=== PATIENT | female | born 1990 | race Caucasian/White ===

== ENCOUNTER 2018-11-15 05:28 | Emergency (ER) | payer OTHER ==
[2018-11-15] MEDS ORDERED: METOCLOPRAMIDE 10 MG/2mL INJ ONE (05:49)
[2018-11-15] MEDS ORDERED: ONDANSETRON 4 MG/2 ML VIAL ONE ×2 (05:49→06:38)
[2018-11-15] MEDS ORDERED: LORazepam 2 MG/ML VIAL ONE ×2 (05:51→09:28)
[2018-11-15] MEDS ORDERED: NA CHLORIDE 0.9% 1,000 ML ONE ×2 (05:51→07:37)
[2018-11-15 06:28] LABS: Absolute Monocytes 0.2 K/uL (0.1-1.3); Absolute Neutrophil 8.9 K/uL (1.8-8.0); Basophils % 0.3 % (0-1.3); Eosinophils % 0.1 % (0-4.4); Hematocrit 40.3 % (36.0-45.0); Lymphocytes % 9.7 % (15.3-44.8); MPV 8.6 fL (7.6-11.3); Monocytes % 2.3 % (3.3-12.3)
[2018-11-15 06:46] LABS: Bilirubin Direct 0.2 mg/dL (0-0.2); Bilirubin Total 0.6 mg/dL (0.2-1.0); Potassium 3.9 mmol/L (3.5-5.1)
[2018-11-15] MEDS ORDERED: PROMETHAZINE 25 MG/ML VIAL ONE ×2 (06:56→08:19)
[2018-11-15 08:30] LABS: Urine Blood NEGATIVE (NEG); Urine Glucose NEGATIVE (NEG); Urine Protein 1+ (NEG); Urine Specific Gravity 1.025 (1.005-1.030)
--- NOTE | 2018-11-15 08:37 | EDPHYS ---
Physician Documentation [facility] Name: Katherine Akbar Age: 28 yrs Sex: Female : 1990 Arrival Date: 11/15/2018 Time: 05:33 Bed 8 Private MD: LESTER Physician Bruno Singh HPI: 11/15 05:40 This 28 yrs old Female presents to ER via EMS with complaints of marcel Nausea/Vomiting. 05:40 The patient presents to the emergency department with nausea, vomiting, that is marcel continuous. Onset: The symptoms/episode began/occurred 3 day(s) ago. Possible causes: unknown. The symptoms are aggravated by nothing. Associated signs and symptoms: The patient has no apparent associated signs or symptoms. Severity of symptoms: At their worst the symptoms were moderate in the emergency department the symptoms are unchanged. The patient has experienced similar episodes in the past, several times. 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 - Social history:: Smoking status: Patient/guardian denies using tobacco. - Ebola Screening: : No symptoms or risks identified at this time. - Family history:: not pertinent. ROS: 05:40 Constitutional: Negative for fever, chills, and weight loss, Eyes: Negative for injury, marcel pain, redness, and discharge, ENT: Negative for injury, pain, and discharge, Neck: Negative for injury, pain, and swelling, Cardiovascular: Negative for chest pain, palpitations, and edema, Respiratory: Negative for shortness of breath, cough, wheezing, and pleuritic chest pain, Back: Negative for injury and pain, : Negative for injury, bleeding, discharge, and swelling, MS/Extremity: Negative for injury and deformity, Skin: Negative for injury, rash, and discoloration, Neuro: Negative for headache, weakness, numbness, tingling, and seizure, Psych: Negative for depression, anxiety, suicide ideation, homicidal ideation, and hallucinations, Allergy/Immunology: Negative for hives, rash, and allergies, Endocrine: Negative for neck swelling, polydipsia, polyuria, polyphagia, and marked weight changes, Hematologic/Lymphatic: Negative for swollen nodes, abnormal bleeding, and unusual bruising. 05:40 Abdomen/GI: Positive for abdominal pain, nausea and vomiting, abdominal cramps. Exam: 05:40 Constitutional: This is a well developed, well nourished patient who is awake, alert, marcel and in no acute distress. Head/Face: Normocephalic, atraumatic. Eyes: Pupils equal round and reactive to light, extra-ocular motions intact. Lids and lashes normal. Conjunctiva and sclera are non-icteric and not injected. Cornea within normal limits. Periorbital areas with no swelling, redness, or edema. ENT: Nares patent. No nasal discharge, no septal abnormalities noted. Tympanic membranes are normal and external auditory canals are clear. Oropharynx with no redness, swelling, or masses, exudates, or evidence of obstruction, uvula midline. Mucous membranes moist. Neck: Trachea midline, no thyromegaly or masses palpated, and no cervical lymphadenopathy. Supple, full range of motion without nuchal rigidity, or vertebral point tenderness. No Meningismus. Chest/axilla: Normal chest wall appearance and motion. Nontender with no deformity. No lesions are appreciated. Cardiovascular: Regular rate and rhythm with a normal S1 and S2. No gallops, murmurs, or rubs. Normal PMI, no JVD. No pulse deficits. Respiratory: Lungs have equal breath sounds bilaterally, clear to auscultation and percussion. No rales, rhonchi or wheezes noted. No increased work of breathing, no retractions or nasal flaring. Back: No spinal tenderness. No costovertebral tenderness. Full range of motion. Skin: Warm, dry with normal turgor. Normal color with no rashes, no lesions, and no evidence of cellulitis. MS/ Extremity: Pulses equal, no cyanosis. Neurovascular intact. Full, normal range of motion. Neuro: Awake and alert, GCS 15, oriented to person, place, time, and situation. Cranial nerves II-XII grossly intact. Motor strength 5/5 in all extremities. Sensory grossly intact. Cerebellar exam normal. Normal gait. Psych: Awake, alert, with orientation to person, place and time. Behavior, mood, and affect are within normal limits. 05:40 Abdomen/GI: Inspection: abdomen appears normal, Bowel sounds: normal, Palpation: mild abdominal tenderness, in the epigastric area, right upper quadrant and left upper quadrant. Vital Signs: 05:37 BP 140 / 98; Pulse 61; Resp 18; Temp 97.7; Pulse Ox 100% on R/A; Weight 58.97 kg; aa1 Height 5 ft. 6 in. (167.64 cm); 07:58 BP 120 / 61; Pulse 75; Resp 18; Pulse Ox 100% on R/A; hj 08:13 BP 124 / 82; Pulse 85; Resp 18; Pulse Ox 100% on R/A; hj 09:24 BP 128 / 87; Pulse 84; Resp 18; Pulse Ox 100% on R/A; hj 10:37 BP 125 / 84; Pulse 83; Resp 18; Pulse Ox 100% on R/A; hj 05:37 Body Mass Index 20.98 (58.97 kg, 167.64 cm) aa1 MDM: 05:34 Patient medically screened. [facility] 05:40 Data reviewed: vital signs, nurses notes, lab test result(s), radiologic studies, plain marcel films. 11/15 05:36 Order name: Basic Metabolic Panel; Complete Time: 06:52 ea 11/15 05:36 Order name: CBC with Diff; Complete Time: 09:22 ea 11/15 05:36 Order name: Creatinine for Radiology; Complete Time: 06:52 ea 11/15 05:36 Order name: Hepatic Function; Complete Time: 06:52 ea 11/15 05:36 Order name: Lipase; Complete Time: 06:52 ea 11/15 06:34 Order name: CBC Smear Scan; Complete Time: 09:22 EDND 11/15 05:44 Order name: Abdomen with Erect XRAY; Complete Time: 10:48 marcel 11/15 07:29 Order name: Urine Dipstick--Ancillary (enter results); Complete Time: 08:31 eb 11/15 07:29 Order name: Urine --Ancillary (enter results); Complete Time: 08:31 eb 11/15 07:33 Order name: Quantitative Hcg; Complete Time: 08:26 marcel 11/15 07:33 Order name: Abo/rh Typing; Complete Time: 08:15 marcel 11/15 08:48 Order name: ABO/RH no charge; Complete Time: 09:22 EDMS 11/15 05:36 Order name: IV Saline Lock; Complete Time: 05:36 ea 11/15 05:36 Order name: Labs collected and sent; Complete Time: 05:52 ea 11/15 05:44 Order name: Urine Dipstick-Ancillary (obtain specimen); Complete Time: 07:44 marcel 11/15 05:44 Order name: Urine Test (obtain specimen); Complete Time: 07:44 marcel 11/15 06:12 Order name: Labs - recollect needed; Complete Time: 06:29 eb 11/15 07:33 Order name: NPO; Complete Time: 07:42 marcel Administered Medications: 05:42 Drug: Reglan 10 mg Route: IVP; Site: left antecubital; ea 06:30 Follow up: Response: No adverse reaction ea 05:45 Drug: Ativan 1 mg Route: IVP; Site: left antecubital; ea 06:30 Follow up: Response: No adverse reaction ea 05:50 Drug: Zofran 4 mg Route: IVP; Site: left antecubital; ea 06:30 Follow up: Response: No adverse reaction; Pain is unchanged, physician notified ea 06:30 Drug: Zofran 4 mg Route: IVP; Site: left antecubital; ea 06:40 Follow up: Response: No adverse reaction; Pain is unchanged, physician notified ea 06:45 Drug: Phenergan 12.5 mg Route: IVP; Site: left antecubital; ea 07:01 Follow up: Response: No adverse reaction; Nausea is decreased ea 07:28 Drug: NS 0.9% 1000 ml Route: IV; Rate: 1 bolus; Site: left antecubital; hj 08:45 Follow up: IV Status: Completed infusion; IV Intake: 1000ml hj 09:00 Follow up: IV Status: Completed infusion; IV Intake: 1000ml hj 08:06 Drug: Phenergan 12.5 mg Route: IVP; Site: left antecubital; hj 08:12 Follow up: Response: No adverse reaction hj 09:18 Drug: Ativan 0.5 mg Route: IVP; Site: left antecubital; hj 09:23 Follow up: Response: No adverse reaction; Anxiety decreased hj 09:19 Drug: Phenergan Suppository 25 mg Route: KS; hj 09:23 Follow up: Response: No adverse reaction; Nausea is decreased hj Disposition: 11/15/18 08:36 Discharged to Home. Impression: Gastroparesis, Vomiting, unspecified. - Condition is Stable. - Discharge Instructions: Nausea and Vomiting, Adult, Nausea and Vomiting, Adult, [id number], Gastroparesis. - Prescriptions for Clonidine 0.1 mg Oral Tablet - take 1 tablet by ORAL route every 12 hours; 20 tablet. Klonopin 1 mg Oral Tablet - take 1 tablet by ORAL route every 12 hours As needed; 20 tablet. Pepcid 20 mg Oral Tablet - take 1 tablet by ORAL route every 12 hours for 10 days; 20 tablet. promethazine 25 mg Oral Tablet - take 1 tablet by ORAL route every 6 hours As needed; 20 tablet. - Medication Reconciliation Form, Thank You Letter, Antibiotic Education, Prescription Opioid Use form. - Follow up: Emergency Department; When: As needed; Reason: Worsening of condition. Follow up: Private Physician; When: 2 - 3 days; Reason: Recheck today's complaints, Continuance of care, Re-evaluation by your physician. Signatures: Dispatcher [employer] [facility] Angelina Dick RN RN aaBruno Cuba MD MD cha Therrien, Shelly, RESIDENTIAL PROPERTY TAX APPRAISER-C RESIDENTIAL PROPERTY TAX APPRAISER-Csnw Jh Stokes RN RN hj Antunez, Elena RN Olga Shine ea Corrections: (The following items were deleted from the chart) 11:17 07:33 Transvaginal Ob+US.RAD.BRZ ordered. [facility] 11:25 08:36 11/15/2018 08:36 Discharged to Home. Impression: Gastroparesis; Vomiting, hj unspecified. Condition is Stable. Discharge Instructions: Nausea and Vomiting, Adult, Nausea and Vomiting, Adult, [id number], Gastroparesis. Prescriptions for Clonidine 0.1 mg Oral Tablet - take 1 tablet by ORAL route every 12 hours; 20 tablet, Klonopin 1 mg Oral Tablet - take 1 tablet by ORAL route every 12 hours As needed; 20 tablet, Pepcid 20 mg Oral Tablet - take 1 tablet by ORAL route every 12 hours for 10 days; 20 tablet, promethazine 25 mg Oral Tablet - take 1 tablet by ORAL route every 6 hours As needed; 20 tablet. and Forms are Medication Reconciliation Form, Thank You Letter, Antibiotic Education, Prescription Opioid Use. Follow up: Emergency Department; When: As needed; Reason: Worsening of condition. Follow up: Private Physician; When: 2 - 3 days; Reason: Recheck today's complaints, Continuance of care, Re-evaluation by your physician. eri
--- NOTE | 2018-11-15 08:37 | ER ---
Nurse's Notes [facility] Name: Katherine Akbar Age: 28 yrs Sex: Female : 1990 Arrival Date: 11/15/2018 Time: 05:33 Bed 8 Private MD: Diagnosis: Gastroparesis;Vomiting, unspecified Presentation: 11/15 05:34 Presenting complaint: Patient states: N/V x 3 days. Reports hx of gastroparesis but has aa1 not had a flare up in several years. Transition of care: patient was not received from another setting of care. Onset of symptoms was November 12, 2018. Risk Assessment: Do you want to hurt yourself or someone else? Patient reports no desire to harm self or others. Initial Sepsis Screen: Does the patient meet any 2 criteria? No. Patient's initial sepsis screen is negative. Does the patient have a suspected source of infection? No. Patient's initial sepsis screen is negative. Care prior to arrival: Glucose check: 125. 05:34 Method Of Arrival: EMS: [facility] aa1 05:34 Acuity: BALTAZAR 3 aa1 Triage Assessment: 05:37 General: Appears in no apparent distress. uncomfortable, Behavior is calm, cooperative, aa1 appropriate for age. 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 - Social history:: Smoking status: Patient/guardian denies using tobacco. - Ebola Screening: : No symptoms or risks identified at this time. - Family history:: not pertinent. Screenin:50 Fall Risk ea 05:55 Abuse screen: Denies threats or abuse. Nutritional screening: No deficits noted. ea Tuberculosis screening: No symptoms or risk factors identified. Assessment: 05:40 General: Appears uncomfortable, Behavior is appropriate for age. Pain: Denies pain. ea Neuro: Level of Consciousness is awake, alert, obeys commands, Oriented to person, place, time, situation. Cardiovascular: Patient's skin is warm and dry. Respiratory: Airway is patent Respiratory effort is even, unlabored, Respiratory pattern is regular, symmetrical. GI: Abdomen is non-distended, Abd is soft and non tender X 4 quads. Reports nausea, vomiting. Derm: Skin is pink, warm \\T\\ dry. Musculoskeletal: Circulation, motion, and sensation intact. 06:40 Reassessment: Patient and/or family updated on plan of care and expected duration. Pain ea level reassessed. Patient is alert, oriented x 3, equal unlabored respirations, skin warm/dry/pink. 07:59 General: Appears in no apparent distress. uncomfortable, Behavior is calm, cooperative, hj appropriate for age. Pain: Denies pain. Neuro: Level of Consciousness is awake, alert, obeys commands, Oriented to person, place, time, situation, Appropriate for age. Cardiovascular: Capillary refill < 3 seconds Patient's skin is warm and dry. Respiratory: Airway is patent Respiratory effort is even, unlabored, Respiratory pattern is regular, symmetrical. GI: Abdomen is non-distended, Abd is soft and non tender X 4 quads. Reports nausea. : No signs and/or symptoms were reported regarding the genitourinary system. EENT: No signs and/or symptoms were reported regarding the EENT system. Derm: No signs and/or symptoms reported regarding the dermatologic system. Musculoskeletal: No signs and/or symptoms reported regarding the musculoskeletal system. 08:00 Reassessment: Patient and/or family updated on plan of care and expected duration. Pain hj level reassessed. Patient is alert, oriented x 3, equal unlabored respirations, skin warm/dry/pink. resting comfortably, awaiting results of HCG;. 09:00 Reassessment: Patient and/or family updated on plan of care and expected duration. Pain hj level reassessed. Patient is alert, oriented x 3, equal unlabored respirations, skin warm/dry/pink. still nauseous and vomted x 2; provider aware with orders;. 09:35 Reassessment: Patient and/or family updated on plan of care and expected duration. Pain hj level reassessed. Patient is alert, oriented x 3, equal unlabored respirations, skin warm/dry/pink. ptstates "im sleepy, im about to call my dad for a ride"; will let you know;. 09:58 Reassessment: per pt: tried calling dad, but not answering, im calling him again;. hj 10:23 Reassessment: Patient and/or family updated on plan of care and expected duration. Pain hj level reassessed. Patient is alert, oriented x 3, equal unlabored respirations, skin warm/dry/pink. awaiting results;. 10:36 Reassessment: per pt: im going to try to call my dad again or look for other relatives hj to pick me up;. Vital Signs: 05:37 BP 140 / 98; Pulse 61; Resp 18; Temp 97.7; Pulse Ox 100% on R/A; Weight 58.97 kg; aa1 Height 5 ft. 6 in. (167.64 cm); 07:58 BP 120 / 61; Pulse 75; Resp 18; Pulse Ox 100% on R/A; hj 08:13 BP 124 / 82; Pulse 85; Resp 18; Pulse Ox 100% on R/A; hj 09:24 BP 128 / 87; Pulse 84; Resp 18; Pulse Ox 100% on R/A; hj 10:37 BP 125 / 84; Pulse 83; Resp 18; Pulse Ox 100% on R/A; hj 05:37 Body Mass Index 20.98 (58.97 kg, 167.64 cm) aa1 ED Course: 05:33 Patient arrived in ED. aa1 05:34 Bruno Singh MD is Attending Physician. marcel 05:36 Reema Og, FORTUNATO is Primary Nurse. ea 05:36 Triage completed. aa1 05:37 Arm band placed on right wrist. aa1 05:40 Patient has correct armband on for positive identification. Bed in low position. Call ea light in reach. Side rails up X2. 05:40 Inserted saline lock: 20 gauge in left antecubital area, using aseptic technique. Blood ea collected. 05:58 X-ray completed. Patient tolerated procedure well. sg4 06:01 Abdomen with Erect XRAY In Process Unspecified. EDMS 07:03 Report given to Jh BUCIO. ea 07:41 Guera Coornado FNP-C is PHCP. snw 07:58 Quantitative Hcg Sent. hj 07:58 Abo/rh Typing Sent. hj 08:04 Radiology exam delayed due to test not completed at this time. sg3 09:36 No provider procedures requiring assistance completed. IV discontinued, intact, hj bleeding controlled, No redness/swelling at site. Pressure dressing applied. Administered Medications: 05:42 Drug: Reglan 10 mg Route: IVP; Site: left antecubital; ea 06:30 Follow up: Response: No adverse reaction ea 05:45 Drug: Ativan 1 mg Route: IVP; Site: left antecubital; ea 06:30 Follow up: Response: No adverse reaction ea 05:50 Drug: Zofran 4 mg Route: IVP; Site: left antecubital; ea 06:30 Follow up: Response: No adverse reaction; Pain is unchanged, physician notified ea 06:30 Drug: Zofran 4 mg Route: IVP; Site: left antecubital; ea 06:40 Follow up: Response: No adverse reaction; Pain is unchanged, physician notified ea 06:45 Drug: Phenergan 12.5 mg Route: IVP; Site: left antecubital; ea 07:01 Follow up: Response: No adverse reaction; Nausea is decreased ea 07:28 Drug: NS 0.9% 1000 ml Route: IV; Rate: 1 bolus; Site: left antecubital; hj 08:45 Follow up: IV Status: Completed infusion; IV Intake: 1000ml hj 09:00 Follow up: IV Status: Completed infusion; IV Intake: 1000ml hj 08:06 Drug: Phenergan 12.5 mg Route: IVP; Site: left antecubital; hj 08:12 Follow up: Response: No adverse reaction hj 09:18 Drug: Ativan 0.5 mg Route: IVP; Site: left antecubital; hj 09:23 Follow up: Response: No adverse reaction; Anxiety decreased hj 09:19 Drug: Phenergan Suppository 25 mg Route: IA; hj 09:23 Follow up: Response: No adverse reaction; Nausea is decreased hj Intake: 08:45 IV: 1000ml; Total: 1000ml. hj 09:00 IV: 1000ml; Total: 2000ml. hj Outcome: 08:36 Discharge ordered by . eri 09:36 Discharged to home ambulatory, with family. hj 09:36 Condition: stable 09:36 Discharge instructions given to patient, Instructed on discharge instructions, follow up and referral plans. medication usage, Demonstrated understanding of instructions, follow-up care, medications, Prescriptions given X 4. 11:25 Patient left the ED. hj Signatures: Dispatcher [employer] EDMS Angelina Dick RN RN aaBruno Cuba MD MD cha Therrien, Shelly, LICENSED PHARMACIST-C LICENSED PHARMACIST-Csnw Jh Stokes, RN Reema Hernandez, RN FORTUNATO Young, Karla sg3 Dorina Disla sg4 Corrections: (The following items were deleted from the chart) 05:57 05:26 General: Appears uncomfortable, Behavior is ea ea 08:14 07:58 BP 120 / 61; Pulse 65bpm; Resp 18bpm; Pulse Ox 100% RA; hj 09: 08:00 Reassessment: Patient and/or family updated on plan of care and expected hj duration. Pain level reassessed. Patient is alert, oriented x 3, equal unlabored respirations, skin warm/dry/pink. still nauseous and vomted x 2; provider aware with orders; 09:00 Reassessment: Patient and/or family updated on plan of care and expected hj duration. Pain level reassessed. Patient is alert, oriented x 3, equal unlabored respirations, skin warm/dry/pink. resting comfortably, awaiting results of HCG; hj
[2018-11-15 09:17] LABS: Blood Morphology Comment NOT SEEN (NOT SEEN); Platelet Estimate ADEQ; Urine White Blood Cell Casts OK
[2018-11-15] MEDS ORDERED: PROMETHAZINE 12.5 MG/SUPP PR ONE (09:24)
[2018-11-15] MEDS ORDERED: PROMETHAZINE 25 MG/SUPP PR ONE (09:28)
--- NOTE | 2018-11-15 10:37 | RAD REPORT ---
EXAM DESCRIPTION: RAD - Abdomen W Erect - 11/15/2018 6:01 am CLINICAL HISTORY: ABD PAIN Pain COMPARISON: No comparisons FINDINGS: The bowel gas pattern is non-obstructive. No evidence of free air or pneumatosis. No suspi cious calcifications. No significant bony findings. IUD is noted. IMPRESSION: Negative examination.
== END 2018-11-15 11:25 | disposition home or self-care (01) ==
LOC: ER 05:28
DX: K31.84 Gastroparesis (principal); F41.9 Anxiety disorder, unspecified
CPT/HCPCS: 36415; 74019; 80048; 80076; 81003; 81025; 83690; 84702; 85025; 86900; 86901; 96361; 96374; 96375; 99284; J2405; J2550; J2765; J7030

== ENCOUNTER 2023-04-29 17:01 | Observation (INO) | payer OTHER ==
--- OUTSIDE RECORDS SUMMARY | 2023-04-29 17:10 | XMS REPORT | Continuity of Care Document ---
:1990 Author Organization [facility] t Address [address] [place] [address] [place] [id number] Care Team Providers Name Role Phone JANE BERRY Primary Care Physician Unavailable VALERIA JONAS Attending Clinician Unavailable EDEN OLIVAS Attending Clinician Unavailable Edie Og Attending Clinician JANE BERRY Attending Clinician Unavailable Jane Osorio Attending Clinician Tomasz Rodriguez MD Attending Clinician YONY COX Attending Clinician Unavailable Yony Cox MD Attending Clinician Doctor Unassigned, [place] Attending Clinician Unavailable TOMASZ RODRIGUEZ Attending Clinician Unavailable 2, [facility] Attending Clinician Unavailable Valeria Jonas MD Attending Clinician Alisson Bhatt LVN Attending Clinician CATHRYN LINO Attending Clinician Unavailable Sybil Victor Attending Clinician Bartolo Cervantes MD Attending Clinician Cathryn Lino DO Attending Clinician Charlotte Shay RN Attending Clinician Unavailable EDILMA CANALES Attending Clinician Unavailable Pob, [facility] Main Attending Clinician Unavailable CORWIN LEON Attending Clinician Unavailable Margo Michael RN Attending Clinician Unavailable Kalen Chase Attending Clinician Sonia Oseguera MD Attending Clinician KALEN YEAGER Attending Clinician Unavailable Dorcas Man DO Attending Clinician DORCAS MAN Attending Clinician Unavailable CATHRYN LINO Admitting Clinician Unavailable Cathryn Lino DO Admitting Clinician Sonia Oseguera MD Admitting Clinician Payers Payer Name Policy Type Policy Number Effective Date Expiration Date Manuel [employer] [id number] 2015 00:00:00 [facility] [id number] 2019 HEALTH PLAN [facility] 00:00:00 [facility] Problems Condition Condition Condition Status Onset Resolution Last Treating Co mments Source Name Details Category Date Date Treatment Clinician Date Vomiting Vomiting Disease Active 2020-08 Unive rs 2-06 ity of 00:00: [place] [facility] Obesity Obesity Disease Active 2020-08 Univers (BMI (BMI 2-06 ity of 30-39.9) 30-39.9) 00:00: [place] [facility] Anxiety Anxiety Disease Active Univers 6-04 ity of 00:00: [place] [facility] PID PID Disease Active Univers (pelvic (pelvic 6-04 ity of inflammato inflammato [place] 00 Medical disease) disease) Branch Acquired Acquired Disease Active 2019-08 Unive rs hypothyroi hypothyroi 2-10 it y of dism dism 00:00: [place] [facility] Mild Mild Disease Active 2019-08 Univers anemia anemia 2-10 ity of 00:00: [place] [facility] Vitamin D Vitamin D Disease Active 2019-08 Uni vers deficiency deficiency 2-10 it y of 00:00: [place] [facility] B12 B12 Disease Active 2019-08 Univers deficiency deficiency 2-10 it y of 00:00: [place] [facility] Mixed Mixed Disease Active 2019-08 Univers hyperlipid hyperlipid 2-10 it y of emia emia 00:00: [place] [facility] Intractabl Intractabl Disease Active 2019-08 U nivers e nausea e nausea 0-16 ity of and and 00:00: [place] vomiting vomiting 00 Medica l Branch Opioid Opioid Disease Active Univers dependence dependence 7-21 it y of , , 00:00: [place] uncomplica uncomplica 00 Me dical mary hernandez Branch Presence Presence Disease Active 2018-08 Overview: Un aníbal of of 0-23 Formattin ity of intrauteri intrauteri 00:00: g of this [place] ne ne 00 note Medical contracept contracept might be Branch carolyn device carolyn device different from the original. Mirena IUD placed September 2014 at [facility]. Due for removal/r einsertio n September 2019.Beckie na IUD placed September 2014 at [facility]. Due for removal/r einsertio n September 2019. Controlled Controlled Disease Active Overview : Univers substance substance 4-12 Formattin i ty of agreement agreement 00:00: g of this [place] signed signed 00 note Medical might be Branch different from the original. Formattin g of this note might be different from the original. Signed 11-27-18 - Alprazola m 1mg Tab, 1-2T daily PRN, #45/28-30 DS 019 ALPRAZOLA M 1 MG TABLET #40 27 [id number] LETICIA LEO MD [facility]2018 SUBOXONE 8 MG- 2 MG SL FILM [id number] 03 #28 GAEL B[facility]2018 SUBOXONE 8 MG- 2 MG SL FILM [id number] 03 #28 [facility]2018 ALPRAZOLA M 1 MG TABLET # [address] [facility]2018 SUBOXONE 8 MG- 2 MG SL FILM #28 [facility]2018 ALPRAZOLA M 1 MG TABLET # [address] [facility]2018 BUPRENORP HIN- [place] 8- 2 MG SL # 2804/06/20 019 ALPRAZOLA M 1 MG TABLET # 45 NATALIE [address] [facility]2018 ALPRAZOLA M 1 MG TABLET #15 NATALIE Gomez [facility]2018 BUPREN[employer]P HIN- [place] 8- 2 MG SL # 30 [facility] [employer]10/06 ALPRAZOLA M 1 MG TABLET # 45 [facility]2018 ALPRAZOLA M 1 MG TABLET # 45 [facility]IANA [facility]2017 [employer] HIN- [place] 8- 2 MG [id number] [facility]2017 ALPRAZOLA M 1 MG [id number] [id number] LETICIA [facility]2017 [employer] HIN- [place] 8- 2 MG [id number] [facility]2017 [employer] HIN- [place] 8- 2 MG [id number] [facility]2017 ALPRAZOLA M 1 MG [id number] [facility]AS [facility]2017 BUPRENORP HIN- [place] 8- 2 MG SL #4228 [id number] [facility]2017 ALPRAZOLA M 1 MG [id number] 450 018 [employer] [facility]- [place] 8- 2 MG [id number] [facility] [employer]2017 [employer] HIN- [place] 8- 2 MG [id number] 7083 [id number] [facility]2017 [employer] HIN- [place] 8- 2 MG [id number] [facility]2017 ALPRAZOLA M 1 MG [id number] [facility] [employer]2017 [employer] HIN- [place] 8- 2 MG [id number] 7083 [id number] [facility]2017 ELEUTERIO M 1 MG [id number] ADLLAS Arceo MD [place] [employer] [facility] Iron Iron Disease Active Overview: Univer s deficiency deficiency 4-11 Formattin ity of anemia anemia 00:00: g of this [place] secondary secondary 00 note Medi lara to to might be Branch inadequate inadequate different dietary dietary from the iron iron original. intake intake Formattin g of this note might be different from the original. Pain clinic ROSELYN found iron borderlin e low recommend ed OTC iron with vitamin C Pt has been taking since october. Insomnia Insomnia Disease Active Overview: Un aníbal 2-04 Formattin ity of 00:00: g of this [place] 00 note Medical might be Branch different from the original. Continue clonidine with the knowledge that this could be triggerin g her anxiety sx. She though feels this medicatio n has been the best for keeping her asleep. Discussed side effects of medicatio ns. Recheck in Formatt ing of this note might be different from the original. Continue clonidine with the knowledge that this could be triggerin g her anxiety sx. She though feels this medicatio n has been the best for keeping her asleep. Discussed side effects of medicatio ns. Recheck in Seasonal Seasonal Disease Active Unive rs allergies allergies 2- ity of 00:00: [place] 00 Medical Branch Cyclical Cyclical Disease Active Overview: Un aníbal vomiting vomiting 04-23 Formattin ity of with with 00:00: g of this [place] nausea nausea 00 note Medical might be Branch different from the original. Long hx with work up recent and distant past by GI. Stable x several yrs though needed to go to ED on vacation in [place] last wk. These records requested . GI work up 04/2017 cont constipat ion tx linzess, stool softeners . Recheck as neededLon g hx with work up recent and distant past by GI. Stable x several yrs though needed to go to ED on vacation in [place] last wk. These records requested . GI work up 04/2017 cont constipat ion tx linzess, stool softeners . Recheck as needed Gallstones Gallstones Disease Active U nivers 7-08 ity of 00:00: [place] 00 Medical Branch Gastropare Gastropare Disease Active U nivers sis sis 09-13 ity of 00:00: [place] [facility] Prolonged Prolonged Disease Active Uni vers Q-T Q-T 09-13 ity of interval interval 00:00: [place] on ECG on ECG Medical Branch History of History of Disease Active Overview : Univers heroin heroin 11-04 Formattin ity of abuse abuse 00:00: g of this [place] note Medical might be Branch different from the original. Methadone 48mg dailyMeth adone 48mg daily Generalize Generalize Disease Active Overview : Univers d anxiety d anxiety 02-25 Formattin i ty of disorder disorder 00:00: g of this [place] 00 note Medical might be Branch different from the original. Doing well with xanax and prozac Refilled today. All new to examiner. Started new contractC ontract xanax signed 11/27/2018 #45/28-30 daysDoing well with xanax and prozac Refilled today. All new to examiner. Started new contractC ontract xanax signed 11/27/2018 #45/28-30 days Constipati Constipati Disease Active Overview : Univers on on 02-21 Formattin ity of 00:00: g of this [place] note Medical might be Branch different from the original. Instructe d to monitor closely as close correlati on with N/V gastropar esis triggers Ok to increase stool softeners am and pm and cont linzess Daily stool is great though softer would be better,. Opioid Opioid Disease Active Overview: Univer s dependence dependence 02-18 Formattin ity of 00:00: g of this [place] note Medical might be Branch different from the original. Followed [facility] suboxone tx Every 1 m 11/04/2018 . 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 Formattin g of this note might be different from the original. SINTIA II 2014 on leep with negative margins. Repeat pap 2016 negative. Formattin g of this note might be different from the original. Overview: SINTIA II 2014 on leep with negative margins. Repeat pap 2016 negative. History of History of Disease Active Overview : Univers abnormal abnormal 08-27 Formattin ity of cervical cervical 00:00: g of this [place] as Papanicola Papanicola 00 note Me dical ou smear ou smear might be Bran ch different from the original. PAP UTD per the pt's report (11/2015), was normal. requested the pt have records sent over from gynecolog ist.Forma tting of this note might be different from the original. PAP UTD per the pt's report (11/2015), was normal. requested the pt have records sent over from gynecolog ist. Recurrent Recurrent Disease Active Uni vers UTI UTI ity of [place] [facility] [place] Allergies, Adverse Reactions, Alerts Allergy Allergy Status Severity Reaction(s) Onset Inactive Treating Comm ents Source Name Type Date Date Clinician Prochlor Propensi Active Other - See Per U [employer] perazine ty to comments 04-23 patient ity o f adverse 00:00: was in [place] reaction 00 coma, Medical s could Branch hear everythin g but could not make eye contact or communica te verbally/ physicall y. Patient started "twitchin g". PROCHLOR DRUG Active Other-Cmnt [place] [facility] ers PERAZINE INGREDI 04-23 ity of 00:00: [place] [facility] PROCHLOR DRUG Active Low Other-Cmnt Univ ers PERAZINE INGREDI 02-20 ity of 00:00: [facility] Prochlor Propensi Active Other - See Per U nivers perazine ty to comments 02-20 patient ity o f adverse 00:00: was in [place] reaction 00 coma, Medical s could Branch hear everythin g but could not make eye contact or communica te verbally/ physicall y. Patient started "twitchin g".[place] ic reactionP er CE Dystonic reaction, ?has tolerated promethaz ine.Per CE Dystonic reaction, ?has tolerated promethaz ine.Dysto harshal reactionH as tolerated promethaz ine Social History Social Habit Start Date Stop Date Quantity Comments Source Exposure to 2022-01-30 2022-02-09 Not sure [facility]-CoV-2 00:00:00 10:56:00 [facility] (event) Branch Alcohol intake 2022-02-09 2022-02-09 Ex-drinker [facility] 00:00:00 00:00:00 (finding) [facility] Tobacco use and 2021-08-08 2021-08-08 Smokeless tobacco Un iversity of exposure 00:00:00 00:00:00 non-user [facility] Sex Ass[birth year] At [birth year] Universit y of 00:00:00 00:00:00 [facility] Smoking Status Start Date Stop Date Source Never smoked tobacco [facility] Medications Ordered Filled Start Stop Current Ordering Indication Dosage Frequency Signature Comments Components Source Medication Medication Date Date Medication? Clinician (SIG) Name Name CLONIDINE Yes [id number] .3mg TAKE 1 U nivers 0.3 mg 6-07 TABLET BY ity of tablet 00:00: MOUTH AT [place] [address] BEDTIME. Medical FOR Branch ANXIETY/ HYPERTENSI ON cloNIDine Yes [id number] .3mg Take 1 U nivers 0.3 mg 5-05 tablet by ity of tablet 00:00: mouth at [place] [address] bedtime. Medical For Branch anxiety/ Hypertensi on cloNIDine 0 Yes [id number] .3mg Take 1 U nivers 0.3 mg 5-05 tablet by ity of tablet 00:00: mouth at [place] [address] bedtime. Medical For Branch anxiety/ Hypertensi on cloNIDine 2022-0 2022- No [id number] .3mg Take 1 Univers 0.3 mg 5-05 06-07 tablet by ity of tablet 00:00: 00:00 mouth at [place] 00 :00 bedtime. Medical For Branch anxiety/ Hypertensi on sucralfate Yes 1000mg Take 10 mL Univers 100 mg/mL 5-01 by mouth 4 ity of suspension 17:05: (four) [place] 35 times Medical daily. Branch naloxegoL Yes 25mg Take 25 mg Un aníbal 25 mg Tab 5-01 by mouth ity of 17:05: in the [place] [address] morning. Medical Branch metoclopram Yes 10mg Take 1 Univ ers thao HCl 10 5-01 tablet by ity of mg tablet 17:05: mouth in [facility] 35 the Medical morning Branch and 1 tablet at noon and 1 tablet in the evening. linaCLOtide 2023-0 Yes 72ug Take 1 Univ ers 72 mcg Cap 5-01 capsule by ity of 17:05: mouth in [place] [address] the Medical morning. Branch FLUoxetine 2023-0 Yes 20mg Take 1 Unive rs 20 mg 5-01 capsule by ity of capsule 17:05: mouth in [place] [address] the Medical morning. Branch dronabinoL 2023-0 Yes 2.5mg Take 1 Univ ers 2.5 mg 5-01 capsule by ity of capsule 17:05: mouth in [place] [address] the Medical morning Branch and 1 capsule in the evening. ALPRAZolam 2023-0 Yes 1mg Take 1 Unive rs 1 mg tablet 5-01 tablet by ity of 17:05: mouth at [place] [address] bedtime as Medical needed. Branch sucralfate 2023-0 Yes 1000mg Take 10 mL Univers 100 mg/mL 5-01 by mouth 4 ity of suspension 17:05: (four) [place] [address] times Medical daily. Branch naloxegoL 2023-0 Yes 25mg Take 25 mg Un aníbal 25 mg Tab 5-01 by mouth ity of 17:05: in the [place] [address] morning. Medical Branch metoclopram 2023-0 Yes 10mg Take 1 Univ ers thao HCl 10 5-01 tablet by ity of mg tablet 17:05: mouth in [place] [address] the Medical morning Branch and 1 tablet at noon and 1 tablet in the evening. linaCLOtide 2023-0 Yes 72ug Take 1 Univ ers 72 mcg Cap 5-01 capsule by ity of 17:05: mouth in [place] [address] the Medical morning. Branch FLUoxetine 2023-0 Yes 20mg Take 1 Unive rs 20 mg 5-01 capsule by ity of capsule 17:05: mouth in [place] [address] the Medical morning. Branch dronabinoL 2023-0 Yes 2.5mg Take 1 Univ ers 2.5 mg 5-01 capsule by ity of capsule 17:05: mouth in [place] [address] the Medical morning Branch and 1 capsule in the evening. ALPRAZolam 2023-0 Yes 1mg Take 1 Unive rs 1 mg tablet 5-01 tablet by ity of 17:05: mouth at [place] [address] bedtime as Medical needed. Branch sucralfate 2023-0 Yes 1000mg Take 10 mL Univers 100 mg/mL 5-01 by mouth 4 ity of suspension 17:05: (four) [place] [address] times Medical daily. Branch naloxegoL Yes 25mg Take 25 mg Un aníbal 25 mg Tab 5-01 by mouth ity of 17:05: in the [place] [address] morning. Medical Branch metoclopram 0 Yes 10mg Take 1 Univ ers thao HCl 10 5-01 tablet by ity of mg tablet 17:05: mouth in [place] [address] the Medical morning Branch and 1 tablet at noon and 1 tablet in the evening. linaCLOtide 0 Yes 72ug Take 1 Univ ers 72 mcg Cap 5-01 capsule by ity of 17:05: mouth in [place] [address] the Medical morning. Branch FLUoxetine Yes 20mg Take 1 Unive rs 20 mg 5-01 capsule by ity of capsule 17:05: mouth in [place] [address] the Medical morning. Branch dronabinoL Yes 2.5mg Take 1 Univ ers 2.5 mg 5-01 capsule by ity of capsule 17:05: mouth in [place] [address] the Medical morning Branch and 1 capsule in the evening. ALPRAZolam Yes 1mg Take 1 Unive rs 1 mg tablet 5-01 tablet by ity of 17:05: mouth at [place] [address] bedtime as Medical needed. Branch proMETHazin Yes [id number] 25mg Take 1 Univers e 25 mg 4-03 tablet by ity of tablet 00:00: mouth [place] [address] every 6 Medical (six) Branch hours as needed for N/V unresponsi ve to Ondansetro n. cloNIDine Yes [id number] .3mg Take 1 U nivers 0.3 mg 4-03 tablet by ity of tablet 00:00: mouth at [place] [address] bedtime. Medical For Branch anxiety/ Hypertensi on proMETHazin Yes [id number] 25mg Take 1 Univers e 25 mg 4-03 tablet by ity of tablet 00:00: mouth [place] 00 every 6 Medical (six) Branch hours as needed for N/V unresponsi ve to Ondansetro n. proMETHazin 2022-0 Yes [id number] 25mg Take 1 Univers e 25 mg 4-03 tablet by ity of tablet 00:00: mouth [place] [address] every 6 Medical (six) Branch hours as needed for N/V unresponsi ve to Ondansetro n. proMETHazin Yes [id number] 25mg Take 1 Univers e 25 mg 4-03 tablet by ity of tablet 00:00: mouth [place] 00 every 6 Medical (six) Branch hours as needed for N/V unresponsi ve to Ondansetro n. cloNIDine 2022- No [id number] .3mg Take 1 Univers 0.3 mg 4-03 05-05 tablet by ity of tablet 00:00: 00:00 mouth at [place] 00 :00 bedtime. Medical For Branch anxiety/ Hypertensi on cloNIDine 0 2022- No [id number] .3mg Take 1 Univers 0.3 mg 4-03 05-05 tablet by ity of tablet 00:00: 00:00 mouth at [place] 00 :00 bedtime. Medical For Branch anxiety/ Hypertensi on chlorhexidi Yes RINSE Unive rs ne 0.12 % 3-06 MOUTH WITH ity of mouthwash 00:00: 15ML ( CAPFUL) Medical FOR 30 Branch SECONDS IN MORNING AND EVENING AFTER BRUSHING, THEN SPIT cloNIDine Yes [id number] .3mg Take 1 U nivers 0.3 mg 1-11 tablet by ity of tablet 00:00: mouth at [place] [address] bedtime. Medical For Branch anxiety/ Hypertensi on cloNIDine Yes [id number] .3mg Take 1 U nivers 0.3 mg 1-11 tablet by ity of tablet 00:00: mouth at [place] [address] bedtime. Medical For Branch anxiety/ Hypertensi on cloNIDine Yes [id number] .3mg Take 1 U nivers 0.3 mg 1-11 tablet by ity of tablet 00:00: mouth at [place] 00 bedtime. Medical For Branch anxiety/ Hypertensi on cloNIDine 2022-0 2022- No [id number] .3mg Take 1 Univers 0.3 mg 1-11 -31 tablet by ity of tablet 00:00: 00:00 mouth at [place] 00 :00 bedtime. Medical For Branch anxiety/ Hypertensi on proMETHazin 2021-08 Yes [id number] 25mg Take 1 Univers e 25 mg 2-09 tablet by ity of tablet 00:00: mouth [place] 00 every 6 Medical (six) Branch hours as needed for N/V unresponsi ve to Ondansetro n. proMETHazin 2021-08 Yes [id number] 25mg Take 1 Univers e 25 mg 2-09 tablet by ity of tablet 00:00: mouth [place] 00 every 6 Medical (six) Branch hours as needed for N/V unresponsi ve to Ondansetro n. proMETHazin 2021-08 Yes [id number] 25mg Take 1 Univers e 25 mg 2-09 tablet by ity of tablet 00:00: mouth [place] 00 every 6 Medical (six) Branch hours as needed for N/V unresponsi ve to Ondansetro n. proMETHazin 2021-08 Yes [id number] 25mg Take 1 Univers e 25 mg 2-09 tablet by ity of tablet 00:00: mouth [place] 00 every 6 Medical (six) Branch hours as needed for N/V unresponsi ve to Ondansetro n. proMETHazin 2021-08- No [id number] 25mg Take 1 Univers e 25 mg 2-09 03-31 tablet by ity of tablet 00:00: 00:00 mouth [place] 00 :00 every 6 Medical (six) Branch hours as needed for N/V unresponsi ve to Ondansetro n. cloNIDine 2021-08 Yes [id number] .3mg Take 1 U nivers 0.3 mg 2-08 tablet by ity of tablet 00:00: mouth at [place] 00 bedtime. Medical For Branch anxiety/ Hypertensi on cloNIDine 2021-08 Yes [id number] .3mg Take 1 U nivers 0.3 mg 2-08 tablet by ity of tablet 00:00: mouth at [place] 00 bedtime. Medical For Branch anxiety/ Hypertensi on cloNIDine 2021-08- No [id number] .3mg Take 1 Univers 0.3 mg 2-08 01-11 tablet by ity of tablet 00:00: 00:00 mouth at [place] 00 :00 bedtime. Medical For Branch anxiety/ Hypertensi on cloNIDine Yes [id number] .3mg Take 1 U nivers 0.3 mg 9-14 tablet by ity of tablet 00:00: mouth at [place] 00 bedtime. Medical For Branch anxiety/ Hypertensi on cloNIDine 2021- No [id number] .3mg Take 1 Univers 0.3 mg 9-14 12-08 tablet by ity of tablet 00:00: 00:00 mouth at [place] 00 :00 bedtime. Medical For Branch anxiety/ Hypertensi on proMETHazin Yes [id number] 25mg Insert 1 Univers e 25 mg 9-04 Suppositor ity of suppository 00:00: [place] rectum Medical every 4 Branch (four) hours as needed for Nausea and Vomiting (N/V). proMETHazin Yes [id number] 25mg Take 1 Univers e 25 mg 9-04 tablet by ity of tablet 00:00: mouth [place] 00 every 6 Medical (six) Branch hours as needed for N/V unresponsi ve to Ondansetro n. proMETHazin Yes [id number] 25mg Insert 1 Univers e 25 mg 9-04 Suppositor ity [facility] supp[facility] every 4 Branch (four) hours as needed for Nausea and Vomiting (N/V). proMETHazin Yes [id number] 25mg Take 1 Univers e 25 mg 9-04 tablet by ity of tablet 00:00: mouth [place] 00 every 6 Medical (six) Branch hours as needed for N/V unresponsi ve to Ondansetro n. proMETHazin Yes [id number] 25mg Insert 1 Univers e 25 mg 9-04 Suppositor ity of suppository 00:00: [facility] Medical every 4 Branch (four) hours as needed for Nausea and Vomiting (N/V). proMETHazin Yes [id number] 25mg Take 1 Univers e 25 mg 9-04 tablet by ity of tablet 00:00: mouth [place] 00 every 6 Medical (six) Branch hours as needed for N/V unresponsi ve to Ondansetro n. proMETHazin Yes [id number] 25mg Insert 1 Univers e 25 mg 9-04 Suppositor ity of suppository 00:00: [place] rectum Medical every 4 Branch (four) hours as needed for Nausea and Vomiting (N/V). proMETHazin Yes [id number] 25mg Insert 1 Univers e 25 mg 9-04 Suppositor ity of suppository 00:00: [place] rectum Medical every 4 Branch (four) hours as needed for Nausea and Vomiting (N/V). proMETHazin Yes [id number] 25mg Insert 1 Univers e 25 mg 9-04 Suppositor ity of suppository 00:00: [place] rectum Medical every 4 Branch (four) hours as needed for Nausea and Vomiting (N/V). proMETHazin Yes [id number] 25mg Insert 1 Univers e 25 mg 9-04 Suppositor ity of suppository 00:00: [place] rectum Medical every 4 Branch (four) hours as needed for Nausea and Vomiting (N/V). proMETHazin Yes [id number] 25mg Insert 1 Univers e 25 mg 9-04 Suppositor ity of suppository 00:00[facility] Medical every 4 Branch (four) hours as needed for Nausea and Vomiting (N/V). proMETHazin 2021- No [id number] 25mg Take 1 Univers e 25 mg 9-04 12-09 tablet by ity of tablet 00:00: 00:00 mouth [place] 00 :00 every 6 Medical (six) Branch hours as needed for N/V unresponsi ve to Ondansetro n. proMETHazin Yes [id number] 25mg Insert 1 Univers e 25 mg 6-24 Suppositor ity of suppository 00:00: [facility] Medical every 4 Branch (four) hours as needed for Nausea and Vomiting (N/V). proMETHazin Yes [id number] 25mg Take 1 Univers e 25 mg 6-24 tablet by ity of tablet 00:00: mouth [place] 00 every 6 Medical (six) Branch hours as needed for N/V unresponsi ve to Ondansetro n. cloNIDine Yes [id number] .3mg Take 1 U nivers 0.3 mg 6-24 tablet by ity of tablet 00:00: mouth at [place] 00 bedtime. Medical For Branch anxiety/ Hypertensi on proMETHazin Yes [id number] 25mg Insert 1 Univers e 25 mg 6-24 Suppositor [place] [place] 00:[place] rect[place] [facility] every 4 Branch (four) hours as needed for Nausea and Vomiting (N/V). proMETHazin Yes [id number] 25mg Take 1 [facility] 25 mg 6-24 tablet by ity of tablet 00:00: mouth [place] 00 every 6 Medical (six) Branch hours as needed for N/V unresponsi ve to Ondansetro n. cloNIDine Yes [id number] .3mg Take 1 U nivers 0.3 mg 6-24 tablet by ity of tablet 00:00: mouth at [place] 00 bedtime. Medical For Branch anxiety/ Hypertensi on cloNIDine 0 Yes [id number] .3mg Take 1 U nivers 0.3 mg 6-24 tablet by ity of tablet 00:00: mouth at [place] 00 bedtime. Medical For Branch anxiety/ Hypertensi on cloNIDine 2021-0 2- No [id number] .3mg Take 1 Univers 0.3 mg 6-24 -14 tablet by ity of tablet 00:00: 00:00 mouth at [place] 00 :00 bedtime. Medical For Branch anxiety/ Hypertensi on proMETHazin 0 2021- No [id number] 25mg Insert 1 [facility] e 25 mg 6-24 09-04 Suppositor ity o f suppository 00:00: 00:00 y into [place] 00 :00 rectum Medical every 4 Branch (four) hours as needed for Nausea and Vomiting (N/V). proMETHazin 0 2- No [id number] 25mg Take 1 [facility] e 25 mg 6-24 09-04 tablet by ity of tablet 00:00: 00:00 mouth [place] 00 :00 every 6 Medical (six) Branch hours as needed for N/V unresponsi ve to Ondansetro n. methadone 2021-0 Yes 80mg Take 80 mg Un aníbal HCl 6-06 by mouth ity of (METHADONE 03:52: daily. [place] ORAL) 52 Medical Branch methadone 2021-0 Yes 80mg Take 80 mg Un aníbal HCl 6-06 by mouth ity of (METHADONE 03:52: daily. [place] ORAL) 52 Medical Branch methadone 2021-0 Yes 80mg Take 80 mg Un aníbal HCl 6-06 by mouth ity of (METHADONE 03:52: daily. [place] ORAL) 52 Medical Branch methadone 2022-0 Yes 80mg Take 80 mg Un aníbal HCl 6-06 by mouth ity of (METHADONE 03:52: daily. [place] ORAL) 52 Medical Branch methadone 2022-0 Yes 80mg Take 80 mg Un aníbal HCl 6-06 by mouth ity of (METHADONE 03:52: daily. [place] ORAL) 52 Medical Branch methadone 2022-0 Yes 80mg Take 80 mg Un aníbal HCl 6-06 by mouth ity of (METHADONE 03:52: daily. [place] ORAL) 52 Medical Branch methadone 2022-0 Yes 80mg Take 80 mg Un aníbal HCl 6-06 by mouth ity of (METHADONE 03:52: daily. [place] ORAL) 52 Medical Branch methadone 2022-0 Yes 80mg Take 80 mg Un aníbal HCl 6-06 by mouth ity of (METHADONE 03:52: daily. [place] ORAL) 52 Medical Branch methadone 2022-0 Yes 80mg Take 80 mg Un aníbal HCl 6-06 by mouth ity of (METHADONE 03:52: daily. [place] ORAL) 52 Medical Branch methadone 2022-0 Yes 80mg Take 80 mg Un aníbal HCl 6-06 by mouth ity of (METHADONE 03:52: daily. [place] ORAL) 52 Medical Branch methadone 2022-0 Yes 80mg Take 80 mg Un aníbal HCl 6-06 by mouth ity of (METHADONE 03:52: daily. [place] ORAL) 52 Medical Branch methadone 2022-0 Yes 80mg Take 80 mg Un aníbal HCl 6-06 by mouth ity of (METHADONE 03:52: daily. [place] ORAL) 52 Medical Branch methadone 2022-0 Yes 80mg Take 80 mg Un aníbal HCl 6-06 by mouth ity of (METHADONE 03:52: daily. [place] ORAL) 52 Medical Branch cefdinir 2022-0 Yes [id number] 300mg Take 1 Un aníbal 300 mg 6-06 capsule by ity of capsule 00:00: mouth 2 (two) Medical times Branch daily. cefdinir 2022-0 Yes [id number] 300mg Take 1 Un aníbal 300 mg 6-06 capsule by ity of capsule 00:00: mouth 2 (two) Medical times Branch daily. cefdinir 2022-0 Yes [id number] 300mg Take 1 Un aníbal 300 mg 6-06 capsule by ity of capsule 00:00: mouth 2 (two) Medical times Branch daily. cefdinir 2022-0 Yes [id number] 300mg Take 1 Un aníbal 300 mg 6-06 capsule by ity of capsule 00:00: mouth [place] (two) Medical times Branch daily. cefdinir 2022-0 Yes [id number] 300mg Take 1 Un aníbal 300 mg 6-06 capsule by ity of capsule 00:00: mouth [place] (two) Medical times Branch daily. cefdinir 2022-0 Yes [id number] 300mg Take 1 Un aníbal 300 mg 6-06 capsule by ity of capsule 00:00: mouth [place] (two) Medical times Branch daily. cefdinir 2022-0 Yes [id number] 300mg Take 1 Un aníbal 300 mg 6-06 capsule by ity of capsule 00:00: mouth [place] (two) Medical times Branch daily. cefdinir 2022-0 Yes [id number] 300mg Take 1 Un aníbal 300 mg 6-06 capsule by ity of capsule 00:00: mouth [place] (two) Medical times Branch daily. cefdinir 2022-0 Yes [id number] 300mg Take 1 Un aníbal 300 mg 6-06 capsule by ity of capsule 00:00: mouth [place] (two) Medical times Branch daily. cefdinir 2022-0 Yes [id number] 300mg Take 1 Un aníbal 300 mg 6-06 capsule by ity of capsule 00:00: mouth [place] (two) Medical times Branch daily. proMETHazin 2021- No [id number] 25mg Take 1 [facility] e 25 mg 6-06 06-24 tablet by ity of tablet 00:00: 00:00 mouth [place] 00 :00 every 6 Medical (six) Branch hours as needed for N/V unresponsi ve to Ondansetro n. ondansetron 2021- No [id number] 8mg Take 1 Univers (ZOFRAN) 8 6-06 06-24 tablet by ity of mg tablet 00:00: 00:00 mouth [place] 00 :00 every 8 Medical (eight) Branch hours as needed for Nausea and Vomiting (N/V) or N/V unresponsi ve to Promethazi ne. proMETHazin 2021- No [id number] 25mg Insert 1 [facility] e 25 mg 6-06 06-24 Suppositor ity o f suppository 00:00: 00:00 y into [place] 00 :00 rectum Medical every 4 Branch (four) hours as needed for Nausea and Vomiting (N/V). proMETHazin 2021- No [id number] 25mg Take 1 [facility] e 25 mg 01-2224 tablet by ity of tablet 00:00: 00:00 mouth [place] 00 :00 every 6 Medical (six) Branch hours as needed for N/V unresponsi ve to Ondansetro n. ondansetron 2021- No [id number] 8mg Take 1 Univers (ZOFRAN) 8 01-2224 tablet by ity of mg tablet 00:00: 00:00 mouth [place] 00 :00 every 8 Medical (eight) Branch hours as needed for Nausea and Vomiting (N/V) or N/V unresponsi ve to Promethazi ne. proMETHazin No [id number] 25mg Insert 1 [facility] e 25 mg 01-2224 Suppositor ity o f suppository 00:00: 00:00 y into [place] 00 :00 rectum Medical every 4 Branch (four) hours as needed for Nausea and Vomiting (N/V). CLONIDINE 2021- No [id number] .3mg TAKE 1 Univers 0.3 mg -07 02-24 TABLET BY ity of tablet 00:00: 00:00 MOUTH AT [place] 00 :00 BEDTIME. Medical FOR Branch ANXIETY/ HYPERTENSI ON CLONIDINE 2021- No [id number] .3mg TAKE 1 [facility] 0.3 mg 3-07 02-24 TABLET BY ity of tablet 00:00: 00:00 MOUTH AT [place] 00 :00 BEDTIME. Medical FOR Branch ANXIETY/ HYPERTENSI ON LEVOTHYROXI Yes [id number] TAKE 1 [facility] [place] 25 mcg 2-28 TABLET BY ity o f tablet 00:00: MOUTH [place] 00 EVERY DAY Medical IN THE Branch MORNING LEVOTHYROXI Yes [id number] TAKE 1 [facility] [place] 25 mcg 2-28 TABLET BY ity o f tablet 00:00: MOUTH [place] 00 EVERY DAY Medical IN THE Branch MORNING LEVOTHYROXI Yes [id number] TAKE 1 [facility] [place] 25 mcg 2-28 TABLET BY ity o f tablet 00:00: MOUTH [place] 00 EVERY DAY Medical IN THE [facility] LEVOTHYROXI Yes [id number] TAKE 1 [facility] NE 25 mcg 2-28 TABLET BY ity o f tablet 00:00: MOUTH [place] 00 EVERY DAY Medical IN THE [facility] LEVOTHYROXI Yes [id number] TAKE 1 [facility] NE 25 mcg 2-28 TABLET BY ity o f tablet 00:00: MOUTH [place] 00 EVERY DAY Medical IN THE [facility] LEVOTHYROXI Yes [id number] TAKE 1 [facility] NE 25 mcg 2-28 TABLET BY ity o f tablet 00:00: MOUTH [place] 00 EVERY DAY Medical IN THE [facility] LEVOTHYROXI Yes [id number] TAKE 1 [facility] NE 25 mcg 2-28 TABLET BY ity o f tablet 00:00: MOUTH [place] 00 EVERY DAY Medical IN THE [facility] LEVOTHYROXI Yes [id number] TAKE 1 [facility] NE 25 mcg 2-28 TABLET BY ity o f tablet 00:00: MOUTH [place] 00 EVERY DAY Medical IN THE [facility] LEVOTHYROXI Yes [id number] TAKE 1 [facility] NE 25 mcg 2-28 TABLET BY ity o f tablet 00:00: MOUTH [place] 00 EVERY DAY Medical IN THE [facility] LEVOTHYROXI Yes [id number] TAKE 1 [facility] NE 25 mcg 2-28 TABLET BY ity o f tablet 00:00: MOUTH [place] 00 EVERY DAY Medical IN THE [facility] LEVOTHYROXI Yes [id number] TAKE 1 [facility] NE 25 mcg 2-28 TABLET BY ity o f tablet 00:00: MOUTH [place] 00 EVERY DAY Medical IN THE [facility] LEVOTHYROXI Yes [id number] TAKE 1 [facility] NE 25 mcg 2-28 TABLET BY ity o f tablet 00:00: MOUTH [place] 00 EVERY DAY Medical IN THE [facility] LEVOTHYROXI Yes [id number] TAKE 1 [facility] NE 25 mcg 2-28 TABLET BY ity o f tablet 00:00: MOUTH [place] 00 EVERY DAY Medical IN THE [facility] ondansetron 2020-08- No [id number] 8mg Take 1 Univers (ZOFRAN 2-05 06-24 tablet by ity of ODT) 8 mg 00:00: 00:00 mouth [place] disintegrat 00 :00 every 8 Medic al ing tablet (eight) Branch hours as needed for Nausea and Vomiting (N/V). ondansetron 2020-08- No [id number] 8mg Take 1 Univers (ZOFRAN 2-05 06-24 tablet by ity of ODT) 8 mg 00:00: 00:00 mouth [place] disintegrat 00 :00 every 8 Medic al ing tablet (eight) Branch hours as needed for Nausea and Vomiting (N/V). ERGOCALCIFE 2020-0 Yes [id number] TAKE 1 Univers ROL, 5-26 CAPSULE BY ity of VITAMIN D2, 00:00: MOUTH [place] 1,250 mcg 00 WEEKLY. Medical (50,000 TAKE WITH Branch unit) FOOD. capsule ERGOCALCIFE 0 Yes [id number] TAKE 1 Univers ROL, 5-26 CAPSULE BY ity of VITAMIN D2, 00:00: MOUTH [place] 1,250 mcg 00 WEEKLY. Medical (50,000 TAKE WITH Branch unit) FOOD. capsule ERGOCALCIFE 0 Yes [id number] TAKE 1 Univers ROL, 5-26 CAPSULE BY ity of VITAMIN D2, 00:00: MOUTH [place] 1,250 mcg 00 WEEKLY. Medical (50,000 TAKE WITH Branch unit) FOOD. capsule ERGOCALCIFE 2020-0 Yes [id number] TAKE 1 Univers ROL, 5-26 CAPSULE BY ity of VITAMIN D2, 00:00: MOUTH [place] 1,250 mcg 00 WEEKLY. Medical (50,000 TAKE WITH Branch unit) FOOD. capsule ERGOCALCIFE 2020-0 Yes [id number] TAKE 1 Univers ROL, 5-26 CAPSULE BY ity of VITAMIN D2, 00:00: MOUTH [place] 1,250 mcg 00 WEEKLY. Medical (50,000 TAKE WITH Branch unit) FOOD. capsule ERGOCALCIFE 2020-0 Yes [id number] TAKE 1 Univers ROL, 5-26 CAPSULE BY ity of VITAMIN D2, 00:00: MOUTH [place] 1,250 mcg 00 WEEKLY. Medical (50,000 TAKE WITH Branch unit) FOOD. capsule ERGOCALCIFE 2020-0 Yes [id number] TAKE 1 Univers ROL, 5-26 CAPSULE BY ity of VITAMIN D2, 00:00: MOUTH [place] 1,250 mcg 00 WEEKLY. Medical (50,000 TAKE WITH Branch unit) FOOD. capsule ERGOCALCIFE 2020-0 Yes [id number] TAKE 1 Univers ROL, 5-26 CAPSULE BY ity of VITAMIN D2, 00:00: MOUTH [place] 1,250 mcg 00 WEEKLY. Medical (50,000 TAKE WITH Branch unit) FOOD. capsule ERGOCALCIFE 2020-0 Yes [id number] TAKE 1 Univers ROL, 5-26 CAPSULE BY ity of VITAMIN D2, 00:00: MOUTH [place] 1,250 mcg 00 WEEKLY. Medical (50,000 TAKE WITH Branch unit) FOOD. capsule ERGOCALCIFE 2020-0 Yes [id number] TAKE 1 Univers ROL, 5-26 CAPSULE BY ity of VITAMIN D2, 00:00: MOUTH [place] 1,250 mcg 00 WEEKLY. Medical (50,000 TAKE WITH Branch unit) FOOD. capsule ERGOCALCIFE 2020-0 Yes [id number] TAKE 1 Univers ROL, 5-26 CAPSULE BY ity of VITAMIN D2, 00:00: MOUTH [place] 1,250 mcg 00 WEEKLY. Medical (50,000 TAKE WITH Branch unit) FOOD. capsule ERGOCALCIFE 2020-0 Yes [id number] TAKE 1 Univers ROL, 5-26 CAPSULE BY ity of VITAMIN D2, 00:00: MOUTH [place] 1,250 mcg 00 WEEKLY. Medical (50,000 TAKE WITH Branch unit) FOOD. capsule ERGOCALCIFE 2020-0 Yes [id number] TAKE 1 Univers ROL, 5-26 CAPSULE BY ity of VITAMIN D2, 00:00: MOUTH [place] 1,250 mcg 00 WEEKLY. Medical (50,000 TAKE WITH Branch unit) FOOD. capsule levonorgest 2025- No by [facility] rs reL 03-0116 Intrauteri ity of (LILETTA) 00:00: 04:[address] [place] 20.4 mcg/24 00 :00 Lot # Medical hrs (8 yrs) [id number] Bran ch 52 mg IUD EXP: 03/2023 Date to be replaced 03/01/2026 Immunizations Ordered Filled Immunization Date Status Comments Sour e Immunization Name Name Influenza Virus 2021-07-27 Completed Universit y of Vaccine Quad IM, 00:00:00 [place] Me dical Preserv and ABX Branch Free 6 MO-64 YRS Influenza Virus 2021-07-27 Completed Universit y of Vaccine Quad IM, 00:00:00 [place] Me dical Preserv and ABX Branch Free 6 MO-64 YRS Influenza Virus 2021-07-27 Completed Universit y of Vaccine Quad IM, 00:00:00 [place] Me dical Preserv and ABX Branch Free 6 MO-64 YRS Influenza Virus 2021-07-27 Completed Universit y of Vaccine Quad IM, 00:00:00 [place] Me dical Preserv and ABX Branch Free 6 MO-64 YRS Influenza Virus 2021-07-27 Completed Universit y of Vaccine Quad IM, 00:00:00 [place] Me dical Preserv and ABX Branch Free 6 MO-64 YRS Influenza Virus 2021-07-27 Completed Universit y of Vaccine Quad IM, 00:00:00 [place] Me dical Preserv and ABX Branch Free 6 MO-64 YRS Influenza Virus 2021-07-27 Completed Universit y of Vaccine Quad IM, 00:00:00 [place] Me dical Preserv and ABX Branch Free 6 MO-64 YRS Influenza Virus 2021-07-27 Completed Universit y of Vaccine Quad IM, 00:00:00 [place] Me dical Preserv and ABX Branch Free 6 MO-64 YRS Influenza Virus 2021-07-27 Completed Universit y of Vaccine Quad IM, 00:00:00 [place] Me dical Preserv and ABX Branch Free 6 MO-64 YRS Influenza Virus 2021-07-27 Completed Universit y of Vaccine Quad IM, 00:00:00 [place] Me dical Preserv and ABX Branch Free 6 MO-64 YRS Influenza Virus 2021-07-27 Completed Universit y of Vaccine Quad IM, 00:00:00 [place] Me dical Preserv and ABX Branch Free 6 MO-64 YRS Influenza Virus 2021-07-27 Completed Universit y of Vaccine Quad IM, 00:00:00 [place] Me dical Preserv and ABX Branch Free 6 MO-64 YRS Influenza Virus 2021-07-27 Completed Universit y of Vaccine Quad IM, 00:00:00 [place] Me dical Preserv and ABX Branch Free 6 MO-64 YRS SARS-COV-2 COVID-19 2021-04-16 Completed Unive rsity of PFIZER VACCINE 00:00:00 [place] Medi lara Branch SARS-COV-2 COVID-19 2021-04-16 Completed Unive rsity of PFIZER VACCINE 00:00:00 [facility] SARS-COV-2 COVID-19 2021-04-16 Completed Unive rsity of PFIZER VACCINE 00:00:00 [facility] SARS-COV-2 COVID-19 2021-04-16 Completed Unive rsity of PFIZER VACCINE 00:00:00 [facility] SARS-COV-2 COVID-19 2021-04-16 Completed Unive rsity of PFIZER VACCINE 00:00:00 [facility] SARS-COV-2 COVID-19 2021-04-16 Completed Unive rsity of PFIZER VACCINE 00:00:00 [facility] SARS-COV-2 COVID-19 2021-04-16 Completed Unive rsity of PFIZER VACCINE 00:00:00 [facility] SARS-COV-2 COVID-19 2021-04-16 Completed Unive rsity of PFIZER VACCINE 00:00:00 [facility] SARS-COV-2 COVID-19 2021-04-16 Completed Unive rsity of PFIZER VACCINE 00:00:00 [facility] SARS-COV-2 COVID-19 2021-04-16 Completed Unive rsity of PFIZER VACCINE 00:00:00 [facility] SARS-COV-2 COVID-19 2021-04-16 Completed Unive rsity of PFIZER VACCINE 00:00:00 [facility] SARS-COV-2 COVID-19 2021-04-16 Completed Unive rsity of PFIZER VACCINE 00:00:00 [facility] SARS-COV-2 COVID-19 2021-04-16 Completed Unive rsity of PFIZER VACCINE 00:00:00 [facility] SARS-COV-2 COVID-19 2021-03-26 Completed Unive rsity of PFIZER VACCINE 00:00:00 [facility] SARS-COV-2 COVID-19 2021-03-26 Completed Unive rsity of PFIZER VACCINE 00:00:00 [facility] SARS-COV-2 COVID-19 2021-03-26 Completed Unive rsity of PFIZER VACCINE 00:00:00 [facility] SARS-COV-2 COVID-19 2021-03-26 Completed Unive rsity of PFIZER VACCINE 00:00:00 [place] [facility]i lara Branch SARS-COV-2 COVID-19 2021-03-26 Completed Unive rsity of PFIZER VACCINE 00:00:00 [facility] SARS-COV-2 COVID-19 2021-03-26 Completed Unive rsity of PFIZER VACCINE 00:00:00 [facility] SARS-COV-2 COVID-19 2021-03-26 Completed Unive rsity of PFIZER VACCINE 00:00:00 [facility] SARS-COV-2 COVID-19 2021-03-26 Completed Unive rsity of PFIZER VACCINE 00:00:00 [facility] SARS-COV-2 COVID-19 2021-03-26 Completed Unive rsity of PFIZER VACCINE 00:00:00 [facility] SARS-COV-2 COVID-19 2021-03-26 Completed Unive rsity of PFIZER VACCINE 00:00:00 [facility] SARS-COV-2 COVID-19 2021-03-26 Completed Unive rsity of PFIZER VACCINE 00:00:00 [facility] SARS-COV-2 COVID-19 2021-03-26 Completed Unive rsity of PFIZER VACCINE 00:00:00 [facility] SARS-COV-2 COVID-19 2021-03-26 Completed Unive rsity of PFIZER VACCINE 00:00:00 [facility] Influenza Virus 2020-06-27 Completed Universit y of Vaccine Quad .5 mL 00:00:00 [place] [facility] IM 6+ MO [place] Influenza Virus 2020-06-27 Completed Universit y of Vaccine Quad .5 mL 00:00:00 [place] [facility] IM 6+ MO [place] Influenza Virus 2020-06-27 Completed Universit y of Vaccine Quad .5 mL 00:00:00 [place] Medical IM 6+ MO Branch Influenza Virus 2020-06-27 Completed Universit y of Vaccine Quad .5 mL 00:00:00 [place] [facility] IM 6+ MO Branch Influenza Virus 2020-06-27 Completed Universit y of Vaccine Quad .5 mL 00:00:00 [place] [facility] IM 6+ MO Branch Influenza Virus 2020-06-27 Completed Universit y of Vaccine Quad .5 mL 00:00:00 [place] [facility] IM 6+ MO Branch Influenza Virus 2020-06-27 Completed Universit y of Vaccine Quad .5 mL 00:00:00 [place] Medical IM 6+ MO Branch Influenza Virus 2020-06-27 Completed Universit y of Vaccine Quad .5 mL 00:00:00 [place] Medical IM 6+ MO Branch Influenza Virus 2020-06-27 Completed Universit y of Vaccine Quad .5 mL 00:00:00 [place] [facility] IM 6+ MO Branch Influenza Virus 2020-06-27 Completed Universit y of Vaccine Quad .5 mL 00:00:00 [place] [facility] IM 6+ MO Branch Influenza Virus 2020-06-27 Completed Universit y of Vaccine Quad .5 mL 00:00:00 [place] [facility] IM 6+ MO Branch Influenza Virus 2020-06-27 Completed Universit y of Vaccine Quad .5 mL 00:00:00 [place] [facility] IM 6+ MO Branch Influenza Virus 2020-06-27 Completed Universit y of Vaccine Quad .5 mL 00:00:00 [facility] 6+ MO Branch Influenza Virus 2019-07-09 Completed Universit y of Vaccine 00:00:00 [facility] Influenza Virus 2019-07-09 Completed Universit y of Vaccine 00:00:00 [facility] Influenza Virus 2019-07-09 Completed Universit y of Vaccine 00:00:00 [facility] Influenza Virus 2019-07-09 Completed Universit y of Vaccine 00:00:00 [facility] Influenza Virus 2019-07-09 Completed Universit y of Vaccine 00:00:00 [facility] Influenza Virus 2019-07-09 Completed Universit y of Vaccine 00:00:00 [facility] Influenza Virus 2019-07-09 Completed Universit y of Vaccine 00:00:00 [facility] Influenza Virus 2019-07-09 Completed Universit y of Vaccine 00:00:00 [facility] Influenza Virus 2019-07-09 Completed Universit y of Vaccine 00:00:00 [facility] Influenza Virus 2019-07-09 Completed Universit y of Vaccine 00:00:00 [facility] Influenza Virus 2019-07-09 Completed Universit y of Vaccine 00:00:00 [facility] Influenza Virus 2019-07-09 Completed Universit y of Vaccine 00:00:00 [facility] Influenza Virus 2019-07-09 Completed Universit y of Vaccine 00:00:00 [facility] Influenza Virus 2019-07-09 Completed Universit y of Vaccine 00:00:00 [facility] Influenza Virus 2019-07-09 Completed Universit y of Vaccine 00:00:00 [facility] Influenza Virus 2019-07-09 Completed Universit y of Vaccine 00:00:00 [facility] Influenza Virus 2019-07-09 Completed Universit y of Vaccine 00:00:00 [facility] Influenza Virus 2019-07-09 Completed Universit y of Vaccine 00:00:00 [facility] Influenza Virus 2019-07-09 Completed Universit y of Vaccine 00:00:00 [facility] Influenza Virus 2019-07-09 Completed Universit y of Vaccine 00:00:00 [facility] Influenza Virus 2019-07-09 Completed Universit y of Vaccine 00:00:00 [facility] Influenza Virus 2019-07-09 Completed Universit y of Vaccine 00:00:00 [facility] Influenza Virus 2019-07-09 Completed Universit y of Vaccine 00:00:00 [facility] Influenza Virus 2019-07-09 Completed Universit y of Vaccine 00:00:00 [facility] Influenza Virus 2019-07-09 Completed Universit y of Vaccine 00:00:00 [facility] Influenza Virus 2019-07-09 Completed Universit y of Vaccine 00:00:00 [facility] Influenza Virus 2018-07-01 Completed Universit y of Vaccine 00:00:00 [facility] Influenza Virus 2018-07-01 Completed Universit y of Vaccine 00:00:00 [facility] Influenza Virus 2018-07-01 Completed Universit y of Vaccine Quad IM 3+ 00:00:00 [facility] Influenza Virus 2018-07-01 Completed Universit y of Vaccine 00:00:00 [facility] Influenza Virus 2018-07-01 Completed Universit y of Vaccine 00:00:00 [facility] Influenza Virus 2018-07-01 Completed Universit y of Vaccine Quad IM 3+ 00:00:00 [facility] Influenza Virus 2018-07-01 Completed Universit y of Vaccine 00:00:00 [facility] Influenza Virus 2018-07-01 Completed Universit y of Vaccine 00:00:00 [facility] Influenza Virus 2018-07-01 Completed Universit y of Vaccine Quad IM 3+ 00:00:00 [facility] Influenza Virus 2018-07-01 Completed Universit y of Vaccine 00:00:00 [facility] Influenza Virus 2018-07-01 Completed Universit y of Vaccine 00:00:00 [facility] Influenza Virus 2018-07-01 Completed Universit y of Vaccine Quad IM 3+ 00:00:00 [facility] Influenza Virus 2018-07-01 Completed Universit y of Vaccine 00:00:00 [facility] Influenza Virus 2018-07-01 Completed Universit y of Vaccine 00:00:00 [facility] Influenza Virus 2018-07-01 Completed Universit y of Vaccine Quad IM 3+ 00:00:00 [facility] Influenza Virus 2018-07-01 Completed Universit y of Vaccine 00:00:00 [facility] Influenza Virus 2018-07-01 Completed Universit y of Vaccine 00:00:00 [facility] Influenza Virus 2018-07-01 Completed Universit y of Vaccine Quad IM 3+ 00:00:00 [facility] Influenza Virus 2018-07-01 Completed Universit y of Vaccine 00:00:00 [facility] Influenza Virus 2018-07-01 Completed Universit y of Vaccine 00:00:00 [facility] Influenza Virus 2018-07-01 Completed Universit y of Vaccine Quad IM 3+ 00:00:00 [facility] Influenza Virus 2018-07-01 Completed Universit y of Vaccine 00:00:00 [facility] Influenza Virus 2018-07-01 Completed Universit y of Vaccine 00:00:00 [facility] Influenza Virus 2018-07-01 Completed Universit y of Vaccine Quad IM 3+ 00:00:00 [facility] Influenza Virus 2018-07-01 Completed Universit y of Vaccine 00:00:00 [facility] Influenza Virus 2018-07-01 Completed Universit y of Vaccine 00:00:00 [facility] Influenza Virus 2018-07-01 Completed Universit y of Vaccine Quad IM 3+ 00:00:00 [facility] Influenza Virus 2018-07-01 Completed Universit y of Vaccine 00:00:00 [facility] Influenza Virus 2018-07-01 Completed Universit y of Vaccine 00:00:00 [facility] Influenza Virus 2018-07-01 Completed Universit y of Vaccine Quad IM 3+ 00:00:00 [facility] Influenza Virus 2018-07-01 Completed Universit y of Vaccine 00:00:00 [facility] Influenza Virus 2018-07-01 Completed Universit y of Vaccine 00:00:00 [facility] Influenza Virus 2018-07-01 Completed Universit y of Vaccine Quad IM 3+ 00:00:00 [facility] Influenza Virus 2018-07-01 Completed Universit y of Vaccine 00:00:00 [facility] Influenza Virus 2018-07-01 Completed Universit y of Vaccine 00:00:00 [facility] Influenza Virus 2018-07-01 Completed Universit y of Vaccine Quad IM 3+ 00:00:00 [facility] Influenza Virus 2018-07-01 Completed Universit y of Vaccine 00:00:00 [facility] Influenza Virus 2018-07-01 Completed Universit y of Vaccine 00:00:00 [facility] Influenza Virus 2018-07-01 Completed Universit y of Vaccine Quad IM 3+ 00:00:00 [facility] Influenza Virus 2017-05-20 Completed Universit y of Vaccine 00:00:00 [facility] Influenza Virus 2017-05-20 Completed Universit y of Vaccine 00:00:00 [facility] Influenza Virus 2017-05-20 Completed Universit y of Vaccine Quad IM 3+ 00:00:00 [facility] Influenza Virus 2017-05-20 Completed Universit y of Vaccine 00:00:00 [facility] Influenza Virus 2017-05-20 Completed Universit y of Vaccine 00:00:00 [facility] Influenza Virus 2017-05-20 Completed Universit y of Vaccine Quad IM 3+ 00:00:00 [facility] Influenza Virus 2017-05-20 Completed Universit y of Vaccine 00:00:00 [facility] Influenza Virus 2017-05-20 [facility]00 [facility] Influenza Virus 2017-05-20 Completed [facility] Quad IM 3+ 00:00:00 [facility] Influenza Virus 2017-05-20 Completed [facility]ine 00:00:00 [facility] Influenza Virus 2017-05-20 Completed [facility] Vaccine 00:00:00 [facility] Influenza Virus 2017-05-20 Completed [facility]ine Quad IM 3+ 00:00:00 [facility] Influenza Virus 2017-05-20 Completed [facility] Vaccine 00[facility]00:00 [facility] Influenza Virus 2017-05-20 Completed [facility] Vaccine 00:00:00 [facility] Influenza Virus 2017-05-20 Completed [facility]ine Quad IM 3+ 00:00:00 [facility] Influenza Virus 2017-05-20 Completed [facility] Vaccine 00:00:00 [facility] Influenza Virus 2017-05-20 Completed [facility] Vaccine 00:00:00 [facility] Influenza Virus 2017-05-20 Completed [facility] Vaccine Quad IM 3+ 00:00:00 [facility] Influenza Virus 2017-05-20 Completed [facility] Vaccine 00:00:00 [facility] Influenza Virus 2017-05-20 Completed [facility] Vaccine 00:00:00 [facility] Influenza Virus 2017-05-20 Completed [facility] Vaccine Quad IM 3+ 00:00:00 [facility] Influenza Virus 2017-05-20 Completed [facility] Vaccine 00:00:00 [facility] Influenza Virus 2017-05-20 Completed [facility] Vaccine 00:00:00 [facility] Influenza Virus 2017-05-20 Completed [facility] Vaccine Quad IM 3+ 00:00:00 [facility] Influenza Virus 2017-05-20 Completed [facility] Vaccine 00:00:00 [facility] Influenza Virus 2017-05-20 Completed [facility] Vaccine 00:00:00 [facility] Influenza Virus 2017-05-20 Completed [facility] Vaccine Quad IM 3+ 00:00:00 [facility] Influenza Virus 2017-05-20 Completed [facility] Vaccine 00:00:00 [facility] Influenza Virus 2017-05-20 Completed [facility] Vaccine 00:00:00 [facility] Influenza Virus 2017-05-20 Completed [facility] Vaccine Quad IM 3+ 00:00:00 [facility] Influenza Virus 2017-05-20 Completed [facility] Vaccine 00:00:00 [facility] Influenza Virus 2017-05-20 Completed [facility] Vaccine 00:00:00 [facility] Influenza Virus 2017-05-20 Completed [facility] Vaccine Quad IM 3+ 00:00:00 [facility] Influenza Virus 2017-05-20 Completed [facility] Vaccine 00:00:00 [facility] Influenza Virus 2017-05-20 Completed [facility] Vaccine 00:00:00 [facility] Influenza Virus 2017-05-20 Completed [facility] Vaccine Quad IM 3+ 00:00:00 [facility] Influenza Virus 2017-05-20 Completed [facility] Vaccine 00:00:00 [facility] Influenza Virus 2017-05-20 Completed [facility] Vaccine 00:00:00 [facility] Influenza Virus 2017-05-20 Completed [facility] Vaccine Quad IM 3+ 00:00:00 [facility] Influenza Virus 2016-05-16 Completed [facility] Vaccine 00:00:00 [facility] Influenza Virus 2016-05-16 Completed [facility] Vaccine 00:00:00 [facility] Influenza Virus 2016-05-16 Completed [facility] Vaccine Quad IM 3+ 00:00:00 [facility] Influenza Virus 2016-05-16 Completed [facility] Vaccine 00:00:00 [facility] Influenza Virus 2016-05-16 Completed [facility] Vaccine 00:00:00 [facility] Influenza Virus 2016-05-16 Completed [facility] Vaccine Quad IM 3+ 00:00:00 [facility] Influenza Virus 2016-05-16 Completed [facility] Vaccine 00:00:00 [facility] Influenza Virus 2016-05-16 Completed [facility] Vaccine 00:00:00 [facility] Influenza Virus 2016-05-16 Completed [facility] Vaccine Quad IM 3+ 00:00:00 [facility] Influenza Virus 2016-05-16 Completed [facility] Vaccine 00:00:00 [facility] Influenza Virus 2016-05-16 Completed [facility] Vaccine 00:00:00 [facility] Influenza Virus 2016-05-16 Completed [facility] Vaccine Quad IM 3+ 00:00:00 [facility] Influenza Virus 2016-05-16 Completed [facility] Vaccine 00:00:00 [facility] Influenza Virus 2016-05-16 Completed [facility] Vaccine 00:00:00 [facility] Influenza Virus 2016-05-16 Completed [facility] Vaccine Quad IM 3+ 00:00:00 [facility] Influenza Virus 2016-05-16 Completed [facility] Vaccine 00:00:00 [facility] Influenza Virus 2016-05-16 Completed [facility] Vaccine 00:00:00 [facility] Influenza Virus 2016-05-16 Completed [facility] Vaccine Quad IM 3+ 00:00:00 [facility] Influenza Virus 2016-05-16 Completed [facility] Vaccine 00:00:00 [facility] Influenza Virus 2016-05-16 Completed [facility] Vaccine 00:00:00 [facility] Influenza Virus 2016-05-16 Completed [facility] Vaccine Quad IM 3+ 00:00:00 [facility] Influenza Virus 2016-05-16 Completed [facility] Vaccine 00:00:00 [facility] Influenza Virus 2016-05-16 Completed [facility] Vaccine 00:00:00 [facility] Influenza Virus 2016-05-16 Completed [facility] Vaccine Quad IM 3+ 00:00:00 [facility] Influenza Virus 2016-05-16 Completed [facility] Vaccine 00:00:00 [facility] Influenza Virus 2016-05-16 Completed [facility] Vaccine 00:00:00 [facility] Influenza Virus 2016-05-16 Completed [facility] Vaccine Quad IM 3+ 00:00:00 [facility] Influenza Virus 2016-05-16 Completed [facility] Vaccine 00:00:00 [facility] Influenza Virus 2016-05-16 Completed [facility] Vaccine 00:00:00 [facility] Influenza Virus 2016-05-16 Completed [facility] Vaccine Quad IM 3+ 00:00:00 [facility] Influenza Virus 2016-05-16 Completed [facility] Vaccine 00:00:00 [facility] Influenza Virus 2016-05-16 Completed [facility] Vaccine 00:00:00 [facility] Influenza Virus 2016-05-16 Completed [facility] Vaccine Quad IM 3+ 00:00:00 [facility] Influenza Virus 2016-05-16 Completed [facility] Vaccine 00:00:00 [facility] Influenza Virus 2016-05-16 Completed [facility] Vaccine 00:00:00 [facility] Influenza Virus 2016-05-16 Completed [facility] Vaccine Quad IM 3+ 00:00:00 [facility] Influenza Virus 2016-05-16 Completed [facility] Vaccine 00:00:00 [facility] Influenza Virus 2016-05-16 Completed [facility] Vaccine 00:00:00 [facility] Influenza Virus 2016-05-16 Completed [facility] Vaccine Quad IM 3+ 00:00:00 [facility] Influenza Virus 2015-07-13 Completed [facility] Vaccine 00:00:00 [facility] Influenza Virus 2015-07-13 Completed [facility] Vaccine 00:00:00 [facility] Influenza Virus 2015-07-13 Completed [facility] Vaccine Quad IM 3+ 00:00:00 [facility] Influenza Virus 2015-07-13 Completed [facility] Vaccine 00:00:00 [facility] Influenza Virus 2015-07-13 Completed [facility] Vaccine 00:00:00 [facility] Influenza Virus 2015-07-13 Completed [facility] Vaccine Quad IM 3+ 00:00:00 [facility] Influenza Virus 2015-07-13 Completed [facility] Vaccine 00:00:00 [facility] Influenza Virus 2015-07-13 Completed [facility] Vaccine 00:00:00 [facility] Influenza Virus 2015-07-13 Completed [facility] Vaccine Quad IM 3+ 00:00:00 [facility] Influenza Virus 2015-07-13 Completed [facility] Vaccine 00:00:00 [facility] Influenza Virus 2015-07-13 Completed [facility] Vaccine 00:00:00 [facility] Influenza Virus 2015-07-13 Completed [facility] Vaccine Quad IM 3+ 00:00:00 [facility] Influenza Virus 2015-07-13 Completed [facility] Vaccine 00:00:00 [facility] Influenza Virus 2015-07-13 Completed [facility] Vaccine 00:00:00 [facility] Influenza Virus 2015-07-13 Completed [facility] Vaccine Quad IM 3+ 00:00:00 [facility] Influenza Virus 2015-07-13 Completed [facility] Vaccine 00:00:00 [facility] Influenza Virus 2015-07-13 Completed [facility] Vaccine 00:00:00 [facility] Influenza Virus 2015-07-13 Completed [facility] Vaccine Quad IM 3+ 00:00:00 [facility] Influenza Virus 2015-07-13 Completed [facility] Vaccine 00:00:00 [facility] Influenza Virus 2015-07-13 Completed [facility] Vaccine 00:00:00 [facility] Influenza Virus 2015-07-13 Completed [facility] Vaccine Quad IM 3+ 00:00:00 [facility] Influenza Virus 2015-07-13 Completed [facility] Vaccine 00:00:00 [facility] Influenza Virus 2015-07-13 Completed [facility] Vaccine 00:00:00 [facility] Influenza Virus 2015-07-13 Completed [facility] Vaccine Quad IM 3+ 00:00:00 [facility] Influenza Virus 2015-07-13 Completed [facility] Vaccine 00:00:00 [facility] Influenza Virus 2015-07-13 Completed [facility] Vaccine 00:00:00 [facility] Influenza Virus 2015-07-13 Completed [facility] Vaccine Quad IM 3+ 00:00:00 [facility] Influenza Virus 2015-07-13 Completed [facility] Vaccine 00:00:00 [facility] Influenza Virus 2015-07-13 Completed [facility] Vaccine 00:00:00 [facility] Influenza Virus 2015-07-13 Completed [facility] Vaccine Quad IM 3+ 00:00:00 [facility] Influenza Virus 2015-07-13 Completed [facility] Vaccine 00:00:00 [facility] Influenza Virus 2015-07-13 Completed [facility] Vaccine 00:00:00 [facility] Influenza Virus 2015-07-13 Completed [facility] Vaccine Quad IM 3+ 00:00:00 [facility] Influenza Virus 2015-07-13 Completed [facility] Vaccine 00:00:00 [facility] Influenza Virus 2015-07-13 Completed [facility] Vaccine 00:00:00 [facility] Influenza Virus 2015-07-13 Completed [facility] Vaccine Quad IM 3+ 00:00:00 [facility] Influenza Virus 2015-07-13 Completed [facility] Vaccine 00:00:00 [facility] Influenza Virus 2015-07-13 Completed [facility] Vaccine 00:00:00 [facility] Influenza Virus 2015-07-13 Completed [facility] Vaccine Quad IM 3+ 00:00:00 [facility] Influenza Virus 2015-04-19 Completed [facility] Vaccine 00:00:00 [facility] Influenza Virus 2015-04-19 Completed [facility] Vaccine Quad IM 3+ 00:00:00 [facility] Influenza Virus 2015-04-19 Completed [facility] Vaccine (3+ yrs) 00:00:00 [facility] Influenza Virus 2015-04-19 Completed [facility] Vaccine 00:00:00 [facility] Influenza Virus 2015-04-19 Completed [facility] Vaccine Quad IM 3+ 00:00:00 [facility] Influenza Virus 2015-04-19 Completed [facility] Vaccine (3+ yrs) 00:00:00 [facility] Influenza Virus 2015-04-19 Completed [facility] Vaccine 00:00:00 [facility] Influenza Virus 2015-04-19 Completed [facility] Vaccine Quad IM 3+ 00:00:00 [facility] Influenza Virus 2015-04-19 Completed [facility] Vaccine (3+ yrs) 00:00:00 [facility] Influenza Virus 2015-04-19 Completed [facility] Vaccine 00:00:00 [facility] Influenza Virus 2015-04-19 Completed [facility] Vaccine Quad IM 3+ 00:00:00 [facility] Influenza Virus 2015-04-19 Completed [facility] Vaccine (3+ yrs) 00:00:00 [facility] Influenza Virus 2015-04-19 Completed [facility] Vaccine 00:00:00 [facility] Influenza Virus 2015-04-19 Completed [facility] Vaccine Quad IM 3+ 00:00:00 [facility] Influenza Virus 2015-04-19 Completed [facility] Vaccine (3+ yrs) 00:00:00 [facility] Influenza Virus 2015-04-19 Completed [facility] Vaccine 00:00:00 [facility] Influenza Virus 2015-04-19 Completed [facility] Vaccine Quad IM 3+ 00:00:00 [facility] Influenza Virus 2015-04-19 Completed [facility] Vaccine (3+ yrs) 00:00:00 [facility] Influenza Virus 2015-04-19 Completed [facility] Vaccine 00:00:00 [facility] Influenza Virus 2015-04-19 Completed [facility] Vaccine Quad IM 3+ 00:00:00 [facility] Influenza Virus 2015-04-19 Completed [facility] Vaccine (3+ yrs) 00:00:00 [facility] Influenza Virus 2015-04-19 Completed [facility] Vaccine 00:00:00 [facility] Influenza Virus 2015-04-19 Completed [facility] Vaccine Quad IM 3+ 00:00:00 [facility] Influenza Virus 2015-04-19 Completed [facility] Vaccine (3+ yrs) 00:00:00 [facility] Influenza Virus 2015-04-19 Completed [facility] Vaccine 00:00:00 [facility] Influenza Virus 2015-04-19 Completed [facility] Vaccine Quad IM 3+ 00:00:00 [facility] Influenza Virus 2015-04-19 Completed [facility] Vaccine (3+ yrs) 00:00:00 [facility] Influenza Virus 2015-04-19 Completed [facility] Vaccine 00:00:00 [facility] Influenza Virus 2015-04-19 Completed [facility] Vaccine Quad IM 3+ 00:00:00 [facility] Influenza Virus 2015-04-19 Completed [facility] Vaccine (3+ yrs) 00:00:00 [facility] Influenza Virus 2015-04-19 Completed [facility] Vaccine 00:00:00 [facility] Influenza Virus 2015-04-19 Completed [facility] Vaccine Quad IM 3+ 00:00:00 [facility] Influenza Virus 2015-04-19 Completed [facility] Vaccine (3+ yrs) 00:00:00 [facility] Influenza Virus 2015-04-19 Completed [facility] Vaccine 00:00:00 [facility] Influenza Virus 2015-04-19 Completed [facility] Vaccine Quad IM 3+ 00:00:00 [facility] Influenza Virus 2015-04-19 Completed [facility] Vaccine (3+ yrs) 00:00:00 [facility] Influenza Virus 2015-04-19 Completed [facility] Vaccine 00:00:00 [facility] Influenza Virus 2015-04-19 Completed [facility] Vaccine Quad IM 3+ 00:00:00 [facility] Influenza Virus 2015-04-19 Completed [facility] Vaccine (3+ yrs) 00:00:00 [facility] Influenza Virus 2014-06-01 Completed [facility] Vaccine 00:00:00 [facility] Influenza Virus 2014-06-01 Completed [facility] Vaccine 00:00:00 [facility] Influenza Virus 2014-06-01 Completed [facility] Vaccine Quad Nasal 00:00:00 [facility] Influenza Virus 2014-06-01 Completed [facility] Vaccine 00:00:00 [facility] Influenza Virus 2014-06-01 Completed [facility] Vaccine 00:00:00 [facility] Influenza Virus 2014-06-01 Completed [facility] Vaccine Quad Nasal 00:00:00 [facility] Influenza Virus 2014-06-01 Completed [facility] Vaccine 00:00:00 [facility] Influenza Virus 2014-06-01 Completed [facility] Vaccine 00:00:00 [facility] Influenza Virus 2014-06-01 Completed [facility] Vaccine Quad Nasal 00:00:00 [facility] Influenza Virus 2014-06-01 Completed [facility] Vaccine 00:00:00 [facility] Influenza Virus 2014-06-01 Completed [facility] Vaccine 00:00:00 [facility] Influenza Virus 2014-06-01 Completed [facility] Vaccine Quad Nasal 00:00:00 [facility] Influenza Virus 2014-06-01 Completed [facility] Vaccine 00:00:00 [facility] Influenza Virus 2014-06-01 Completed [facility] Vaccine 00:00:00 [facility] Influenza Virus 2014-06-01 Completed [facility] Vaccine Quad Nasal 00:00:00 [facility] Influenza Virus 2014-06-01 Completed [facility] Vaccine 00:00:00 [facility] Influenza Virus 2014-06-01 Completed [facility] Vaccine 00:00:00 [facility] Influenza Virus 2014-06-01 Completed [facility] Vaccine Quad Nasal 00:00:00 [facility] Influenza Virus 2014-06-01 Completed [facility] Vaccine 00:00:00 [facility] Influenza Virus 2014-06-01 Completed [facility] Vaccine 00:00:00 [facility] Influenza Virus 2014-06-01 Completed [facility] Vaccine Quad Nasal 00:00:00 [facility] Influenza Virus 2014-06-01 Completed [facility] Vaccine 00:00:00 [facility] Influenza Virus 2014-06-01 Completed [facility] Vaccine 00:00:00 [facility] Influenza Virus 2014-06-01 Completed [facility] Vaccine Quad Nasal 00:00:00 [facility] Influenza Virus 2014-06-01 Completed [facility] Vaccine 00:00:00 [facility] Influenza Virus 2014-06-01 Completed [facility] Vaccine 00:00:00 [facility] Influenza Virus 2014-06-01 Completed [facility] Vaccine Quad Nasal 00:00:00 [facility] Influenza Virus 2014-06-01 Completed [facility] Vaccine 00:00:00 [facility] Influenza Virus 2014-06-01 Completed [facility] Vaccine 00:00:00 [facility] Influenza Virus 2014-06-01 Completed [facility] Vaccine Quad Nasal 00:00:00 [facility] Influenza Virus 2014-06-01 Completed [facility] Vaccine 00:00:00 [facility] Influenza Virus 2014-06-01 Completed [facility] Vaccine 00:00:00 [facility] Influenza Virus 2014-06-01 Completed [facility] Vaccine Quad Nasal 00:00:00 [facility] Influenza Virus 2014-06-01 Completed [facility] Vaccine 00:00:00 [facility] Influenza Virus 2014-06-01 Completed [facility] Vaccine 00:00:00 [facility] Influenza Virus 2014-06-01 Completed [facility] Vaccine Quad Nasal 00:00:00 [facility] Influenza Virus 2014-06-01 Completed [facility] Vaccine 00:00:00 [facility] Influenza Virus 2014-06-01 Completed [facility] Vaccine 00:00:00 [facility] Influenza Virus 2014-06-01 Completed [facility] Vaccine Quad Nasal 00:00:00 [facility] Influenza Virus 2013-08-14 Completed [facility] Vaccine 00:00:00 [facility] Influenza Virus 2013-08-14 Completed [facility] Vaccine 00:00:00 [facility] Influenza Virus 2013-08-14 Completed [facility] Vaccine Quad Nasal 00:00:00 [facility] Influenza Virus 2013-08-14 Completed [facility] Vaccine 00:00:00 [facility] Influenza Virus 2013-08-14 Completed [facility] Vaccine 00:00:00 [facility] Influenza Virus 2013-08-14 Completed [facility] Vaccine Quad Nasal 00:00:00 [facility] Influenza Virus 2013-08-14 Completed [facility] Vaccine 00:00:00 [facility] Influenza Virus 2013-08-14 Completed [facility] Vaccine 00:00:00 [facility] Influenza Virus 2013-08-14 Completed [facility] Vaccine Quad Nasal 00:00:00 [facility] Influenza Virus 2013-08-14 Completed [facility] Vaccine 00:00:00 [facility] Influenza Virus 2013-08-14 Completed [facility] Vaccine 00:00:00 [facility] Influenza Virus 2013-08-14 Completed [facility] Vaccine Quad Nasal 00:00:00 [facility] Influenza Virus 2013-08-14 Completed [facility] Vaccine 00:00:00 [facility] Influenza Virus 2013-08-14 Completed [facility] Vaccine 00:00:00 [facility] Influenza Virus 2013-08-14 Completed [facility] Vaccine Quad Nasal 00:00:00 [facility] Influenza Virus 2013-08-14 Completed [facility] Vaccine 00:00:00 [facility] Influenza Virus 2013-08-14 Completed [facility] Vaccine 00:00:00 [facility] Influenza Virus 2013-08-14 Completed [facility] Vaccine Quad Nasal 00:00:00 [facility] Influenza Virus 2013-08-14 Completed [facility] Vaccine 00:00:00 [facility] Influenza Virus 2013-08-14 Completed [facility] Vaccine 00:00:00 [facility] Influenza Virus 2013-08-14 Completed [facility] Vaccine Quad Nasal 00:00:00 [facility] Influenza Virus 2013-08-14 Completed [facility] Vaccine 00:00:00 [facility] Influenza Virus 2013-08-14 Completed [facility] Vaccine 00:00:00 [facility] Influenza Virus 2013-08-14 Completed [facility] Vaccine Quad Nasal 00:00:00 [facility] Influenza Virus 2013-08-14 Completed [facility] Vaccine 00:00:00 [facility] Influenza Virus 2013-08-14 Completed [facility] Vaccine 00:00:00 [facility] Influenza Virus 2013-08-14 Completed [facility] Vaccine Quad Nasal 00:00:00 [facility] Influenza Virus 2013-08-14 Completed [facility] Vaccine 00:00:00 [facility] Influenza Virus 2013-08-14 Completed [facility] Vaccine 00:00:00 [facility] Influenza Virus 2013-08-14 Completed [facility] Vaccine Quad Nasal 00:00:00 [facility] Influenza Virus 2013-08-14 Completed [facility] Vaccine 00:00:00 [facility] Influenza Virus 2013-08-14 Completed [facility] Vaccine 00:00:00 [facility] Influenza Virus 2013-08-14 Completed [facility] Vaccine Quad Nasal 00:00:00 [facility] Influenza Virus 2013-08-14 Completed [facility] Vaccine 00:00:00 [facility] Influenza Virus 2013-08-14 Completed [facility] Vaccine 00:00:00 [facility] Influenza Virus 2013-08-14 Completed [facility] Vaccine Quad Nasal 00:00:00 [facility] Influenza Virus 2013-08-14 Completed [facility] Vaccine 00:00:00 [facility] Influenza Virus 2013-08-14 Completed [facility] Vaccine 00:00:00 [facility] Influenza Virus 2013-08-14 Completed [facility] Vaccine Quad Nasal 00:00:00 [facility] Influenza Virus 2012-05-16 Completed [facility] Vaccine 00:00:00 [facility] Influenza Virus 2012-05-16 Completed [facility] Vaccine Quad IM 3+ 00:00:00 [facility] Influenza Virus 2012-05-16 Completed [facility] Vaccine (3+ yrs) 00:00:00 [facility] Influenza Virus 2012-05-16 Completed [facility] Vaccine 00:00:00 [facility] Influenza Virus 2012-05-16 Completed [facility] Vaccine Quad IM 3+ 00:00:00 [facility] Influenza Virus 2012-05-16 Completed [facility]ine (3+ yrs) 00:00:00 [facility] Influenza Virus 2012-05-16 Completed [facility] Vaccine 00:00:00 [facility] Influenza Virus 2012-05-16 Completed [facility] Vaccine Quad IM 3+ 00:00:00 [facility] Influenza Virus 2012-05-16 Completed [facility] Vaccine (3+ yrs) 00:00:00 [facility] Influenza Virus 2012-05-16 Completed [facility] Vaccine 00:00:00 [facility] Influenza Virus 2012-05-16 Completed [facility] Vaccine Quad IM 3+ 00:00:00 [facility] Influenza Virus 2012-05-16 Completed [facility]ine (3+ yrs) 00:00:00 [facility] Influenza Virus 2012-05-16 Completed [facility] Vaccine 00:00:00 [facility] Influenza Virus 2012-05-16 Completed [facility] Vaccine Quad IM 3+ 00:00:00 [facility] Influenza Virus 2012-05-16 Completed [facility]ine (3+ yrs) 00:00:00 [facility] Influenza Virus 2012-05-16 Completed [facility] Vaccine 00:00:00 [facility] Influenza Virus 2012-05-16 Completed [facility] Vaccine Quad IM 3+ 00:00:00 [facility] Influenza Virus 2012-05-16 Completed [facility] Vaccine (3+ yrs) 00:00:00 [facility] Influenza Virus 2012-05-16 Completed [facility] Vaccine 00:00:00 [facility] Influenza Virus 2012-05-16 Completed [facility] Vaccine Quad IM 3+ 00:00:00 [facility] Influenza Virus 2012-05-16 Completed [facility]ine (3+ yrs) 00:00:00 [facility] Influenza Virus 2012-05-16 Completed [facility]ine 00:00:00 [facility] [facility] 2012-[facility]-16 Com[facility] Universit y of Vaccine Quad IM 3+ 00:00:00 [facility] Influenza Virus 2012-05-16 Completed Universit y of Vaccine (3+ yrs) 00:00:00 [facility] Influenza Virus 2012-05-16 Completed Universit y of Vaccine 00:00:00 [facility] Influenza Virus 2012-05-16 Completed Universit y of Vaccine Quad IM 3+ 00:00:00 [facility] Influenza Virus 2012-05-16 Completed Universit y of Vaccine (3+ yrs) 00:00:00 [facility] Influenza Virus 2012-05-16 Completed Universit y of Vaccine 00:00:00 [facility] Influenza Virus 2012-05-16 Completed Universit y of Vaccine Quad IM 3+ 00:00:00 [facility] Influenza Virus 2012-05-16 Completed Universit y of Vaccine (3+ yrs) 00:00:00 [facility] Influenza Virus 2012-05-16 Completed Universit y of Vaccine 00:00:00 [facility] Influenza Virus 2012-05-16 Completed Universit y of Vaccine Quad IM 3+ 00:00:00 [facility] Influenza Virus 2012-05-16 Completed Universit y of Vaccine (3+ yrs) 00:00:00 [facility] Influenza Virus 2012-05-16 Completed Universit y of Vaccine 00:00:00 [facility] Influenza Virus 2012-05-16 Completed Universit y of Vaccine Quad IM 3+ 00:00:00 [facility] Influenza Virus 2012-05-16 Completed Universit y of Vaccine (3+ yrs) 00:00:00 [facility] Influenza Virus 2012-05-16 Completed Universit y of Vaccine 00:00:00 [facility] Influenza Virus 2012-05-16 Completed Universit y of Vaccine Quad IM 3+ 00:00:00 [facility] Influenza Virus 2012-05-16 Completed Universit y of Vaccine (3+ yrs) 00:00:00 [facility] Influenza Virus 2011-05-23 Completed Universit y of Vaccine 00:00:00 [facility] Influenza Virus 2011-05-23 Completed Universit y of Vaccine Nasal 00:00:00 [facility] Influenza Virus 2011-05-23 Completed Universit y of Vaccine 00:00:00 [facility] Influenza Virus 2011-05-23 Completed Universit y of Vaccine 00:00:00 [facility] Influenza Virus 2011-05-23 Completed Universit y of Vaccine Nasal 00:00:00 [facility] Influenza Virus 2011-05-23 Completed Universit y of Vaccine 00:00:00 [facility] Influenza Virus 2011-05-23 Completed Universit y of Vaccine 00:00:00 [facility] Influenza Virus 2011-05-23 Completed Universit y of Vaccine Nasal 00:00:00 [facility] Influenza Virus 2011-05-23 Completed Universit y of Vaccine 00:00:00 [facility] Influenza Virus 2011-05-23 Completed Universit y of Vaccine 00:00:00 [facility] Influenza Virus 2011-05-23 Completed Universit y of Vaccine Nasal 00:00:00 [facility] Influenza Virus 2011-05-23 Completed Universit y of Vaccine 00:00:00 [facility] Influenza Virus 2011-05-23 Completed Universit y of Vaccine 00:00:00 [facility] Influenza Virus 2011-05-23 Completed Universit y of Vaccine Nasal 00:00:00 [facility] Influenza Virus 2011-05-23 Completed Universit y of Vaccine 00:00:00 [facility] Influenza Virus 2011-05-23 Completed Universit y of Vaccine 00:00:00 [facility] Influenza Virus 2011-05-23 Completed Universit y of Vaccine Nasal 00:00:00 [facility] Influenza Virus 2011-05-23 Completed Universit y of Vaccine 00:00:00 [facility] Influenza Virus 2011-05-23 Completed Universit y of Vaccine 00:00:00 [facility] Influenza Virus 2011-05-23 Completed Universit y of Vaccine Nasal 00:00:00 [facility] Influenza Virus 2011-05-23 Completed Universit y of Vaccine 00:00:00 [facility] Influenza Virus 2011-05-23 Completed Universit y of Vaccine 00:00:00 [facility] Influenza Virus 2011-05-23 Completed Universit y of Vaccine Nasal 00:00:00 [facility] Influenza Virus 2011-05-23 Completed Universit y of Vaccine 00:00:00 [facility] Influenza Virus 2011-05-23 Completed Universit y of Vaccine 00:00:00 [facility] Influenza Virus 2011-05-23 Completed Universit y of Vaccine Nasal 00:00:00 [facility] Influenza Virus 2011-05-23 Completed Universit y of Vaccine 00:00:00 [facility] Influenza Virus 2011-05-23 Completed Universit y of Vaccine 00:00:00 [facility] Influenza Virus 2011-05-23 Completed Universit y of Vaccine Nasal 00:00:00 [facility] Influenza Virus 2011-05-23 Completed Universit y of Vaccine 00:00:00 [facility] Influenza Virus 2011-05-23 Completed Universit y of Vaccine 00:00:00 [facility] Influenza Virus 2011-05-23 Completed Universit y of Vaccine Nasal 00:00:00 [facility] Influenza Virus 2011-05-23 Completed Universit y of Vaccine 00:00:00 [facility] Influenza Virus 2011-05-23 Completed Universit y of Vaccine 00:00:00 [facility] Influenza Virus 2011-05-23 Completed Universit y of Vaccine Nasal 00:00:00 [facility] Influenza Virus 2011-05-23 Completed Universit y of Vaccine 00:00:00 [facility] Influenza Virus 2011-05-23 Completed Universit y of Vaccine 00:00:00 [facility] Influenza Virus 2011-05-23 Completed Universit y of Vaccine Nasal 00:00:00 [facility] Influenza Virus 2011-05-23 Completed Universit y of Vaccine 00:00:00 [facility] Influenza Virus 2010-07-04 Completed Universit y of Vaccine 00:00:00 [facility] Influenza Virus 2010-07-04 Completed Universit y of Vaccine Nasal 00:00:00 [facility] Influenza Virus 2010-07-04 Completed Universit y of Vaccine 00:00:00 [facility] Influenza Virus 2010-07-04 Completed Universit y of Vaccine 00:00:00 [facility] Influenza Virus 2010-07-04 Completed Universit y of Vaccine Nasal 00:00:00 [facility] Influenza Virus 2010-07-04 Completed Universit y of Vaccine 00:00:00 [facility] Influenza Virus 2010-07-04 Completed Universit y of Vaccine 00:00:00 [facility] Influenza Virus 2010-07-04 Completed Universit y of Vaccine Nasal 00:00:00 [facility] Influenza Virus 2010-07-04 Completed Universit y of Vaccine 00:00:00 [facility] Influenza Virus 2010-07-04 Completed Universit y of Vaccine 00:00:00 [facility] Influenza Virus 2010-07-04 Completed Universit y of Vaccine Nasal 00:00:00 [facility] Influenza Virus 2010-07-04 Completed Universit y of Vaccine 00:00:00 [facility] Influenza Virus 2010-07-04 Completed Universit y of Vaccine 00:00:00 [facility] Influenza Virus 2010-07-04 Completed Universit y of Vaccine Nasal 00:00:00 [facility] Influenza Virus 2010-07-04 Completed Universit y of Vaccine 00:00:00 [facility] Influenza Virus 2010-07-04 Completed Universit y of Vaccine 00:00:00 [facility] Influenza Virus 2010-07-04 Completed Universit y of Vaccine Nasal 00:00:00 [facility] Influenza Virus 2010-07-04 Completed Universit y of Vaccine 00:00:00 [facility] Influenza Virus 2010-07-04 Completed Universit y of Vaccine 00:00:00 [facility] Influenza Virus 2010-07-04 Completed Universit y of Vaccine Nasal 00:00:00 [facility] Influenza Virus 2010-07-04 Completed Universit y of Vaccine 00:00:00 [facility] Influenza Virus 2010-07-04 Completed Universit y of Vaccine 00:00:00 [facility] Influenza Virus 2010-07-04 Completed Universit y of Vaccine Nasal 00:00:00 [facility] Influenza Virus 2010-07-04 Completed Universit y of Vaccine 00:00:00 [facility] Influenza Virus 2010-07-04 Completed Universit y of Vaccine 00:00:00 [facility] Influenza Virus 2010-07-04 Completed Universit y of Vaccine Nasal 00:00:00 [facility] Influenza Virus 2010-07-04 Completed Universit y of Vaccine 00:00:00 [facility] Influenza Virus 2010-07-04 Completed Universit y of Vaccine 00:00:00 [facility] Influenza Virus 2010-07-04 Completed Universit y of Vaccine Nasal 00:00:00 [facility] Influenza Virus 2010-07-04 Completed Universit y of Vaccine 00:00:00 [facility] Influenza Virus 2010-07-04 Completed Universit y of Vaccine 00:00:00 [facility] Influenza Virus 2010-07-04 Completed Universit y of Vaccine Nasal 00:00:00 [facility] Influenza Virus 2010-07-04 Completed Universit y of Vaccine 00:00:00 [facility] Influenza Virus 2010-07-04 Completed Universit y of Vaccine 00:00:00 [facility] Influenza Virus 2010-07-04 Completed Universit y of Vaccine Nasal 00:00:00 [facility] Influenza Virus 2010-07-04 Completed Universit y of Vaccine 00:00:00 [facility] Influenza Virus 2010-07-04 Completed Universit y of Vaccine 00:00:00 [facility] Influenza Virus 2010-07-04 Completed Universit y of Vaccine Nasal 00:00:00 [facility] Influenza Virus 2010-07-04 Completed Universit y of Vaccine 00:00:00 [facility] HPV 2007-05-30 Completed University of 00:00:00 [facility] HPV 2007-05-30 Completed University of 00:00:00 [facility] HPV 2007-05-30 Completed University of 00:00:00 [facility] HPV 2007-05-30 Completed University of 00:00:00 [facility] HPV 2007-05-30 Completed University of 00:00:00 [facility] HPV 2007-05-30 Completed University of 00:00:00 [facility] HPV 2007-05-30 Completed University of 00:00:00 [facility] HPV 2007-05-30 Completed University of 00:00:00 [facility] HPV 2007-05-30 Completed University of 00:00:00 [facility] HPV 2007-05-30 Completed University of 00:00:00 [facility] HPV 2007-05-30 Completed University of 00:00:00 [facility] HPV 2007-05-30 Completed University of 00:00:00 [facility] HPV 2007-05-30 Completed University of 00:00:00 [facility] HPV 2007-05-30 Completed University of 00:00:00 [facility] HPV 2007-05-30 Completed University of 00:00:00 [facility] HPV 2007-05-30 Completed University of 00:00:00 [facility] HPV 2007-05-30 Completed University of 00:00:00 [facility] HPV 2007-05-30 Completed University of 00:00:00 [facility] HPV 2007-05-30 Completed University of 00:00:00 [facility] HPV 2007-05-30 Completed University of 00:00:00 [facility] HPV 2007-05-30 Completed University of 00:00:00 [facility] HPV 2007-05-30 Completed University of 00:00:00 [facility] HPV 2007-05-30 Completed University of 00:00:00 [facility] HPV 2007-05-30 Completed University of 00:00:00 [facility] HPV 2007-05-30 Completed University of 00:00:00 [facility] HPV 2007-05-30 Completed [facility] 00:00:00 [facility] Vital Signs Vital Name Observation Time Observation Value Comments Source Systolic blood 2022-02-09 16:11:00 132 mm[Hg] Univer sity of pressure [facility] Diastolic blood 2022-02-09 16:11:00 83 mm[Hg] Unive rsity of pressure [facility] Heart rate 2022-02-09 16:10:00 83 /min [facility] Body temperature 2022-02-09 16:10:00 36.78 [facility] Body height 2022-02-09 16:10:00 170.2 cm [facility] Body weight 2022-02-09 16:10:00 88.633 kg [facility] BMI 2022-02-09 16:10:00 30.60 kg/m2 [facility] Oxygen saturation in 2022-02-09 16:10:00 99 /min [facility] P[facility]xim[facility] Branch Procedures This patient has no known procedures. Encounters Start End Encounter Admission Attending Care Care Encounter Source Date/Time Date/Time Type Type Clinicians Facility Department ID 2023-03-22 2023-03-22 Outpatient Regina OLIVAS [facility] [id number] Univers 11:00:00 11:00:00 EDEN [facility] 2023-03-05 2023-03-05 Outpatient Regina JONAS [facility] [id number] Univers 15:00:00 15:00:00 VALERIA martinez [facility] 2023-01-23 2023-01-23 [facility] 1.2.840.114 [id number] [facility] 00:00:00 00:00:00 [employer] 350.1.13.10 it y of [place] 4.2.7.2.686 Joaquin as FUNMI?BLEA [id number] Ri [address] MEDICAL OFFICE BUILDING 2023-01-11 2023-01-11 Outpatient Regina OLIVAS [facility] [id number] Univers 11:00:00 11:00:00 EDEN [facility] 2022-12-21 2022-12-21 Outpatient R DEISY [facility] [id number] Univers 08:20:00 08:20:00 , EDEN patel [facility] 2022-12-21 2022-12-21 Outpatient R KRISTI [facility] [id number] Univers 08:00:00 08:00:00 JANE martinez [facility] 2022-12-20 2022-12-20 [facility]nichole [facility] 1.2.840.114 [id number] Univers 00:00:00 00:00:00 Jane HEALTH 350.1.13.10 it y of [place] 4.2.7.2.686 Joaquin as FUNMI?BLEA [id number] [address] OFFICE [facility] 2022-12-03 2022-12-03 Outpatient R KRISTI [facility] [id number] Univers 08:00:00 08:00:00 JANE martinez [facility] 2022-11-16 2022-11-16 [facility] 1.2.840.114 [id number] Univers 00:00:00 00:00:00 Jane HEALTH 350.1.13.10 it y of [place] 4.2.7.2.686 Joaquin as FUNMI?BLEA [id number] [address] OFFICE [facility] 2022-11-16 2022-11-16 [facility] 1.2.840.114 [id number] Univers 00:00:00 00:00:00 Jane HEALTH 350.1.13.10 it y of [place] 4.2.7.2.686 Joaquin as FUNMI?BLEA [id number] [address] OFFICE [facility] 2022-10-01 2022-10-01 Uriel [facility] 1.2.472.330 [id number] Univers 00:00:00 00:00:00 Jane HEALTH 350.1.13.10 it y of [place] 4.2.7.2.686 Joaquin as FUNMI?BLEA [id number] [address] OFFICE [facility] 2022-08-27 2022-08-27 [facility]io [facility] 1.2.840.114 [id number] Univers 00:00:00 00:00:00 Jane HEALTH 350.1.13.10 it y of [place] 4.2.7.2.686 Joaquin as FUNMI?BLEA [id number] [address] OFFICE [facility] 2022-07-27 2022-07-27 [facility] 1.2.840.114 [id number] Univers 00:00:00 00:00:00 Jane HEALTH 350.1.13.10 it y of [place] 4.2.7.2.686 Joaquin as FUNMI?BLEA [id number] [address] OFFICE [facility] 2022-07-23 2022-07-23 [facility] 1.2.840.114 [id number] Univers 00:00:00 00:00:00 Jane HEALTH 350.1.13.10 it y of [place] 4.2.7.2.686 Joaquin as FUNMI?BLEA [id number] [address] OFFICE [facility] 2022-05-01 2022-05-01 [facility] 1.2.840.114 [id number] Univers 00:00:00 00:00:00 Jane HEALTH 350.1.13.10 it y of [place] 4.2.7.2.686 Joaquin as FUNMI?BLEA [id number] [address] OFFICE [facility] 2022-04-18 2022-04-18 [facility]io [facility] 1.2.840.114 [id number] Univers 00:00:00 00:00:00 Jane HEALTH 350.1.13.10 it y of [place] 4.2.7.2.686 Joaquin as FUNMI?BLEA [id number] [address] OFFICE [facility] 2022-02-09 2022-02-09 Outpatient R KRISTI [facility] [id number] Univers 11:00:00 11:34:20 JANE ity of [facility] 2022-02-09 2022-02-09 Office Kristi [facility] 1.2.840.114 [id number] Univers 11:00:00 11:34:20 Visit Jane HEALTH 350.1.13.10 it y of [place] 4.2.7.2.686 Joaquin as FUNMI?BLEA [id number] [address] OFFICE [facility] 2022-02-07 2022-02-07 Refnichole [facility] 1.2.840.114 [id number] Univers 00:00:00 00:00:00 Wondiful A HEALTH 350.1.13.10 ity of [place] 4.2.7.2.686 Joaquin as FUNMI?BLEA [id number] [address] 2022-02-07 2022-02-07 [facility] 1.2.840.114 [id number] Univers 00:00:00 00:00:00 Wondiful A HEALTH 350.1.13.10 ity of [place] 4.2.7.2.686 Joaquin as FUNMI?BLEA [id number] [address] 2022-02-06 2022-02-06 Letter [facility] 1.2.840.114 [id number] Univers 00:00:00 00:00:00 (Out) Jane HEALTH 350.1.13.10 it y of [place] 4.2.7.2.686 Joaquin as FUNMI?BLEA [id number] [address] 2022-01-22 2022-01-22 Emergency [facility] [id number] Univers 03:54:00 07:36:00 YONY ity of [facility] 2022-01-22 2022-01-22 Emergency [facility] 1.2.579.461 [id number] Univers 03:54:00 07:36:00 Yony Jackson [place] 350.1.13.10 ity [facility] 4.2.7.2.686 [place] [facility] [id number] [address] 2022-01-22 2022-01-22 Orders Doctor ASHRAF 1.2.840.114 [id number] Univers 00:00:00 00:00:00 Only Unassigned, NANCY 350.1.13.10 ity of [place] [facility] 4.2.7.2.686 Joaquin as [id number] [address] 2021-11-07 2021-11-07 [facility] 1.2.840.114 [id number] Univers 00:00:00 00:00:00 Wondiful A HEALTH 350.1.13.10 ity of [place] 4.2.7.2.686 Joaquin as PROFESSIO [phone] [facility] ENA [address] [place] [address] OFFICE [facility] ONE 2021-10-15 2021-10-15 [facility] 1.2.840.114 [id number] Univers 00:00:00 00:00:00 Wondiful A HEALTH 350.1.13.10 ity of [place] 4.2.7.2.686 Joaquin as PROFESSIO [phone] Ri gerardca ENA [address] [place] [address] 2021-09-21 2021-09-21 [facility] 1.2.840.114 [id number] Univers 00:00:00 00:00:00 Wondiful A HEALTH 350.1.13.10 ity of [place] 4.2.7.2.686 Joaquin as PROFESSIO [id number] [address] 2021-09-18 2021-09-18 Outpatient R [facility] [id number] Univers 15:00:00 15:00:00 ity of [facility] 2021-09-12 2021-09-12 [facility] 1.2.840.114 [id number] Univers 00:00:00 00:00:00 Wondiful A HEALTH 350.1.13.10 ity of [place] 4.2.7.2.686 Joaquin as FUNMI?BLEA [id number] Ri gerardca LADY [address] [place] [address] 2021-08-08 2021-08-08 Outpatient R JENNIFER [facility] [id number] Univers 11:00:00 11:00:00 WONDIFUL ity o f [facility] 2021-08-08 2021-08-08 Hotel Night Auditor 2, Adc Lab [facility] 1.2.840.114 [id number] Univers 11:00:00 11:00:00 Visit Tomasz Rodriguez [place] 350.1.13. 10 ity of [place] 4.2.7.2.[place] PROFESSIO [id number] Ri dical NAL [address] [facility] 2021-08-08 2021-08-08 Hotel Night Auditor 2, Adc Lab [facility] 1.2.840.114 [id number] Univers 11:00:00 11:00:00 Visit Tomasz Rodriguez [place] 350.1.13. 10 ity of [place] 4.2.7.2.[place] PROFESS[place] [id number] Ri dical NAL [address] [facility] 2021-08-08 2021-08-08 Office [facility] 1.2.840.114 [id number] Univers 09:00:00 10:10:34 Visit Valeria Bolivar [place] 350.1.13.10 ity [facility] 4.2.7.2.[place] PROF[place] [id number] [facility] 2021-08-08 2021-08-08 Outpatient R PRITESH, [facility] [id number] Univers 09:00:00 10:10:34 VALERIA itamanda of [facility] 2021-08-07 2021-08-07 Outpatient R JENNIFER [facility] [id number] Univers 14:30:00 15:16:36 WONDIFUL ity o f [facility] 2021-08-07 2021-08-07 Outpatient R JENNIFER [facility] [id number] Univers 14:30:00 15:16:36 WONDIFUL ity o f [facility] 2021-08-07 2021-08-07 Office [facility] 1..840.114 [id number] Univers 14:30:00 15:16:36 Visit Tomasz Patricio HEALTH 350.1.13.10 ity of [place] 4.2.7.2.686 Jo[place]quin as FUNMI?BLEA [id number] Ri dic[address] 2021-07-28 2021-07-28 Transition DULCE Bhatt 1.2.840.114 [id number] Univers 00:00:00 00:00:00 of Care Alisson HAYSY 350.1.13.10 [place]y of [place]2.7.2.686 [place] [id number] [facility] [address] 2021-07-24 2021-07-27 Inpatient X HOLLAND [facility] LEA [id number] Univers 11:51:00 12:00:00 CATHRYN martinez [facility] 2021-07-24 2021-07-27 [facility] Sybil Kaur [facility] 1.2.840.1 [id number] Univers 11:51:00 12:00:00 Encounter Bartolo Cervantes 350.1.13.10 ity of [place] 4.2.7.2.686 [facility] [id number] [place] 693121 [place] 2021-07-27 2021-07-27 Case [facility] 1.2.840.114 [id number] Univers 00:00:00 00:00:00 Management Wondiful A HEALTH 350.1.13.10 ity of [place] 4.2.7.2.686 Joaquin as FUNMI?BLEA [id number] [address] MEDICAL OFFICE [facility] 2021-07-24 2021-07-24 Telephone [facility] 1.2.840.114 [id number] Univers 00:00:00 00:00:00 Wondiful A HEALTH 350.1.13.10 ity of [place] 4.2.7.2.686 Joaquin as FUNMI?BLEA [id number] [address] MEDICAL OFFICE [facility] 2021-07-23 2021-07-23 Emergency X [facility] ERT [id number] Univers 02:20:00 05:22:00 YONY martinez [facility] 2021-07-23 2021-07-23 Emergency [facility] 1.2.442.985 [id number] Univers 02:20:00 05:22:00 Yony BARRIGA 350.1.13.10 ity of [place].2.7.2.[place] [id number] [address] 2021-07-21 2021-07-21 Office [facility] 1.2.840.114 [id number] Univers 16:16:57 17:02:12 Visit Wondiful A HEALTH 350.1.13.10 ity of [place] 4.2.7.2.686 Joaquin as FUNMI?BLEA [id number] [address] MEDICAL OFFICE BUILDING 2021-07-21 2021-07-21 [facility] [id number] Univers 16:15:00 17:02:12 WONDIFUL ity o f [facility] 2021-07-21 2021-07-21 Orders Doctor ANDRIY 1.2.840.114 [id number] Univers 00:00:00 00:00:00 Only Unassigned, NANCY 350.1.13.10 ity of [place] [facility] 4.2.7.2.686 Joaquin as [id number] [address] 2021-06-02 2021-06-02 Refill [facility] 1.2.840.114 [id number] Univers 00:00:00 00:00:00 Wondiful A Health 350.1.13.10 ity of [place] 4.2.7.2.686 Joaquin as Professio [phone] [address] Office Building One 2021-03-26 2021-03-26 Orders Doctor ANDRIY 1.2.840.114 [id number] Univers 00:00:00 00:00:00 Only Unassigned, NANCY 350.1.13.10 ity of [place] [facility] 4.2.7.2.686 Joaquin as [id number] [address] 2021-01-23 2021-01-23 Telephone Laurita Cardona 1.2.840.114 [id number] Univers 00:00:00 00:00:00 , Charlotte Velasquez 350.1.13.10 ity of [place]2.7.2.[place] [id number] [address] 2021-01-23 2021-01-23 Pre Visit Laurita Cardona 1.2.840.114 [id number] Univers 00:00:00 00:00:00 Outreach , Charlotte Lutz Velasquez 350.1.13.10 ity of [place] 4.2.7.2.[place] [id number] [facility] 086 [place] 2021-01-20 2021-01-20 Telephone Jenniefr, [facility] 1.2.840.114 [id number] Univers 00:00:00 00:00:00 Wondiful A Health 350.1.13.10 ity of [place] 4.2.7.2.686 [place]quin as Professio [phone] [address] Office [facility] One 2021-01-11 2021-01-11 Refill Jennifer, [facility] 1.2.840.114 [id number] Univers 00:00:00 00:00:00 Wondiful A Health 350.1.13.10 ity of [place] 4.2.7.2.686 Joaquin as Professio [id number] [address] One 2020-12-20 2020-12-20 Orders Doctor ANDRIY 1.2.840.114 [id number] Univers 00:00:00 00:00:00 Only Unassigned, NANCY 350.1.13.10 ity of [place] [facility] [id number] Joaquin as [phone] [facility] 009 [place] 2020-12-14 2020-12-14 Telephone Jennifer, [facility] 1.2.840.114 [id number] Univers 00:00:00 00:00:00 [facility] [id number] ity of [place] [id number] [place] as Professio [phone] [address] One 2020-12-12 2020-12-12 Refill Jennifer, [facility] 1.2.840.114 [id number] Univers 00:00:00 00:00:00 [facility] [id number] ity of [place] [id number] [place] as Professio [phone] [address] One 2020-12-10 2020-12-10 [facility] 1.2.840.114 [id number] Univers 00:00:00 00:00:00 [facility] [id number] ity of [place] [id number] [place] as Professio [phone] [address] Office [facility] One 2020-11-21 2020-11-21 Orders Doctor ANDRIY 1.2.840.114 [id number] Univers 00:00:00 00:00:00 Only Unassigned, NANCY 350.1.13.10 ity of [place] [facility] [id number] [place] as [phone] [address] 2020-11-13 2020-11-13 Telephone Jennifer [facility] 1.2.840.114 [id number] Univers 00:00:00 00:00:00 [facility] 350.1.13.10 ity of [place] [id number] [place] as Professio [phone] [address] Office [facility] One 2020-11-11 2020-11-11 Office [facility] 1.2.840.114 [id number] Univers 11:11:14 11:39:29 Visit [facility] 350.1.13.10 ity of [place] [id number] [place] as Professio [phone] [address] One 2020-11-11 2020-11-11 Outpatient R ALLY [facility] [id number] Univers 11:20:00 11:20:00 EDILMA ity of [facility] 2020-11-11 2020-11-11 Outpatient R JENNIFER [facility] [id number] Univers 11:00:00 11:00:00 WONDIFUL ity o f [facility] 2020-10-24 2020-10-24 Outpatient Regina RODRIGUEZ [facility] [id number] Univers 11:00:00 11:00:00 WONDIFUL ity o f [facility] 2020-10-14 2020-10-14 [facility] 1.2.840.114 [id number] Univers 00:00:00 00:00:00 [facility] 350.1.13.10 ity of [place] [id number] [place] as Professio [phone] [address] One 2020-10-11 2020-10-11 RefCASSIA Johnson 1.2.840.114 [id number] Univers 00:00:00 00:00:00 [facility] 350.1.13.10 ity of [place] 4.2.7.2.686 [place] as Professio [phone] [address] Office [facility] One 2020-09-22 2020-09-22 RefCASSIA Johnson 1.2.840.114 [id number] Univers 00:00:00 00:00:00 [facility] 350.1.13.10 ity of [place] 4.2.7.2.686 [place] as Professio [phone] [address] One 2020-08-22 2020-08-22 RefCASSIA Johnson 1.2.840.114 [id number] Univers 00:00:00 00:00:00 [facility] 350.1.13.10 ity of [place] [id number] [place] Professio [phone] [address] One 2020-08-15 2020-08-15 Orders Doctor ANDRIY 1.2.840.114 [id number] Univers 00:00:00 00:00:00 Only Unassigned, NANCY 350.1.13.10 ity of [place] [facility] 4.2.7.2.686 [place] as [phone] [address] 2020-08-02 2020-08-02 CASSIA Cruz 1.2.840.114 [id number] Univers 00:00:00 00:00:00 [facility] 350.1.13.10 ity of [place] 4.2.7.2.686 [place] as Professio [phone] [address] Office [facility] One 2020-07-28 2020-07-28 Case CASSIA Rodriguez 1.2.840.114 [id number] Univers 00:00:00 00:00:00 Management [facility] 350.1.13.10 ity of [place] 4.2.7.2.686 [place] as Professio [phone] [facility] 044 [facility] 2020-07-25 2020-07-25 Hotel Night Auditor Rama, Adc Lab Main [facility] 1.2.8 40.114 [id number] Univers 12:05:08 12:20:08 Visit JenniferTomasz [place] 350.1.13. 10 ity of [place]2.7.2.[place] Profess[place] [phone] [facility] 353 [facility] 2020-07-25 2020-07-25 Office Jennifer [facility] 1.2.840.114 [id number] Univers 10:54:28 11:47:59 Visit [facility] 350.1.13.10 ity of [place] 4.2.7.2.686 [place] as Professio [phone] [address] 2020-07-25 2020-07-25 [facility] [id number] Univers 11:00:00 11:00:00 WONDIFUL ity o f [facility] 2020-07-25 2020-07-25 Orders Doctor ANDRIY 1.2.840.114 [id number] Univers 00:00:00 00:00:00 Only Unassigned, NANCY 350.1.13.10 ity of [place] [facility] 4.2.7.2.686 [place] as [phone] [address] 2020-07-12 2020-07-12 Outpatient R JENNIFER [facility] [id number] Univers 15:00:00 15:00:00 WONDIFUL ity o f [facility] 2020-07-12 2020-07-12 Telephone [facility] 1.2.840.114 [id number] Univers 00:00:00 00:00:00 [facility] 350.1.13.10 ity of [place] [id number] [place] as Professio [phone] [address] 2020-07-11 2020-07-11 [facility]patient [facility] [id number] Univers 15:45:00 15:45:00 CORWIN martinez [facility] 2020-07-08 2020-07-08 [facility] [id number] Univers 16:30:00 16:30:00 WONDIFUL ity o f [facility] 2020-07-08 2020-07-08 Telemedici [facility] 1.2.840.114 [id number] Univers 15:37:31 15:52:31 ne Visit [facility] 350.1.13.10 ity of [place] [id number] [place] as Professio [phone] [address] Office [facility] 2020-07-05 2020-07-05 [facility] [id number] Univers 11:00:00 11:00:00 CORWIN martinez [facility] 2020-06-27 2020-06-27 Office [facility] 1.2.840.114 [id number] Univers 10:22:26 11:08:16 Visit [facility] 350.1.13.10 ity of [place] 4.2.7.2.686 [place] as Professio [phone] [address] Office [facility] 2020-06-27 2020-06-27 Outpatient [facility] [id number] Univers 10:15:00 10:15:00 WONDIFUL ity o f [facility] 2020-06-27 2020-06-27 Orders Doctor ANDRIY 1.2.840.114 [id number] Univers 00:00:00 00:00:00 Only Unassigned, NANCY 350.1.13.10 ity of [place] [facility] 4.2.7.2.686 [place] as [phone] [facility] 009 [place] 2020-06-27 2020-06-27 Letter Doctor ANDRIY 1.2.840.114 [id number] Univers 00:00:00 00:00:00 (Out) Unassigned, NANCY 350.1.13.10 ity of [place] [facility] 4.2.7.2.686 Joaquin as [phone] [facility] [address] 2020-06-07 2020-06-07 Transition Dulce Michael 1.2.840.114 [id number] Univers 00:00:00 00:00:00 of Brice Velasquez 350.1.13.10 it y of [place] 4.2.7.2.686 [place] [phone] [facility] [address] 2020-06-03 2020-06-06 Hospital Kalen Yeager [facility] 1.2.840.114 [id number] Univers 18:27:00 17:52:00 Encounter Kalen Yeager Maxine 350.1.13.10 ity of [place] 4.2.7.2.686 [facility] [phone] [facility] [address] 2020-06-03 2020-06-03 Emergency X KALEN YEAGER [facility] ERT [id number] Univers 18:27:00 18:27:00 ity of [facility] 2020-06-01 2020-06-01 Emergency Magda [facility] 1.2.840.114 [id number] Univers 03:46:00 06:12:00 Dorcas Barriga 350.1.13.10 ity of [place] 4.2.7.2.686 [facility] [phone] [facility] [address] 2020-06-01 2020-06-01 Emergency X MAGDA [facility] ERT [id number] Univers 03:46:00 03:46:00 DORCAS martinez of [facility] Results This patient has no known results.
--- NOTE | 2023-04-29 17:46 | RAD REPORT ---
EXAM DESCRIPTION: RAD - Shoulder Left 2 View - 04/29/2023 5:15 pm CLINICAL HISTORY: PAIN COMPARISON: No comparisons TECHNIQUE: Internal and external rotation views of the left shoulder were obtained. FINDINGS: There is no fracture or dislocation. AC joint is normal in appearance. No acute or suspici ous findings. IMPRESSION: Negative two-view left shoulder examination.
--- NOTE | 2023-04-29 17:47 | RAD REPORT ---
EXAM DESCRIPTION: RAD - Knee Left 3 View - 04/29/2023 5:15 pm CLINICAL HISTORY: PAIN COMPARISON: No comparisons TECHNIQUE: Left knee, 3 views. FINDINGS: No fracture, dislocation or periosteal reaction.No joint effusion seen. No joint space compa rowing. No soft tissue abnormality. Clinical concerns for internal derangement or occult bony injury could be further assessed with MR im aging. IMPRESSION: Negative left knee.
[2023-04-29 17:53] LABS: Absolute Lymphocytes (CBC) 1.5 K/uL (0.7-4.9); Hematocrit 38.5 % (36.0-45.0); Lymphocytes % 12.3 % (15.3-44.8); MCV 96.1 fL (80-100); Platelets 344 thou/uL (152-406)
[2023-04-29 18:15] LABS: Potassium 2.9 mEq/L (3.5-5.1)
--- NOTE | 2023-04-29 19:42 | RAD REPORT ---
EXAM DESCRIPTION: CT - Head C Spine Cap Pooja Ramirez - 04/29/2023 6:38 pm CLINICAL HISTORY: TRAUMA COMPARISON: No comparisons TECHNIQUE: Head and cervical spine CT images were obtained without IV contrast. Chest, abdomen, and pelvis CT images were obtained following intravenous administration of 100 mL Isovue-300. Multiplanar reformats were generated and reviewed. All CT scans are performed using dose optimization technique as appropriate and may include automated exposure control or mA/KV adjustment according to patient size. FINDINGS: CT HEAD: No intracranial hemorrhage, mass effect, or edema. No evidence of acute territorial infarct. No midli ne shift or abnormal fluid collection. The ventricles are normal in caliber and configuration for age . Basal cisterns are patent. Mastoid aircells and paranasal sinuses are clear. No acute skull fractur e. CT CERVICAL SPINE: No acute cervical spine fracture or subluxation. Vertebral body heights are well maintained. Facet padilla ints are normal in alignment. No hyperattenuating canal hematoma. Prevertebral and paraspinous soft t issues are unremarkable. CT CHEST: No pneumothorax, pulmonary contusion or pleural fluid collection. No mediastinal hematoma and the aor ta and pulmonary arteries are unremarkable. No chest will mass or abnormal axillary finding. No displ aced rib fracture or other significant bony finding. CT ABDOMEN/ PELVIS: No evidence of traumatic injury to solid abdominal viscera. Gallbladder and biliary tree are unremark able. No bowel injury or significant finding. No free air, free fluid or abnormal fat stranding. IUD in place. No urinary bladder abnormality. No significant bony finding. IMPRESSION: No acute traumatic findings.
[2023-04-29] MEDS ORDERED: POTASSIUM CL SA 10 MEQ TAB PO ONE (20:09)
[2023-04-29] MEDS ORDERED: ONDANSETRON 4 MG/2 ML VIAL ONE ×2 (20:09→21:47)
[2023-04-29] MEDS ORDERED: NA CHLORIDE 0.9% 1,000 ML ONE (20:10)
[2023-04-29] MEDS ORDERED: KCL 20 MEQ/100 mL IVPB 100 ML IV ONE (20:10)
[2023-04-29] MEDS ORDERED: LORazepam 2 MG/ML VIAL ONE (20:25)
[2023-04-29 20:40] LABS: Bilirubin Direct 0.2 mg/dL (0-0.2); Bilirubin Indirect, Calculated 0.8 mg/dL (0.2-0.8); Protein, Total 8.3 g/dL (6.4-8.2)
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
[2023-04-29] MEDS ORDERED: METOCLOPRAMIDE 10 MG/2mL INJ ONE (21:46)
[2023-04-29] MEDS ORDERED: PROMETHAZINE INJ 25 MG/ML AMP ONE (21:46)
[2023-04-29] MEDS ORDERED: MORPHINE 4 MG/ML SYR ONE (21:47)
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
[2023-04-29] MEDS ORDERED: D5.45NS W/KCL 20MEQ 1,000 ML IV ONE (22:55)
[2023-04-30] MEDS: Ringers Lactate 1,000 ML IV SCH ×3 (00:44→17:11)
[2023-04-30] MEDS: LORazepam 2 MG/ML VIAL IV PRN ×4 (00:44→19:44)
[2023-04-30 01:54] LABS: Barbiturates NEGATIVE (NEGATIVE); Benzodiazepines NEGATIVE (NEGATIVE); Cocaine POSITIVE (NEGATIVE); METHAMPHETAM NEGATIVE (NEGATIVE); Methadone POSITIVE (NEGATIVE); Opiates POSITIVE (NEGATIVE); Phencyclidine NEGATIVE (NEGATIVE); THC Cannibis NEGATIVE (NEGATIVE)
[2023-04-30 02:04] LABS: Urine Bacteria 20-50 /HPF (<20); Urine Bilirubin NEGATIVE (Negative); Urine Blood 1+ (Negative); Urine Clarity Clear (Clear); Urine Color Yellow (Yellow); Urine Glucose NEGATIVE (Negative); Urine Mucus 4+ /HPF (None Seen); Urine Protein 1+ (Negative); Urine RBC <5 /HPF (None Seen); Urine Urobilinogen Normal (Normal); Urine pH 6.5 (5.0-7.0)
[2023-04-30 02:06] LABS: Specific Gravity > 1.035 (1.005-1.030)
[2023-04-30 02:42] VITALS: BMI 26.6
[2023-04-30] MEDS: METOCLOPRAMIDE 10 MG/2mL INJ IV PRN ×3 (03:00→19:44)
[2023-04-30] MEDS: METHADONE PO SCH ×2 (03:00→08:24)
[2023-04-30 03:44] LABS: Absolute Lymphocytes (CBC) 2.2 K/uL (0.7-4.9); Hematocrit 35.5 % (36.0-45.0); Lymphocytes % 16.4 % (15.3-44.8); MCV 96.4 fL (80-100); MPV 7.6 fL (7.6-11.3); Platelets 310 thou/uL (152-406); RBC Red Blood Cell Count 3.68 M/uL (3.86-4.86)
[2023-04-30 04:10] LABS: Magnesium 2.3 mg/dL (1.6-2.4); Potassium 3.2 mEq/L (3.5-5.1); Thyroid Stimulating Hormone 2.92 uIU/mL (0.358-3.740)
[2023-04-30] MEDS: KCL 20 MEQ/100 mL IVPB 20 MEQ/100 ML BAG IV SCH ×2 (07:12→09:44)
[2023-04-30] MEDS: ENOXAPARIN 40 MG/0.4 ML SQ SCH (08:22)
[2023-04-30] MEDS: ONDANSETRON 4 MG/2 ML VIAL IV PRN (08:24)
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
[2023-05-01] MEDS: Ringers Lactate 1,000 ML IV SCH ×2 (01:37→08:02)
[2023-05-01] MEDS: LORazepam 2 MG/ML VIAL IV PRN ×2 (01:38→09:35)
[2023-05-01] MEDS: METOCLOPRAMIDE 10 MG/2mL INJ IV PRN ×2 (01:38→09:44)
[2023-05-01] MEDS: KCL 20 MEQ/100 mL IVPB 20 MEQ/100 ML BAG IV SCH ×2 (02:30→04:28)
[2023-05-01 03:30] LABS: Absolute Lymphocytes (CBC) 2.5 K/uL (0.7-4.9); Hematocrit 33.2 % (36.0-45.0); Lymphocytes % 32.9 % (15.3-44.8); MCV 96.3 fL (80-100); MPV 7.2 fL (7.6-11.3); Platelets 249 thou/uL (152-406); RBC Red Blood Cell Count 3.44 M/uL (3.86-4.86)
[2023-05-01 03:44] LABS: Magnesium 2.1 mg/dL (1.6-2.4); Potassium 3.3 mEq/L (3.5-5.1)
[2023-05-01 05:54] LABS: Phosphorus 2.4 mg/dL (2.5-4.9)
[2023-05-01] MEDS: ONDANSETRON 4 MG/2 ML VIAL IV PRN ×3 (06:09→14:22)
[2023-05-01] MEDS: ENOXAPARIN 40 MG/0.4 ML SQ SCH (08:27)
[2023-05-01] MEDS: METHADONE PO SCH (08:28)
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
[2023-05-01] MEDS ORDERED: CEFDINIR 300 MG CAP PO SCH (15:14)
[2023-05-01 15:36] VITALS: O2SAT 97
[2023-05-01 16:57] VITALS: BP 133/80; TEMP 97
== END 2023-05-01 17:33 | disposition home or self-care (01) ==
LOC: ER 17:01 → ERHOLD 22:20 → 2ND 22:37
PROVIDERS: ADMIT Internal Medicine; ATTEND Internal Medicine
DX: R11.15 Cyclical vomiting syndrome unrelated to migraine (principal); R11.2 Nausea with vomiting, unspecified; F11.20 Opioid dependence, uncomplicated; E87.6 Hypokalemia; G89.29 Other chronic pain
CPT/HCPCS: 96365; 87088; 85025 ×3; 81001; 87086; 80048 ×3; 36415 ×2; 83735 ×3; 84703; 84100; 84132; 80076; 84443; 84439; 83690; 80307; 70450; 72125; 71260; 74177; 73030; 73562; 96375; 96372; 99285; 96366; Q9967; J2550; J3480 ×5; J2765 ×6; J2405 ×6; J7120 ×5; J7030; 87077; 87186; G0378; J1650

== ENCOUNTER 2024-06-19 06:00 | Emergency (ER) | payer SELFPAY ==
--- OUTSIDE RECORDS SUMMARY | 2024-06-19 06:07 | XMS REPORT | Continuity of Care Document ---
Author Name Unknown Address [address] [facility] [address] [place] [address] [facility] Address [address] [facility] [address] [place] [address] Care Team Providers Care [employer] Name Role Phone Jane Osorio Primary Care Physician [phone] Jane Osorio Attending Clinician [phone] Jane Osorio Attending Clinician [phone] KRYSTAL MACE Attending Clinician Unavailable KRYSTAL MACE Attending Clinician Unavailable VALERIA JONAS Attending Clinician Unavailable JANE BERRY Attending Clinician Unavailable Jennifer Chowdhury Attending Clinician Unavailsintia ble Doctor Unassigned, [facility] [place] Attending Clinician U lorelei Jonas MD, Valeria Lutz Attending Clinician [phone] Lisa Mauricio MD Attending Clinician Nurse, [facility] Surgery Gu Attending Clinician Edwin Thomas MD, Mahesh Ang Attending Clinician + [phone] JANET NGUYEN Attending Clinician Unavailable Patrick TOWER WATCHMANJanet Mullins Attending Clinician [phone] Espinoza BUCIO, Bella Attending Clinician Unavailable Rm2, [facility] Attending Clinician Unavailab Edie Edmonds Attending Clinician [phone] VERONICA LOONEY Attending Clinician Unavailable Emelina Philip Attending Clinician [phone] EMELINA ARNDT Attending Clinician Unavailable LISA MAURICIO Attending Clinician Alexa Tomasz Hill MD Attending Clinician + [phone] YONY COX Attending Clinician Unavailable Yony Cox MD Attending Clinician [phone] 2, [facility] Attending Clinician Unavailable TOMASZ RODRIGUEZ Attending Clinician UnavailAlisson Nieto LVN Attending Clinician [phone] CATHRYN LINO Attending Clinician Unavailable Sybil Victor Attending Clinician [phone] Bartolo Cervantes MD Attending Clinician [phone] Cathryn Lino DO Attending Clinician [phone] Laurita BUCIO, Charlotte Lutz Attending Clinician Unav ailable EDILMA CANALES Attending Clinician Unavailable Pob, [facility] Main Attending Clinician UnavailCORWIN Zhao Attending Clinician Unavailable Margo Michael RN Attending Clinician Unavailable Kalen Chase Attending Clinician [phone] Sonia Oseguera MD Attending Clinician +[phone] KALEN YEAGER Attending Clinician Unavailable Dorcas Man DO Attending Clinician +[phone] DORCAS MAN Attending Clinician Unavailab JANET Hernández Admitting Clinician Unavailable CATHRYN LINO Admitting Clinician Unavailable Cathryn Lino DO Admitting Clinician [phone] Sonia Oseguera MD Admitting Clinician [phone] Payers Payer Name Policy Type Policy Number Effective Date Expirati on Date Source [employer] [id number] 00:00:00 [facility] [id number] 2019 00:00:00 Problems Condition Name Condition Details Condition Category Status Onset Date Resolution Date Last Treatment Date Treating Clinician Comments Source Acute UTI Acute UTI Disease Active 2023-1 2-08 00:00: 00 [facility] Vomiting Vomiting Disease Active 2020-08 2-06 00:00: 00 [facility] Obesity (BMI 30-39.9) Obesity (BMI 30-39.9) Disease Active 2020-08 2-06 00:00: 00 [facility] Anxiety Anxiety Disease Active 6-04 00:00: 00 [facility] PID (pelvic inflammato ry disease) PID (pelvic inflammato ry disease) Disease Active 6-04 00:00: 00 [facility] Acquired hypothyroi dism Acquired hypothyroi dism Disease Active 2019-08 2- 00:00: 00 [facility] Mild anemia Mild anemia Disease Active 2019-08 2 00:00: 00 [facility] Vitamin D deficiency Vitamin D deficiency Disease Active 2019-08 2 00:00: 00 [facility] B12 deficiency B12 deficiency Disease Active 2019-08 2 00:00: 00 [facility] Mixed hyperlipid emia Mixed hyperlipid emia Disease Active 2019-08 2 00:00: 00 [facility] Intractabl e nausea and vomiting Intractabl e nausea and vomiting Disease Active 2019-08 0-16 00:00: 00 [facility] Opioid dependence , uncomplica mary Opioid dependence , uncomplica mary Disease Active 7-21 00:00: 00 [facility] Presence of intrauteri ne contracept carolyn device Presence of intrauteri ne contracept carolyn device Disease Active 2018-08 0-23 00:00: 00 Overview: Formattin g of this note might be different from the original. Mirena IUD placed September 2014 at [facility]. Due for removal/r einsertio n September 2019.Beckie na IUD placed September 2014 at [facility]. Due for removal/r einsertio n September 2019. [facility] Controlled substance agreement signed Controlled substance agreement signed Disease Active 4- 00:00: 00 Overview: Formattin g of this note might be different from the original. Formattin g of this note might be different from the original. Signed 11-27-18 - Alprazola m 1mg Tab, 1-2T daily PRN, #45/28-30 DS 019 ALPRAZOLA M 1 MG TABLET #40 27 [id number] [facility]2018 SUBOXONE 8 MG- 2 MG SL FILM [id number] 03 #28 [facility]2018 SUBOXONE 8 MG- 2 MG SL FILM [id number] 03 #28 [facility]2018 ALPRAZOLA M 1 MG TABLET # 40 NATALIE Gomez [facility]2018 SUBOXONE 8 MG- 2 MG SL FILM #28 [facility]2018 ALPRAZOLA M 1 MG TABLET # 45 NATALIE Gomez [facility]2018 [place] HIN- [place] 8- 2 MG SL # 2804/06/20 019 ALPRAZOLA M 1 MG TABLET # 45 NATALIE Gomez [facility]2018 ALPRAZOLA M 1 MG TABLET #15 NATALIE Gomez [facility]2018 [place]PREN[place]P HIN- [place] 8- 2 MG SL # [address] [employer] [facility].10/06 ALPRAZOLA M 1 MG TABLET # 45 LETICIA LEO MD [facility]2018 ALPRAZOLA M 1 MG TABLET # 45 [facility]IVIANA [facility]2017 [place]PRENORP HIN- [place] 8- 2 MG [id number] [facility]2017 ALPRAZOLA M 1 MG [id number] [facility]2017 [place]- [place] 8- 2 MG [id number] [facility]2017 [place]- [place] 8- 2 MG [id number] [facility]2017 ALPRAZOLA M 1 MG [id number] [facility]2017 [place]EN[place] HIN- [place] 8- 2 MG SL #4228 [id number] [facility]2017 ALPRAZOLA M 1 MG [id number] [facility] 018 [place]PRENORP HIN- [place] 8- 2 MG [id number] [facility]2017 [place]- [place] 8- 2 MG [id number] [facility]EL [facility]2017 [place]PREN[place]P HIN- [place] 8- 2 MG [id number] [facility]2017 ALPRAZOLA M 1 MG [id number] DALLAS [facility]2017 [place]- [place] 8- 2 MG [id number] [facility]2017 ALPRAZOLA M 1 MG [id number] DALLAS Arceo MD [facility] Iron deficiency anemia secondary to inadequate dietary iron intake Iron deficiency anemia secondary to inadequate dietary iron intake Disease Active 11-27 00:00: 00 Overview: Formattin g of this note might be different from the original. Formattin g of this note might be different from the original. Pain clinic PA found iron borderlin e low recommend ed OTC iron with vitamin C Pt has been taking since october. [facility] Insomnia Insomnia Disease Active 09-22 00:00: 00 Overview: Formattin g of this note might be different from the original. Continue clonidine with the knowledge that this could be triggerin g her anxiety sx. She though feels this medicatio n has been the best for keeping her asleep. Discussed side effects of medicatio ns. Recheck in 3mFormatt ing of this note might be different from the original. Continue clonidine with the knowledge that this could be triggerin g her anxiety sx. She though feels this medicatio n has been the best for keeping her asleep. Discussed side effects of medicatio ns. Recheck in 3m [facility] Seasonal allergies Seasonal allergies Disease Active 09-22 00:00: 00 [facility] Cyclical vomiting with nausea Cyclical vomiting with nausea Disease Active 04-23 00:00: 00 Overview: Formattin g of this note might be different from the original. Long hx with [...] linzess, stool softeners . Recheck as needed [facility] Gallstones Gallstones Disease Active 02-23 00:00: 00 [facility] Gastropare sis Gastropare sis Disease Active 09-13 00:00: 00 [facility] Prolonged Q-T interval on ECG Prolonged Q-T interval on ECG Disease Active 09-13 00:00: 00 [facility] History of heroin abuse History of heroin abuse Disease Active 11-04 00:00: 00 Overview: Formattin g of this note might be different from the original. Methadone 48mg dailyMeth adone 48mg daily [facility] Generalize d anxiety disorder Generalize d anxiety disorder Disease Active 02-25 00:00: 00 Overview: Formattin g of this note might be different from the original. Doing well with xanax and prozac Refilled today. All new to examiner. Started new contractC ontract xanax signed 11/27/2018 #45/28-30 daysDoing well with xanax and prozac Refilled today. All new to examiner. Started new contractC ontract xanax signed 11/27/2018 #45/28-30 days [facility] Constipati on Constipati on Disease Active 7- 00:00: 00 Overview: Formattin g of this note might be different from the original. Instructe d to monitor closely as close correlati on with N/V gastropar esis triggers Ok to increase stool softeners am and pm and cont linzess Daily stool is great though softer would be better,. [facility] Opioid dependence Opioid dependence Disease Active 7- 00:00: 00 Overview: Formattin g of this note might be different from the original. Followed [facility] pain clinic suboxone tx Every 1 m 11/04/2018 . See note of 12/18/18: getting methadone in addition to suboxone [facility] SINTIA II (cervical intraepith elial neoplasia II) SINTIA II (cervical intraepith elial neoplasia II) Disease Active - 00:00: 00 Overview: Formattin g of this note might be different from the original. Formattin g of this note might be different from the original. SINTIA II 2015 on leep with negative margins. Repeat pap 2016 negative. Formattin g of this note might be different from the original. Overview: SINTIA II 2015 on leep with negative margins. Repeat pap 2016 negative. [facility] History of abnormal cervical Papanicola ou smear History of abnormal cervical Papanicola ou smear Disease Active 1- 00:00: 00 Overview: Formattin g of this note might be different from the original. PAP UTD per the pt's report (11/2015), was normal. requested the pt have records sent over from gynecolog ist.Forma tting of this note might be different from the original. PAP UTD per the pt's report (11/2015), was normal. requested the pt have records sent over from gynecolog ist. [facility] Recurrent UTI Recurrent UTI Disease Active [facility] Allergies, Adverse Reactions, Alerts Allergy Name Allergy Type Status Severity Reaction(s) Onset Date Inactive Date Treating Clinician Comments Source Prochlor perazine Propensi ty to adverse reaction s Active Other - See comments 04-23 00:00: 00 Per patient was in coma, could hear everythin g but could not make eye contact or communica te verbally/ physicall y. Patient started "twitchin g". [facility] PROCHLOR PERAZINE DRUG INGREDI Active Other-Cmnt 04-23 00:00: 00 [facility] PROCHLOR PERAZINE DRUG INGREDI Active Low Other-Cmnt 02-20 00:00: 00 [facility] Prochlor perazine Propensi ty to adverse reaction s Active Other - See comments 02-20 00:00: 00 Per patient was in coma, could hear everythin g but could not make eye contact or communica te verbally/ physicall y. Patient started "twitchin g".[place] ic reactionP er CE Dystonic reaction, ?has tolerated promethaz ine.Per CE Dystonic reaction, ?has tolerated promethaz ine.Dysto harshal reactionH as tolerated promethaz ine [facility] Social History Social Habit Start Date Stop Date Quantity Comments Source [facility] of tobacco use Smokes tobacco daily [facility] Alcohol intake 2023-11-14 00:00:00 2023-11-14 00:00:00 Current drinker of alcohol (finding) [facility] Alcoholic beverage intake 2023-11-14 00:00:00 2023-11-14 00:00:00 Current drinker of alcohol (finding) [facility] History of Social function 2023-06-19 00:00:00 2023-06-19 00:00:00 [facility] Tobacco use and exposure 2023-06-19 00:00:00 2023-06-19 00:00:00 Smokeless tobacco non-user [facility] Exposure to SARS-CoV-2 (event) 2022-01-30 00:00:00 2022-02-09 10:56:00 Not sure [facility] Tobacco Comment 2020-06-27 00:00:00 2020-06-27 00:00:00 lauryn [facility] Sex assigned at 1990 00:00:00 1990 00:00:00 [facility] Smoking Status Start Date Stop Date Source Never smoked tobacco [facility] Smokes tobacco daily 2020-06-27 00:00:00 [facility] Medications Ordered Medication Name Filled Medication Name Start Date Stop Date Current Medication? Ordering Clinician Indication Dosage Frequency Signature (SIG) Comments Components Source cloNIDine 0.3 mg tablet 2023-08 0 00:00: 00 Yes [id number] .3mg Take 1 tablet by mouth at bedtime. For anxiety/ Hypertensi on. MUST BE SEEN FOR FURTHER REFILLS [facility] cloNIDine 0.3 mg tablet 2023-08 0- 00:00: 00 06-15 00:00 :00 No [id number] .3mg Take 1 tablet by mouth at bedtime. For anxiety/ Hypertensi on. MUST BE SEEN FOR FURTHER REFILLS [facility] cloNIDine 0.3 mg tablet 04-28 00:00: 00 05-22 00:00 :00 No [id number] .3mg Take 1 tablet by mouth at bedtime. For anxiety/ Hypertensi on [facility] cloNIDine 0.3 mg tablet 8-16 00:00: 00 04-28 00:00 :00 No [id number] .3mg Take 1 tablet by mouth at bedtime. For anxiety/ Hypertensi on [facility] cloNIDine 0.3 mg tablet 24 00:00: 00 04-03 00:00 :00 No [id number] .3mg Take 1 tablet by mouth at bedtime. For anxiety/ Hypertensi on [facility] cloNIDine 0.3 mg tablet 7- 00:00: 00 03-11 00:00 :00 No [id number] .3mg Take 1 tablet by mouth at bedtime. For anxiety/ Hypertensi on [facility] cloNIDine 0.3 mg tablet 2023- 5-14 00:00: 00 02-16 00:00 :00 No [id number] .3mg Take 1 tablet by mouth at bedtime. For anxiety/ Hypertensi on [facility] cloNIDine 0.3 mg tablet 4-11 00:00: 00 12-30 00:00 :00 No [id number] .3mg Take 1 tablet by mouth at bedtime. For anxiety/ Hypertensi on [facility] d-mannose 500 mg Cap 10-24 10:48: 01 Yes 1{tbl} Take 1 tablet by mouth in the morning and 1 tablet in the evening. [facility] metoclopram thao HCl 10 mg tablet 10-24 10:47: 26 Yes 10mg Take 1 tablet by mouth in the morning and 1 tablet at noon and 1 tablet in the evening. [facility] ALPRAZolam 1 mg tablet 10-24 10:45: 40 10-24 00:00 :00 No 1mg Take 1 tablet by mouth at bedtime as needed. [facility] Lactobacill us acidophilus (PROBIOTIC ACIDOPHILUS ORAL) 10-24 09:24: 45 Yes 1{tbl} Take 1 tablet by mouth in the morning. [facility] sucralfate 100 mg/mL suspension 10-24 09:12: 26 10-24 00:00 :00 No 1000mg Take 10 mL by mouth 4 (four) times daily. [facility] naloxegoL 25 mg Tab 10-24 09:12: 20 10-24 00:00 :00 No 25mg Take 25 mg by mouth in the morning. [facility] FLUoxetine 20 mg capsule 10-24 09:12: 11 10-24 00:00 :00 No 20mg Take 1 capsule by mouth in the morning. [facility] dronabinoL 2.5 mg capsule 10-24:: 10-24 00:00 :00 No 2.5mg Take 1 capsule by mouth in the morning and 1 capsule in the evening. [facility] Nitrofurant oin&Nit. Macrocryst (MACROBID) 100 mg capsule 10-24 00:00: 00 Yes [id number] 100mg Take 1 capsule by mouth as needed for Other (after intercours e to prevent utis). [facility] cloNIDine 0.3 mg tablet 10-20 00:00: 00 11-26 00:00 :00 No [id number] .3mg TAKE 1 TABLET BY MOUTH AT BEDTIME. FOR ANXIETY/ HYPERTENSI ON [facility] Nitrofurant oin&Nit. Macrocryst (MACROBID) 100 mg capsule 10-17 00:00: 00 10-24 00:00 :00 No Take one capsule by mouth at night for 7 days for UTI prevention [facility] fosfomycin 3 gram packet 10-14 00:00: 00 Yes TAKE 3 G BY MOUTH ONCE NOW FOR 1 DOSE. [facility] cefTRIAXone (ROCEPHIN) injection 1,000 mg 10-11 18:45: 00 10-11 17:50 :00 No [id number] 1000mg [facility] Lactobacill us acidophilus (PROBIOTIC ACIDOPHILUS ORAL) 10-11 11:39: 07 Yes 1{tbl} Take 1 tablet by mouth in the morning. [facility] Nitrofurant oin&Nit. Macrocryst (MACROBID) 100 mg capsule 10-11 00:00: 00 10-17 00:00 :00 No [id number] 100mg Take 1 capsule by mouth at bedtime. For UTI prevention [facility] CLOTRIMAZOL E 3 DAY 2 % vaginal cream 2 00:00: 00 Yes INSERT 1 APPLICATOR INTO VAGINA AT BEDTIME FOR 3 DAYS. [facility] CLONIDINE 0.3 mg tablet - 00:00: 00 10-20 00:00 :00 No [id number] .3mg TAKE 1 TABLET BY MOUTH AT BEDTIME. FOR ANXIETY/ HYPERTENSI ON [facility] iopamidol (ISOVUE 370-500 mL) injection 100 mL 1- 04:45: 00 08-20 04:45 :00 No [id number] 100mL 100 mL, Intravenou s, ONCE, 1 dose, On Sat08/19/23 at 2245, Routine [facility] NaCl 0.9% (NS) IV infusion 1,000 mL 08-20 04:15: 00 08-20 05:35 :00 No 1000mL at 999 mL/hr, Intravenou s, ONCE, 1 dose, On Sat08/19/23 at 2215, Routine [facility] piperacilli n-tazobacta m (ZOSYN) 3.375 g in NaCl 0.9% (NS) 100 mL MINI-BAG 08-20 04:00: 00 08-20 05:06 :00 No 3.375g 3.375 g, IV Piggyback, ONCE, 1 dose, On Sat08/19/23 at 2200, Administer over 30 Minutes, 100 mL
Reas on for Anti-Infec tive: Documented Infection< br>Documen mary Infection Site: Urine
D uration of Therapy: Other (see Comments) [facility] ketorolac (TORADOL) injection 30 mg 08-20 04:00: 00 08-20 03:19 :00 No 30mg 30 mg, Slow IV Push, ONCE, 1 dose, On Sat08/19/23 at 2200, [facility] LORazepam (ATIVAN) tablet 0.5 mg 08-20 03:09: 00 08-20 03:19 :00 No .5mg 0.5 mg, Oral, ONCE, 1 dose, On Sat08/19/23 at 2115, [facility] sodium chloride (NS) injection 5 mL 08-20 02:12: 33 Yes 5mL 5 mL, Intravenou s, PRN, Starting on Sat08/19/23 at 2011, Until Discontinu ed, Routine, IV line flushing [facility] Nitrofurant oin&Nit. Macrocryst (MACROBID) 100 mg capsule 08-20 00:00: 00 08-28 05:59 :00 No [id number] 100mg Take 1 capsule by mouth at bedtime for 7 days. [facility] fosfomycin 3 gram packet 08-20 00:00: 00 08-21 05:59 :00 No [id number] 3g Take 3 g by mouth once now for 1 dose. [facility] amoxicillin -clavulanat e 875-125 mg per tablet 08-19 00:00: 00 08-30 05:59 :00 No [id number] 1{tbl} Take 1 tablet by mouth in the morning and 1 tablet in the evening. Do all this for 10 days. [facility] cloNIDine 0.3 mg tablet 2022-08 00:00: 00 Yes [id number] .3mg Take 1 tablet by mouth at bedtime. For anxiety/ Hypertensi on [facility] proMETHazin e 25 mg tablet 2022-08 00:00: 00 Yes [id number] 25mg Take 1 tablet by mouth every 6 (six) hours as needed for N/V unresponsi ve to Ondansetro n. [facility] amoxicillin -pot clavulanate 500 mg 500-125 mg tablet 2022-08 00:00: 00 07-04 05:59 :00 No [id number] 500mg Take 1 tablet by mouth in the morning and 1 tablet in the evening. Do all this for 7 days. Take daily probiotic. Take with food. [facility] clotrimazol e 2 % vaginal cream 2022-08 00:00: 00 06-30 05:59 :00 No [id number] 1{appli cator} Insert 1 Applicator into vagina at bedtime for 3 days. [facility] methadone HCl (METHADONE ORAL) 2022-08 16:43: 48 Yes 80mg Take 80 mg by mouth daily. [facility] sucralfate 100 mg/mL suspension 2022-08 16:43: 48 Yes 1000mg Take 10 mL by mouth 4 (four) times daily. [facility] naloxegoL 25 mg Tab 2022-08 16:43: 48 Yes 25mg Take 25 mg by mouth in the morning. [facility] metoclopram thao HCl 10 mg tablet 2022-08 16:43: 48 Yes 10mg Take 1 tablet by mouth in the morning and 1 tablet at noon and 1 tablet in the evening. [facility] linaCLOtide 72 mcg Cap 2022-08 16:43: 48 Yes 72ug Take 1 capsule by mouth in the morning. [facility] FLUoxetine 20 mg capsule 2022-08 16:43: 48 Yes 20mg Take 1 capsule by mouth in the morning. [facility] dronabinoL 2.5 mg capsule 2022-08 16:43: 48 Yes 2.5mg Take 1 capsule by mouth in the morning and 1 capsule in the evening. [facility] ALPRAZolam 1 mg tablet 2022-08 16:43: 48 Yes 1mg Take 1 tablet by mouth at bedtime as needed. [facility] Lactobacill us acidophilus (PROBIOTIC ACIDOPHILUS ORAL) 2022-08 16:43: 48 Yes 1{tbl} Take 1 tablet by mouth in the morning. [facility] cefUROXime 250 mg tablet 2022-08 00:00: 00 06-27 05:59 :00 No [id number] 250mg Take 1 tablet by mouth in the morning and 1 tablet in the evening. Do all this for 7 days. [facility] CLONIDINE 0.3 mg tablet 07 00:00: 00 08-14 00:00 :00 No [id number] .3mg TAKE 1 TABLET BY MOUTH AT BEDTIME. FOR ANXIETY/ HYPERTENSI ON [facility] cloNIDine 0.3 mg tablet 12-21 00:00: 00 01-23 00:00 :00 No [id number] .3mg Take 1 tablet by mouth at bedtime. For anxiety/ Hypertensi on [facility] sucralfate 100 mg/mL suspension 12-17 17:05: 35 Yes 1000mg Take 10 mL by mouth 4 (four) times daily. [facility] naloxegoL 25 mg Tab 12-17 17:05: 35 Yes 25mg Take 25 mg by mouth in the morning. [facility] metoclopram thao HCl 10 mg tablet 12-17 17:05: 35 Yes 10mg Take 1 tablet by mouth in the morning and 1 tablet at noon and 1 tablet in the evening. [facility] linaCLOtide 72 mcg Cap 12-17 17:05: 35 Yes 72ug Take 1 capsule by mouth in the morning. [facility] FLUoxetine 20 mg capsule 12-17 17:05: 35 Yes 20mg Take 1 capsule by mouth in the morning. [facility] dronabinoL 2.5 mg capsule 12-17 17:05: 35 Yes 2.5mg Take 1 capsule by mouth in the morning and 1 capsule in the evening. [facility] ALPRAZolam 1 mg tablet 12-17 17:05: 35 Yes 1mg Take 1 tablet by mouth at bedtime as needed. [facility] proMETHazin e 25 mg tablet 11-19 00:00: 00 08-14 00:00 :00 No [id number] 25mg Take 1 tablet by mouth every 6 (six) hours as needed for N/V unresponsi ve to Ondansetro n. [facility] cloNIDine 0.3 mg tablet 11-19 00:00: 00 12-21 00:00 :00 No [id number] .3mg Take 1 tablet by mouth at bedtime. For anxiety/ Hypertensi on [facility] chlorhexidi ne 0.12 % mouthwash 06 00:00: 00 10-24 00:00 :00 No RINSE MOUTH WITH 15ML (1 CAPFUL) FOR 30 SECONDS IN MORNING AND EVENING AFTER BRUSHING, THEN SPIT [facility] cloNIDine 0.3 mg tablet 1-11 00:00: 00 11-16 00:00 :00 No [id number] .3mg Take 1 tablet by mouth at bedtime. For anxiety/ Hypertensi on [facility] proMETHazin e 25 mg tablet 2021-08 00:00: 00 11-16 00:00 :00 No [id number] 25mg Take 1 tablet by mouth every 6 (six) hours as needed for N/V unresponsi ve to Ondansetro n. [facility] cloNIDine 0.3 mg tablet 2021-08 00:00: 00 08-29 00:00 :00 No [id number] .3mg Take 1 tablet by mouth at bedtime. For anxiety/ Hypertensi on [facility] cloNIDine 0.3 mg tablet 05-02 00:00: 00 Yes [id number] .3mg Take 1 tablet by mouth at bedtime. For anxiety/ Hypertensi on [facility] proMETHazin e 25 mg suppository 04-22 00:00: 00 Yes [id number] 25mg Insert 1 Suppositor y into rectum every 4 (four) hours as needed for Nausea and Vomiting (N/V). [facility] proMETHazin e 25 mg tablet 04-22 00:00: 00 07-27 00:00 :00 No [id number] 25mg Take 1 tablet by mouth every 6 (six) hours as needed for N/V unresponsi ve to Ondansetro n. [facility] cloNIDine 0.3 mg tablet 24 00:00: 00 05-02 00:00 :00 No [id number] .3mg Take 1 tablet by mouth at bedtime. For anxiety/ Hypertensi on [facility] proMETHazin e 25 mg suppository 6-24 00:00: 00 04-22 00:00 :00 No [id number] 25mg Insert 1 Suppositor y into rectum every 4 (four) hours as needed for Nausea and Vomiting (N/V). [facility] proMETHazin e 25 mg tablet 6-24 00:00: 00 04-22 00:00 :00 No [id number] 25mg Take 1 tablet by mouth every 6 (six) hours as needed for N/V unresponsi ve to Ondansetro n. [facility] methadone HCl (METHADONE ORAL) 01-22 03:52: 52 Yes 80mg Take 80 mg by mouth daily. [facility] cefdinir 300 mg capsule 01-22 00:00: 00 Yes [id number] 300mg Take 1 capsule by mouth 2 (two) times daily. [facility] proMETHazin e 25 mg tablet 01-22 00:00: 00 02-09 00:00 :00 No [id number] 25mg Take 1 tablet by mouth every 6 (six) hours as needed for N/V unresponsi ve to Ondansetro n. [facility] ondansetron (ZOFRAN) 8 mg tablet 01-22 00:00: 00 02-09 00:00 :00 No [id number] 8mg Take 1 tablet by mouth every 8 (eight) hours as needed for Nausea and Vomiting (N/V) or N/V unresponsi ve to Promethazi ne. [facility] proMETHazin e 25 mg suppository 01-22 00:00: 00 02-09 00:00 :00 No [id number] 25mg Insert 1 Suppositor y into rectum every 4 (four) hours as needed for Nausea and Vomiting (N/V). [facility] CLONIDINE 0.3 mg tablet 3-22 00:00: 00 02-09 00:00 :00 No [id number] .3mg TAKE 1 TABLET BY MOUTH AT BEDTIME. FOR ANXIETY/ HYPERTENSI ON [facility] LEVOTHYROXI NE 25 mcg tablet 2-28 00:00: 00 10-24 00:00 :00 No [id number] TAKE 1 TABLET BY MOUTH EVERY DAY IN THE MORNING [facility] ondansetron (ZOFRAN ODT) 8 mg disintegrat ing tablet 2020-08 2-05 00:00: 00 02-09 00:00 :00 No [id number] 8mg Take 1 tablet by mouth every 8 (eight) hours as needed for Nausea and Vomiting (N/V). [facility] ERGOCALCIFE ROL, VITAMIN D2, 1,250 mcg (50,000 unit) capsule 01-11 00:00: 00 Yes [id number] 36443N TAKE 1 CAPSULE BY MOUTH WEEKLY. TAKE WITH FOOD. [facility] levonorgest reL (LILETTA) 20.4 mcg/24 hrs (8 yrs) 52 mg IUD 03-01 00:00: 00 10-24 00:00 :00 No by Intrauteri ne route. Lot # [id number] EXP: 03/2023 Date to be replaced 03/01/2026 [facility] Immunizations Ordered Immunization Name Filled Immunization Name Date Status Comments Source Influenza Virus Vaccine Quad IM, Preserv and ABX Free 6 MO-64 YRS 2021-07-27 00:00:00 Completed [facility] Influenza Virus Vaccine Quad IM, Preserv and ABX Free 6 MO-64 YRS 2021-07-27 00:00:00 Completed [facility] Influenza Virus Vaccine Quad IM, Preserv and ABX Free 6 MO-64 YRS 2021-07-27 00:00:00 Completed [facility] Influenza Virus Vaccine Quad IM, Preserv and ABX Free 6 MO-64 YRS 2021-07-27 00:00:00 Completed [facility] Influenza Virus Vaccine Quad IM, Preserv and ABX Free 6 MO-64 YRS 2021-07-27 00:00:00 Completed [facility] Influenza Virus Vaccine Quad IM, Preserv and ABX Free 6 MO-64 YRS 2021-07-27 00:00:00 Completed [facility] Influenza Virus Vaccine Quad IM, Preserv and ABX Free 6 MO-64 YRS 2021-07-27 00:00:00 Completed [facility] Influenza Virus Vaccine Quad IM, Preserv and ABX Free 6 MO-64 YRS 2021-07-27 00:00:00 Completed [facility] Influenza Virus Vaccine Quad IM, Preserv and ABX Free 6 MO-64 YRS 2021-07-27 00:00:00 Completed [facility] Influenza Virus Vaccine Quad IM, Preserv and ABX Free 6 MO-64 YRS 2021-07-27 00:00:00 Completed [facility] Influenza Virus Vaccine Quad IM, Preserv and ABX Free 6 MO-64 YRS 2021-07-27 00:00:00 Completed [facility] Influenza Virus Vaccine Quad IM, Preserv and ABX Free 6 MO-64 YRS (FLUCELVAX) 2021-07-27 00:00:00 Completed [facility] SARS-COV-2 COVID-19 PFIZER VACCINE 2021-04-16 00:00:00 Completed [facility] SARS-COV-2 COVID-19 PFIZER VACCINE 2021-04-16 00:00:00 Completed [facility] SARS-COV-2 COVID-19 PFIZER VACCINE 2021-04-16 00:00:00 Completed [facility] SARS-COV-2 COVID-19 PFIZER VACCINE 2021-04-16 00:00:00 Completed [facility] SARS-COV-2 COVID-19 PFIZER VACCINE 2021-04-16 00:00:00 Completed [facility] SARS-COV-2 COVID-19 PFIZER VACCINE 2021-04-16 00:00:00 Completed [facility] SARS-COV-2 COVID-19 PFIZER VACCINE 2021-04-16 00:00:00 Completed [facility] SARS-COV-2 COVID-19 PFIZER VACCINE 2021-04-16 00:00:00 Completed [facility] SARS-COV-2 COVID-19 PFIZER VACCINE 2021-04-16 00:00:00 Completed [facility] SARS-COV-2 COVID-19 PFIZER VACCINE 2021-04-16 00:00:00 Completed [facility] SARS-COV-2 COVID-19 PFIZER VACCINE 2021-04-16 00:00:00 Completed [facility] SARS-COV-2 COVID-19 PFIZER VACCINE 2021-04-16 00:00:00 Completed SARS-COV-2 COVID-19 PFIZER VACCINE 2021-03-26 00:00:00 Completed [facility] SARS-COV-2 COVID-19 PFIZER VACCINE 2021-03-26 00:00:00 Completed [facility] SARS-COV-2 COVID-19 PFIZER VACCINE 2021-03-26 00:00:00 Completed [facility] SARS-COV-2 COVID-19 PFIZER VACCINE 2021-03-26 00:00:00 Completed [facility] SARS-COV-2 COVID-19 PFIZER VACCINE 2021-03-26 00:00:00 Completed [facility] SARS-COV-2 COVID-19 PFIZER VACCINE 2021-03-26 00:00:00 Completed [facility] SARS-COV-2 COVID-19 PFIZER VACCINE 2021-03-26 00:00:00 Completed [facility] SARS-COV-2 COVID-19 PFIZER VACCINE 2021-03-26 00:00:00 Completed [facility] SARS-COV-2 COVID-19 PFIZER VACCINE 2021-03-26 00:00:00 Completed [facility] SARS-COV-2 COVID-19 PFIZER VACCINE 2021-03-26 00:00:00 Completed [facility] SARS-COV-2 COVID-19 PFIZER VACCINE 2021-03-26 00:00:00 Completed [facility] SARS-COV-2 COVID-19 PFIZER VACCINE 2021-03-26 00:00:00 Completed Influenza Virus Vaccine Quad .5 mL IM 6+ MO 2020-06-27 00:00:00 Completed [facility] Influenza Virus Vaccine Quad .5 mL IM 6+ MO 2020-06-27 00:00:00 Completed [facility] Influenza Virus Vaccine Quad .5 mL IM 6+ MO 2020-06-27 00:00:00 Completed [facility] Influenza Virus Vaccine Quad .5 mL IM 6+ MO 2020-06-27 00:00:00 Completed [facility] Influenza Virus Vaccine Quad .5 mL IM 6+ MO 2020-06-27 00:00:00 Completed [facility] Influenza Virus Vaccine Quad .5 mL IM 6+ MO 2020-06-27 00:00:00 Completed [facility] Influenza Virus Vaccine Quad .5 mL IM 6+ MO 2020-06-27 00:00:00 Completed [facility] Influenza Virus Vaccine Quad .5 mL IM 6+ MO 2020-06-27 00:00:00 Completed [facility] Influenza Virus Vaccine Quad .5 mL IM 6+ MO 2020-06-27 00:00:00 Completed [facility] Influenza Virus Vaccine Quad .5 mL IM 6+ MO 2020-06-27 00:00:00 Completed [facility] Influenza Virus Vaccine Quad .5 mL IM 6+ MO 2020-06-27 00:00:00 Completed [facility] Influenza Virus Vaccine Quad .5 mL IM 6+ MO (FLUZONE/FLULAVAL/F LUARIX) 2020-06-27 00:00:00 Completed [facility] Influenza Virus Vaccine 2019-07-09 00:00:00 Completed [facility] Influenza Virus Vaccine 2019-07-09 00:00:00 Completed [facility] Influenza Virus Vaccine 2019-07-09 00:00:00 Completed [facility] Influenza Virus Vaccine 2019-07-09 00:00:00 Completed [facility] Influenza Virus Vaccine 2019-07-09 00:00:00 Completed [facility] Influenza Virus Vaccine 2019-07-09 00:00:00 Completed [facility] Influenza Virus Vaccine 2019-07-09 00:00:00 Completed [facility] Influenza Virus Vaccine 2019-07-09 00:00:00 Completed [facility] Influenza Virus Vaccine 2019-07-09 00:00:00 Completed [facility] Influenza Virus Vaccine 2019-07-09 00:00:00 Completed [facility] Influenza Virus Vaccine 2019-07-09 00:00:00 Completed [facility] Influenza Virus Vaccine 2019-07-09 00:00:00 Completed Influenza Virus Vaccine 2018-07-01 00:00:00 Completed [facility] Influenza Virus Vaccine Quad IM 3+ YRS 2018-07-01 00:00:00 Completed [facility] Influenza Virus Vaccine 2018-07-01 00:00:00 Completed [facility] Influenza Virus Vaccine Quad IM 3+ YRS 2018-07-01 00:00:00 Completed [facility] Influenza Virus Vaccine 2018-07-01 00:00:00 Completed [facility] Influenza Virus Vaccine Quad IM 3+ YRS 2018-07-01 00:00:00 Completed [facility] Influenza Virus Vaccine 2018-07-01 00:00:00 Completed [facility] Influenza Virus Vaccine Quad IM 3+ YRS 2018-07-01 00:00:00 Completed [facility] Influenza Virus Vaccine 2018-07-01 00:00:00 Completed [facility] Influenza Virus Vaccine Quad IM 3+ YRS 2018-07-01 00:00:00 Completed [facility] Influenza Virus Vaccine 2018-07-01 00:00:00 Completed [facility] Influenza Virus Vaccine Quad IM 3+ YRS 2018-07-01 00:00:00 Completed [facility] Influenza Virus Vaccine 2018-07-01 00:00:00 Completed [facility] Influenza Virus Vaccine Quad IM 3+ YRS 2018-07-01 00:00:00 Completed [facility] Influenza Virus Vaccine 2018-07-01 00:00:00 Completed [facility] Influenza Virus Vaccine Quad IM 3+ YRS 2018-07-01 00:00:00 Completed [facility] Influenza Virus Vaccine 2018-07-01 00:00:00 Completed [facility] Influenza Virus Vaccine Quad IM 3+ YRS 2018-07-01 00:00:00 Completed [facility] Influenza Virus Vaccine 2018-07-01 00:00:00 Completed [facility] Influenza Virus Vaccine Quad IM 3+ YRS 2018-07-01 00:00:00 Completed [facility] Influenza Virus Vaccine 2018-07-01 00:00:00 Completed [facility] Influenza Virus Vaccine Quad IM 3+ YRS 2018-07-01 00:00:00 Completed [facility] Influenza Virus Vaccine 2018-07-01 00:00:00 Completed Influenza Virus Vaccine Quad IM 3+ YRS 2018-07-01 00:00:00 Completed Influenza Virus Vaccine 2017-05-20 00:00:00 Completed [facility] Influenza Virus Vaccine Quad IM 3+ YRS 2017-05-20 00:00:00 Completed [facility] Influenza Virus Vaccine 2017-05-20 00:00:00 Completed [facility] Influenza Virus Vaccine Quad IM 3+ YRS 2017-05-20 00:00:00 Completed [facility] Influenza Virus Vaccine 2017-05-20 00:00:00 Completed [facility] Influenza Virus Vaccine Quad IM 3+ YRS 2017-05-20 00:00:00 Completed [facility] Influenza Virus Vaccine 2017-05-20 00:00:00 Completed [facility] Influenza Virus Vaccine Quad IM 3+ YRS 2017-05-20 00:00:00 Completed [facility] Influenza Virus Vaccine 2017-05-20 00:00:00 Completed [facility] Influenza Virus Vaccine Quad IM 3+ YRS 2017-05-20 00:00:00 Completed [facility] Influenza Virus Vaccine 2017-05-20 00:00:00 Completed [facility] Influenza Virus Vaccine Quad IM 3+ YRS 2017-05-20 00:00:00 Completed [facility] Influenza Virus Vaccine 2017-05-20 00:00:00 Completed [facility] Influenza Virus Vaccine Quad IM 3+ YRS 2017-05-20 00:00:00 Completed [facility] Influenza Virus Vaccine 2017-05-20 00:00:00 Completed [facility] Influenza Virus Vaccine Quad IM 3+ YRS 2017-05-20 00:00:00 Completed [facility] Influenza Virus Vaccine 2017-05-20 00:00:00 Completed [facility] Influenza Virus Vaccine Quad IM 3+ YRS 2017-05-20 00:00:00 Completed [facility] Influenza Virus Vaccine 2017-05-20 00:00:00 Completed [facility] Influenza Virus Vaccine Quad IM 3+ YRS 2017-05-20 00:00:00 Completed [facility] Influenza Virus Vaccine 2017-05-20 00:00:00 Completed [facility] Influenza Virus Vaccine Quad IM 3+ YRS 2017-05-20 00:00:00 Completed [facility] Influenza Virus Vaccine 2017-05-20 00:00:00 Completed Influenza Virus Vaccine Quad IM 3+ YRS 2017-05-20 00:00:00 Completed Influenza Virus Vaccine 2016-05-16 00:00:00 Completed [facility] Influenza Virus Vaccine Quad IM 3+ YRS 2016-05-16 00:00:00 Completed [facility] Influenza Virus Vaccine 2016-05-16 00:00:00 Completed [facility] Influenza Virus Vaccine Quad IM 3+ YRS 2016-05-16 00:00:00 Completed [facility] Influenza Virus Vaccine 2016-05-16 00:00:00 Completed [facility] Influenza Virus Vaccine Quad IM 3+ YRS 2016-05-16 00:00:00 Completed [facility] Influenza Virus Vaccine 2016-05-16 00:00:00 Completed [facility] Influenza Virus Vaccine Quad IM 3+ YRS 2016-05-16 00:00:00 Completed [facility] Influenza Virus Vaccine 2016-05-16 00:00:00 Completed [facility] Influenza Virus Vaccine Quad IM 3+ YRS 2016-05-16 00:00:00 Completed [facility] Influenza Virus Vaccine 2016-05-16 00:00:00 Completed [facility] Influenza Virus Vaccine Quad IM 3+ YRS 2016-05-16 00:00:00 Completed [facility] Influenza Virus Vaccine 2016-05-16 00:00:00 Completed [facility] Influenza Virus Vaccine Quad IM 3+ YRS 2016-05-16 00:00:00 Completed [facility] Influenza Virus Vaccine 2016-05-16 00:00:00 Completed [facility] Influenza Virus Vaccine Quad IM 3+ YRS 2016-05-16 00:00:00 Completed [facility] Influenza Virus Vaccine 2016-05-16 00:00:00 Completed [facility] Influenza Virus Vaccine Quad IM 3+ YRS 2016-05-16 00:00:00 Completed [facility] Influenza Virus Vaccine 2016-05-16 00:00:00 Completed [facility] Influenza Virus Vaccine Quad IM 3+ YRS 2016-05-16 00:00:00 Completed [facility] Influenza Virus Vaccine 2016-05-16 00:00:00 Completed [facility] Influenza Virus Vaccine Quad IM 3+ YRS 2016-05-16 00:00:00 Completed [facility] Influenza Virus Vaccine 2016-05-16 00:00:00 Completed Influenza Virus Vaccine Quad IM 3+ YRS 2016-05-16 00:00:00 Completed Influenza Virus Vaccine 2015-07-13 00:00:00 Completed [facility] Influenza Virus Vaccine Quad IM 3+ YRS 2015-07-13 00:00:00 Completed [facility] Influenza Virus Vaccine 2015-07-13 00:00:00 Completed [facility] Influenza Virus Vaccine Quad IM 3+ YRS 2015-07-13 00:00:00 Completed [facility] Influenza Virus Vaccine 2015-07-13 00:00:00 Completed [facility] Influenza Virus Vaccine Quad IM 3+ YRS 2015-07-13 00:00:00 Completed [facility] Influenza Virus Vaccine 2015-07-13 00:00:00 Completed [facility] Influenza Virus Vaccine Quad IM 3+ YRS 2015-07-13 00:00:00 Completed [facility] Influenza Virus Vaccine 2015-07-13 00:00:00 Completed [facility] Influenza Virus Vaccine Quad IM 3+ YRS 2015-07-13 00:00:00 Completed [facility] Influenza Virus Vaccine 2015-07-13 00:00:00 Completed [facility] Influenza Virus Vaccine Quad IM 3+ YRS 2015-07-13 00:00:00 Completed [facility] Influenza Virus Vaccine 2015-07-13 00:00:00 Completed [facility] Influenza Virus Vaccine Quad IM 3+ YRS 2015-07-13 00:00:00 Completed [facility] Influenza Virus Vaccine 2015-07-13 00:00:00 Completed [facility] Influenza Virus Vaccine Quad IM 3+ YRS 2015-07-13 00:00:00 Completed [facility] Influenza Virus Vaccine 2015-07-13 00:00:00 Completed [facility] Influenza Virus Vaccine Quad IM 3+ YRS 2015-07-13 00:00:00 Completed [facility] Influenza Virus Vaccine 2015-07-13 00:00:00 Completed [facility] Influenza Virus Vaccine Quad IM 3+ YRS 2015-07-13 00:00:00 Completed [facility] Influenza Virus Vaccine 2015-07-13 00:00:00 Completed [facility] Influenza Virus Vaccine Quad IM 3+ YRS 2015-07-13 00:00:00 Completed [facility] Influenza Virus Vaccine 2015-07-13 00:00:00 Completed Influenza Virus Vaccine Quad IM 3+ YRS 2015-07-13 00:00:00 Completed Influenza Virus Vaccine 2015-04-19 00:00:00 Completed [facility] Influenza Virus Vaccine Quad IM 3+ YRS 2015-04-19 00:00:00 Completed [facility] Influenza Virus Vaccine (3+ yrs) 2015-04-19 00:00:00 Completed [facility] Influenza Virus Vaccine 2015-04-19 00:00:00 Completed [facility] Influenza Virus Vaccine Quad IM 3+ YRS 2015-04-19 00:00:00 Completed [facility] Influenza Virus Vaccine (3+ yrs) 2015-04-19 00:00:00 Completed [facility] Influenza Virus Vaccine 2015-04-19 00:00:00 Completed [facility] Influenza Virus Vaccine Quad IM 3+ YRS 2015-04-19 00:00:00 Completed [facility] Influenza Virus Vaccine (3+ yrs) 2015-04-19 00:00:00 Completed [facility] Influenza Virus Vaccine 2015-04-19 00:00:00 Completed [facility] Influenza Virus Vaccine Quad IM 3+ YRS 2015-04-19 00:00:00 Completed [facility] Influenza Virus Vaccine (3+ yrs) 2015-04-19 00:00:00 Completed [facility] Influenza Virus Vaccine 2015-04-19 00:00:00 Completed [facility] Influenza Virus Vaccine Quad IM 3+ YRS 2015-04-19 00:00:00 Completed [facility] Influenza Virus Vaccine (3+ yrs) 2015-04-19 00:00:00 Completed [facility] Influenza Virus Vaccine 2015-04-19 00:00:00 Completed [facility] Influenza Virus Vaccine Quad IM 3+ YRS 2015-04-19 00:00:00 Completed [facility] Influenza Virus Vaccine (3+ yrs) 2015-04-19 00:00:00 Completed [facility] Influenza Virus Vaccine 2015-04-19 00:00:00 Completed [facility] Influenza Virus Vaccine Quad IM 3+ YRS 2015-04-19 00:00:00 Completed [facility] Influenza Virus Vaccine (3+ yrs) 2015-04-19 00:00:00 Completed [facility] Influenza Virus Vaccine 2015-04-19 00:00:00 Completed [facility] Influenza Virus Vaccine Quad IM 3+ YRS 2015-04-19 00:00:00 Completed [facility] Influenza Virus Vaccine (3+ yrs) 2015-04-19 00:00:00 Completed [facility] Influenza Virus Vaccine 2015-04-19 00:00:00 Completed [facility] Influenza Virus Vaccine Quad IM 3+ YRS 2015-04-19 00:00:00 Completed [facility] Influenza Virus Vaccine (3+ yrs) 2015-04-19 00:00:00 Completed [facility] Influenza Virus Vaccine 2015-04-19 00:00:00 Completed [facility] Influenza Virus Vaccine Quad IM 3+ YRS 2015-04-19 00:00:00 Completed [facility] Influenza Virus Vaccine (3+ yrs) 2015-04-19 00:00:00 Completed [facility] Influenza Virus Vaccine 2015-04-19 00:00:00 Completed [facility] Influenza Virus Vaccine Quad IM 3+ YRS 2015-04-19 00:00:00 Completed [facility] Influenza Virus Vaccine (3+ yrs) 2015-04-19 00:00:00 Completed [facility] Influenza Virus Vaccine 2015-04-19 00:00:00 Completed Influenza Virus Vaccine Quad IM 3+ YRS 2015-04-19 00:00:00 Completed Influenza, split virus, trivalent, preservative (3+ Yrs) (Afluria) 2015-04-19 00:00:00 Completed Influenza Virus Vaccine 2014-06-01 00:00:00 Completed [facility] Influenza Virus Vaccine Quad Nasal 2014-06-01 00:00:00 Completed [facility] Influenza Virus Vaccine 2014-06-01 00:00:00 Completed [facility] Influenza Virus Vaccine Quad Nasal 2014-06-01 00:00:00 Completed [facility] Influenza Virus Vaccine 2014-06-01 00:00:00 Completed [facility] Influenza Virus Vaccine Quad Nasal 2014-06-01 00:00:00 Completed [facility] Influenza Virus Vaccine 2014-06-01 00:00:00 Completed [facility] Influenza Virus Vaccine Quad Nasal 2014-06-01 00:00:00 Completed [facility] Influenza Virus Vaccine 2014-06-01 00:00:00 Completed [facility] Influenza Virus Vaccine Quad Nasal 2014-06-01 00:00:00 Completed [facility] Influenza Virus Vaccine 2014-06-01 00:00:00 Completed [facility] Influenza Virus Vaccine Quad Nasal 2014-06-01 00:00:00 Completed [facility] Influenza Virus Vaccine 2014-06-01 00:00:00 Completed [facility] Influenza Virus Vaccine Quad Nasal 2014-06-01 00:00:00 Completed [facility] Influenza Virus Vaccine 2014-06-01 00:00:00 Completed [facility] Influenza Virus Vaccine Quad Nasal 2014-06-01 00:00:00 Completed [facility] Influenza Virus Vaccine 2014-06-01 00:00:00 Completed [facility] Influenza Virus Vaccine Quad Nasal 2014-06-01 00:00:00 Completed [facility] Influenza Virus Vaccine 2014-06-01 00:00:00 Completed [facility] Influenza Virus Vaccine Quad Nasal 2014-06-01 00:00:00 Completed [facility] Influenza Virus Vaccine 2014-06-01 00:00:00 Completed [facility] Influenza Virus Vaccine Quad Nasal 2014-06-01 00:00:00 Completed [facility] Influenza Virus Vaccine 2014-06-01 00:00:00 Completed Influenza Virus Vaccine Quad Nasal (Flumist) 2014-06-01 00:00:00 Completed Influenza Virus Vaccine 2013-08-14 00:00:00 Completed [facility] Influenza Virus Vaccine Quad Nasal 2013-08-14 00:00:00 Completed [facility] Influenza Virus Vaccine 2013-08-14 00:00:00 Completed [facility] Influenza Virus Vaccine Quad Nasal 2013-08-14 00:00:00 Completed [facility] Influenza Virus Vaccine 2013-08-14 00:00:00 Completed [facility] Influenza Virus Vaccine Quad Nasal 2013-08-14 00:00:00 Completed [facility] Influenza Virus Vaccine 2013-08-14 00:00:00 Completed [facility] Influenza Virus Vaccine Quad Nasal 2013-08-14 00:00:00 Completed [facility] Influenza Virus Vaccine 2013-08-14 00:00:00 Completed [facility] Influenza Virus Vaccine Quad Nasal 2013-08-14 00:00:00 Completed [facility] Influenza Virus Vaccine 2013-08-14 00:00:00 Completed [facility] Influenza Virus Vaccine Quad Nasal 2013-08-14 00:00:00 Completed [facility] Influenza Virus Vaccine 2013-08-14 00:00:00 Completed [facility] Influenza Virus Vaccine Quad Nasal 2013-08-14 00:00:00 Completed [facility] Influenza Virus Vaccine 2013-08-14 00:00:00 Completed [facility] Influenza Virus Vaccine Quad Nasal 2013-08-14 00:00:00 Completed [facility] Influenza Virus Vaccine 2013-08-14 00:00:00 Completed [facility] Influenza Virus Vaccine Quad Nasal 2013-08-14 00:00:00 Completed [facility] Influenza Virus Vaccine 2013-08-14 00:00:00 Completed [facility] Influenza Virus Vaccine Quad Nasal 2013-08-14 00:00:00 Completed [facility] Influenza Virus Vaccine 2013-08-14 00:00:00 Completed [facility] Influenza Virus Vaccine Quad Nasal 2013-08-14 00:00:00 Completed [facility] Influenza Virus Vaccine 2013-08-14 00:00:00 Completed Influenza Virus Vaccine Quad Nasal (Flumist) 2013-08-14 00:00:00 Completed Influenza Virus Vaccine 2012-05-16 00:00:00 Completed [facility] Influenza Virus Vaccine Quad IM 3+ YRS 2012-05-16 00:00:00 Completed [facility] Influenza Virus Vaccine (3+ yrs) 2012-05-16 00:00:00 Completed [facility] Influenza Virus Vaccine 2012-05-16 00:00:00 Completed [facility] Influenza Virus Vaccine Quad IM 3+ YRS 2012-05-16 00:00:00 Completed [facility] Influenza Virus Vaccine (3+ yrs) 2012-05-16 00:00:00 Completed [facility] Influenza Virus Vaccine 2012-05-16 00:00:00 Completed [facility] Influenza Virus Vaccine Quad IM 3+ YRS 2012-05-16 00:00:00 Completed [facility] Influenza Virus Vaccine (3+ yrs) 2012-05-16 00:00:00 Completed [facility] Influenza Virus Vaccine 2012-05-16 00:00:00 Completed [facility] Influenza Virus Vaccine Quad IM 3+ YRS 2012-05-16 00:00:00 Completed [facility] Influenza Virus Vaccine (3+ yrs) 2012-05-16 00:00:00 Completed [facility] Influenza Virus Vaccine 2012-05-16 00:00:00 Completed [facility] Influenza Virus Vaccine Quad IM 3+ YRS 2012-05-16 00:00:00 Completed [facility] Influenza Virus Vaccine (3+ yrs) 2012-05-16 00:00:00 Completed [facility] Influenza Virus Vaccine 2012-05-16 00:00:00 Completed [facility] Influenza Virus Vaccine Quad IM 3+ YRS 2012-05-16 00:00:00 Completed [facility] Influenza Virus Vaccine (3+ yrs) 2012-05-16 00:00:00 Completed [facility] Influenza Virus Vaccine 2012-05-16 00:00:00 Completed [facility] Influenza Virus Vaccine Quad IM 3+ YRS 2012-05-16 00:00:00 Completed [facility] Influenza Virus Vaccine (3+ yrs) 2012-05-16 00:00:00 Completed [facility] Influenza Virus Vaccine 2012-05-16 00:00:00 Completed [facility] Influenza Virus Vaccine Quad IM 3+ YRS 2012-05-16 00:00:00 Completed [facility] Influenza Virus Vaccine (3+ yrs) 2012-05-16 00:00:00 Completed [facility] Influenza Virus Vaccine 2012-05-16 00:00:00 Completed [facility] Influenza Virus Vaccine Quad IM 3+ YRS 2012-05-16 00:00:00 Completed [facility] Influenza Virus Vaccine (3+ yrs) 2012-05-16 00:00:00 Completed [facility] Influenza Virus Vaccine 2012-05-16 00:00:00 Completed [facility] Influenza Virus Vaccine Quad IM 3+ YRS 2012-05-16 00:00:00 Completed [facility] Influenza Virus Vaccine (3+ yrs) 2012-05-16 00:00:00 Completed [facility] Influenza Virus Vaccine 2012-05-16 00:00:00 Completed [facility] Influenza Virus Vaccine Quad IM 3+ YRS 2012-05-16 00:00:00 Completed [facility] Influenza Virus Vaccine (3+ yrs) 2012-05-16 00:00:00 Completed [facility] Influenza Virus Vaccine 2012-05-16 00:00:00 Completed Influenza Virus Vaccine Quad IM 3+ YRS 2012-05-16 00:00:00 Completed Influenza, split virus, trivalent, preservative (3+ Yrs) (Afluria) 2012-05-16 00:00:00 Completed Influenza Virus Vaccine Nasal 2011-05-23 00:00:00 Completed [facility] Influenza Virus Vaccine 2011-05-23 00:00:00 Completed Influenza, Live, Trivalent, Intranasal (FLUMIST) 2011-05-23 00:00:00 Completed Influenza Virus Vaccine 2011-05-23 00:00:00 Completed [facility] Influenza Virus Vaccine Nasal 2011-05-23 00:00:00 Completed [facility] Influenza Virus Vaccine 2011-05-23 00:00:00 Completed [facility] Influenza Virus Vaccine Nasal 2011-05-23 00:00:00 Completed [facility] Influenza Virus Vaccine 2011-05-23 00:00:00 Completed [facility] Influenza Virus Vaccine Nasal 2011-05-23 00:00:00 Completed [facility] Influenza Virus Vaccine 2011-05-23 00:00:00 Completed [facility] Influenza Virus Vaccine Nasal 2011-05-23 00:00:00 Completed [facility] Influenza Virus Vaccine 2011-05-23 00:00:00 Completed [facility] Influenza Virus Vaccine Nasal 2011-05-23 00:00:00 Completed [facility] Influenza Virus Vaccine 2011-05-23 00:00:00 Completed [facility] Influenza Virus Vaccine Nasal 2011-05-23 00:00:00 Completed [facility] Influenza Virus Vaccine 2011-05-23 00:00:00 Completed [facility] Influenza Virus Vaccine Nasal 2011-05-23 00:00:00 Completed [facility] Influenza Virus Vaccine 2011-05-23 00:00:00 Completed [facility] Influenza Virus Vaccine Nasal 2011-05-23 00:00:00 Completed [facility] Influenza Virus Vaccine 2011-05-23 00:00:00 Completed [facility] Influenza Virus Vaccine Nasal 2011-05-23 00:00:00 Completed [facility] Influenza Virus Vaccine 2011-05-23 00:00:00 Completed [facility] Influenza Virus Vaccine Nasal 2011-05-23 00:00:00 Completed [facility] Influenza Virus Vaccine 2011-05-23 00:00:00 Completed [facility] Influenza Virus Vaccine 2010-07-04 00:00:00 Completed [facility] Influenza Virus Vaccine Nasal 2010-07-04 00:00:00 Completed [facility] Influenza Virus Vaccine 2010-07-04 00:00:00 Completed [facility] Influenza Virus Vaccine Nasal 2010-07-04 00:00:00 Completed [facility] Influenza Virus Vaccine 2010-07-04 00:00:00 Completed [facility] Influenza Virus Vaccine Nasal 2010-07-04 00:00:00 Completed [facility] Influenza Virus Vaccine 2010-07-04 00:00:00 Completed [facility] Influenza Virus Vaccine Nasal 2010-07-04 00:00:00 Completed [facility] Influenza Virus Vaccine 2010-07-04 00:00:00 Completed [facility] Influenza Virus Vaccine Nasal 2010-07-04 00:00:00 Completed [facility] Influenza Virus Vaccine 2010-07-04 00:00:00 Completed [facility] Influenza Virus Vaccine Nasal 2010-07-04 00:00:00 Completed [facility] Influenza Virus Vaccine 2010-07-04 00:00:00 Completed [facility] Influenza Virus Vaccine Nasal 2010-07-04 00:00:00 Completed [facility] Influenza Virus Vaccine 2010-07-04 00:00:00 Completed [facility] Influenza Virus Vaccine Nasal 2010-07-04 00:00:00 Completed [facility] Influenza Virus Vaccine 2010-07-04 00:00:00 Completed [facility] Influenza Virus Vaccine Nasal 2010-07-04 00:00:00 Completed [facility] Influenza Virus Vaccine 2010-07-04 00:00:00 Completed [facility] Influenza Virus Vaccine Nasal 2010-07-04 00:00:00 Completed [facility] Influenza Virus Vaccine 2010-07-04 00:00:00 Completed [facility] Influenza Virus Vaccine Nasal 2010-07-04 00:00:00 Completed [facility] Influenza Virus Vaccine 2010-07-04 00:00:00 Completed Influenza, Live, Trivalent, Intranasal (FLUMIST) 2010-07-04 00:00:00 Completed HPV 2007-05-30 00:00:00 Completed [facility] HPV 2007-05-30 00:00:00 Completed [facility] HPV 2007-05-30 00:00:00 Completed [facility] HPV 2007-05-30 00:00:00 Completed [facility] HPV 2007-05-30 00:00:00 Completed [facility] HPV 2007-05-30 00:00:00 Completed [facility] HPV 2007-05-30 00:00:00 Completed [facility] HPV 2007-05-30 00:00:00 Completed [facility] HPV 2007-05-30 00:00:00 Completed [facility] HPV 2007-05-30 00:00:00 Completed [facility] HPV 2007-05-30 00:00:00 Completed [facility] HPV 2007-05-30 00:00:00 Completed [facility] HPV Unknown Completed [facility] Influenza Virus Vaccine Unknown Completed [facility] Influenza Virus Vaccine Nasal Unknown Completed [facility] Influenza Virus Vaccine Quad IM 3+ YRS Unknown Completed [facility] Influenza Virus Vaccine (3+ yrs) Unknown Completed [facility] Influenza Virus Vaccine Quad Nasal (Flumist) Unknown Completed [facility] SARS-COV-2 COVID-19 PFIZER VACCINE Unknown Completed [facility] Influenza Virus Vaccine Quad IM, Preserv and ABX Free 6 MO-64 YRS (FLUCELVAX) Unknown Completed [facility] HPV Unknown Completed [facility] Influenza Virus Vaccine Unknown Completed [facility] Influenza Virus Vaccine Nasal Unknown Completed [facility] Influenza Virus Vaccine Quad IM 3+ YRS Unknown Completed [facility] Influenza Virus Vaccine (3+ yrs) Unknown Completed [facility] Influenza Virus Vaccine Quad Nasal (Flumist) Unknown Completed [facility] SARS-COV-2 COVID-19 PFIZER VACCINE Unknown Completed [facility] Influenza Virus Vaccine Quad IM, Preserv and ABX Free 6 MO-64 YRS (FLUCELVAX) Unknown Completed [facility] HPV Unknown Completed [facility] Influenza Virus Vaccine Unknown Completed [facility] Influenza Virus Vaccine Nasal Unknown Completed [facility] Influenza Virus Vaccine Quad IM 3+ YRS Unknown Completed [facility] Influenza Virus Vaccine (3+ yrs) Unknown Completed [facility] Influenza Virus Vaccine Quad Nasal (Flumist) Unknown Completed [facility] Influenza Virus Vaccine Quad IM, Preserv and ABX Free 6 MO-64 YRS (FLUCELVAX) Unknown Completed [facility] HPV Unknown Completed [facility] Influenza Virus Vaccine Unknown Completed [facility] Influenza Virus Vaccine Nasal Unknown Completed [facility] Influenza Virus Vaccine Quad IM 3+ YRS Unknown Completed [facility] Influenza Virus Vaccine (3+ yrs) Unknown Completed [facility] Influenza Virus Vaccine Quad Nasal (Flumist) Unknown Completed [facility] SARS-COV-2 COVID-19 PFIZER VACCINE Unknown Completed [facility] HPV Unknown Completed [facility] Influenza Virus Vaccine Unknown Completed [facility] Influenza Virus Vaccine Nasal Unknown Completed [facility] Influenza Virus Vaccine Quad IM 3+ YRS Unknown Completed [facility] Influenza Virus Vaccine (3+ yrs) Unknown Completed [facility] Influenza Virus Vaccine Quad Nasal (Flumist) Unknown Completed [facility] SARS-COV-2 COVID-19 PFIZER VACCINE Unknown Completed [facility] Influenza Virus Vaccine Quad IM, Preserv and ABX Free 6 MO-64 YRS (FLUCELVAX) Unknown Completed [facility] HPV Unknown Completed [facility] Influenza Virus Vaccine Unknown Completed [facility] Influenza Virus Vaccine Nasal Unknown Completed [facility] Influenza Virus Vaccine Quad IM 3+ YRS Unknown Completed [facility] Influenza Virus Vaccine (3+ yrs) Unknown Completed [facility] Influenza Virus Vaccine Quad Nasal (Flumist) Unknown Completed [facility] SARS-COV-2 COVID-19 PFIZER VACCINE Unknown Completed [facility] Influenza Virus Vaccine Quad IM, Preserv and ABX Free 6 MO-64 YRS (FLUCELVAX) Unknown Completed [facility] HPV Unknown Completed [facility] Influenza Virus Vaccine Unknown Completed [facility] Influenza Virus Vaccine Nasal Unknown Completed [facility] Influenza Virus Vaccine Quad IM 3+ YRS Unknown Completed [facility] Influenza Virus Vaccine (3+ yrs) Unknown Completed [facility] Influenza Virus Vaccine Quad Nasal (Flumist) Unknown Completed [facility] SARS-COV-2 COVID-19 PFIZER VACCINE Unknown Completed [facility] Influenza Virus Vaccine Quad IM, Preserv and ABX Free 6 MO-64 YRS (FLUCELVAX) Unknown Completed [facility] Influenza Virus Vaccine Quad IM, Preserv and ABX Free 6 MO-64 YRS (FLUCELVAX) Unknown Completed [facility] HPV Unknown Completed [facility] Influenza Virus Vaccine Unknown Completed [facility] Influenza Virus Vaccine Nasal Unknown Completed [facility] Influenza Virus Vaccine Quad IM 3+ YRS Unknown Completed [facility] Influenza Virus Vaccine (3+ yrs) Unknown Completed [facility] Influenza Virus Vaccine Quad Nasal (Flumist) Unknown Completed [facility] SARS-COV-2 COVID-19 PFIZER VACCINE Unknown Completed [facility] HPV Unknown Completed [facility] Influenza Virus Vaccine Unknown Completed [facility] Influenza Virus Vaccine Nasal Unknown Completed [facility] Influenza Virus Vaccine Quad IM 3+ YRS Unknown Completed [facility] Influenza Virus Vaccine (3+ yrs) Unknown Completed [facility] Influenza Virus Vaccine Quad Nasal (Flumist) Unknown Completed [facility] SARS-COV-2 COVID-19 PFIZER VACCINE Unknown Completed [facility] Influenza Virus Vaccine Quad IM, Preserv and ABX Free 6 MO-64 YRS (FLUCELVAX) Unknown Completed [facility] HPV Unknown Completed [facility] Influenza Virus Vaccine Unknown Completed [facility] Influenza Virus Vaccine Nasal Unknown Completed [facility] Influenza Virus Vaccine Quad IM 3+ YRS Unknown Completed [facility] Influenza Virus Vaccine (3+ yrs) Unknown Completed [facility] Influenza Virus Vaccine Quad Nasal (Flumist) Unknown Completed [facility] SARS-COV-2 COVID-19 PFIZER VACCINE Unknown Completed [facility] Influenza Virus Vaccine Quad IM, Preserv and ABX Free 6 MO-64 YRS (FLUCELVAX) Unknown Completed [facility] Influenza Virus Vaccine Quad IM, Preserv and ABX Free 6 MO-64 YRS (FLUCELVAX) Unknown Completed [facility] HPV Unknown Completed [facility] Influenza Virus Vaccine Unknown Completed [facility] Influenza Virus Vaccine Nasal Unknown Completed [facility] Influenza Virus Vaccine Quad IM 3+ YRS Unknown Completed [facility] Influenza Virus Vaccine (3+ yrs) Unknown Completed [facility] Influenza Virus Vaccine Quad Nasal (Flumist) Unknown Completed [facility] SARS-COV-2 COVID-19 PFIZER VACCINE Unknown Completed [facility] HPV Unknown Completed [facility] Influenza Virus Vaccine Unknown Completed [facility] Influenza Virus Vaccine Nasal Unknown Completed [facility] Influenza Virus Vaccine Quad IM 3+ YRS Unknown Completed [facility] Influenza Virus Vaccine (3+ yrs) Unknown Completed [facility] Influenza Virus Vaccine Quad Nasal (Flumist) Unknown Completed [facility] SARS-COV-2 COVID-19 PFIZER VACCINE Unknown Completed [facility] Influenza Virus Vaccine Quad IM, Preserv and ABX Free 6 MO-64 YRS (FLUCELVAX) Unknown Completed [facility] HPV Unknown Completed [facility] Influenza Virus Vaccine Unknown Completed [facility] Influenza Virus Vaccine Nasal Unknown Completed [facility] Influenza Virus Vaccine Quad IM 3+ YRS Unknown Completed [facility] Influenza Virus Vaccine (3+ yrs) Unknown Completed [facility] Influenza Virus Vaccine Quad Nasal (Flumist) Unknown Completed [facility] SARS-COV-2 COVID-19 PFIZER VACCINE Unknown Completed [facility] Influenza Virus Vaccine Quad IM, Preserv and ABX Free 6 MO-64 YRS (FLUCELVAX) Unknown Completed [facility] HPV Unknown Completed [facility] Influenza Virus Vaccine Unknown Completed [facility] Influenza Virus Vaccine Nasal Unknown Completed [facility] Influenza Virus Vaccine Quad IM 3+ YRS Unknown Completed [facility] Influenza Virus Vaccine (3+ yrs) Unknown Completed [facility] Influenza Virus Vaccine Quad Nasal (Flumist) Unknown Completed [facility] SARS-COV-2 COVID-19 PFIZER VACCINE Unknown Completed [facility] Influenza Virus Vaccine Quad IM, Preserv and ABX Free 6 MO-64 YRS (FLUCELVAX) Unknown Completed [facility] HPV Unknown Completed [facility] Influenza Virus Vaccine Unknown Completed [facility] Influenza Virus Vaccine Nasal Unknown Completed [facility] Influenza Virus Vaccine Quad IM 3+ YRS Unknown Completed [facility] Influenza Virus Vaccine (3+ yrs) Unknown Completed [facility] Influenza Virus Vaccine Quad Nasal (Flumist) Unknown Completed [facility] SARS-COV-2 COVID-19 PFIZER VACCINE Unknown Completed [facility] Influenza Virus Vaccine Quad IM, Preserv and ABX Free 6 MO-64 YRS (FLUCELVAX) Unknown Completed [facility] HPV Unknown Completed [facility] Influenza Virus Vaccine Unknown Completed [facility] Influenza Virus Vaccine Nasal Unknown Completed [facility] Influenza Virus Vaccine Quad IM 3+ YRS Unknown Completed [facility] Influenza Virus Vaccine (3+ yrs) Unknown Completed [facility] Influenza Virus Vaccine Quad Nasal (Flumist) Unknown Completed [facility] SARS-COV-2 COVID-19 PFIZER VACCINE Unknown Completed [facility] Influenza Virus Vaccine Quad IM, Preserv and ABX Free 6 MO-64 YRS (FLUCELVAX) Unknown Completed [facility] HPV Unknown Completed [facility] Influenza Virus Vaccine Unknown Completed [facility] Influenza Virus Vaccine Nasal Unknown Completed [facility] Influenza Virus Vaccine Quad IM 3+ YRS Unknown Completed [facility] Influenza Virus Vaccine (3+ yrs) Unknown Completed [facility] Influenza Virus Vaccine Quad Nasal (Flumist) Unknown Completed [facility] SARS-COV-2 COVID-19 PFIZER VACCINE Unknown Completed [facility] Influenza Virus Vaccine Quad IM, Preserv and ABX Free 6 MO-64 YRS (FLUCELVAX) Unknown Completed [facility] HPV Unknown Completed [facility] Influenza Virus Vaccine Unknown Completed [facility] Influenza Virus Vaccine Nasal Unknown Completed [facility] Influenza Virus Vaccine Quad IM 3+ YRS Unknown Completed [facility] Influenza Virus Vaccine (3+ yrs) Unknown Completed [facility] Influenza Virus Vaccine Quad Nasal (Flumist) Unknown Completed [facility] SARS-COV-2 COVID-19 PFIZER VACCINE Unknown Completed [facility] Influenza Virus Vaccine Quad IM, Preserv and ABX Free 6 MO-64 YRS (FLUCELVAX) Unknown Completed [facility] HPV Unknown Completed [facility] Influenza Virus Vaccine Unknown Completed [facility] Influenza Virus Vaccine Nasal Unknown Completed [facility] Influenza Virus Vaccine Quad IM 3+ YRS Unknown Completed [facility] Influenza Virus Vaccine (3+ yrs) Unknown Completed [facility] Influenza Virus Vaccine Quad Nasal (Flumist) Unknown Completed [facility] SARS-COV-2 COVID-19 PFIZER VACCINE Unknown Completed [facility] Influenza Virus Vaccine Quad IM, Preserv and ABX Free 6 MO-64 YRS (FLUCELVAX) Unknown Completed [facility] HPV Unknown Completed [facility] Influenza Virus Vaccine Unknown Completed [facility] Influenza Virus Vaccine Nasal Unknown Completed [facility] Influenza Virus Vaccine Quad IM 3+ YRS Unknown Completed [facility] Influenza Virus Vaccine (3+ yrs) Unknown Completed [facility] Influenza Virus Vaccine Quad Nasal (Flumist) Unknown Completed [facility] SARS-COV-2 COVID-19 PFIZER VACCINE Unknown Completed [facility] Influenza Virus Vaccine Quad IM, Preserv and ABX Free 6 MO-64 YRS (FLUCELVAX) Unknown Completed [facility] HPV Unknown Completed [facility] Influenza Virus Vaccine Unknown Completed [facility] Influenza Virus Vaccine Nasal Unknown Completed [facility] Influenza Virus Vaccine Quad IM 3+ YRS Unknown Completed [facility] Influenza Virus Vaccine (3+ yrs) Unknown Completed [facility] Influenza Virus Vaccine Quad Nasal (Flumist) Unknown Completed [facility] SARS-COV-2 COVID-19 PFIZER VACCINE Unknown Completed [facility] Influenza Virus Vaccine Quad IM, Preserv and ABX Free 6 MO-64 YRS (FLUCELVAX) Unknown Completed [facility] HPV Unknown Completed [facility] Influenza Virus Vaccine Unknown Completed [facility] Influenza Virus Vaccine Nasal Unknown Completed [facility] Influenza Virus Vaccine Quad IM 3+ YRS Unknown Completed [facility] Influenza Virus Vaccine (3+ yrs) Unknown Completed [facility] Influenza Virus Vaccine Quad Nasal (Flumist) Unknown Completed [facility] SARS-COV-2 COVID-19 PFIZER VACCINE Unknown Completed [facility] Influenza Virus Vaccine Quad IM, Preserv and ABX Free 6 MO-64 YRS (FLUCELVAX) Unknown Completed [facility] Influenza Virus Vaccine Quad IM, Preserv and ABX Free 6 MO-64 YRS (FLUCELVAX) Unknown Completed [facility] HPV Unknown Completed [facility] Influenza Virus Vaccine Unknown Completed [facility] Influenza Virus Vaccine Nasal Unknown Completed [facility] Influenza Virus Vaccine Quad IM 3+ YRS Unknown Completed [facility] Influenza Virus Vaccine (3+ yrs) Unknown Completed [facility] Influenza Virus Vaccine Quad Nasal (Flumist) Unknown Completed [facility] SARS-COV-2 COVID-19 PFIZER VACCINE Unknown Completed [facility] HPV Unknown Completed [facility] Influenza Virus Vaccine Unknown Completed [facility] Influenza Virus Vaccine Nasal Unknown Completed [facility] Influenza Virus Vaccine Quad IM 3+ YRS Unknown Completed [facility] Influenza Virus Vaccine (3+ yrs) Unknown Completed [facility] Influenza Virus Vaccine Quad Nasal (Flumist) Unknown Completed [facility] SARS-COV-2 COVID-19 PFIZER VACCINE Unknown Completed [facility] Influenza Virus Vaccine Quad IM, Preserv and ABX Free 6 MO-64 YRS (FLUCELVAX) Unknown Completed [facility] HPV Unknown Completed [facility] Influenza Virus Vaccine Unknown Completed [facility] Influenza Virus Vaccine Nasal Unknown Completed [facility] Influenza Virus Vaccine Quad IM 3+ YRS Unknown Completed [facility] Influenza Virus Vaccine (3+ yrs) Unknown Completed [facility] Influenza Virus Vaccine Quad Nasal (Flumist) Unknown Completed [facility] SARS-COV-2 COVID-19 PFIZER VACCINE Unknown Completed [facility] Influenza Virus Vaccine Quad IM, Preserv and ABX Free 6 MO-64 YRS (FLUCELVAX) Unknown Completed [facility] HPV Unknown Completed [facility] Influenza Virus Vaccine Unknown Completed [facility] Influenza Virus Vaccine Nasal Unknown Completed [facility] Influenza Virus Vaccine Quad IM 3+ YRS Unknown Completed [facility] Influenza Virus Vaccine (3+ yrs) Unknown Completed [facility] Influenza Virus Vaccine Quad Nasal (Flumist) Unknown Completed [facility] SARS-COV-2 COVID-19 PFIZER VACCINE Unknown Completed [facility] Influenza Virus Vaccine Quad IM, Preserv and ABX Free 6 MO-64 YRS (FLUCELVAX) Unknown Completed [facility] HPV Unknown Completed [facility] Influenza Virus Vaccine Unknown Completed [facility] Influenza Virus Vaccine Nasal Unknown Completed [facility] Influenza Virus Vaccine Quad IM 3+ YRS Unknown Completed [facility] Influenza Virus Vaccine (3+ yrs) Unknown Completed [facility] Influenza Virus Vaccine Quad Nasal (Flumist) Unknown Completed [facility] SARS-COV-2 COVID-19 PFIZER VACCINE Unknown Completed [facility] Influenza Virus Vaccine Quad IM, Preserv and ABX Free 6 MO-64 YRS (FLUCELVAX) Unknown Completed [facility] HPV Unknown Completed [facility] Influenza Virus Vaccine Unknown Completed [facility] Influenza Virus Vaccine Nasal Unknown Completed [facility] Influenza Virus Vaccine Quad IM 3+ YRS Unknown Completed [facility] Influenza Virus Vaccine (3+ yrs) Unknown Completed [facility] Influenza Virus Vaccine Quad Nasal (Flumist) Unknown Completed [facility] SARS-COV-2 COVID-19 PFIZER VACCINE Unknown Completed [facility] Influenza Virus Vaccine Quad IM, Preserv and ABX Free 6 MO-64 YRS (FLUCELVAX) Unknown Completed [facility] HPV Unknown Completed [facility] Influenza Virus Vaccine Unknown Completed [facility] Influenza Virus Vaccine Nasal Unknown Completed [facility] Influenza Virus Vaccine Quad IM 3+ YRS Unknown Completed [facility] Influenza Virus Vaccine (3+ yrs) Unknown Completed [facility] Influenza Virus Vaccine Quad Nasal (Flumist) Unknown Completed [facility] SARS-COV-2 COVID-19 PFIZER VACCINE Unknown Completed [facility] Influenza Virus Vaccine Quad IM, Preserv and ABX Free 6 MO-64 YRS (FLUCELVAX) Unknown Completed [facility] Influenza Virus Vaccine Quad IM, Preserv and ABX Free 6 MO-64 YRS (FLUCELVAX) Unknown Completed [facility] HPV Unknown Completed [facility] Influenza Virus Vaccine Unknown Completed [facility] Influenza Virus Vaccine Nasal Unknown Completed [facility] Influenza Virus Vaccine Quad IM 3+ YRS Unknown Completed [facility] Influenza Virus Vaccine (3+ yrs) Unknown Completed [facility] Influenza Virus Vaccine Quad Nasal (Flumist) Unknown Completed [facility] SARS-COV-2 COVID-19 PFIZER VACCINE Unknown Completed [facility] Influenza Virus Vaccine Quad IM, Preserv and ABX Free 6 MO-64 YRS (FLUCELVAX) Unknown Completed [facility] HPV Unknown Completed [facility] Influenza Virus Vaccine Unknown Completed [facility] Influenza Virus Vaccine Nasal Unknown Completed [facility] Influenza Virus Vaccine Quad IM 3+ YRS Unknown Completed [facility] Influenza Virus Vaccine (3+ yrs) Unknown Completed [facility] Influenza Virus Vaccine Quad Nasal (Flumist) Unknown Completed [facility] SARS-COV-2 COVID-19 PFIZER VACCINE Unknown Completed [facility] HPV Unknown Completed [facility] Influenza Virus Vaccine Unknown Completed [facility] Influenza Virus Vaccine Nasal Unknown Completed [facility] Influenza Virus Vaccine Quad IM 3+ YRS Unknown Completed [facility] Influenza Virus Vaccine (3+ yrs) Unknown Completed [facility] Influenza Virus Vaccine Quad Nasal (Flumist) Unknown Completed [facility] SARS-COV-2 COVID-19 PFIZER VACCINE Unknown Completed [facility] Influenza Virus Vaccine Quad IM, Preserv and ABX Free 6 MO-64 YRS (FLUCELVAX) Unknown Completed [facility] HPV Unknown Completed [facility] Influenza Virus Vaccine Unknown Completed [facility] Influenza Virus Vaccine Nasal Unknown Completed [facility] Influenza Virus Vaccine Quad IM 3+ YRS Unknown Completed [facility] Influenza Virus Vaccine (3+ yrs) Unknown Completed [facility] Influenza Virus Vaccine Quad Nasal (Flumist) Unknown Completed [facility] SARS-COV-2 COVID-19 PFIZER VACCINE Unknown Completed [facility] Influenza Virus Vaccine Quad IM, Preserv and ABX Free 6 MO-64 YRS (FLUCELVAX) Unknown Completed [facility] HPV Unknown Completed [facility] Influenza Virus Vaccine Unknown Completed [facility] Influenza Virus Vaccine Nasal Unknown Completed [facility] Influenza Virus Vaccine Quad IM 3+ YRS Unknown Completed [facility] Influenza Virus Vaccine (3+ yrs) Unknown Completed [facility] Influenza Virus Vaccine Quad Nasal (Flumist) Unknown Completed [facility] SARS-COV-2 COVID-19 PFIZER VACCINE Unknown Completed [facility] Influenza Virus Vaccine Quad IM, Preserv and ABX Free 6 MO-64 YRS (FLUCELVAX) Unknown Completed [facility] HPV Unknown Completed [facility] Influenza Virus Vaccine Unknown Completed [facility] Influenza Virus Vaccine Nasal Unknown Completed [facility] Influenza Virus Vaccine Quad IM 3+ YRS Unknown Completed [facility] Influenza Virus Vaccine (3+ yrs) Unknown Completed [facility] Influenza Virus Vaccine Quad Nasal (Flumist) Unknown Completed [facility] SARS-COV-2 COVID-19 PFIZER VACCINE Unknown Completed [facility] Influenza Virus Vaccine Quad IM, Preserv and ABX Free 6 MO-64 YRS (FLUCELVAX) Unknown Completed [facility] HPV Unknown Completed [facility] Influenza Virus Vaccine Unknown Completed [facility] Influenza Virus Vaccine Nasal Unknown Completed [facility] Influenza Virus Vaccine Quad IM 3+ YRS Unknown Completed [facility] Influenza Virus Vaccine (3+ yrs) Unknown Completed [facility] Influenza Virus Vaccine Quad Nasal (Flumist) Unknown Completed [facility] SARS-COV-2 COVID-19 PFIZER VACCINE Unknown Completed [facility] Influenza Virus Vaccine Quad IM, Preserv and ABX Free 6 MO-64 YRS (FLUCELVAX) Unknown Completed [facility] HPV Unknown Completed [facility] Influenza Virus Vaccine Unknown Completed [facility] Influenza Virus Vaccine Nasal Unknown Completed [facility] Influenza Virus Vaccine Quad IM 3+ YRS Unknown Completed [facility] Influenza Virus Vaccine (3+ yrs) Unknown Completed [facility] Influenza Virus Vaccine Quad Nasal (Flumist) Unknown Completed [facility] SARS-COV-2 COVID-19 PFIZER VACCINE Unknown Completed [facility] Influenza Virus Vaccine Quad IM, Preserv and ABX Free 6 MO-64 YRS (FLUCELVAX) Unknown Completed [facility] HPV Unknown Completed [facility] Influenza Virus Vaccine Unknown Completed [facility] Influenza Virus Vaccine Nasal Unknown Completed [facility] Influenza Virus Vaccine Quad IM 3+ YRS Unknown Completed [facility] Influenza Virus Vaccine (3+ yrs) Unknown Completed [facility] Influenza Virus Vaccine Quad Nasal (Flumist) Unknown Completed [facility] SARS-COV-2 COVID-19 PFIZER VACCINE Unknown Completed [facility] Influenza Virus Vaccine Quad IM, Preserv and ABX Free 6 MO-64 YRS (FLUCELVAX) Unknown Completed [facility] HPV Unknown Completed [facility] Influenza Virus Vaccine Unknown Completed [facility] Influenza Virus Vaccine Nasal Unknown Completed [facility] Influenza Virus Vaccine Quad IM 3+ YRS Unknown Completed [facility] Influenza Virus Vaccine (3+ yrs) Unknown Completed [facility] Influenza Virus Vaccine Quad Nasal (Flumist) Unknown Completed [facility] SARS-COV-2 COVID-19 PFIZER VACCINE Unknown Completed [facility] Influenza Virus Vaccine Quad IM, Preserv and ABX Free 6 MO-64 YRS (FLUCELVAX) Unknown Completed [facility] HPV Unknown Completed [facility] Influenza Virus Vaccine Unknown Completed [facility] Influenza Virus Vaccine Nasal Unknown Completed [facility] Influenza Virus Vaccine Quad IM 3+ YRS Unknown Completed [facility] Influenza Virus Vaccine (3+ yrs) Unknown Completed [facility] Influenza Virus Vaccine Quad Nasal (Flumist) Unknown Completed [facility] SARS-COV-2 COVID-19 PFIZER VACCINE Unknown Completed [facility] Influenza Virus Vaccine Quad IM, Preserv and ABX Free 6 MO-64 YRS (FLUCELVAX) Unknown Completed [facility] HPV Unknown Completed [facility] Influenza Virus Vaccine Unknown Completed [facility] Influenza Virus Vaccine Nasal Unknown Completed [facility] Influenza Virus Vaccine Quad IM 3+ YRS Unknown Completed [facility] Influenza Virus Vaccine (3+ yrs) Unknown Completed [facility] Influenza Virus Vaccine Quad Nasal (Flumist) Unknown Completed [facility] SARS-COV-2 COVID-19 PFIZER VACCINE Unknown Completed [facility] Influenza Virus Vaccine Quad IM, Preserv and ABX Free 6 MO-64 YRS (FLUCELVAX) Unknown Completed [facility] HPV Unknown Completed [facility] Influenza Virus Vaccine Unknown Completed [facility] Influenza Virus Vaccine Nasal Unknown Completed [facility] Influenza Virus Vaccine Quad IM 3+ YRS Unknown Completed [facility] Influenza Virus Vaccine (3+ yrs) Unknown Completed [facility] Influenza Virus Vaccine Quad Nasal (Flumist) Unknown Completed [facility] SARS-COV-2 COVID-19 PFIZER VACCINE Unknown Completed [facility] Influenza Virus Vaccine Quad IM, Preserv and ABX Free 6 MO-64 YRS (FLUCELVAX) Unknown Completed [facility] Vital Signs Vital Name Observation Time Observation Value Comments S ource Systolic blood pressure 2023-10-25 16:52:00 133 mm[Hg] [facility] Diastolic blood pressure 2023-10-25 16:52:00 85 mm[Hg] [facility] Heart rate 2023-10-25 16:52:00 62 /min [facility] Oxygen saturation in Arterial blood by Pulse oximetry 2023-10-25 16:52:00 98 /min [facility] Body temperature 2023-10-25 16:51:00 36.56 [facility] Respiratory rate 2023-10-25 16:51:00 18 /min [facility] Body height 2023-10-25 16:51:00 [facility]6 [facility] weight 2023-10-25 16:51:00 [facility].827 [facility] BMI 2023-10-25 16:51:00 29.47 kg/m2 [facility] Systolic blood pressure 2023-10-25 15:11:00 123 mm[Hg] [facility] Diastolic blood pressure 2023-10-25 15:11:00 82 mm[Hg] [facility] Heart rate 2023-10-25 15:11:00 84 /min General acute hospital Body temperature 2023-10-25 15:11:00 36.78 [facility] Respiratory rate 2023-10-25 15:11:00 18 /min [facility] Body weight 2023-10-25 15:11:00 [facility]555 [facility] BMI 2023-10-25 15:11:00 28.51 kg/m2 [facility] Systolic blood pressure 2023-10-11 17:37:00 134 mm[Hg] [facility] Diastolic blood pressure 2023-10-11 17:37:00 81 mm[Hg] [facility] Heart rate 2023-10-11 17:37:00 69 /min [facility] Body temperature 2023-10-11 17:37:00 36.22 [facility] Respiratory rate 2023-10-11 17:37:00 18 /min [facility] Body height 2023-10-11 17:37:00 170.2 cm [facility] Body weight 2023-10-11 17:37:00 80.287 [facility] BMI 2023-10-11 17:37:00 27.72 kg/m2 [facility] Oxygen saturation in Arterial blood by Pulse oximetry 2023-10-11 17:37:00 98 /min [facility] Systolic blood pressure 2023-08-20 05:00:00 115 mm[Hg] [facility] Diastolic blood pressure 2023-08-20 05:00:00 91 mm[Hg] [facility] Heart rate 2023-08-20 05:00:00 82 /min [facility] Respiratory rate 2023-08-20 05:00:00 18 /min [facility] Oxygen saturation in Arterial blood by Pulse oximetry 2023-08-20 05:00:00 100 /min [facility] Body temperature 2023-08-20 02:03:00 37.22 [facility] Body height 2023-08-20 02:03:00 167.6 cm [facility] Body weight 2023-08-20 02:03:00 82.419 [facility] BMI 2023-08-20 02:03:00 29.33 kg/m2 [facility] Body weight 2023-07-26 17:33:00 84.823 kg [facility] BMI 2023-07-26 17:33:00 30.18 kg/m2 [facility] Systolic blood pressure 2023-07-17 17:18:00 108 mm[Hg] [facility] Diastolic blood pressure 2023-07-17 17:18:00 55 mm[Hg] [facility] Heart rate 2023-07-17 17:18:00 59 /min [facility] Respiratory rate 2023-07-17 17:18:00 18 /min [facility] Body height 2023-07-17 17:18:00 167.6 cm [facility] Body weight 2023-07-17 17:18:00 84.823 kg [facility] BMI 2023-07-17 17:18:00 30.18 kg/m2 [facility] Oxygen saturation in Arterial blood by Pulse oximetry 2023-07-17 17:18:00 97 /min [facility] Systolic blood pressure 2023-06-19 21:44:00 135 mm[Hg] [facility] Diastolic blood pressure 2023-06-19 21:44:00 82 mm[Hg] [facility] Heart rate 2023-06-19 21:44:00 81 /min [facility]ive [facility] Body temperature 2023-06-19 21:44:00 36.61 [facility] Body height 2023-06-19 21:44:00 167.6 cm [facility] Body weight 2023-06-19 21:44:00 79.379 [facility] BMI 2023-06-19 21:44:00 28.25 kg/m2 [facility] Oxygen saturation in Arterial blood by Pulse oximetry 2023-06-19 21:44:00 97 /min [facility] Systolic blood pressure 2022-02-09 16:11:00 132 mm[Hg] [facility] Diastolic blood pressure 2022-02-09 16:11:00 83 mm[Hg] [facility] Heart rate 2022-02-09 16:10:00 83 /min General acute hospital Body temperature 2022-02-09 16:10:00 36.78 [facility] Body height 2022-02-09 16:10:00 170.2 cm [facility] Body weight 2022-02-09 16:10:00 88.633 kg [facility] BMI 2022-02-09 16:10:00 30.60 kg/m2 [facility] Oxygen saturation in Arterial blood by Pulse oximetry 2022-02-09 16:10:00 99 /min [facility] Procedures Procedure Date / Time Performed Performing Clinicia n Source DISCLOSURE AND CONSENT, MEDICAL AND SURGICAL PROCEDURES 2023-10-29 05:01:00 Doctor Unassigned, [place] [facility] URINE CULTURE 2023-10-11 18:02:00 [facility] POCT URINALYSIS AUTO 2023-10-11 17:00:00 Yulisa Mace [facility] CT ABDOMEN PELVIS W CONTRAST 2023-08-20 03:54:01 Janet Nguyen [facility] POCT TEST 2023-08-20 02:57:00 Lucio Nguyen [facility] LIPASE 2023-08-20 02:55:00 [facility] COMP. METABOLIC PANEL (37045) 2023-08-20 02:55:00 Janet Nguyen [facility] CBC WITH DIFF 2023-08-20 02:55:00 [facility] URINALYSIS 2023-08-20 02:55:00 Janet Nguyen [facility] CONSENT/REFUSAL FOR DIAGNOSIS AND TREATMENT 2023-08-20 01:58:01 Doctor Unassigned, [place] [facility] POCT URINALYSIS AUTO 2023-08-16 18:30:00 Yulisa Mace [facility] URINE CULTURE 2023-08-16 17:52:00 [facility] POCT URINALYSIS AUTO 2023-07-26 17:35:00 Yulisa Mace hernandez [facility] DISCLOSURE AND CONSENT, MEDICAL AND SURGICAL PROCEDURES 2023-07-19 06:01:00 Doctor Unassigned, [place] [facility] POCT URINALYSIS 2023-06-19 00:00:00 Emelina Arndt [facility] Encounters Start Date/Time End Date/Time Encounter Type Admission Type Attending [facility] Care Facility Care Department Encounter ID Source 2024-06-15 00:00:00 2024-06-16 08:24:29 [facility] 1.2840.114 350.1.13.10 4.2.7.2.686 [id number] 044 [id number] [facility] 2024-06-15 00:00:00 2024-06-15 11:28:43 [facility] 1.2840.114 350.1.13.10 4.2.7.2.686 [id number] 044 [id number] [facility] 2024-05-22 00:00:00 2024-05-25 14:18:10 [facility] 1.2840.114 350.1.13.10 4.2.7.2.686 [id number] 044 [id number] [facility] 2024-04-28 00:00:00 2024-04-30 11:58:24 [facility]TTE?[facility] 1.2840.114 350.1.13.10 4.2.7.2.686 [id number] 044 [id number] [facility] 2024-04-03 00:00:00 2024-04-03 11:02:32 [facility]ill [facility] PRITCHETTE?[facility] 1.2840.114 350.1.13.10 4.2.7.2.686 [id number] 044 [id number] [facility] 2024-03-11 00:00:00 2024-03-11 11:24:47 [facility]ill [facility] 1.2.840.114 350.1.13.10 4.2.7.2.686 [id number] 044 [id number] [facility] 2024-02-17 00:00:00 2024-02-23 11:46:24 Refill Jane [facility] 1.2840.114 350.1.13.10 4.2.7.2.686 [id number] 044 [id number] [facility] 2023-12-31 00:00:00 2024-01-21 15:55:20 [facility] 1.840.114 350.1.13.10 4.2.7.2.686 [id number] 044 [id number] [facility] 2023-12-02 13:30:00 2023-12-02 13:30:00 Outpatient R JANE BERRY [facility] [id number] [facility] 2023-11-28 11:30:00 2023-11-28 11:30:00 Outpatient R JANE BERRY [facility] [id number] [facility] 2023-11-27 00:00:00 2023-11-27 00:00:00 Refill [facility] 1..840.114 350.1.13.10 4.2.7.2.686 [id number] 044 [id number] [facility] 2023-11-26 00:00:00 2023-11-26 00:00:00 Telephone Jane Berry [facility] 1.0.114 350.1.13.10 4.2.7.2.686 [id number] [facility] 2023-11-21 14:00:00 2023-11-21 14:00:00 Outpatient R SUZYJANE BARBA [facility] [id number] [facility] 2023-11-12 00:00:00 2023-11-12 00:00:00 [facility] 1.840.114 350.1.13.10 4.2.7.2.686 [id number] [id number] [facility] 2023-10-30 00:00:00 2023-10-30 00:00:00 Telephone Jennifer Chowdhury [facility] 1..114 350.1.13.10 4.2.7.2.686 [id number] [id number] [facility] 2023-10-29 00:00:00 2023-10-29 00:00:00 Orders Only Doctor Unassigned, [place] [facility] 1..114 350.1.13.10 4.2.7.2.686 [id number] [facility] 2023-10-25 10:00:00 2023-10-25 11:59:23 Office Visit Krystal Mace [facility] 1.284.114 350.1.13.10 4.2.7.2.686 [id number] [facility] 2023-10-25 09:00:00 2023-10-25 10:11:10 Outpatient R VALERIA JONAS [facility] [id number] [facility] 2023-10-25 09:00:00 2023-10-25 09:30:00 Office Visit Valeria Jonas [facility] 1.2840.114 350.1.13.10 4.2.7.2.686 [id number] [facility] 2023-10-21 00:00:00 2023-10-21 00:00:00 Lisa Guillory [facility] 1.2.840.114 350.1.13.10 4.2.7.2.686 [id number] [id number] [facility] 2023-10-18 10:00:00 2023-10-18 10:00:00 Outpatient R KRYSTAL MACE ELISHA [facility] [id number] [facility] 2023-10-17 00:00:00 2023-10-17 00:00:00 Telephone Jennifer Chowdhury [facility] 1.2.840.114 350.1.13.10 4.2.7.2.686 [id number] [id number] [facility] 2023-10-16 00:00:00 2023-10-16 00:00:00 Patient Secure Msg Doctor Unassigned, [place] [facility] 1.2.840.114 350.1.13.10 4.2.7.2.686 [id number] [facility] 2023-10-14 00:00:00 2023-10-14 00:00:00 Patient Secure Msg Doctor Unassigned, [place] [facility] 1.2.840.114 350.1.13.10 4.2.7.2.686 [id number] [facility] 2023-10-11 11:00:00 2023-10-11 11:30:00 Office Visit Krystal Mace [facility] 1.2.840.114 350.1.13.10 4.2.7.2.686 [id number] [id number] [facility] 2023-10-11 11:00:00 2023-10-11 11:00:00 [facility] [id number] [facility] 2023-10-02 15:00:00 2023-10-02 15:00:00 Outpatient R VALERIA JONAS [facility] [id number] [facility] 2023-10-01 16:00:00 2023-10-01 16:30:00 Nurse Visit Nurse, [facility] Dimitrios Rodri Krystal [facility] 1..840.114 350.1.13.10 4.2.7.2.686 [id number] [facility] 2023-10-01 16:00:00 2023-10-01 16:00:00 [facility] [id number] [facility] 2023-09-20 14:00:00 2023-09-20 14:00:00 Outpatient R SUZYKATHY BARBATHIA [facility] [id number] [facility] 2023-09-13 11:00:00 2023-09-13 11:00:00 [facility] [id number] [facility] 2023-09-12 00:00:00 2023-09-12 00:00:00 Patient Secure Msg Doctor Unassigned, [place] [facility] 1.2.840.114 350.1.13.10 4.2.7.2.686 [id number] [facility] 2023-09-11 00:00:00 2023-09-11 00:00:00 Patient Secure Msg Doctor Unassigned, [place] [facility] 1.2.840.114 350.1.13.10 4.2.7.2.686 [id number] [facility] 2023-09-09 13:00:00 2023-09-09 13:00:00 Outpatient R [facility] [id number] [facility] 2023-08-30 11:00:00 2023-08-30 11:00:00 Outpatient R YULISA MACEHA KRYSTAL MACE [facility] [id number] [facility] 2023-08-29 00:00:00 2023-08-29 00:00:00 Telephone Krystal Mace [facility] 1.2.840.114 350.1.13.10 4.2.7.2.686 [id number] [facility] 2023-08-23 10:30:00 2023-08-23 10:30:00 Outpatient R VALERIA JONAS [facility] [id number] [facility] 2023-08-20 00:00:00 2023-08-20 00:00:00 Refill Mahesh Thomas [facility] 1.2.840.114 350.1.13.10 4.2.7.2.686 [id number] 044 [id number] [facility] 2023-08-20 00:00:00 2023-08-20 00:00:00 Refill Lisa Mauricio [facility] 1.2.840.114 350.1.13.10 4.2.7.2.686 [id number] 044 [id number] [facility] 2023-08-20 00:00:00 2023-08-20 00:00:00 Refill Krystal Mace [facility] 1.2.840.114 350.1.13.10 4.2.7.2.686 [id number] [facility] 2023-08-19 20:34:00 2023-08-19 23:36:00 Emergency X JANET NGUYEN [facility] ERT [id number] [facility] 2023-08-19 20:34:00 2023-08-19 23:36:00 Emergency VincJanet hendrix [facility] 1.2840.114 350.1.13.10 4.2.7.2.686 [id number] [facility] 2023-08-19 00:00:00 2023-08-19 00:00:00 Nurse Triage EspinozaBella [facility] 1.2840.114 350.1.13.10 4.2.7.2.686 [id number] [facility] 2023-08-16 11:00:00 2023-08-16 11:30:00 Office Visit Krystal Mace Rm2, Adc Surg Proc [facility] 1.284.114 350.1.13.10 4.2.7.2.686 [id number] [facility] 2023-08-16 11:00:00 2023-08-16 11:00:00 Outpatient R KRYSTAL MACE ELISHA [facility] [id number] [facility] 2023-08-14 00:00:00 2023-08-14 00:00:00 RefEdie Garcia [facility] 1.840.114 350.1.13.10 4.2.7.2.686 [id number] 044 [id number] [facility] 2023-08-14 00:00:00 2023-08-14 00:00:00 Refill Jane Berry [facility] 1.284.114 350.1.13.10 4.2.7.2.686 [id number] 044 [id number] [facility] 2023-08-14 00:00:00 2023-08-14 00:00:00 Refill Jane Berry [facility] 1..114 350.1.13.10 4.2.7.2.686 [id number] [id number] [facility] 2023-07-26 11:00:00 2023-07-26 12:32:31 Outpatient R K[facility]STAL [facility]ACE [facility] [id number] [facility] 2023-07-26 11:00:00 2023-07-26 11:30:00 [facility]is[facility] 1..114 350.1.13.10 4.2.7.2.686 [id number] [facility] 2023-07-19 00:00:00 2023-07-19 00:00:00 Orders Only Doctor Unassigned, [place] [facility] 1..114 350.1.13.10 4.2.7.2.686 [id number] [facility] 2023-07-19 00:00:00 2023-07-19 00:00:00 Telephone Jennifer Chowdhury 1..114 350.1.13.10 4.2.7.2.686 [id number] [id number] [facility] 2023-07-17 11:30:00 2023-07-17 11:48:07 Outpatient [facility] [id number] [facility] 2023-07-17 11:30:00 2023-07-17 11:48:07 Office Visit RodriYulisaha [facility] 1..114 350.1.13.10 4.2.7.2.686 [id number] [facility] 2023-06-26 00:00:00 2023-06-26 00:00:00 Telephone Jennifer Chowdhury 1..114 350.1.13.10 4.2.7.2.686 [id number] [id number] [facility] 2023-06-26 00:00:00 2023-06-26 00:00:00 Telephone Emelina Arndt [facility] 1.2.840.114 350.1.13.10 4.2.7.2.686 [id number] 044 [id number] [facility] 2023-06-26 00:00:00 2023-06-26 00:00:00 Patient Secure Msg Doctor Unassigned, [place] [facility] 1.2.840.114 350.1.13.10 4.2.7.2.686 [id number] 044 [id number] [facility] 2023-06-21 00:00:00 2023-06-21 00:00:00 Telephone SuzynegraJane [facility] 1.2.840.114 350.1.13.10 4.2.7.2.686 [id number] 044 [id number] [facility] 2023-06-19 16:30:00 2023-06-19 17:05:45 Outpatient R EMELINA ARNDT [facility] [id number] [facility] 2023-06-19 16:30:00 2023-06-19 17:05:45 Office [facility] 1.2.840.114 350.1.13.10 4.2.7.2.686 [id number] [id number] [facility] 2023-06-07 08:00:00 2023-06-07 08:00:00 Outpatient R VALERIA JONAS [facility] [id number] [facility] 2023-03-22 11:00:00 2023-03-22 11:00:00 Outpatient R LISA MAURICIO [facility] [id number] [facility] 2023-03-05 15:00:00 2023-03-05 15:00:00 Outpatient R VALERIA JONAS [facility] [id number] [facility] 2023-01-23 00:00:00 2023-01-23 00:00:00 Silverio Edie Hopkins [facility] 1.2.840.114 350.1.13.10 4.2.7.2.686 [id number] 044 [id number] [facility] 2023-01-21 00:00:00 2023-01-21 00:00:00 Patient Secure Msg Doctor Unassigned, [place] [facility] 1.2.840.114 350.1.13.10 4.2.7.2.686 [id number] 044 [id number] [facility] 2023-01-11 11:00:00 2023-01-11 11:00:00 Outpatient R LISA MAURICIO [facility] [id number] [facility] 2022-12-21 08:20:00 2022-12-21 08:20:00 Outpatient R LISA MAURICIO [facility] [id number] [facility] 2022-12-21 08:00:00 2022-12-21 08:00:00 Outpatient R JANE BERRY [facility] [id number] [facility] 2022-12-20 00:00:00 2022-12-20 00:00:00 [facility] 1.2.840.114 350.1.13.10 4.2.7.2.686 [id number] [facility] 2022-12-03 08:00:00 2022-12-03 08:00:00 Outpatient R JANE BERRY [facility] [id number] [facility] 2022-11-16 00:00:00 2022-11-16 00:00:00 Refill Jane Berry [facility] NITHYA CHOUDHARY?NICKI [facility] 1.2.840.114 350.1.13.10 4.2.7.2.686 [id number] 044 [id number] [facility] 2022-11-16 00:00:00 2022-11-16 00:00:00 Refill Jane Berry [facility] NITHYA CHOUDHARY?[facility]I [facility] 1.2.840.114 350.1.13.10 4.2.7.2.686 [id number] 044 [id number] [facility] 2022-10-01 00:00:00 2022-10-01 00:00:00 Telephone [facility] 1.2.840.114 350.1.13.10 4.2.7.2.686 [id number] 044 [id number] [facility] 2022-08-27 00:00:00 2022-08-27 00:00:00 Refill Jane Berry [facility] 1.2840.114 350.1.13.10 4.2.7.2.686 [id number] 044 [id number] [facility] 2022-07-27 00:00:00 2022-07-27 00:00:00 Refill Jane Berry [facility] 1.2840.114 350.1.13.10 4.2.7.2.686 [id number] 044 [id number] [facility] 2022-07-23 00:00:00 2022-07-23 00:00:00 Refill Jane Berry [facility] 1.2840.114 350.1.13.10 4.2.7.2.686 [id number] 044 [id number] [facility] 2022-05-01 00:00:00 2022-05-01 00:00:00 Refill Jane Berry [facility] NITHYA CHOUDHARY?NICKI [facility] 1.2.840.114 350.1.13.10 4.2.7.2.686 [id number] [id number] [facility] 2022-04-18 00:00:00 2022-04-18 00:00:00 Refill Jane Berry [facility] 1.2840.114 350.1.13.10 4.2.7.2.686 [id number] [facility] 2022-02-09 11:00:00 2022-02-09 11:34:20 Outpatient R JANE BERRY [facility] [id number] [facility] 2022-02-09 11:00:00 2022-02-09 11:34:20 [facility] 1.284.114 350.1.13.10 4.2.7.2.686 [id number] 044 [id number] [facility] 2022-02-07 00:00:00 2022-02-07 00:00:00 Refill Tomasz Rodriguez [facility]E?[facility] 1.284.114 350.1.13.10 4.2.7.2.686 [id number] 044 [id number] [facility] 2022-02-07 00:00:00 2022-02-07 00:00:00 Refill Amarjit Rodriguezful Sintia [facility] 1.2.840.114 350.1.13.10 4.2.7.2.686 [id number] [id number] [facility] 2022-02-06 00:00:00 2022-02-06 00:00:00 Letter (Out) [facility] 1..114 350.1.13.10 4.2.7.2.686 [id number] 044 [id number] [facility] 2022-01-22 03:54:00 2022-01-22 07:36:00 Emergency X JENNIFER COXGALELILO [facility] ERT [id number] [facility] 2022-01-22 03:54:00 2022-01-22 07:36:00 Emergency Anna Coxlilo S [facility] 1..114 350.1.13.10 4.2.7.2.686 [id number] [id number] [facility] 2022-01-22 00:00:00 2022-01-22 00:00:00 Orders Only Doctor Unassigned, [facility] [place] [facility] 1..114 350.1.13.10 4.2.7.2.686 [id number] [id number] [facility] 2021-11-07 00:00:00 2021-11-07 00:00:00 Refill Amarjit Rodriguezful A [facility] OFFICE BUILDING ONE .114 350.1.13.10 4.2.7.2.686 [id number] 044 [id number] [facility] 2021-10-15 00:00:00 2021-10-15 00:00:00 Refill Amarjit Rodriguezful A [facility] OFF[facility]ILD[facility] ONE .114 350.1.13.10 4.2.7.2.686 [id number] 044 [id number] [facility] 2021-09-21 00:00:00 2021-09-21 00:00:00 Refill Gregg Rodriguezdiful A [facility] OFFICE BUILDING ONE 1.2.840.114 350.1.13.10 4.2.7.2.686 [id number] 044 [id number] [facility] 2021-09-18 15:00:00 2021-09-18 15:00:00 Outpatient R [facility] [id number] [facility] 2021-09-12 00:00:00 2021-09-12 00:00:00 [facility] 1.2.840.114 350.1.13.10 4.2.7.2.686 [id number] 044 [id number] [facility] 2021-08-16 00:00:00 2021-08-16 00:00:00 Patient Secure Msg Doctor Unassigned, [facility] [place] [facility] 1.2.840.114 350.1.13.10 4.2.7.2.686 [id number] [id number] [facility] 2021-08-08 11:00:00 2021-08-08 11:00:00 Appeals And Generalist Clerk Visit 2, [facility] Tomasz Rodriguez [facility] 1.2.840.114 350.1.13.10 4.2.7.2.686 [id number] [facility] 2021-08-08 11:00:00 2021-08-08 11:00:00 Appeals And Generalist Clerk Visit 2, [facility] Lab Tomasz Rodriguez [facility] 1.2.840.114 350.1.13.10 4.2.7.2.686 [id number] [facility] 2021-08-08 09:00:00 2021-08-08 10:10:34 Outpatient R VALERIA JONAS [facility] [id number] [facility] 2021-08-08 09:00:00 2021-08-08 10:10:34 Office Visit Adum, Valeria L [facility] 1.2.840.114 350.1.13.10 4.2.7.2.686 [id number] [facility] 2021-08-08 09:00:00 2021-08-08 10:10:34 Outpatient R VALERIA JONAS [facility] [id number] [facility] 2021-08-07 14:30:00 2021-08-07 15:16:36 Outpatient R TOMASZ RODRIGUEZ [facility] [id number] [facility] 2021-08-07 14:30:00 2021-08-07 15:16:36 [facility] [id number] [facility] 2021-08-07 14:30:00 2021-08-07 15:16:36 Office Visit Tomasz Rodriguez [facility] 1.2.840.114 350.1.13.10 4.2.7.2.686 [id number] [id number] [facility] 2021-07-28 00:00:00 2021-07-28 00:00:00 Transition of Care Miller Alisson NATEGama RON ALEXIS 1.2.840.114 350.1.13.10 4.2.7.2.686 [id number] [facility] 2021-07-24 11:51:00 2021-07-27 12:00:00 Inpatient X CATHRYN LINO [facility] [id number] [facility] 2021-07-24 11:51:00 2021-07-27 12:00:00 Hospital Encounter Sybil Kaur, Cathryn Fleming [facility] 1.2.840.114 350.1.13.10 4.2.7.2.686 [id number] [facility] 2021-07-27 00:00:00 2021-07-27 00:00:00 Case Management Tomasz Rodriguez [facility]NICKI [facility] 1.2840.114 350.1.13.10 4.2.7.2.686 [id number] [id number] [facility] 2021-07-24 00:00:00 2021-07-24 00:00:00 Telephone [facility] 1.2840.114 350.1.13.10 4.2.7.2.686 [id number] [id number] [facility] 2021-07-23 02:20:00 2021-07-23 05:22:00 Emergency X JENNIFER COXNIKKY [facility] [id number] [facility] 2021-07-23 02:20:00 2021-07-23 05:22:00 Emergency Yony Cox S [facility] 1.840.114 350.1.13.10 4.2.7.2.686 [id number] [facility] 2021-07-21 16:16:57 2021-07-21 17:02:12 Office Visit Tomasz Rodriguez [facility] 1.2840.114 350.1.13.10 4.2.7.2.686 [id number] [facility] 2021-07-21 16:15:00 2021-07-21 17:02:12 Outpatient R TOMASZ RODRIGUEZ [facility] [id number] [facility] 2021-07-21 00:00:00 2021-07-21 00:00:00 Orders Only Doctor Unassigned, [facility] 1.2840.114 350.1.13.10 4.2.7.2.686 [id number] [id number] [facility] 2021-06-02 00:00:00 2021-06-02 00:00:00 Refill Tomasz Rodriguez [facility] Office Building One 1.114 350.1.13.10 4.2.7.2.686 [id number] [facility] 2021-03-26 00:00:00 2021-03-26 00:00:00 Orders Only Doctor Unassigned, [facility] 1..114 350.1.13.10 4.2.7.2.686 [id number] [id number] [facility] 2021-01-23 00:00:00 2021-01-23 00:00:00 Telephone Charlotte Shay 1..114 350.1.13.10 4.2.7.2.686 [id number] 086 [id number] [facility] 2021-01-23 00:00:00 2021-01-23 00:00:00 Pre Visit Outreach Charlotte Shay 1.0.114 350.1.13.10 4.2.7.2.686 [id number] [facility] 2021-01-23 00:00:00 2021-01-23 00:00:00 Patient Secure Msg Doctor Unassigned, [facility] [place] [facility] DYLLAN ALEXIS 1..114 350.1.13.10 4.2.7.2.686 [id number] [id number] [facility] 2021-01-20 00:00:00 2021-01-20 00:00:00 Telephone Tomasz Rodriguez [facility] 1.114 350.1.13.10 4.2.7.2.686 [id number] [id number] [facility] 2021-01-11 00:00:00 2021-01-11 00:00:00 Refill Tomasz Rodriguez [facility] 1.2.840.114 350.1.13.10 4.2.7.2.686 [id number] [facility] 2020-12-20 00:00:00 2020-12-20 00:00:00 Orders Only Doctor Unassigned, [facility] 1.2.840.114 350.1.13.10 4.2.7.2.686 [id number] [id number] [facility] 2020-12-14 00:00:00 2020-12-14 00:00:00 Telephone Tomasz Rodriguez [facility] Office [facility] One 1.2840.114 350.1.13.10 4.2.7.2.686 [id number] 044 [id number] [facility] 2020-12-12 00:00:00 2020-12-12 00:00:00 Refill Tomasz Rodriguez [facility] 1.2.840.114 350.1.13.10 4.2.7.2.686 [id number] [facility] 2020-12-10 00:00:00 2020-12-10 00:00:00 Refill Tomasz Rodriguez [facility] 1.2840.114 350.1.13.10 4.2.7.2.686 [id number] [facility] 2020-11-21 00:00:00 2020-11-21 00:00:00 Orders Only Doctor Unassigned, [facility] 1.2.840.114 350.1.13.10 4.2.7.2.686 [id number] [id number] [facility] 2020-11-13 00:00:00 2020-11-13 00:00:00 Telephone Tomasz Rodriguez [facility] Office [facility] One 1..114 350.1.13.10 4.2.7.2.686 [id number] 044 [id number] [facility] 2020-11-11 11:11:14 2020-11-11 11:39:29 Office Visit Tomasz Rodriguez [facility] One 1..114 350.1.13.10 4.2.7.2.686 [id number] [facility] 2020-11-11 11:20:00 2020-11-11 11:20:00 Outpatient R EDILMA CANALES [facility] [id number] [facility] 2020-11-11 11:00:00 2020-11-11 11:00:00 Outpatient R JENNIFERGREGG BARNESRASHEED [facility] [id number] [facility] 2020-10-24 11:00:00 2020-10-24 11:00:00 Outpatient R JENNIFERTOMASZ BARNES [facility] [id number] [facility] 2020-10-14 00:00:00 2020-10-14 00:00:00 Refill Tomasz Rodriguez [facility] Office Building One ..114 350.1.13.10 4.2.7.2.686 [id number] [facility] 2020-10-11 00:00:00 2020-10-11 00:00:00 Refill Tomasz Rodriguez [facility] Office [facility] One 1..114 350.1.13.10 4.2.7.2.686 [id number] [facility] 2020-09-22 00:00:00 2020-09-22 00:00:00 Refill Tomasz Rodriguez [facility] Office [facility] One 1.114 350.1.13.10 4.2.7.2.686 [id number] [facility] 2020-08-22 00:00:00 2020-08-22 00:00:00 Refill Tomasz Rodriguez [facility] One 1.114 350.1.13.10 4.2.7.2.686 [id number] [facility] 2020-08-15 00:00:00 2020-08-15 00:00:00 Orders Only Doctor Unassigned, [facility] 1.114 350.1.13.10 4.2.7.2.686 [id number] [facility] 2020-08-02 00:00:00 2020-08-02 00:00:00 Telephone Tomasz Rodriguez [facility] Office [facility] One 1.114 350.1.13.10 4.2.7.2.686 [id number] 044 [id number] [facility] 2020-07-28 00:00:00 2020-07-28 00:00:00 Case Management Tomasz Rodriguez [facility] One 1.114 350.1.13.10 4.2.7.2.686 [id number] [facility] 2020-07-25 12:05:08 2020-07-25 12:20:08 Appeals And Generalist Clerk Visit Pob, Adc Lab Main Tomasz Rodriguez [facility] Building 1.114 350.1.13.10 4.2.7.2.686 [id number] [facility] 2020-07-25 10:54:28 2020-07-25 11:47:59 Office Visit Tomasz Rodriguez [facility] Office Building One 1.114 350.1.13.10 4.2.7.2.686 [id number] [id number] [facility] 2020-07-25 11:00:00 2020-07-25 11:00:00 Outpatient R JENNIFER GREGGRASHEED [facility] [id number] [facility] 2020-07-25 00:00:00 2020-07-25 00:00:00 Orders Only Doctor Unassigned, [facility] 1.840.114 350.1.13.10 4.2.7.2.686 [id number] [facility] 2020-07-12 15:00:00 2020-07-12 15:00:00 Outpatient R TOMASZ RODRIGUEZ [facility] [id number] [facility] 2020-07-12 00:00:00 2020-07-12 00:00:00 Telephone Tomasz Rodriguez [facility] Office [facility] One .840.114 350.1.13.10 4.2.7.2.686 [id number] [facility] 2020-07-11 15:45:00 2020-07-11 15:45:00 Outpatient CORWIN NG [facility] [id number] [facility] 2020-07-08 16:30:00 2020-07-08 16:30:00 Outpatient R TOMASZ RODRIGUEZ [facility] [id number] [facility] 2020-07-08 15:37:31 2020-07-08 15:52:31 Telemedici ne Visit Jennifer Greggpaigeshaji [facility] Office [facility] One .840.114 350.1.13.10 4.2.7.2.686 [id number] [facility] 2020-07-05 11:00:00 2020-07-05 11:00:00 Outpatient CORWIN NG [facility] [id number] [facility] 2020-06-27 10:22:26 2020-06-27 11:08:16 Office Visit Tomasz Rodriguez A [facility] Office Building One 1..114 350.1.13.10 4.2.7.2.686 [id number] [facility] 2020-06-27 10:15:00 2020-06-27 10:15:00 Outpatient R GREGG RODRIGUEZRASHEED [facility] [id number] [facility] 2020-06-27 00:00:00 2020-06-27 00:00:00 Orders Only Doctor Unassigned, [facility] 1.0.114 350.1.13.10 4.2.7.2.686 [id number] [facility] 2020-06-27 00:00:00 2020-06-27 00:00:00 Letter (Out) Doctor Unassigned, [facility] 1.20.114 350.1.13.10 4.2.7.2.686 [id number] [facility] 2020-06-07 00:00:00 2020-06-07 00:00:00 Transition of Care Fernanda Margo Alexis 1.840.114 350.1.13.10 4.2.7.2.686 [id number] [facility] 2020-06-03 18:27:00 2020-06-06 17:52:00 Hospital Encounter [facility] 1..114 350.1.13.10 4.2.7.2.686 [id number] [facility] 2020-06-03 18:27:00 2020-06-03 18:27:00 Emergency X KALEN YEAGER [facility] ERT [id number] [facility] 2020-06-01 03:46:00 2020-06-01 06:12:00 Emergency Dorcas Man [facility] 1.2.840.114 350.1.13.10 4.2.7.2.686 [id number] [facility] 2020-06-01 03:46:00 2020-06-01 03:46:00 Emergency X DORCAS MAN [facility] ERT [id number] [facility] Results Test Description Test Time Test Comments Results Result Co mments Source [facility], [id number] 17:10:00 * Test Item Value Reference Range Interpretation Comme nts POCT U SP GRAV (test code = 3255) 1.025 mg/dl 1.005-1.025 POCT PH U (test code = 3254) 6.5 mg/dl 5-8 POCT U LEUK EST (test code = 3263) negative Negative - Negative POCT U NIT (test code = 3262) positive Negative - Negati ve POCT U PROT (test code = 3259) negative Negative - Negative POCT U GLU (test code = 3256) negative Negative - Negati ve POCT U KETONE (test code = 3258) negative Negative - Negative POCT U UROBILI (test code = 3260) 0.2 mg/dl 0.2-1 POCT U BILI (test code = 3261) negative Negative - Negative POCT U BLD (test code = 3257) negative Negative - Negati ve POCT U COLOR (test code = 3266) dark yellow POCT U APPEAR (test code = 3267) cloudy [facility] Urinalysis, [id number] 17:10:00 * Test Item Value Reference Range Interpretation Comme nts POCT U SP GRAV (test code = 3255) 1.025 mg/dl 1.005-1.025 POCT PH U (test code = 3254) 6.5 mg/dl 5-8 POCT U LEUK EST (test code = 3263) negative Negative - Negative POCT U NIT (test code = 3262) positive Negative - Negati ve POCT U PROT (test code = 3259) negative Negative - Negative POCT U GLU (test code = 3256) negative Negative - Negati ve POCT U KETONE (test code = 3258) negative Negative - Negative POCT U UROBILI (test code = 3260) 0.2 mg/dl 0.2-1 POCT U BILI (test code = 3261) negative Negative - Negative POCT U BLD (test code = 3257) negative Negative - Negati ve POCT U COLOR (test code = 3266) dark yellow POCT U APPEAR (test code = 3267) cloudy [facility], [id number] 17:10:00 * Test Item Value Reference Range Interpretation Comme nts POCT U SP GRAV (test code = 3255) 1.025 mg/dl 1.005-1.025 POCT PH U (test code = 3254) 6.5 mg/dl 5-8 POCT U LEUK EST (test code = 3263) negative Negative - Negative POCT U NIT (test code = 3262) positive Negative - Negati ve POCT U PROT (test code = 3259) negative Negative - Negative POCT U GLU (test code = 3256) negative Negative - Negati ve POCT U KETONE (test code = 3258) negative Negative - Negative POCT U UROBILI (test code = 3260) 0.2 mg/dl 0.2-1 POCT U BILI (test code = 3261) negative Negative - Negative POCT U BLD (test code = 3257) negative Negative - Negati ve POCT U COLOR (test code = 3266) dark yellow POCT U APPEAR (test code = 3267) cloudy [facility] ABDOMEN PELVIS W [id number] 04:26:58Ordering Physician: Janet Nguyen History: UTI, recurrent/complicated. Suprapubic/lower abdominal pain. Comparison Study: None. Technique: Abdomen and pelvis CT with intravenous contrast. CT scan doneaccording to ALARA (As Low as Reasonably Achievable). The technical qualityof the study is adequate. Findings: ? Lungs: No infiltrates or effusions. No pneumothorax. No pulmonary nodulesor masses.Cardiovascular: Heart is not enlarged. Aorta is unremarkable. IVC isunremarkable.Liver: Normal.Gallbladder: Normal.Pancreas: Normal.Spleen: Normal.Kidneys: Normal.Adrenal glands: Normal.Bowel: Distal esophagus is unremarkable. Normal stomach. Normal smallbowel. Normal appendix. Normal colon.Free air or free fluid: None.Lymphadenopathy: None.Reproductive organs: IUD is in good position. Uterus and adnexal structuresare unremarkable.Urinary bladder: Normal.Groins: No signs of hernia or lymphadenopathy.Bones: Unremarkable.Soft tissues: Normal.[facility] Metabolic [id number] 03:35:00* Test Item Value Reference Range Interpretation Comme [facility] NA (test code = 5595904809) 140 mmol/L 135-145 K (test code = 6867406722) 3.7 mmol/L 3.5-5.0 CL (test code = 6816601149) 105 mmol/L 98-108 CO2 TOTAL (test code = 7157389054) 25 mmol/L 23-31 AGAP (test code = 3043750230) 10 2-16 BUN (test code = 2211776114) 14 mg/dL 7-23 GLUCOSE (test code = 6771254680) 111 mg/dL 70-110 H CREATININE (test code = 0510367056) 0.68 mg/dL 0.50-1.04 TOTAL BILI (test code = 0536765780) 0.7 mg/dL 0.1-1.1 CALCIUM (test code = 2025420164) 8.9 mg/dL 8.6-10.6 T PROTEIN (test code = 0438612904) 8.4 g/dL 6.3-8.2 H ALBUMIN (test code = 0212219871) 4.7 g/dL 3.5-5.0 ALK PHOS (test code = 8622784406) 84 U/L 34-122 ALTv (test code = 1742-6) 26 U/L 5-35 AST(SGOT) (test code = 8443518088) 31 U/L 13-40 eGFR (test code = 39827-7) 117.4 mL/min/1.73m2 CKD-EPI eGFR (2020). Assuming creatinine has been stable day-to-day for at least three months, the eGFR indicates Category G1 (>= 90 mL/min/1.73 m2) Lab Interpretation (test code = 12881-0) Abnormal [facility] CenterLipase, [id number] 03:34:20* Test Item Value Reference Range Interpretation Comme nts LIPASE (test code = 5643047841) 99 U/L 0-220 Lab Interpretation (test cod e = 89255-0) Normal [facility] with [id number] 03:22:37* Test Item Value Reference Range Interpretation Comme nts WBC (test code = 6690-2) 10.07 See_Comment [Automated messa ge] The system which generated this result transmitted reference range: 4.30 - 11.10 10*3/?L. The reference range was not used to interpret this result as normal/abnormal. RBC (test code = 789-8) 3.86 See_Comment L [Automated messa ge] The system which generated this result transmitted reference range: 3.93 - 5.25 10*6/?L. The reference range was not used to interpret this result as normal/abnormal. HGB (test code = 718-7) 12.5 g/dL 11.6-15.0 HCT (test code = 4544-3) 37.2 % 35.7-45.2 MCV (test code = 787-2) 96.4 fL 80.6-95.5 H MCH (test code = 785-6) 32.4 pg 25.9-32.8 MCHC (test code = 786-4) 33.6 g/dL 31.6-35.1 RDW-SD (test code = 44014-8) 42.9 fL 39.0-49.9 RDW-CV (test code = 788-0) 12.2 % 12.0-15.5 PLT (test code = 777-3) 290 See_Comment [Automated messa ge] The system which generated this result transmitted reference range: 166 - 358 10*3/?L. The reference range was not used to interpret this result as normal/abnormal. MPV (test code = 83524-7) 10.3 fL 9.5-12.9 NRBC/100 WBC (test code = 5792952532) 0.0 See_Comment [Automated m0um0u ssage] The system which generated this result transmitted reference range: 0.0 - 10.0 /100 WBCs. The reference range was not used to interpret this result as normal/abnormal. NRBC x10^3 (test code = 0396975832) See_Comment [Automated messa ge] The system which generated this result transmitted reference range: 10*3/?L. The reference range was not used to interpret this result as normal/abnormal. GRAN MAT (NEUT) % (test code = 770-8) 75.8 % IMM GRAN % (test code = 4614247744) 0.20 % LYMPH % (test code = 736-9) 17.6 % MONO % (test code = 5905-5) 5.2 % EOS % (test code = 713-8) 0.7 % BASO % (test code = 706-2) 0.5 % GRAN MAT x10^3(ANC) (test code = 8221114937) 7.64 10*3/uL 1.88-7.09 H IMM GRAN x10^3 (test code = 7037086806) 0.00-0.06 LYMPH x10^3 (test code = 731-0) 1.77 10*3/uL 1.32-3.29 MONO x10^3 (test code = 742-7) 0.52 10*3/uL 0.33-0.92 EOS x10^3 (test code = 711-2) 0.07 10*3/uL 0.03-0.39 BASO x10^3 (test code = 704-7) 0.05 10*3/uL 0.01-0.07 Lab Interpretation (test code = 52297-0) Abnormal [facility] [id number] 02:57:00* Test Item Value Reference Range Interpretation Comme nts POCT PREG (test code = 1605) Negative On board controls acceptable with C Line (test code = 3574) Yes POCT PREG LOT # (test code = 3575) [id number] POCT PREG TEST DATE ( test code = 3576) 11/21/2024 Lab Interpretation (test cod e = 46479-7) Normal [facility] Urinalysis, [id number] 18:31:00 * Test Item Value Reference Range Interpretation Comme nts POCT U SP GRAV (test code = 3255) 1.030 mg/dl 1.005-1.025 A POCT PH U (test code = 3254) 6.0 mg/dl 5-8 POCT U LEUK EST (test code = 3263) Negative Negative - Negative POCT U NIT (test code = 3262) Positive Negative - Negati ve A POCT U PROT (test code = 3259) Negative Negative - Negative POCT U GLU (test code = 3256) Negative Negative - Negati ve POCT U KETONE (test code = 3258) Negative Negative - Negative POCT U UROBILI (test code = 3260) 0.2 mg/dl 0.2-1 POCT U BILI (test code = 3261) Negative Negative - Negative POCT U BLD (test code = 3257) Negative Negative - Negati ve POCT U COLOR (test code = 3266) Yellow POCT U APPEAR (test code = 3267) Clear Lab Interpretation (test cod e = 21673-6) Abnormal [facility] Urinalysis, [id number] 18:31:00 * Test Item Value Reference Range Interpretation Comme nts POCT U SP GRAV (test code = 3255) 1.030 mg/dl 1.005-1.025 A POCT PH U (test code = 3254) 6.0 mg/dl 5-8 POCT U LEUK EST (test code = 3263) Negative Negative - Negative POCT U NIT (test code = 3262) Positive Negative - Negati ve A POCT U PROT (test code = 3259) Negative Negative - Negative POCT U GLU (test code = 3256) Negative Negative - Negati ve POCT U KETONE (test code = 3258) Negative Negative - Negative POCT U UROBILI (test code = 3260) 0.2 mg/dl 0.2-1 POCT U BILI (test code = 3261) Negative Negative - Negative POCT U BLD (test code = 3257) Negative Negative - Negati ve POCT U COLOR (test code = 3266) Yellow POCT U APPEAR (test code = 3267) Clear Lab Interpretation (test cod e = 90195-2) [facility] [id number] 18:31:00 * Test Item Value Reference Range Interpretation Comme nts POCT U SP GRAV (test code = 3255) 1.030 mg/dl 1.005-1.025 A POCT PH U (test code = 3254) 6.0 mg/dl 5-8 POCT U LEUK EST (test code = 3263) Negative Negative - Negative POCT U NIT (test code = 3262) Positive Negative - Negati ve A POCT U PROT (test code = 3259) Negative Negative - Negative POCT U GLU (test code = 3256) Negative Negative - Negati ve POCT U KETONE (test code = 3258) Negative Negative - Negative POCT U UROBILI (test code = 3260) 0.2 mg/dl 0.2-1 POCT U BILI (test code = 3261) Negative Negative - Negative POCT U BLD (test code = 3257) Negative Negative - Negati ve POCT U COLOR (test code = 3266) Yellow POCT U APPEAR (test code = 3267) Clear Lab Interpretation (test cod e = 07334-6) Abnormal [facility] URINALYSIS, [id number] 17:35:00 * Test Item Value Reference Range Interpretation Comme nts POCT U SP GRAV (test code = 3255) 1.025 mg/dl 1.005-1.025 POCT PH U (test code = 3254) 6.5 mg/dl 5-8 POCT U LEUK EST (test code = 3263) trace Negative - Negative POCT U NIT (test code = 3262) positive Negative - Negative POCT U PROT (test code = 3259) negative Negative - Negative POCT U GLU (test code = 3256) negative Negative - Negative POCT U KETONE (test code = 3258) negative Negative - Negative POCT U UROBILI (test code = 3260) 1.0 mg/dl 0.2-1 POCT U BILI (test code = 3261) negative Negative - Negative POCT U BLD (test code = 3257) trace-intact Negative - Negative POCT U COLOR (test code = 3266) yellow POCT U APPEAR (test code = 3267) clear [facility] URINALYSIS, [id number] 17:35:00 * Test Item Value Reference Range Interpretation Comme nts POCT U SP GRAV (test code = 3255) 1.025 mg/dl 1.005-1.025 POCT PH U (test code = 3254) 6.5 mg/dl 5-8 POCT U LEUK EST (test code = 3263) trace Negative - Negative POCT U NIT (test code = 3262) positive Negative - Negative POCT U PROT (test code = 3259) negative Negative - Negative POCT U GLU (test code = 3256) negative Negative - Negative POCT U KETONE (test code = 3258) negative Negative - Negative POCT U UROBILI (test code = 3260) 1.0 mg/dl 0.2-1 POCT U BILI (test code = 3261) negative Negative - Negative POCT U BLD (test code = 3257) trace-intact Negative - Negative POCT U COLOR (test code = 3266) yellow POCT U APPEAR (test code = 3267) clear [facility] URINALYSIS W SPECIFIC [id number] 21:51:00* Test Item Value Reference Range Interpretation Comme nts POCT U SP GRAV (test code = 3255) 1.030 mg/dl 1.005-1.025 A POCT PH U (test code = 3254) 5 mg/dl 5-8 POCT U LEUK EST (test code = 3263) + Negative - Negative POCT U NIT (test code = 3262) Positive Negative - Negati ve POCT U PROT (test code = 3259) Trace Negative - Negative POCT U GLU (test code = 3256) Normal Negative - Negati ve POCT U KETONE (test code = 3258) Negative Negative - Negative POCT U UROBILI (test code = 3260) Normal 0.2-1 POCT U BILI (test code = 3261) Negative Negative - Negative POCT U BLD (test code = 3257) Negative Negative - Negati ve POCT U COLOR (test code = 3266) POCT U APPEAR (test code = 3267) Lab Interpretation (test cod e = [id number]) Abnormal [facility] URINALYSIS W SPECIFIC [id number] 21:51:00* Test Item Value Reference Range Interpretation Comme nts POCT U SP GRAV (test code = 3255) 1.030 mg/dl 1.005-1.025 A POCT PH U (test code = 3254) 5 mg/dl 5-8 POCT U LEUK EST (test code = 3263) + Negative - Negative POCT U NIT (test code = 3262) Positive Negative - Negati ve POCT U PROT (test code = 3259) Trace Negative - Negative POCT U GLU (test code = 3256) Normal Negative - Negati ve POCT U KETONE (test code = 3258) Negative Negative - Negative POCT U UROBILI (test code = 3260) Normal 0.2-1 POCT U BILI (test code = 3261) Negative Negative - Negative POCT U BLD (test code = 3257) Negative Negative - Negati ve POCT U COLOR (test code = 3266) POCT U APPEAR (test code = 3267) Lab Interpretation (test cod e = [id number]) Abnormal [facility] Notes Date/Time Note Provider Source 2024-06-16 08:23:17 Images from the original note were not included. Patient needs office visit Notes: 05/26/24 [id number] [place], [place] - [address] AT [facility] Recent Visits Date Type Provider Dept 06/19/23 Office Visit Emelina Arndt PA [facility] Showing recent visits within past 540 days with a meds authorizing provider and meeting all other requirements Future Appointments No visits were found meeting these conditions. Showing future appointments within next 150 days with a meds authorizing provider and meeting all other requirements cloNIDine 0.3 mg tablet Possible duplicate: Hover to review recent actions on this medication Sig: Take 1 tablet by mouth at bedtime. For anxiety/ Hypertension. MUST BE SEEN FOR FURTHER REFILLS Disp: 15 tablet Refills: 0 Start: 06/15/2024 Class: eRX For: Generalized anxiety disorder, Chronic insomnia Last ordered: Yesterday (06/15/2024) by TACHO Phan Cardiovascular: General Hypertension Soebwm7206/15/2024 05:31 PM Protocol Details Valid encounter within last 12 months [facility] be [facility] at: [id number] [place] [address] - [address] AT [facility] Yodit Darling MA [facility] 2024-06-15 11:27:44 Images from the original note were not included. Notes: MUST BE SEEN FOR FURTHER REFILLS Last Refilled: cloNIDine 0.3 mg tablet Sig: Take 1 tablet by mouth at bedtime. For anxiety/ Hypertension. MUST BE SEEN FOR FURTHER REFILLS Disp: 30 tablet Refills: 0 Start: 06/15/2024 Class: eRX For: Generalized anxiety disorder, Chronic insomnia Last ordered: 3 weeks ago (05/22/2024) by TACHO Phan Cardiovascular: General Hypertension Igsvps1106/15/2024 11:14 AM Protocol Details Valid encounter within last 12 months To be filled at: [facility] #[id number] - [place], [place] - [address] AT [facility] [address] [facility] Recent Visits Date Type Provider Dept 06/19/23 Office Visit Emelina Arndt PA [facility] Showing recent visits within past 540 days with a meds authorizing provider and meeting all other requirements Future Appointments No visits were found meeting these conditions. Showing future appointments within next 150 days with a meds authorizing provider and meeting all other requirements Tiffany Washington MA [facility] 2024-05-25 14:17:47 Patient does not have set up, unable to LVM Flaquita Bolaños [facility] 2024-05-22 13:46:11 Please facilitate office visit [facility] 2024-05-22 13:28:38 Pss please reach out to patient for follow-up appointment, must be seen for further refills. 30 days given Last Refilled: Disp Refills Start End DAPHNIE cloNIDine 0.3 mg tablet 30 tablet 0 04/28/2024 -- -- Sig: Take 1 tablet by mouth at bedtime. For anxiety/ Hypertension Sent to pharmacy as: cloNIDine HCL 0.3 mg tablet (CATAPRES) Class: eRX Route: Oral Order: [id number] Date/Time Signed: 04/28/2024 13:16 E-Prescribing Status: Receipt confirmed by pharmacy (04/28/2024 1:16 PM CDT) Notes: Recent Visits Date Type Provider Dept 06/19/23 Office Visit Emelina Arndt PA [facility] Showing recent visits within past 540 days with a meds authorizing provider and meeting all other requirements Future Appointments No visits were found meeting these conditions. Showing future appointments within next 150 days with a meds authorizing provider and meeting all other requirements Office Visit on 10/11/2023 Component Date Value POCT U SP GRAV 10/11/2023 1.025 POCT PH U 10/11/2023 6.5 POCT U LEUK EST 10/11/2023 negative POCT U NIT 10/11/2023 positive POCT U PROT 10/11/2023 negative POCT U GLU 10/11/2023 negative POCT U KETONE 10/11/2023 negative POCT U UROBILI 10/11/2023 0.2 POCT U BILI 10/11/2023 negative POCT U BLD 10/11/2023 negative POCT U COLOR 10/11/2023 dark yellow POCT U APPEAR 10/11/2023 cloudy URINE CULTURE 10/11/2023 >100,000 CFU/mL Escherichia coli (A) Nurse Visit on 10/01/2023 Component Date Value URINE CULTURE 10/01/2023 No aerobic growth (< 1000 CFU/mL) Admission on 08/19/2023, Discharged on 08/19/2023 Component Date Value NA 08/19/2023 140 K 08/19/2023 3.7 CL 08/19/2023 105 CO2 TOTAL 08/19/2023 25 AGAP 08/19/2023 10 BUN 08/19/2023 14 GLUCOSE 08/19/2023 111 (H) CREATININE 08/19/2023 0.68 TOTAL BILI 08/19/2023 0.7 CALCIUM 08/19/2023 8.9 T PROTEIN 08/19/2023 8.4 (H) ALBUMIN 08/19/2023 4.7 ALK PHOS 08/19/2023 84 ALTv 08/19/2023 26 AST(SGOT) 08/19/2023 31 eGFR 08/19/2023 117.4 WBC 08/19/2023 10.07 RBC 08/19/2023 3.86 (L) HGB 08/19/2023 12.5 HCT 08/19/2023 37.2 MCV 08/19/2023 96.4 (H) MCH 08/19/2023 32.4 MCHC 08/19/2023 33.6 RDW-SD 08/19/2023 42.9 RDW-CV 08/19/2023 12.2 PLT 08/19/2023 290 MPV 08/19/2023 10.3 NRBC/100 WBC 08/19/2023 0.0 NRBC x10 3 08/19/2023 <0.01 GRAN MAT (NEUT) % 08/19/2023 75.8 IMM GRAN % 08/19/2023 0.20 LYMPH % 08/19/2023 17.6 MONO % 08/19/2023 5.2 EOS % 08/19/2023 0.7 BASO % 08/19/2023 0.5 GRAN MAT x10 3 (ANC) 08/19/2023 7.64 (H) IMM GRAN x10 3 08/19/2023 <0.03 LYMPH x10 3 08/19/2023 1.77 MONO x10 3 08/19/2023 0.52 EOS x10 3 08/19/2023 0.07 BASO x10 3 08/19/2023 0.05 LIPASE 08/19/2023 99 APPEARANCE 08/19/2023 Cloudy (A) COLOR 08/19/2023 Yellow PH 08/19/2023 6.0 SP GRAVITY 08/19/2023 1.024 GLU U QUAL 08/19/2023 Normal BLOOD 08/19/2023 Negative KETONES 08/19/2023 Negative PROTEIN 08/19/2023 Negative UROBILIN 08/19/2023 2.0 mg/dL (A) BILIRUBIN 08/19/2023 Negative NITRITE 08/19/2023 Positive (A) LEUK DAMARIS 08/19/2023 75/uL (A) RBC/HPF 08/19/2023 0 WBC/HPF 08/19/2023 8 (H) BACTERIA 08/19/2023 Many (A) MUCOUS 08/19/2023 Slight (A) AMORPHOUS 08/19/2023 Moderate (A) SQ EPITH 08/19/2023 4 POCT PREG 08/19/2023 Negative On board controls accept* 08/19/2023 Yes POCT PREG LOT # 08/19/2023 [id number] POCT PREG TEST DA* 08/19/2023 11/21/2024 Office Visit on 08/16/2023 Component Date Value URINE CULTURE 08/16/2023 >100,000 CFU/mL Escherichia coli (A) POCT U SP GRAV 08/16/2023 1.030 (A) POCT PH U 08/16/2023 6.0 POCT U LEUK EST 08/16/2023 Negative POCT U NIT 08/16/2023 Positive (A) POCT U PROT 08/16/2023 Negative POCT U GLU 08/16/2023 Negative POCT U KETONE 08/16/2023 Negative POCT U UROBILI 08/16/2023 0.2 POCT U BILI 08/16/2023 Negative POCT U BLD 08/16/2023 Negative POCT U COLOR 08/16/2023 Yellow POCT U APPEAR 08/16/2023 Clear Office Visit on 07/26/2023 Component Date Value POCT U SP GRAV 07/26/2023 1.025 POCT PH U 07/26/2023 6.5 POCT U LEUK EST 07/26/2023 trace POCT U NIT 07/26/2023 positive POCT U PROT 07/26/2023 negative POCT U GLU 07/26/2023 negative POCT U KETONE 07/26/2023 negative POCT U UROBILI 07/26/2023 1.0 POCT U BILI 07/26/2023 negative POCT U BLD 07/26/2023 trace-intact POCT U COLOR 07/26/2023 yellow POCT U APPEAR 07/26/2023 clear URINE CULTURE 07/26/2023 >100,000 CFU/mL Escherichia coli (A) Office Visit on 06/19/2023 Component Date Value POCT U SP GRAV 06/19/2023 1.030 (A) POCT PH U 06/19/2023 5 POCT U LEUK EST 06/19/2023 + POCT U NIT 06/19/2023 Positive POCT U PROT 06/19/2023 Trace POCT U GLU 06/19/2023 Normal POCT U KETONE 06/19/2023 Negative POCT U UROBILI 06/19/2023 Normal POCT U BILI 06/19/2023 Negative POCT U BLD 06/19/2023 Negative URINE CULTURE 06/19/2023 >100,000 CFU/mL Escherichia coli (A) Trichomonas vaginalis 06/19/2023 Negative Janet species 06/19/2023 Positive (A) Janet glabrata 06/19/2023 Positive (A) Bacterial Vaginosis 06/19/2023 Negative Bindu Juárez RN [facility] 2024-05-22 11:38:00 Pt request rx refill. Please Advise. [facility]/pharmacy #[id number] - [place], [place] - [address] [place], [place] [address]TESS ZIMMERMAN AT [facility] [address] [facility] [address] Radha Schaeffer [facility] 2024-04-03 11:01:50 Last Refilled: Disp Refills Start End DAPHNIE cloNIDine 0.3 mg tablet 30 tablet 0 03/11/2024 -- -- Sig: Take 1 tablet by mouth at bedtime. For anxiety/ Hypertension Sent to pharmacy as: cloNIDine HCL 0.3 mg tablet (CATAPRES) Class: eRX Route: Oral Order: [id number] Date/Time Signed: 03/11/2024 11:23 E-Prescribing Status: Receipt confirmed by pharmacy (03/11/2024 11:23 AM CDT) Recent Visits Date Type Provider Dept 06/19/23 Office Visit Emelina Arndt PA [facility] Showing recent visits within past 540 days with a meds authorizing provider and meeting all other requirements Future Appointments No visits were found meeting these conditions. Showing future appointments within next 150 days with a meds authorizing provider and meeting all other requirements Germaine Howell [facility] 2024-04-03 10:32:02 Patient requesting a refill of:cloNIDine Medication: cloNIDine Dose: 0.3 mg Route: refill Quantity: 30 Pharmacy: [id number] [place], [place] - [address] AT [facility] [address] [place] [address] [facility] [id number] Last appt.: 02/09 Next appt.: na [facility] 2024-02-17 09:31:41 Patient requesting a refill of:cloNIDine Medication: cloNIDine Dose: 0.3 mg Route: refill Quantity: 30 Pharmacy: [facility]Y #[id number] - [place], [place] - [address] AT [facility] Last appt.: 06/19/23 Next appt.: na [facility] 2023-11-28 09:35:33 Email has been sent to Clif Verdugo with in regards to this request. Tiffany Washington MA [facility] 2023-11-27 14:19:46 No, I have never done this on any patient. Are you sure it comes to me or should come to me? 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 Topic: Clinical - Medical Advice >> Nov 26, 2023 1:44 PM Patient Information Services Manager wrote: Pt needing case book referral to Case#[id number] Pt says she spoke with jennifer and should have already been started Thierno Quintanilla [facility] 2023-11-12 10:35:21 Images from the original note were not included. Changes Requested Name from pharmacy: CLONIDINE HCL 0.3 MG TABLET Will file in chart as: CLONIDINE 0.3 mg tablet Sig: TAKE 1 TABLET BY MOUTH AT BEDTIME. FOR ANXIETY/ HYPERTENSION Disp: 90 tablet Refills: 1 Start: 11/12/2023 Class: eRX For: Generalized anxiety disorder, Chronic insomnia Last ordered: 3 weeks ago (10/21/2023) by TACHO Phan Last refill: 10/21/2023 Rx #: [id number] Pharmacy comment: REQUEST FOR 90 DAYS PRESCRIPTION. DX Code Needed. Cardiovascular: General Hypertension Gwwtai8111/12/2023 10:33 AM Protocol Details Valid encounter within last 12 months This request has changes from the previous prescription. To be filled at: [facility]/pharmacy #[id number] - [place], [place] - [address] AT [facility] [address] Recent Visits Date Type Provider Dept 06/19/23 Office Visit Emelina Arndt PA [facility] Showing recent visits within past 540 days with a meds authorizing provider and meeting all other requirements Future Appointments Date Type Provider Dept 11/21/23 Appointment Jane Berry FNP [facility] Showing future appointments within next 150 days with a meds authorizing provider and meeting all other requirements Beatriz Baeza LVN [facility] 2023-10-30 13:56:19 JOSE J worked 3.8.24 ob and urogyn file. Requesting auth for US referral and follow up appointment scheduled. Jennifer Sintia Trenton 10/30/2023 1:58 PM Jennifer Sintia Trenton [facility] 2023-10-21 13:29:37 Images from the original note were not included. Name from pharmacy: CLONIDINE HCL 0.3 MG TABLET Will file in chart as: CLONIDINE 0.3 mg tablet Sig: TAKE 1 TABLET BY MOUTH AT BEDTIME. FOR ANXIETY/ HYPERTENSION Disp: 90 tablet Refills: 1 Start: 10/21/2023 Class: eRX For: Generalized anxiety disorder, Chronic insomnia Last ordered: 1 month ago (09/18/2023) by Lisa Mauricio MD Last refill: 09/18/2023 Rx #: [id number] Pharmacy comment: REQUEST FOR 90 DAYS PRESCRIPTION. DX Code Needed. Cardiovascular: General Hypertension Opnfrm8910/21/2023 11:49 AM Protocol Details Valid encounter within last 12 months This request has changes from the previous prescription. To be filled at: [facility]/pharmacy #[id number] - [place], [place] - [address] AT [facility] 30 day supply sent Recent Visits Date Type Provider Dept 06/19/23 Office Visit Emelina Arndt PA [facility] Showing recent visits within past 540 days with a meds authorizing provider and meeting all other requirements Future Appointments Date Type Provider Dept 11/21/23 Appointment Jane Berry FNP [facility] Showing future appointments within next 150 days with a meds authorizing provider and meeting all other requirements [facility] 2023-10-18 10:15:[address] Mace: Reschedule cystoscopy. Patient did not take medication. Spoke with patient. Patient rescheduled for cystoscpoy. Patient advised to pickle maker Fosfomycin from pharmacy for UTI treatment. Patient advised Macrobid has been sent in to take nightly for 7 days for UTI prevention. Patient verbalized understanding of all recommendations. Teddy Weiner RN 10/18/2023 10:19 AM URING CLERK Teddy Weiner RN [facility] 2023-10-17 08:58:26 OCA worked 2. ob post visit no additional orders needed at this time [facility] Jennifer Chowdhury [facility] 2023-10-11 11:00:00 Addended by: XENIA BRANCH RN on: 10/11/2023 12:04 PM Modules accepted: Orders [facility] 2023-10-11 11:00:00 Addended by: KRYSTAL MACE MD on: 10/14/2023 11:44 AM Modules accepted: Orders [facility] 2023-08-29 09:32:12 Pt r/s cysto from tomorrow 08/30 to 09/13. Pt advised she will need another urine sample prior to procedure. Pt stated she will not be back in town until 09/07, is it possible for pt to have urine sample done 09/09 or does cysto need to be pushed back to allow the 13-10 day time period for the urine sample. Please advise. Loaiza [facility] 2023-08-19 23:35:58 Pt discharged with diagnosis of UTI with hematuria and lower abdominal pain. Printed and verbal instructions reviewed with and given to pt. Prescriptions given x 1. Pt verbalized understanding of teaching, medication, and recommended follow-up. Denies questions or concerns at this time. Pt ambulatory at discharge. Appears in no apparent distress. No ataxia noted. Accompanied by fiance. URING CLERK Ernestina Corea RN [facility] 2023-08-19 20:00:09 Patient ambulatory to ED c/o abd cramping that started on and off two weeks ago. Patient states that her cramping started really bad today. Was unable to walk earlier today. Patient has IUD that needs to be taken out. [facility] nurse told patient to come in. Perez RN [facility] 2023-08-19 17:55:00 Regarding: severe cramping x right now ----- Message from Ihsan Wiggins sent at 08/19/2023 5:55 PM MEASURING CLERK ----- Katherine Akbar is a 33 year old female Patient is stating she is overdue for IUD being removed and is now having severe cramps (almost feels like contractions) x right now. Please advise Doran RN [facility] 2023-08-19 17:55:00 Adult Triage Assessment Last Clinic Visit: 08/16/23, Urology, dx acute UTI Primary Symptom: "have an IUD, was supposed to get it taken out in September 2022, didn't have insurance", "wasn't able to get it taken it out", cramping "coming and going like contractions, it hurts so bad", +spotting old blood for about 2-3 months "just a little bit" Onset / Duration: cramping 2 weeks ago, worsening today Location / Description: low abd/pelvic "feels exactly like contractions", low back pain bilaterally "all the way across" Pain / Severity: "when they are happening, it's like an 11"/10, right now is a 0/10 - last time having severe pain was around [id number] "it was so bad I could not stand up or walk"; low back/flank pain 7-810 "aching", "like I just got hit in my back with a sledgehammer or mallet, like I got punched really hard in the lower back" Associated Symptoms: reports also currently has a UTI, is not on abx yet, +urinary urgency - with a good flow of urine, +low back/flank pain, denies burning with urination, +urinary "pressure" Fever / Method: "feel flushed", unable to find thermometer during call Hydration: drinking a little bit more than usual amount today, urinating a little less than usual today Treatment so far: had a BM, heating pad applied to low abd/pelvic, taking a bath now during call with Epsom salts about 1-1.5 cups added; for low back pain: heating pad applied to back, ibuprofen OTC 2 x 200mg = 400mg last around noon today, Tylenol x 3 pills extra-strength = 1500mg/incorrect last 08/18/2319994824-1036 - none today Effect on ADL's: significant change LMP: 16 years ago, reports does not have periods with the IUDs Pre-existing condition / Immunocompromised: acuired hypothyroidism, anxiety, depression, mixed HLD, recurrent UTI, cyclical vomiting syndrome - states can be triggered by UTIs [facility] Reason for Disposition Patient sounds very sick or weak to the triager Patient sounds very sick or weak to the triager [1] SEVERE abdominal pain (e.g., excruciating) AND [2] present > 1 hour Patient sounds very sick or weak to the triager Protocols used: Abdominal Pain - Nmfbdw-[id number]-TP, Contraception - IUD Symptoms and Xsbddwelo-DCPII-TU, Urinary Uewffapx-PMTLW-HQ Assessment and triage done, disposition to go to the ED now. Reviewed correct Tylenol dosing. Callback warnings given. Pt voiced understanding and agreement with plan of care, states she will be taken to [facility] ED. [facility] 2023-08-16 11:00:00 Addended by: KRYSTAL MACE MD on: 08/20/2023 01:44 PM Modules accepted: Orders [facility] 2023-08-14 13:50:11 Images from the original note were not included. Requested Renewals proMETHazine 25 mg tablet Sig: Take 1 tablet by mouth every 6 (six) hours as needed for N/V unresponsive to Ondansetron. Disp: 12 tablet Refills: 0 Start: 08/14/2023 Class: eRX For: Cyclical vomiting syndrome not associated with migraine Last ordered: 8 months ago (11/19/2022) by TACHO Phan Anti-nausea (Other) Hrrhcu5008/14/2023 04:57 AM Protocol Details This refill cannot be delegated Manual Review: Women's Health only allowed to refill requests Valid encounter within last 12 months To be filled at: [facility]/pharmacy #[id number] [place] [address] AT [facility] [address] [facility] Recent Visits Date Type Provider Dept 06/19/23 Office Visit Emelina Arndt PA [facility] Showing recent visits within past 540 days with a meds authorizing provider and meeting all other requirements Future Appointments Date Type Provider Dept 09/20/23 Appointment Jane Berry FNP [facility] Showing future appointments within next 150 days with a meds authorizing provider and meeting all other requirements [facility] Beatriz Baeza LVN [facility] 2023-08-14 11:33:40 From: Katherine Akbar To: Office of Tomasz Rodriguez MD Sent: 08/14/2023 4:57 AM MEASURING CLERK Subject: Medication Renewal Request Refills have been requested for the following medications: ERGOCALCIFEROL, VITAMIN D2, 1,250 mcg (50,000 unit) capsule [Tomasz Rodriguez] Preferred pharmacy: [facility]Y #[id number] - [address] AT [facility] Delivery method: Pickup Recent Visits Date Type Provider Dept 06/19/23 Office Visit Emelina Arndt PA [facility] Showing recent visits within past 540 days with a meds authorizing provider and meeting all other requirements Future Appointments Date Type Provider Dept 09/20/23 Appointment Jane Berry FNP [facility] Showing future appointments within next 150 days with a meds authorizing provider and meeting all other requirements [facility] 2023-08-14 08:03:54 Images from the original note were not included. .please review cloNIDine 0.3 mg tablet Sig: Take 1 tablet by mouth at bedtime. For anxiety/ Hypertension Disp: 90 tablet Refills: 1 Start: 08/14/2023 Class: eRX For: Generalized anxiety disorder, Chronic insomnia Last ordered: 6 months ago (01/23/2023) by TACHO Levin Cardiovascular: General Hypertension Jdxylu2008/14/2023 04:57 AM Protocol Details Valid encounter within last 12 months To be filled at: [facility]/pharmacy #[id number] - [place] [address] AT [facility] Recent Visits Date Type Provider Dept 06/19/23 Office Visit Emelina Arndt PA [facility] Showing recent visits within past 540 days with a meds authorizing provider and meeting all other requirements Future Appointments Date Type Provider Dept 09/20/23 Appointment Jane Berry FNP [facility] Showing future appointments within next 150 days with a meds authorizing provider and meeting all other requirements [facility]
[2024-06-19] MEDS ORDERED: PROMETHAZINE INJ 25 MG/ML AMP ONE (06:26)
[2024-06-19] MEDS ORDERED: NA CHLORIDE 0.9% 1,000 ML ONE (06:26)
[2024-06-19] MEDS ORDERED: LORazepam 2 MG/ML VIAL ONE ×2 (06:26→11:38)
[2024-06-19 06:34] LABS: Absolute Eosinophils 0.1 K/uL (0-0.5); Absolute Lymphocytes (CBC) 0.9 K/uL (0.7-4.9); Absolute Monocytes 0.3 K/uL (0.1-1.3); Absolute Neutrophil 13.5 K/uL (1.8-8.0); Basophils % 0.2 % (0-1.3); Eosinophils % 0.7 % (0-4.4); Hematocrit 37.6 % (36.0-45.0); Hemoglobin 12.9 g/dL (12.0-15.0); Lymphocytes % 5.9 % (15.3-44.8); MCH 32.1 pg (27.0-35.0); MCHC 34.3 g/dL (32.0-36.0); MCV 93.7 fL (80-100); MPV 7.9 fL (7.6-11.3); Monocytes % 1.8 % (3.3-12.3); Neutrophils % 91.4 % (41.7-73.7); Nucleated Red Blood Cells % 0.1 % (0-0); Platelets 379 thou/uL (152-406); RBC Red Blood Cell Count 4.02 M/uL (3.86-4.86); Red Cell Distribution Width 12.3 % (12.1-15.2)
[2024-06-19 07:52] LABS: Albumin/Globulin Ratio 0.9 (1.1-1.8); Anion Gap 9.4 mEq/L (5.0-15.0); Bilirubin Total 0.5 mg/dL (0.2-1.0); Globulin 4.3 g/dL (2.3-3.5); Potassium 3.4 mEq/L (3.5-5.1); Protein, Total 8.3 g/dL (6.4-8.2)
[2024-06-19] MEDS ORDERED: DIPHENHYDRAMINE 50 MG/ML VIAL ONE (07:52)
[2024-06-19] MEDS ORDERED: droPERidol 5 MG/2 ML VIAL ONE (07:52)
[2024-06-19 09:24] LABS: Specific Gravity 1.026 (1.005-1.030)
[2024-06-19 09:25] LABS: Specific Gravity 1.026 (1.005-1.030); Urine Bacteria <20 /HPF (<20); Urine Bilirubin NEGATIVE (Negative); Urine Blood Negative (Negative); Urine Clarity Extremely Turbid (Clear); Urine Color Yellow (Yellow); Urine Crystals Unidentified Few /HPF (None Seen); Urine Culture Reflex Order REFLEXED; Urine Glucose NEGATIVE (Negative); Urine Ketones 3+ (Negative); Urine Microscopic Reflex YN ORDER UMIC; Urine Mucus 2+ /HPF (None Seen); Urine Nitrite NEGATIVE (Negative); Urine Protein 1+ (Negative); Urine RBC <5 /HPF (None Seen); Urine Urobilinogen 1+ (Normal); Urine WBC 20-50 /HPF (<5); Urine WBC Clump Rare /HPF (None Seen); Urine Yeast (Budding) Occasional /HPF (None Seen)
[2024-06-19] MEDS ORDERED: CEFTRIAXONE 1000 MG/VIAL ONE (10:01)
[2024-06-19 10:35] LABS: Blood Morphology Comment NOT SEEN (NOT SEEN); Platelet Estimate ADEQ; White Blood Cell Scan OK (OK)
--- NOTE | 2024-06-19 10:39 | RAD REPORT ---
EXAMINATION: CT Abdomen Pelvis W Contrast CLINICAL INDICATION: Female, 34 years old. ABD PAIN TECHNIQUE: CT abdomen and pelvis was performed, after the administration of IV contrast, as [facility]. Axial, sagittal and coronal reconstructions were obtained. One or more of the following dose reduction techniques were used: Automated exposure control, adjustment of the mA and k V according to patient size, and iterative reconstruction. Unless otherwise specified, incidental findings do not require dedicated imaging follow-up. COMPARISON: 04/29/2023 FINDINGS: LOWER CHEST: The visualized lung bases are clear. LIVER: Normal in size and contour. No focal lesion. BILIARY SYSTEM: No suspicious abnormalities. SPLEEN: Normal size. No focal lesion. PANCREAS: No mass, ductal dilation, or rekha-pancreatic fluid. ADRENALS: Normal; no mass. KIDNEYS: Normal size and contour. No hydronephrosis. URINARY BLADDER: Suboptimally distended limiting evaluation. GASTROINTESTINAL TRACT: No evidence of free air, significant intra-abdominal free fluid, bowel obstru ction or abscess. APPENDIX: Normal appendix. LYMPH NODES: No lymphadenopathy. MUSCULOSKELETAL: No acute or suspicious osseous abnormality. ADDITIONAL FINDINGS: IUD is no longer visualized. IMPRESSION: No acute or concerning abnormalities seen in the abdomen or pelvis.
--- NOTE | 2024-06-19 11:39 | EDPHYS ---
Physician Documentation [facility] Name: Katherine Akbar Age: 34 yrs Sex: Female : 1990 Arrival Date: 06/19/2024 Time: 06:00 Bed 19 Private MD: ED Physician Gregorio Platt HPI: 06/19 06:21 This 34 yrs old Female presents to ER via Ambulatory with complaints of rt Nausea/Vomiting, Pain With Urination. 06:21 Patient with history of cyclic vomiting syndrome presents to the ED with dysuria, rt urinary frequency as well as nausea and vomiting for the past 2 days. Denies any significant abdominal pain. Denies other acute complaints at this time, symptoms are moderate in severity, no other aggravating or alleviating factors.. RN LIAISON: 06:14 LMP 06/05/2024, unknown lg3 Historical: - Allergies: 06:14 No Known Allergies; lg3 - PMHx: 06:14 Anxiety; Hypertensive disorder; lg3 06:23 cyclic vomiting syndrome; lg3 - PSHx: 06:14 None; lg3 - Immunization history:: Adult Immunizations up to date. - Infectious Disease History:: Denies. - Social history:: Smoking status: Reported history of juuling and/or vaping. Patient/guardian denies using alcohol, street drugs. - Family history:: not pertinent. ROS: 06:21 Constitutional: Negative for fever, chills, and weight loss, Cardiovascular: Negative rt for chest pain, palpitations, and edema, Respiratory: Negative for shortness of breath, cough, wheezing, and pleuritic chest pain, MS/Extremity: Negative for injury and deformity, Skin: Negative for injury, rash, and discoloration, 06:21 Abdomen/GI: Positive for nausea and vomiting, Negative for abdominal pain, 06:21 : Positive for burning with urination, Exam: 06:21 Constitutional: This is a well developed, well nourished patient who is awake, alert, rt and in no acute distress. Head/Face: Normocephalic, atraumatic. Chest/axilla: Normal chest wall appearance and motion. Nontender with no deformity. No lesions are appreciated. Cardiovascular: Regular rate and rhythm with a normal S1 and S2. No gallops, murmurs, or rubs. Normal PMI, no JVD. No pulse deficits. Respiratory: Lungs have equal breath sounds bilaterally, clear to auscultation and percussion. No rales, rhonchi or wheezes noted. No increased work of breathing, no retractions or nasal flaring. Abdomen/GI: Soft, non-tender, with normal bowel sounds. No distension or tympany. No guarding or rebound. No evidence of tenderness throughout. Skin: Warm, dry with normal turgor. Normal color with no rashes, no lesions, and no evidence of cellulitis. MS/ Extremity: Pulses equal, no cyanosis. Neurovascular intact. Full, normal range of motion. Neuro: Awake and alert, GCS 15, oriented to person, place, time, and situation. Cranial nerves II-XII grossly intact. Motor strength 5/5 in all extremities. Sensory grossly intact. Cerebellar exam normal. Normal gait. Vital Signs: 06:12 BP 137 / 85; Pulse 88; Resp 17 S; Temp 98.8(O); Pulse Ox 97% on R/A; Weight 77.11 kg lg3 (R); Height 5 ft. 7 in. (R); 07:00 BP 135 / 77; Pulse 83; Pulse Ox 100% ; ll1 08:00 BP 130 / 70; Pulse 81; Resp 16; Pulse Ox 100% ; ll1 08:02 BP 136 / 79; Pulse 89; Pulse Ox 100% ; ec2 09:00 BP 121 / 75; Pulse 86; Resp 16; Pulse Ox 100% ; ll1 10:29 BP 110 / 72; Pulse 78; Resp 17; Pulse Ox 100% ; ll1 12:00 BP 123 / 71; Pulse 78; Resp 17; Pulse Ox 100% ; ll1 06:12 Body Mass Index 26.63 (77.11 kg, 170.18 cm) lg3 MDM: 06:12 Medical Screening Exam initiated rt 07:09 Data reviewed: vital signs. ED course: Patient arrives today for evaluation of nausea ec2 and vomiting. Plan is to follow-up lab work and reassess patient's symptoms.. 08:02 ED course: CBC shows slight leukocytosis. Metabolic profile shows slight hypokalemia. ec2 Lipase is within normal ranges.. 06/19 06:17 Order name: CBC with Diff; Complete Time: 10:50 rt 06/19 06:17 Order name: CMP; Complete Time: 08:02 rt 06/19 06:17 Order name: Lipase; Complete Time: 08:02 rt 06/19 06:17 Order name: Test, Urine; Complete Time: 09:45 rt 06/19 06:17 Order name: Urinalysis w/ reflexes; Complete Time: 09:45 rt 06/19 09:28 Order name: Urine Culture EDMS 06/19 10:35 Order name: CBC Smear Scan; Complete Time: 10:50 EDMS 06/19 09:45 Order name: CT Abd/Pelvis - IV Contrast Only; Complete Time: 10:50 ec2 06/19 06:17 Order name: IV Saline Lock; Complete Time: 06:36 rt 06/19 06:17 Order name: Labs collected and sent; Complete Time: 06:36 rt 06/19 09:45 Order name: PO challenge; Complete Time: 10:30 ec2 Administered Medications: 06:36 Drug: NS 0.9% IV 1000 ml IV at 1 bolus Per protocol; to be given as a bolus over 60 br2 minutes Route: IV; Rate: 1 bolus; Site: right hand; 09:15 Follow up: Response: No adverse reaction; IV Status: Completed infusion; IV Intake: ll1 1000ml 06:36 Drug: Ativan IVP 1 mg IVP once Route: IVP; Site: right hand; br2 09:15 Follow up: Response: No adverse reaction ll1 06:36 Drug: Promethazine IVP 12.5 mg IVP once Route: IVP; Site: right hand; br2 09:15 Follow up: Response: No adverse reaction; Nausea is decreased ll1 07:58 Drug: Droperidol IVP 2.5 mg IVP once Route: IVP; Site: right hand; ll1 09:15 Follow up: Response: No adverse reaction ll1 07:58 Drug: diphenhydrAMINE IVP 25 mg IVP once Route: IVP; Site: right hand; ll1 09:15 Follow up: Response: No adverse reaction; Nausea is decreased; RASS: Alert and Calm (0) ll1 10:19 Drug: Rocephin IV 1 grams IV at calculated rate once; Given slow IV push per pharmacy ll1 instructions Route: IV; Rate: calculated rate; Site: right hand; 10:24 Follow up: Response: No adverse reaction; IV Status: Completed infusion; IV Intake: [id number] 11:43 Drug: Ativan IVP 1 mg IVP once Route: IVP; Site: right hand; ll1 12:05 Follow up: Response: No adverse reaction; Anxiety decreased; RASS: Alert and Calm (0) ll1 Disposition Summary: 06/19/24 11:38 Discharge Ordered Notes: Location: Home ec2 Condition: Stable ec2 Diagnosis - Cyclical vomiting, not intractable ec2 Followup: ec2 - With: Andrea Carrillo MD - When: - Reason: Recheck today's complaints Discharge Instructions: - Discharge Summary Sheet ec2 - Cyclic Vomiting Syndrome, Adult ec2 Forms: - Medication Reconciliation Form ec2 - Antibiotic Education ec2 - Prescription Opioid Use ec2 - Patient Portal Instructions ec2 - Leadership Thank You Letter ec2 Prescriptions: - promethazine 25 mg Oral Tablet - take 1 tablet ORAL route every 6 hours As needed; 20 tablet; Refills: 0, ec2 Product Selection Permitted Signatures: Dispatcher [employer] EDShelbi Martines RN RN lg3 Liane Centeno RN RN ll1 González Sanders MD MD rt Gregorio Platt MD MD ec2 Arpita Chan RN RN br2 Corrections: (The following items were deleted from the chart) 06:18 06:18 CBC+H.LAB.BRZ ordered. EDMS EDMS 06:18 06:18 COMPREHENSIVE METABOLIC PANEL+C.LAB.BRZ ordered. EDMS EDMS 06:18 06:18 LIPASE+C.LAB.BRZ ordered. EDMS EDMS 06:18 06:18 Test, Urine+UC.LAB.BRZ ordered. EDMS EDMS 06:18 06:18 Urinalysis+U.LAB.BRZ ordered. EDMS EDMS 06:23 06:14 PMHx: sicklick vomiting syndrome; lg3 lg3
--- NOTE | 2024-06-19 11:39 | ER ---
Nurse's Notes [facility] Name: Katherine Akbar Age: 34 yrs Sex: Female : 1990 Arrival Date: 06/19/2024 Time: 06:00 Bed 19 Private MD: Diagnosis: Cyclical vomiting, not intractable Presentation: 06/19 06:12 Chief complaint: Patient states: i have cyclic vomiting syndrome and i have been lg3 vomiting X2 days. i think its because i have a UTI. Burning with urination X2 days. Coronavirus screen: Client denies travel out of the [place] in the last 14 days. At this time, the client does not indicate any symptoms associated with coronavirus-19. Ebola Screen: No symptoms or risks identified at this time. Initial Sepsis Screen: Does the patient meet any 2 criteria? No. Patient's initial sepsis screen is negative. Does the patient have a suspected source of infection? No. Patient's initial sepsis screen is negative. Risk Assessment: Do you want to hurt yourself or someone else? Patient reports no desire to harm self or others. Onset of symptoms was June 17, 2024. 06:12 Method Of Arrival: Ambulatory lg3 06:12 Acuity: BALTAZAR 3 lg3 Triage Assessment: 06:14 General: Appears in no apparent distress. uncomfortable, Behavior is calm, cooperative. lg3 Pain: Complains of pain in pelvis Pain does not radiate. EENT: No deficits noted. No signs and/or symptoms were reported regarding the EENT system. Neuro: No deficits noted. Zuñiga Agitation-Sedation Scale (RASS): 0 - Alert and Calm Level of Consciousness is awake, alert, obeys commands, Oriented to person, place, time, situation. Cardiovascular: No deficits noted. Denies chest pain, shortness of breath, Capillary refill < 3 seconds Clubbing of nail beds is absent JVD is absent Patient's skin is warm and dry. Respiratory: No deficits noted. Airway is patent Respiratory effort is even, unlabored, Respiratory pattern is regular, symmetrical. GI: Reports lower abdominal pain, nausea, vomiting. : Reports burning with urination, urgency. Derm: No deficits noted. No signs and/or symptoms reported regarding the dermatologic system. Skin is intact, is healthy with good turgor, Skin is dry, Skin is normal, Skin temperature is warm. Musculoskeletal: No deficits noted. No signs and/or symptoms reported regarding the musculoskeletal system. Circulation, motion, and sensation intact. Range of motion: intact in all extremities. MEAT TEAM LEAD: 06:14 LMP 06/05/2024, unknown lg3 Historical: - Allergies: 06:14 No Known Allergies; lg3 - PMHx: 06:14 Anxiety; Hypertensive disorder; lg3 06:23 cyclic vomiting syndrome; lg3 - PSHx: 06:14 None; lg3 - Immunization history:: Adult Immunizations up to date. - Infectious Disease History:: Denies. - Social history:: Smoking status: Reported history of juuling and/or vaping. Patient/guardian denies using alcohol, street drugs. - Family history:: not pertinent. Screenin:17 [facility] ED Fall Risk Assessment (Adult) History of falling in the last 3 months, br2 including since admission No falls in past 3 months (0 pts) Confusion or Disorientation No (0 pts) Intoxicated or Sedated No (0 pts) Impaired Gait No (0 pts) Mobility Assist Device Used No (0 pt) Altered Elimination No (0 pt) Score/Fall Risk Level 0 - 2 = Low Risk Oriented to surroundings. Abuse screen: Denies threats or abuse. Denies injuries from another. Nutritional screening: No deficits noted. Tuberculosis screening: No symptoms or risk factors identified. Assessment: 06:17 Reassessment: Patient and/or family updated on plan of care and expected duration. Pain br2 level reassessed. Patient is alert, oriented x 3, equal unlabored respirations, skin warm/dry/pink. General: Appears uncomfortable, Behavior is cooperative, anxious. Pain: Complains of pain in groin Pain does not radiate. Neuro: Zuñiga Agitation-Sedation Scale (RASS): 0 - Alert and Calm. Cardiovascular: Capillary refill < 3 seconds. Respiratory: Airway is patent Respiratory effort is even, unlabored, Respiratory pattern is regular, symmetrical. GI: Abdomen is flat, Reports nausea, vomiting. : Reports pain in suprapubic area. EENT: No signs and/or symptoms were reported regarding the EENT system. Derm: No signs and/or symptoms reported regarding the dermatologic system. Musculoskeletal: Circulation, motion, and sensation intact. Capillary refill < 3 seconds, Range of motion: intact in all extremities. 06:59 Reassessment: Patient and/or family updated on plan of care and expected duration. Pain br2 level reassessed. Patient is alert, oriented x 3, equal unlabored respirations, skin warm/dry/pink. Patient states feeling better. Patient states symptoms have improved. 07:01 Reassessment: Report received from shift leader RN. ll1 07:58 General: Appears uncomfortable, ill, Behavior is calm, cooperative, appropriate for ll1 age. Pain: Complains of pain in back Quality of pain is described as aching. GI: Reports cramping, nausea, vomiting. Musculoskeletal: Reports pain in back. 09:00 Reassessment: Gait steady to restroom. ll1 10:18 Reassessment: No changes from previously documented assessment. Patient and/or family ll1 updated on plan of care and expected duration. Pain level reassessed. Patient is alert, oriented x 3, equal unlabored respirations, skin warm/dry/pink. 10:30 Reassessment: No changes from previously documented assessment. Patient and/or family ll1 updated on plan of care and expected duration. Pain level reassessed. Patient is alert, oriented x 3, equal unlabored respirations, skin warm/dry/pink. 11:35 Reassessment: No changes from previously documented assessment. Patient and/or family ll1 updated on plan of care and expected duration. Pain level reassessed. 12:00 Reassessment: No changes from previously documented assessment. Patient and/or family ll1 updated on plan of care and expected duration. Pain level reassessed. Patient is alert, oriented x 3, equal unlabored respirations, skin warm/dry/pink. Patient states feeling better. Patient states symptoms have improved. Vital Signs: 06:12 BP 137 / 85; Pulse 88; Resp 17 S; Temp 98.8(O); Pulse Ox 97% on R/A; Weight 77.11 kg lg3 (R); Height 5 ft. 7 in. (R); 07:00 BP 135 / 77; Pulse 83; Pulse Ox 100% ; ll1 08:00 BP 130 / 70; Pulse 81; Resp 16; Pulse Ox 100% ; ll1 08:02 BP 136 / 79; Pulse 89; Pulse Ox 100% ; ec2 09:00 BP 121 / 75; Pulse 86; Resp 16; Pulse Ox 100% ; ll1 10:29 BP 110 / 72; Pulse 78; Resp 17; Pulse Ox 100% ; ll1 12:00 BP 123 / 71; Pulse 78; Resp 17; Pulse Ox 100% ; ll1 06:12 Body Mass Index 26.63 (77.11 kg, 170.18 cm) lg3 ED Course: 06:03 Patient arrived in ED. gm2 06:08 González Sanders MD is Attending Physician. rt 06:14 Triage completed. lg3 06:14 Arm band placed on right wrist. lg3 06:17 Arpita Chan, OFRTUNATO is Primary Nurse. br2 06:17 Patient has correct armband on for positive identification. Bed in low position. Call br2 light in reach. Side rails up X 1. Provided Education on: plan of care. 06:19 Inserted saline lock: 20 gauge in right hand, using aseptic technique. Blood collected. br2 Flushed with 10 mL NS. 06:36 CMP Sent. br2 06:36 Lipase Sent. br2 07:01 Attending Physician role handed off by González Sanders MD ec2 07:01 Gregorio Platt MD is Attending Physician. ec2 09:15 Test, Urine Sent. ll1 09:15 Urinalysis w/ reflexes Sent. ll1 10:13 CT Abd/Pelvis - IV Contrast Only In Process Unspecified. EDMS 11:38 Andrea Carrillo MD is Referral Physician. ec2 12:05 No provider procedures requiring assistance completed. IV discontinued, intact, ll1 bleeding controlled, No redness/swelling at site. Pressure dressing applied. Administered Medications: 06:36 Drug: NS 0.9% IV 1000 ml IV at 1 bolus Per protocol; to be given as a bolus over 60 br2 minutes Route: IV; Rate: 1 bolus; Site: right hand; 09:15 Follow up: Response: No adverse reaction; IV Status: Completed infusion; IV Intake: ll1 1000ml 06:36 Drug: Ativan IVP 1 mg IVP once Route: IVP; Site: right hand; br2 09:15 Follow up: Response: No adverse reaction ll1 06:36 Drug: Promethazine IVP 12.5 mg IVP once Route: IVP; Site: right hand; br2 09:15 Follow up: Response: No adverse reaction; Nausea is decreased ll1 07:58 Drug: Droperidol IVP 2.5 mg IVP once Route: IVP; Site: right hand; 1 09:15 Follow up: Response: No adverse reaction ll1 07:58 Drug: diphenhydrAMINE IVP 25 mg IVP once Route: IVP; Site: right hand; ll1 09:15 Follow up: Response: No adverse reaction; Nausea is decreased; RASS: Alert and Calm (0) ll1 10:19 Drug: Rocephin IV 1 grams IV at calculated rate once; Given slow IV push per pharmacy 1 instructions Route: IV; Rate: calculated rate; Site: right hand; 10:24 Follow up: Response: No adverse reaction; IV Status: Completed infusion; IV Intake: [id number] 11:43 Drug: Ativan IVP 1 mg IVP once Route: IVP; Site: right hand; ll1 12:05 Follow up: Response: No adverse reaction; Anxiety decreased; RASS: Alert and Calm (0) 1 Medication: 07:05 VIS not applicable for this client. ll1 Intake: 09:15 IV: 1000ml; Total: 1000ml. ll1 10:24 IV: 20ml; Total: 1020ml. 1 Outcome: 11:38 Discharge ordered by . ec2 12:05 Patient left the ED. ll1 12:05 Discharged to home via wheelchair, ll1 12:05 Condition: stable 12:05 Discharge instructions given to patient, Instructed on discharge instructions, follow up and referral plans. medication usage, Demonstrated understanding of instructions, follow-up care, medications, Prescriptions given X 1, Signatures: Dispatcher [employer] Shelbi Chu RN RN lg3 Liane Centeno RN RN ll1 González Sanders MD MD rt Gregorio Platt MD MD ec2 Yesenia Solomon gm2 Arpita Chan RN RN br2 Corrections: (The following items were deleted from the chart) 06:23 06:14 PMHx: sicklick vomiting syndrome; lg3 lg3
[2024-06-19 12:18] VITALS: TEMP 98.8
[2024-06-19 12:23] VITALS: O2SAT 100
[2024-06-19 12:37] VITALS: BP 110/72
== END 2024-06-19 12:05 | disposition home or self-care (01) ==
LOC: ER 06:00
DX: R11.15 Cyclical vomiting syndrome unrelated to migraine (principal); R30.0 Dysuria
CPT/HCPCS: 36415; 74177; 80053; 81001; 81025; 83690; 85025; 87077; 87086; 87088; 87186; 96361; 96374; 96375; 99284; J0696; J1200; J1790; J2550; J7030; Q9967

== ENCOUNTER 2024-10-26 20:36 | Emergency (ER) | payer SELFPAY ==
--- OUTSIDE RECORDS SUMMARY | 2024-10-26 20:45 | XMS REPORT | Continuity of Care Document ---
Author Name Unknown Address [address] [facility] [address] [place] [address] [facility] [place] Address [address] [facility] [address] [place] [address] Care Team Providers Care Building Code Administrator Name Role Phone JANE BERRY Primary Care Physician Unavailab JANE Sanchez Attending Clinician Unavailable Adeola Tam LVN Attending Clinician Unavailabl varinder Berry FINISH REMOVER, Jane Attending Clinician [phone] Kristi GARCIAPJane Attending Clinician [phone] KRYSTAL MACE Attending Clinician Unavailable KRYSTAL MACE Attending Clinician Unavailable VALERIA JONAS Attending Clinician Unavailable Jennifer Chowdhury Attending Clinician Unavailsintia ble Doctor Unassigned, [place] Attending Clinician U Valeria Madrid MD Attending Clinician [phone] Lisa Mauricio MD Attending Clinician Nurse, [facility] Surgery Gu Attending Clinician Edwin Thomas MD, Mahesh Ang Attending Clinician + [phone] JANET NGUYEN Attending Clinician Unavailable Patrick FINISH REMOVER, Janet Attending Clinician [phone] Espinoza BUCIO, Bella Attending Clinician Unavailable Rm2, [facility] Attending Clinician Unavailab Edie Edmonds Attending Clinician [phone] VERONICA LOONEY Attending Clinician Unavailable Emelina Philip Attending Clinician [phone] EMELINA ARNDT Attending Clinician Unavailable LISA MAURICIO Attending Clinician Alexa Tomasz Hill MD Attending Clinician + [phone] YONY COX Attending Clinician Unavailable Yony Cox MD Attending Clinician [phone] 2, [facility] Attending Clinician Unavailable TOMASZ RODRIGUEZ Attending Clinician UnavailAlisson Nieto LVN Attending Clinician [phone] CATHRYN LINO Attending Clinician Unavailable Sybil Victor Attending Clinician [phone] Bartolo Cervantes MD Attending Clinician [phone] Cathryn Lino DO Attending Clinician [phone] Laurita BUCIO, Charlotte Lutz Attending Clinician Unav ailable EDILMA CANALES Attending Clinician Unavailable Pob, [facility] Main Attending Clinician UnavailCORWIN Zhao Attending Clinician Unavailable Margo Michael RN Attending Clinician Unavailable Kalen Chase Attending Clinician [phone] Sonia Oseguera MD Attending Clinician [phone] KALEN YEAGER Attending Clinician Unavailable Dorcas Man DO Attending Clinician +[phone] DORCAS MAN Attending Clinician Unavailab JANET Hernández Admitting Clinician Unavailable CATHRYN LINO Admitting Clinician Unavailable Cathryn Lino DO Admitting Clinician [phone] Sonia Oseguera MD Admitting Clinician [phone] Payers Payer Name Policy Type Policy Number Effective Date Expirati on Date Source [employer] [id number] 00:00:00 [facility] [id number] 2019 00:00:00 Problems Condition Name Condition Details Condition Category Status Onset Date Resolution Date Last Treatment Date Treating Clinician Comments Source Acute UTI Acute UTI Disease Active 2023-1 2-08 00:00: 00 [facility] Vomiting Vomiting Disease Active 2020-08 2-06 00:00: 00 [facility] Obesity (BMI 30-39.9) Obesity (BMI 30-39.9) Disease Active 2020-08 2-06 00:00: 00 [facility] Anxiety Anxiety Disease Active 6-04 00:00: 00 [facility] PID (pelvic inflammato ry disease) PID (pelvic inflammato ry disease) Disease Active 6-04 00:00: 00 [facility] Acquired hypothyroi dism Acquired hypothyroi dism Disease Active 2019-08 2- 00:00: 00 [facility] Mild anemia Mild anemia Disease Active 2019-08 2 00:00: 00 [facility] Vitamin D deficiency Vitamin D deficiency Disease Active 2019-08 2 00:00: 00 [facility] B12 deficiency B12 deficiency Disease Active 2019-08 2 00:00: 00 [facility] Mixed hyperlipid emia Mixed hyperlipid emia Disease Active 2019-08 2 00:00: 00 [facility] Intractabl e nausea and vomiting Intractabl e nausea and vomiting Disease Active 2019-08 0-16 00:00: 00 [facility] Opioid dependence , uncomplica mary Opioid dependence , uncomplica mary Disease Active 7-21 00:00: 00 [facility] Presence of intrauteri ne contracept carolyn device Presence of intrauteri ne contracept carolyn device Disease Active 2018-08 0-23 00:00: 00 Overview: Formattin g of this note might be different from the original. Mirena IUD placed September 2014 at [facility]. Due for removal/r einsertio n September 2019.Beckie na IUD placed September 2014 at [facility]. Due for removal/r einsertio n September 2019. [facility] Controlled substance agreement signed Controlled substance agreement signed Disease Active 4- 00:00: 00 Overview: Formattin g of this note might be different from the original. Formattin g of this note might be different from the original. Signed 11-27-18 - Alprazola m 1mg Tab, 1-2T daily PRN, #45/28-30 DS 019 ALPRAZOLA M 1 MG TABLET #40 [id number] [facility] SUBOXONE 8 MG- 2 MG SL FILM [id number] 03 #28 [facility] SUBOXONE 8 MG- 2 MG SL FILM [id number] 03 #28 [facility]2018 ALPRAZOLA M 1 MG TABLET # 40 NATALIE Gomez [facility]2018 SUBOXONE 8 MG- 2 MG SL FILM #28 [facility]2018 ALPRAZOLA M 1 MG TABLET # 45 NATALIE Gomez [facility]2018 [place]- [place] 8- 2 MG SL # 2804/06/20 019 ALPRAZOLA M 1 MG TABLET # 45 NATALIE Gomez [facility]2018 ALPRAZOLA M 1 MG TABLET #15 NATALIE Gomez [facility]2018 [place]EN[place] HIN- [place] 8- 2 MG SL # 30 GAEL DEMPSEY [facility].10/06 ALPRAZOLA M 1 MG TABLET # 45 LETICIA LEO MD [facility]2018 ALPRAZOLA M 1 MG TABLET # 45 VIVIANA [facility]2017 BUPRENORP HIN- [place] 8- 2 MG [id number] [facility]2017 ALPRAZOLA M 1 MG [id number] [facility]IA [facility]2017 [place] H[place]- [place] 8- 2 MG [id number] [facility]2017 [place] [facility]- [place] 8- 2 MG [id number] [facility]2017 ALPRAZOLA M 1 MG [id number] [facility]AS [facility]2017 [place] HIN- [place] 8- 2 MG SL #4228 [id number] [facility]2017 ALPRAZOLA M 1 MG [id number] [facility] 018 [place]PREN[place] HIN- [place] 8- 2 MG [id number] [facility]2017 [place] [facility]- [place] 8- 2 MG [id number] [facility]2017 [place] HIN- [place] 8- 2 MG [id number] [facility]2017 ALPRAZOLA M 1 MG [id number] [facility]AS [facility]2017 [place] [facility]- [place] 8- 2 MG [id number] GAEL [facility]2017 ALPRAZOLA M 1 MG [id number] DALLAS Arceo MD [facility] Iron deficiency anemia secondary to inadequate [...] C Pt has been taking since october. [facility] Insomnia Insomnia Disease Active 09-22 00:00: 00 [...] effects of medicatio ns. Recheck in 3m [facility] Seasonal allergies Seasonal allergies Disease Active 09-22 00:00: 00 [facility] Cyclical vomiting with nausea Cyclical vomiting with [...] linzess, stool softeners . Recheck as needed [facility] Gallstones Gallstones Disease Active 02-23 00:00: 00 [facility] Gastropare sis Gastropare sis Disease Active 09-13 00:00: 00 [facility] Prolonged Q-T interval on ECG Prolonged Q-T interval on ECG Disease Active 09-13 00:00: 00 [facility] History of heroin abuse History of heroin abuse Disease Active 11-04 00:00: 00 Overview: Formattin g of this note might be different from the original. Methadone 48mg dailyMeth adone 48mg daily [facility] Generalize d anxiety disorder Generalize d anxiety [...] contractC ontract xanax signed 11/27/2018 #45/28-30 days [facility] Constipati on Constipati on Disease Active 7- 00:00: 00 Overview: Formattin g of this note might be different from the original. Instructe d to monitor closely as close correlati on with N/V gastropar esis triggers Ok to increase stool softeners am and pm and cont linzess Daily stool is great though softer would be better,. [facility] Opioid dependence Opioid dependence Disease Active 7- 00:00: 00 Overview: Formattin g of this note might be different from the original. Followed [facility] pain clinic suboxone tx Every 1 m 11/04/2018 . See note of 12/18/18: getting methadone in addition to suboxone [facility] SINTIA II (cervical intraepith elial neoplasia II) [...] with negative margins. Repeat pap 2016 negative. [facility] History of abnormal cervical Papanicola ou smear [...] have records sent over from gynecolog ist. [facility] Recurrent UTI Recurrent UTI Disease Active [facility] Allergies, Adverse Reactions, Alerts Allergy Name Allergy Type Status Severity Reaction(s) Onset Date Inactive Date Treating Clinician Comments Source Prochlor perazine Propensi ty to adverse reaction s Active Other - See comments 04-23 00:00: 00 Per patient was in coma, could hear everythin g but could not make eye contact or communica te verbally/ physicall y. Patient started "twitchin g". [facility] PROCHLOR PERAZINE DRUG INGREDI Active Other-Cmnt 04-23 00:00: 00 [facility] PROCHLOR PERAZINE DRUG INGREDI Active Low Other-Cmnt 02-20 00:00: 00 [facility] Prochlor perazine Propensi ty to adverse reaction [...] ine.Dysto harshal reactionH as tolerated promethaz ine [facility] Social History Social Habit Start Date Stop Date Quantity Comments Source Sexual orientation U [facility] History of tobacco use Smokes tobacco daily [facility] Alcohol intake 2023-11-14 00:00:00 2023-11-14 00:00:00 Current drinker of alcohol (finding) [facility] History of Social function 2023-06-19 00:00:00 2023-06-19 00:00:00 [facility] Exposure to SARS-CoV-2 (event) 2022-01-30 00:00:00 2022-02-09 10:56:00 Not sure [facility] Alcoholic beverage intake 2022-02-09 00:00:00 2022-02-09 00:00:00 Ex-drinker (finding) [facility] Tobacco use and exposure 2021-08-08 00:00:00 2021-08-08 00:00:00 Smokeless tobacco non-user [facility] Tobacco Comment 2020-06-27 00:00:00 2020-06-27 00:00:00 toñaes [facility] Sex assigned at 1990 00:00:00 1990 00:00:00 [facility] Smoking Status Start Date Stop Date Source Never smoked tobacco [facility] Smokes tobacco daily 2020-06-27 00:00:00 [facility] Medications Ordered Medication Name Filled Medication Name Start Date Stop Date Current Medication? Ordering Clinician Indication Dosage Frequency Signature (SIG) Comments Components Source CLONIDINE 0.3 mg tablet 08-22 00:00: 00 Yes [id number] .3mg TAKE 1 TABLET BY MOUTH EVERYDAY AT BEDTIME [facility] cloNIDine 0.3 mg tablet 2023-08- 00:00: 00 08-22 00:00 :00 No [id number] .[id number] Take 1 tablet by mouth at bedtime. [facility] cloNIDine 0.3 mg tablet 2023-08 00:00: 00 07-27 00:00 :00 No [id number] .3mg Take 1 tablet by mouth at bedtime. [facility] cloNIDine 0.3 mg tablet 2023-08 00:00: 00 06-29 00:00 :00 No [id number] .3mg Take 1 tablet by mouth at bedtime. For anxiety/ Hypertensi on. MUST BE SEEN FOR FURTHER REFILLS [facility] cloNIDine 0.3 mg tablet 2023-08 00:00: 00 06-15 00:00 :00 No [id number] .3mg Take 1 tablet by mouth at bedtime. For anxiety/ Hypertensi on. MUST BE SEEN FOR FURTHER REFILLS [facility] cloNIDine 0.3 mg tablet 04-28 00:00: 00 05-22 00:00 :00 No [id number] .3mg Take 1 tablet by mouth at bedtime. For anxiety/ Hypertensi on [facility] cloNIDine 0.3 mg tablet 16 00:00: 00 04-28 00:00 :00 No [id number] .3mg Take 1 tablet by mouth at bedtime. For anxiety/ Hypertensi on [facility] cloNIDine 0.3 mg tablet -24 00:00: 00 04-03 00:00 :00 No [id number] .3mg Take 1 tablet by mouth at bedtime. For anxiety/ Hypertensi on [facility] cloNIDine 0.3 mg tablet 02-16 00:00: 00 03-11 00:00 :00 No [id number] .3mg Take 1 tablet by mouth at bedtime. For anxiety/ Hypertensi on [facility] cloNIDine 0.3 mg tablet 12-30 00:00: 00 02-16 00:00 :00 No [id number] .3mg Take 1 tablet by mouth at bedtime. For anxiety/ Hypertensi on [facility] cloNIDine 0.3 mg tablet - 00:00: 00 12-30 00:00 :00 No [id number] .3mg Take 1 tablet by mouth at bedtime. For anxiety/ Hypertensi on [facility] d-mannose 500 mg Cap 10-24 10:48: 01 Yes 1{tbl} Take 1 tablet by mouth in the morning and 1 tablet in the evening. [facility] metoclopram thao HCl 10 mg tablet 10-24 10:47: 26 Yes 10mg Take 1 tablet by mouth in the morning and 1 tablet at noon and 1 tablet in the evening. [facility] ALPRAZolam 1 mg tablet 10-24 10:45: 40 10-24 00:00 :00 No 1mg Take 1 tablet by mouth at bedtime as needed. [facility] Lactobacill us acidophilus (PROBIOTIC ACIDOPHILUS ORAL) 10-24 09:24: 45 Yes 1{tbl} Take 1 tablet by mouth in the morning. [facility] sucralfate 100 mg/mL suspension 10-24 09:12: 26 10-24 00:00 :00 No 1000mg Take 10 mL by mouth 4 (four) times daily. [facility] naloxegoL 25 mg Tab 10-24 09:12: 20 10-24 00:00 :00 No 25mg Take 25 mg by mouth in the morning. [facility] FLUoxetine 20 mg capsule 10-24 09:12: 11 10-24 00:00 :00 No 20mg Take 1 capsule by mouth in the morning. [facility] dronabinoL 2.5 mg capsule 10-24 09:12: 08 10-24 00:00 :00 No 2.5mg Take 1 capsule by mouth in the morning and 1 capsule in the evening. [facility] Nitrofurant oin&Nit. Macrocryst (MACROBID) 100 mg capsule 10-24 00:00: 00 06-29 00:00 :00 No [id number] 100mg Take 1 capsule by mouth as needed for Other (after intercours e to prevent utis). [facility] cloNIDine 0.3 mg tablet 10-20 00:00: 00 11-26 00:00 :00 No [id number] .3mg TAKE 1 TABLET BY MOUTH AT BEDTIME. FOR ANXIETY/ HYPERTENSI ON [facility] Nitrofurant oin&Nit. Macrocryst (MACROBID) 100 mg capsule 10-17 00:00: 00 10-24 00:00 :00 No Take one capsule by mouth at night for 7 days for UTI prevention [facility] fosfomycin 3 gram packet 10-14 00:00: 00 Yes TAKE 3 G BY MOUTH ONCE NOW FOR 1 DOSE. [facility] cefTRIAXone (ROCEPHIN) injection 1,000 mg 10-11 18:45: 00 10-11 17:50 :00 No [id number] 1000mg [facility] Lactobacill us acidophilus (PROBIOTIC ACIDOPHILUS ORAL) 10-11 11:39: 07 Yes 1{tbl} Take 1 tablet by mouth in the morning. [facility] Nitrofurant oin&Nit. Macrocryst (MACROBID) 100 mg capsule 10-11 00:00: 00 10-17 00:00 :00 No [id number] 100mg Take 1 capsule by mouth at bedtime. For UTI prevention [facility] CLOTRIMAZOL E 3 DAY 2 % vaginal cream 2-11 00:00: 00 Yes INSERT 1 APPLICATOR INTO VAGINA AT BEDTIME FOR 3 DAYS. [facility] CLONIDINE 0.3 mg tablet 09-18 00:00: 00 10-20 00:00 :00 No [id number] .3mg TAKE 1 TABLET BY MOUTH AT BEDTIME. FOR ANXIETY/ HYPERTENSI ON [facility] iopamidol (ISOVUE 370-500 mL) injection 100 mL 08-20 04:45: 00 08-20 04:45 :00 No [id number] 100mL 100 mL, Intravenou s, ONCE, 1 dose, On Sat08/19/23 at 2245, Routine [facility] NaCl 0.9% (NS) IV infusion 1,000 mL 08-20 04:15: 00 08-20 05:35 :00 No 1000mL at 999 mL/hr, Intravenou s, ONCE, 1 dose, On Sat08/19/23 at 2215, Routine [facility] piperacilli n-tazobacta m (ZOSYN) 3.375 g in NaCl 0.9% (NS) 100 mL MINI-BAG 08-20 04:00: 00 08-20 05:06 :00 No 3.375g 3.375 g, IV Piggyback, ONCE, 1 dose, On Sat08/19/23 at 2200, Administer over 30 Minutes, 100 mL
Reas on for Anti-Infec tive: Documented Infection< br>Documen mary Infection Site: Urine
D uration of Therapy: Other (see Comments) [facility] ketorolac (TORADOL) injection 30 mg 08-20 04:00: 00 08-20 03:19 :00 No 30mg 30 mg, Slow IV Push, ONCE, 1 dose, On Sat08/19/23 at 2200, DARVIN [facility] LORazepam (ATIVAN) tablet 0.5 mg 08-20 03:09: 00 08-20 03:19 :00 No .5mg 0.5 mg, Oral, ONCE, 1 dose, On Sat08/19/23 at 2115, DARVIN [facility] sodium chloride (NS) injection 5 mL 08-20 02:12: 33 Yes 5mL 5 mL, Intravenou s, PRN, Starting on Sat08/19/23 at 2012, Until Discontinu ed, Routine, IV line flushing [facility] Nitrofurant oin&Nit. Macrocryst (MACROBID) 100 mg capsule 08-20 00:00: 00 08-28 05:59 :00 No [id number] 100mg Take 1 capsule by mouth at bedtime for 7 days. [facility] fosfomycin 3 gram packet 08-20 00:00: 00 08-21 05:59 :00 No [id number] 3g Take 3 g by mouth once now for 1 dose. [facility] amoxicillin -clavulanat e 875-125 mg per tablet 08-19 00:00: 00 08-30 05:59 :00 No [id number] 1{tbl} Take 1 tablet by mouth in the morning and 1 tablet in the evening. Do all this for 10 days. [facility] cloNIDine 0.3 mg tablet 2022-08 00:00: 00 Yes [id number] .3mg Take 1 tablet by mouth at bedtime. For anxiety/ Hypertensi on [facility] proMETHazin e 25 mg tablet 2022-08 00:00: 00 Yes [id number] 25mg Take 1 tablet by mouth every 6 (six) hours as needed for N/V unresponsi ve to Ondansetro n. [facility] amoxicillin -pot clavulanate 500 mg 500-125 mg tablet 2022-08 00:00: 00 07-04 05:59 :00 No [id number] 500mg Take 1 tablet by mouth in the morning and 1 tablet in the evening. Do all this for 7 days. Take daily probiotic. Take with food. [facility] clotrimazol e 2 % vaginal cream 2022-08 00:00: 00 06-30 05:59 :00 No [id number] 1{appli cator} Insert 1 Applicator into vagina at bedtime for 3 days. [facility] sucralfate 100 mg/mL suspension 2022-08 16:43: 48 Yes 1000mg Take 10 mL by mouth 4 (four) times daily. [facility] naloxegoL 25 mg Tab 2022-08 16:43: 48 Yes 25mg Take 25 mg by mouth in the morning. [facility] metoclopram thao HCl 10 mg tablet 2022-08 16:43: 48 Yes 10mg Take 1 tablet by mouth in the morning and 1 tablet at noon and 1 tablet in the evening. [facility] linaCLOtide 72 mcg Cap 2022-08 16:43: 48 Yes 72ug Take 1 capsule by mouth in the morning. [facility] FLUoxetine 20 mg capsule 2022-08 16:43: 48 Yes 20mg Take 1 capsule by mouth in the morning. [facility] dronabinoL 2.5 mg capsule 2022-08 16:43: 48 Yes 2.5mg Take 1 capsule by mouth in the morning and 1 capsule in the evening. [facility] ALPRAZolam 1 mg tablet 2022-08 16:43: 48 Yes 1mg Take 1 tablet by mouth at bedtime as needed. [facility] methadone HCl (METHADONE ORAL) 2022-08 16:43: 48 Yes 80mg Take 80 mg by mouth daily. [facility] cefUROXime 250 mg tablet 2022-08 00:00: 00 06-27 05:59 :00 No [id number] 250mg Take 1 tablet by mouth in the morning and 1 tablet in the evening. Do all this for 7 days. [facility] CLONIDINE 0.3 mg tablet 01-23 00:00: 00 08-14 00:00 :00 No [id number] .3mg TAKE 1 TABLET BY MOUTH AT BEDTIME. FOR ANXIETY/ HYPERTENSI ON [facility] cloNIDine 0.3 mg tablet 12-21 00:00: 00 01-23 00:00 :00 No [id number] .3mg Take 1 tablet by mouth at bedtime. For anxiety/ Hypertensi on [facility] sucralfate 100 mg/mL suspension 12-17 17:05: 35 Yes 1000mg Take 10 mL by mouth 4 (four) times daily. [facility] naloxegoL 25 mg Tab 12-17 17:05: 35 Yes 25mg Take 25 mg by mouth in the morning. [facility] metoclopram thao HCl 10 mg tablet 12-17 17:05: 35 Yes 10mg Take 1 tablet by mouth in the morning and 1 tablet at noon and 1 tablet in the evening. [facility] linaCLOtide 72 mcg Cap 12-17 17:05: 35 Yes 72ug Take 1 capsule by mouth in the morning. [facility] FLUoxetine 20 mg capsule 12-17 17:05: 35 Yes 20mg Take 1 capsule by mouth in the morning. [facility] dronabinoL 2.5 mg capsule 12-17 17:05: 35 Yes 2.5mg Take 1 capsule by mouth in the morning and 1 capsule in the evening. [facility] ALPRAZolam 1 mg tablet 12-17 17:05: 35 Yes 1mg Take 1 tablet by mouth at bedtime as needed. [facility] proMETHazin e 25 mg tablet 11-19 00:00: 00 08-14 00:00 :00 No [id number] 25mg Take 1 tablet by mouth every 6 (six) hours as needed for N/V unresponsi ve to Ondansetro n. [facility] cloNIDine 0.3 mg tablet 11-19 00:00: 00 12-21 00:00 :00 No [id number] .3mg Take 1 tablet by mouth at bedtime. For anxiety/ Hypertensi on [facility] chlorhexidi ne 0.12 % mouthwash 3-06 00:00: 00 10-24 00:00 :00 No RINSE MOUTH WITH 15ML (1 CAPFUL) FOR 30 SECONDS IN MORNING AND EVENING AFTER BRUSHING, THEN SPIT [facility] cloNIDine 0.3 mg tablet 08-29 00:00: 00 11-16 00:00 :00 No [id number] .3mg Take 1 tablet by mouth at bedtime. For anxiety/ Hypertensi on [facility] proMETHazin e 25 mg tablet 2021-08 00:00: 00 11-16 00:00 :00 No [id number] 25mg Take 1 tablet by mouth every 6 (six) hours as needed for N/V unresponsi ve to Ondansetro n. [facility] cloNIDine 0.3 mg tablet 2021-08 00:00: 00 08-29 00:00 :00 No [id number] .3mg Take 1 tablet by mouth at bedtime. For anxiety/ Hypertensi on [facility] cloNIDine 0.3 mg tablet 05-02 00:00: 00 Yes [id number] .3mg Take 1 tablet by mouth at bedtime. For anxiety/ Hypertensi on [facility] proMETHazin e 25 mg suppository 04 00:00: 00 12-17 00:00 :00 No [id number] 25mg Insert 1 Suppositor y into rectum every 4 (four) hours as needed for Nausea and Vomiting (N/V). [facility] proMETHazin e 25 mg tablet 9-04 00:00: 00 07-27 00:00 :00 No [id number] 25mg Take 1 tablet by mouth every 6 (six) hours as needed for N/V unresponsi ve to Ondansetro n. [facility] cloNIDine 0.3 mg tablet 6-24 00:00: 00 05-02 00:00 :00 No [id number] .3mg Take 1 tablet by mouth at bedtime. For anxiety/ Hypertensi on [facility] proMETHazin e 25 mg suppository 02-09 00:00: 00 04-22 00:00 :00 No [id number] 25mg Insert 1 Suppositor y into rectum every 4 (four) hours as needed for Nausea and Vomiting (N/V). [facility] proMETHazin e 25 mg tablet 02-09 00:00: 00 04-22 00:00 :00 No [id number] 25mg Take 1 tablet by mouth every 6 (six) hours as needed for N/V unresponsi ve to Ondansetro n. [facility] methadone HCl (METHADONE ORAL) 01-22 03:52: 52 Yes 80mg Take 80 mg by mouth daily. [facility] cefdinir 300 mg capsule 01-22 00:00: 00 12-17 00:00 :00 No [id number] 300mg Take 1 capsule by mouth 2 (two) times daily. [facility] proMETHazin e 25 mg tablet 01-22 00:00: 00 02-09 00:00 :00 No [id number] 25mg Take 1 tablet by mouth every 6 (six) hours as needed for N/V unresponsi ve to Ondansetro n. [facility] ondansetron (ZOFRAN) 8 mg tablet 01-22 00:00: 00 02-09 00:00 :00 No [id number] 8mg Take 1 tablet by mouth every 8 (eight) hours as needed for Nausea and Vomiting (N/V) or N/V unresponsi ve to Promethazi ne. [facility] proMETHazin e 25 mg suppository 01-22 00:00: 00 02-09 00:00 :00 No [id number] 25mg Insert 1 Suppositor y into rectum every 4 (four) hours as needed for Nausea and Vomiting (N/V). [facility] CLONIDINE 0.3 mg tablet 3-22 00:00: 00 02-09 00:00 :00 No [id number] .3mg TAKE 1 TABLET BY MOUTH AT BEDTIME. FOR ANXIETY/ HYPERTENSI ON [facility] LEVOTHYROXI NE 25 mcg tablet 10-16 00:00: 00 10-24 00:00 :00 No [id number] TAKE 1 TABLET BY MOUTH EVERY DAY IN THE MORNING [facility] ondansetron (ZOFRAN ODT) 8 mg disintegrat ing tablet 2020-08 00:00: 00 02-09 00:00 :00 No [id number] 8mg Take 1 tablet by mouth every 8 (eight) hours as needed for Nausea and Vomiting (N/V). [facility] ERGOCALCIFE ROL, VITAMIN D2, 1,250 mcg (50,000 unit) capsule 01-11 00:00: 00 Yes [id number] TAKE 1 CAPSULE BY MOUTH WEEKLY. TAKE WITH FOOD. [facility] levonorgest reL (LILETTA) 20.4 mcg/24 hrs (8 yrs) 52 mg IUD 03-01 00:00: 00 10-24 00:00 :00 No by Intrauteri ne route. Lot # [id number] EXP: 03/2023 Date to be replaced 03/01/2026 [facility] Immunizations Ordered Immunization Name Filled Immunization Name Date Status Comments Source Flu Injectable MDCK Pres-Free (FLUCELVAX) 2024-06-29 00:00:00 Completed TDAP 2024-06-29 00:00:00 Completed Influenza Virus Vaccine Quad IM, Preserv and ABX Free 6 MO-64 YRS 2021-07-27 00:00:00 Completed [facility] Influenza Virus Vaccine Quad IM, Preserv and ABX Free 6 MO-64 YRS 2021-07-27 00:00:00 Completed [facility] Influenza Virus Vaccine Quad IM, Preserv and ABX Free 6 MO-64 YRS 2021-07-27 00:00:00 Completed [facility] Influenza Virus Vaccine Quad IM, Preserv and ABX Free 6 MO-64 YRS 2021-07-27 00:00:00 Completed [facility] Influenza Virus Vaccine Quad IM, Preserv and ABX Free 6 MO-64 YRS 2021-07-27 00:00:00 Completed [facility] Influenza Virus Vaccine Quad IM, Preserv and ABX Free 6 MO-64 YRS 2021-07-27 00:00:00 Completed [facility] Influenza Virus Vaccine Quad IM, Preserv and ABX Free 6 MO-64 YRS 2021-07-27 00:00:00 Completed [facility] Influenza Virus Vaccine Quad IM, Preserv and ABX Free 6 MO-64 YRS 2021-07-27 00:00:00 Completed [facility] Influenza Virus Vaccine Quad IM, Preserv and ABX Free 6 MO-64 YRS 2021-07-27 00:00:00 Completed [facility] Influenza Virus Vaccine Quad IM, Preserv and ABX Free 6 MO-64 YRS 2021-07-27 00:00:00 Completed [facility] Influenza Virus Vaccine Quad IM, Preserv and ABX Free 6 MO-64 YRS 2021-07-27 00:00:00 Completed [facility] Influenza Virus Vaccine Quad IM, Preserv and ABX Free 6 MO-64 YRS (FLUCELVAX) 2021-07-27 00:00:00 Completed [facility] SARS-COV-2 COVID-19 PFIZER VACCINE 2021-04-16 00:00:00 Completed [facility] SARS-COV-2 COVID-19 PFIZER VACCINE 2021-04-16 00:00:00 Completed [facility] SARS-COV-2 COVID-19 PFIZER VACCINE 2021-04-16 00:00:00 Completed [facility] SARS-COV-2 COVID-19 PFIZER VACCINE 2021-04-16 00:00:00 Completed [facility] SARS-COV-2 COVID-19 PFIZER VACCINE 2021-04-16 00:00:00 Completed [facility] SARS-COV-2 COVID-19 PFIZER VACCINE 2021-04-16 00:00:00 Completed [facility] SARS-COV-2 COVID-19 PFIZER VACCINE 2021-04-16 00:00:00 Completed [facility] SARS-COV-2 COVID-19 PFIZER VACCINE 2021-04-16 00:00:00 Completed [facility] SARS-COV-2 COVID-19 PFIZER VACCINE 2021-04-16 00:00:00 Completed [facility] SARS-COV-2 COVID-19 PFIZER VACCINE 2021-04-16 00:00:00 Completed [facility] SARS-COV-2 COVID-19 PFIZER VACCINE 2021-04-16 00:00:00 Completed [facility] SARS-COV-2 COVID-19 PFIZER VACCINE 2021-04-16 00:00:00 Completed SARS-COV-2 COVID-19 PFIZER VACCINE 2021-03-26 00:00:00 Completed [facility] SARS-COV-2 COVID-19 PFIZER VACCINE 2021-03-26 00:00:00 Completed [facility] SARS-COV-2 COVID-19 PFIZER VACCINE 2021-03-26 00:00:00 Completed [facility] SARS-COV-2 COVID-19 PFIZER VACCINE 2021-03-26 00:00:00 Completed [facility] SARS-COV-2 COVID-19 PFIZER VACCINE 2021-03-26 00:00:00 Completed [facility] SARS-COV-2 COVID-19 PFIZER VACCINE 2021-03-26 00:00:00 Completed [facility] SARS-COV-2 COVID-19 PFIZER VACCINE 2021-03-26 00:00:00 Completed [facility] SARS-COV-2 COVID-19 PFIZER VACCINE 2021-03-26 00:00:00 Completed [facility] SARS-COV-2 COVID-19 PFIZER VACCINE 2021-03-26 00:00:00 Completed [facility] SARS-COV-2 COVID-19 PFIZER VACCINE 2021-03-26 00:00:00 Completed [facility] SARS-COV-2 COVID-19 PFIZER VACCINE 2021-03-26 00:00:00 Completed [facility] SARS-COV-2 COVID-19 PFIZER VACCINE 2021-03-26 00:00:00 Completed Influenza Virus Vaccine Quad .5 mL IM 6+ MO 2020-06-27 00:00:00 Completed [facility] Influenza Virus Vaccine Quad .5 mL IM 6+ MO 2020-06-27 00:00:00 Completed [facility] Influenza Virus Vaccine Quad .5 mL IM 6+ MO 2020-06-27 00:00:00 Completed [facility] Influenza Virus Vaccine Quad .5 mL IM 6+ MO 2020-06-27 00:00:00 Completed [facility] Influenza Virus Vaccine Quad .5 mL IM 6+ MO 2020-06-27 00:00:00 Completed [facility] Influenza Virus Vaccine Quad .5 mL IM 6+ MO 2020-06-27 00:00:00 Completed [facility] Influenza Virus Vaccine Quad .5 mL IM 6+ MO 2020-06-27 00:00:00 Completed [facility] Influenza Virus Vaccine Quad .5 mL IM 6+ MO 2020-06-27 00:00:00 Completed [facility] Influenza Virus Vaccine Quad .5 mL IM 6+ MO 2020-06-27 00:00:00 Completed [facility] Influenza Virus Vaccine Quad .5 mL IM 6+ MO 2020-06-27 00:00:00 Completed [facility] Influenza Virus Vaccine Quad .5 mL IM 6+ MO 2020-06-27 00:00:00 Completed [facility] Influenza Virus Vaccine Quad .5 mL IM 6+ MO (FLUZONE/FLULAVAL/F LUARIX) 2020-06-27 00:00:00 Completed [facility] Influenza Virus Vaccine 2019-07-09 00:00:00 Completed [facility] Influenza Virus Vaccine 2019-07-09 00:00:00 Completed [facility] Influenza Virus Vaccine 2019-07-09 00:00:00 Completed [facility] Influenza Virus Vaccine 2019-07-09 00:00:00 Completed [facility] Influenza Virus Vaccine 2019-07-09 00:00:00 Completed [facility] Influenza Virus Vaccine 2019-07-09 00:00:00 Completed [facility] Influenza Virus Vaccine 2019-07-09 00:00:00 Completed [facility] Influenza Virus Vaccine 2019-07-09 00:00:00 Completed [facility] Influenza Virus Vaccine 2019-07-09 00:00:00 Completed [facility] Influenza Virus Vaccine 2019-07-09 00:00:00 Completed [facility] Influenza Virus Vaccine 2019-07-09 00:00:00 Completed [facility] Influenza Virus Vaccine 2019-07-09 00:00:00 Completed Influenza Virus Vaccine 2018-07-01 00:00:00 Completed [facility] Influenza Virus Vaccine Quad IM 3+ YRS 2018-07-01 00:00:00 Completed [facility] Influenza Virus Vaccine 2018-07-01 00:00:00 Completed [facility] Influenza Virus Vaccine Quad IM 3+ YRS 2018-07-01 00:00:00 Completed [facility] Influenza Virus Vaccine 2018-07-01 00:00:00 Completed [facility] Influenza Virus Vaccine Quad IM 3+ YRS 2018-07-01 00:00:00 Completed [facility] Influenza Virus Vaccine 2018-07-01 00:00:00 Completed [facility] Influenza Virus Vaccine Quad IM 3+ YRS 2018-07-01 00:00:00 Completed [facility] Influenza Virus Vaccine 2018-07-01 00:00:00 Completed [facility] Influenza Virus Vaccine Quad IM 3+ YRS 2018-07-01 00:00:00 Completed [facility] Influenza Virus Vaccine 2018-07-01 00:00:00 Completed [facility] Influenza Virus Vaccine Quad IM 3+ YRS 2018-07-01 00:00:00 Completed [facility] Influenza Virus Vaccine 2018-07-01 00:00:00 Completed [facility] Influenza Virus Vaccine Quad IM 3+ YRS 2018-07-01 00:00:00 Completed [facility] Influenza Virus Vaccine 2018-07-01 00:00:00 Completed [facility] Influenza Virus Vaccine Quad IM 3+ YRS 2018-07-01 00:00:00 Completed [facility] Influenza Virus Vaccine 2018-07-01 00:00:00 Completed [facility] Influenza Virus Vaccine Quad IM 3+ YRS 2018-07-01 00:00:00 Completed [facility] Influenza Virus Vaccine 2018-07-01 00:00:00 Completed [facility] Influenza Virus Vaccine Quad IM 3+ YRS 2018-07-01 00:00:00 Completed [facility] Influenza Virus Vaccine 2018-07-01 00:00:00 Completed [facility] Influenza Virus Vaccine Quad IM 3+ YRS 2018-07-01 00:00:00 Completed [facility] Influenza Virus Vaccine 2018-07-01 00:00:00 Completed Influenza Virus Vaccine Quad IM 3+ YRS 2018-07-01 00:00:00 Completed Influenza Virus Vaccine 2017-05-20 00:00:00 Completed [facility] Influenza Virus Vaccine Quad IM 3+ YRS 2017-05-20 00:00:00 Completed [facility] Influenza Virus Vaccine 2017-05-20 00:00:00 Completed [facility] Influenza Virus Vaccine Quad IM 3+ YRS 2017-05-20 00:00:00 Completed [facility] Influenza Virus Vaccine 2017-05-20 00:00:00 Completed [facility] Influenza Virus Vaccine Quad IM 3+ YRS 2017-05-20 00:00:00 Completed [facility] Influenza Virus Vaccine 2017-05-20 00:00:00 Completed [facility] Influenza Virus Vaccine Quad IM 3+ YRS 2017-05-20 00:00:00 Completed [facility] Influenza Virus Vaccine 2017-05-20 00:00:00 Completed [facility] Influenza Virus Vaccine Quad IM 3+ YRS 2017-05-20 00:00:00 Completed [facility] Influenza Virus Vaccine 2017-05-20 00:00:00 Completed [facility] Influenza Virus Vaccine Quad IM 3+ YRS 2017-05-20 00:00:00 Completed [facility] Influenza Virus Vaccine 2017-05-20 00:00:00 Completed [facility] Influenza Virus Vaccine Quad IM 3+ YRS 2017-05-20 00:00:00 Completed [facility] Influenza Virus Vaccine 2017-05-20 00:00:00 Completed [facility] Influenza Virus Vaccine Quad IM 3+ YRS 2017-05-20 00:00:00 Completed [facility] Influenza Virus Vaccine 2017-05-20 00:00:00 Completed [facility] Influenza Virus Vaccine Quad IM 3+ YRS 2017-05-20 00:00:00 Completed [facility] Influenza Virus Vaccine 2017-05-20 00:00:00 Completed [facility] Influenza Virus Vaccine Quad IM 3+ YRS 2017-05-20 00:00:00 Completed [facility] Influenza Virus Vaccine 2017-05-20 00:00:00 Completed [facility] Influenza Virus Vaccine Quad IM 3+ YRS 2017-05-20 00:00:00 Completed [facility] Influenza Virus Vaccine 2017-05-20 00:00:00 Completed Influenza Virus Vaccine Quad IM 3+ YRS 2017-05-20 00:00:00 Completed Influenza Virus Vaccine 2016-05-16 00:00:00 Completed [facility] Influenza Virus Vaccine Quad IM 3+ YRS 2016-05-16 00:00:00 Completed [facility] Influenza Virus Vaccine 2016-05-16 00:00:00 Completed [facility] Influenza Virus Vaccine Quad IM 3+ YRS 2016-05-16 00:00:00 Completed [facility] Influenza Virus Vaccine 2016-05-16 00:00:00 Completed [facility] Influenza Virus Vaccine Quad IM 3+ YRS 2016-05-16 00:00:00 Completed [facility] Influenza Virus Vaccine 2016-05-16 00:00:00 Completed [facility] Influenza Virus Vaccine Quad IM 3+ YRS 2016-05-16 00:00:00 Completed [facility] Influenza Virus Vaccine 2016-05-16 00:00:00 Completed [facility] Influenza Virus Vaccine Quad IM 3+ YRS 2016-05-16 00:00:00 Completed [facility] Influenza Virus Vaccine 2016-05-16 00:00:00 Completed [facility] Influenza Virus Vaccine Quad IM 3+ YRS 2016-05-16 00:00:00 Completed [facility] Influenza Virus Vaccine 2016-05-16 00:00:00 Completed [facility] Influenza Virus Vaccine Quad IM 3+ YRS 2016-05-16 00:00:00 Completed [facility] Influenza Virus Vaccine 2016-05-16 00:00:00 Completed [facility] Influenza Virus Vaccine Quad IM 3+ YRS 2016-05-16 00:00:00 Completed [facility] Influenza Virus Vaccine 2016-05-16 00:00:00 Completed [facility] Influenza Virus Vaccine Quad IM 3+ YRS 2016-05-16 00:00:00 Completed [facility] Influenza Virus Vaccine 2016-05-16 00:00:00 Completed [facility] Influenza Virus Vaccine Quad IM 3+ YRS 2016-05-16 00:00:00 Completed [facility] Influenza Virus Vaccine 2016-05-16 00:00:00 Completed [facility] Influenza Virus Vaccine Quad IM 3+ YRS 2016-05-16 00:00:00 Completed [facility] Influenza Virus Vaccine 2016-05-16 00:00:00 Completed Influenza Virus Vaccine Quad IM 3+ YRS 2016-05-16 00:00:00 Completed Influenza Virus Vaccine 2015-07-13 00:00:00 Completed [facility] Influenza Virus Vaccine Quad IM 3+ YRS 2015-07-13 00:00:00 Completed [facility] Influenza Virus Vaccine 2015-07-13 00:00:00 Completed [facility] Influenza Virus Vaccine Quad IM 3+ YRS 2015-07-13 00:00:00 Completed [facility] Influenza Virus Vaccine 2015-07-13 00:00:00 Completed [facility] Influenza Virus Vaccine Quad IM 3+ YRS 2015-07-13 00:00:00 Completed [facility] Influenza Virus Vaccine 2015-07-13 00:00:00 Completed [facility] Influenza Virus Vaccine Quad IM 3+ YRS 2015-07-13 00:00:00 Completed [facility] Influenza Virus Vaccine 2015-07-13 00:00:00 Completed [facility] Influenza Virus Vaccine Quad IM 3+ YRS 2015-07-13 00:00:00 Completed [facility] Influenza Virus Vaccine 2015-07-13 00:00:00 Completed [facility] Influenza Virus Vaccine Quad IM 3+ YRS 2015-07-13 00:00:00 Completed [facility] Influenza Virus Vaccine 2015-07-13 00:00:00 Completed [facility] Influenza Virus Vaccine Quad IM 3+ YRS 2015-07-13 00:00:00 Completed [facility] Influenza Virus Vaccine 2015-07-13 00:00:00 Completed [facility] Influenza Virus Vaccine Quad IM 3+ YRS 2015-07-13 00:00:00 Completed [facility] Influenza Virus Vaccine 2015-07-13 00:00:00 Completed [facility] Influenza Virus Vaccine Quad IM 3+ YRS 2015-07-13 00:00:00 Completed [facility] Influenza Virus Vaccine 2015-07-13 00:00:00 Completed [facility] Influenza Virus Vaccine Quad IM 3+ YRS 2015-07-13 00:00:00 Completed [facility] Influenza Virus Vaccine 2015-07-13 00:00:00 Completed [facility] Influenza Virus Vaccine Quad IM 3+ YRS 2015-07-13 00:00:00 Completed [facility] Influenza Virus Vaccine 2015-07-13 00:00:00 Completed Influenza Virus Vaccine Quad IM 3+ YRS 2015-07-13 00:00:00 Completed Influenza Virus Vaccine 2015-04-19 00:00:00 Completed [facility] Influenza Virus Vaccine Quad IM 3+ YRS 2015-04-19 00:00:00 Completed [facility] Influenza Virus Vaccine (3+ yrs) 2015-04-19 00:00:00 Completed [facility] Influenza Virus Vaccine 2015-04-19 00:00:00 Completed [facility] Influenza Virus Vaccine Quad IM 3+ YRS 2015-04-19 00:00:00 Completed [facility] Influenza Virus Vaccine (3+ yrs) 2015-04-19 00:00:00 Completed [facility] Influenza Virus Vaccine 2015-04-19 00:00:00 Completed [facility] Influenza Virus Vaccine Quad IM 3+ YRS 2015-04-19 00:00:00 Completed [facility] Influenza Virus Vaccine (3+ yrs) 2015-04-19 00:00:00 Completed [facility] Influenza Virus Vaccine 2015-04-19 00:00:00 Completed [facility] Influenza Virus Vaccine Quad IM 3+ YRS 2015-04-19 00:00:00 Completed [facility] Influenza Virus Vaccine (3+ yrs) 2015-04-19 00:00:00 Completed [facility] Influenza Virus Vaccine 2015-04-19 00:00:00 Completed [facility] Influenza Virus Vaccine Quad IM 3+ YRS 2015-04-19 00:00:00 Completed [facility] Influenza Virus Vaccine (3+ yrs) 2015-04-19 00:00:00 Completed [facility] Influenza Virus Vaccine 2015-04-19 00:00:00 Completed [facility] Influenza Virus Vaccine Quad IM 3+ YRS 2015-04-19 00:00:00 Completed [facility] Influenza Virus Vaccine (3+ yrs) 2015-04-19 00:00:00 Completed [facility] Influenza Virus Vaccine 2015-04-19 00:00:00 Completed [facility] Influenza Virus Vaccine Quad IM 3+ YRS 2015-04-19 00:00:00 Completed [facility] Influenza Virus Vaccine (3+ yrs) 2015-04-19 00:00:00 Completed [facility] Influenza Virus Vaccine 2015-04-19 00:00:00 Completed [facility] Influenza Virus Vaccine Quad IM 3+ YRS 2015-04-19 00:00:00 Completed [facility] Influenza Virus Vaccine (3+ yrs) 2015-04-19 00:00:00 Completed [facility] Influenza Virus Vaccine 2015-04-19 00:00:00 Completed [facility] Influenza Virus Vaccine Quad IM 3+ YRS 2015-04-19 00:00:00 Completed [facility] Influenza Virus Vaccine (3+ yrs) 2015-04-19 00:00:00 Completed [facility] Influenza Virus Vaccine 2015-04-19 00:00:00 Completed [facility] Influenza Virus Vaccine Quad IM 3+ YRS 2015-04-19 00:00:00 Completed [facility] Influenza Virus Vaccine (3+ yrs) 2015-04-19 00:00:00 Completed [facility] Influenza Virus Vaccine 2015-04-19 00:00:00 Completed [facility] Influenza Virus Vaccine Quad IM 3+ YRS 2015-04-19 00:00:00 Completed [facility] Influenza Virus Vaccine (3+ yrs) 2015-04-19 00:00:00 Completed [facility] Influenza Virus Vaccine 2015-04-19 00:00:00 Completed Influenza Virus Vaccine Quad IM 3+ YRS 2015-04-19 00:00:00 Completed Influenza, split virus, trivalent, preservative (3+ Yrs) (Afluria) 2015-04-19 00:00:00 Completed Influenza, split virus, trivalent, PF (AFLURIA/FLUARIX/FL ULAVAL/FLUZONE) 2015-04-19 00:00:00 Completed Influenza Virus Vaccine 2014-06-01 00:00:00 Completed Influenza Virus Vaccine Quad Nasal (Flumist) 2014-06-01 00:00:00 Completed Influenza Virus Vaccine 2014-06-01 00:00:00 Completed [facility] Influenza Virus Vaccine Quad Nasal 2014-06-01 00:00:00 Completed [facility] Influenza Virus Vaccine 2014-06-01 00:00:00 Completed [facility] Influenza Virus Vaccine Quad Nasal 2014-06-01 00:00:00 Completed [facility] Influenza Virus Vaccine 2014-06-01 00:00:00 Completed [facility] Influenza Virus Vaccine Quad Nasal 2014-06-01 00:00:00 Completed [facility] Influenza Virus Vaccine 2014-06-01 00:00:00 Completed [facility] Influenza Virus Vaccine Quad Nasal 2014-06-01 00:00:00 Completed [facility] Influenza Virus Vaccine 2014-06-01 00:00:00 Completed [facility] Influenza Virus Vaccine Quad Nasal 2014-06-01 00:00:00 Completed [facility] Influenza Virus Vaccine 2014-06-01 00:00:00 Completed [facility] Influenza Virus Vaccine Quad Nasal 2014-06-01 00:00:00 Completed [facility] Influenza Virus Vaccine 2014-06-01 00:00:00 Completed [facility] Influenza Virus Vaccine Quad Nasal 2014-06-01 00:00:00 Completed [facility] Influenza Virus Vaccine 2014-06-01 00:00:00 Completed [facility] Influenza Virus Vaccine Quad Nasal 2014-06-01 00:00:00 Completed [facility] Influenza Virus Vaccine 2014-06-01 00:00:00 Completed [facility] Influenza Virus Vaccine Quad Nasal 2014-06-01 00:00:00 Completed [facility] Influenza Virus Vaccine 2014-06-01 00:00:00 Completed [facility] Influenza Virus Vaccine Quad Nasal 2014-06-01 00:00:00 Completed [facility] Influenza Virus Vaccine 2014-06-01 00:00:00 Completed [facility] Influenza Virus Vaccine Quad Nasal 2014-06-01 00:00:00 Completed [facility] Influenza Virus Vaccine 2013-08-14 00:00:00 Completed [facility] Influenza Virus Vaccine Quad Nasal 2013-08-14 00:00:00 Completed [facility] Influenza Virus Vaccine 2013-08-14 00:00:00 Completed [facility] Influenza Virus Vaccine Quad Nasal 2013-08-14 00:00:00 Completed [facility] Influenza Virus Vaccine 2013-08-14 00:00:00 Completed [facility] Influenza Virus Vaccine Quad Nasal 2013-08-14 00:00:00 Completed [facility] Influenza Virus Vaccine 2013-08-14 00:00:00 Completed [facility] Influenza Virus Vaccine Quad Nasal 2013-08-14 00:00:00 Completed [facility] Influenza Virus Vaccine 2013-08-14 00:00:00 Completed [facility] Influenza Virus Vaccine Quad Nasal 2013-08-14 00:00:00 Completed [facility] Influenza Virus Vaccine 2013-08-14 00:00:00 Completed [facility] Influenza Virus Vaccine Quad Nasal 2013-08-14 00:00:00 Completed [facility] Influenza Virus Vaccine 2013-08-14 00:00:00 Completed [facility] Influenza Virus Vaccine Quad Nasal 2013-08-14 00:00:00 Completed [facility] Influenza Virus Vaccine 2013-08-14 00:00:00 Completed [facility] Influenza Virus Vaccine Quad Nasal 2013-08-14 00:00:00 Completed [facility] Influenza Virus Vaccine 2013-08-14 00:00:00 Completed [facility] Influenza Virus Vaccine Quad Nasal 2013-08-14 00:00:00 Completed [facility] Influenza Virus Vaccine 2013-08-14 00:00:00 Completed [facility] Influenza Virus Vaccine Quad Nasal 2013-08-14 00:00:00 Completed [facility] Influenza Virus Vaccine 2013-08-14 00:00:00 Completed [facility] Influenza Virus Vaccine Quad Nasal 2013-08-14 00:00:00 Completed [facility] Influenza Virus Vaccine 2013-08-14 00:00:00 Completed Influenza Virus Vaccine Quad Nasal (Flumist) 2013-08-14 00:00:00 Completed Influenza Virus Vaccine 2012-05-16 00:00:00 Completed [facility] Influenza Virus Vaccine Quad IM 3+ YRS 2012-05-16 00:00:00 Completed [facility] Influenza Virus Vaccine (3+ yrs) 2012-05-16 00:00:00 Completed [facility] Influenza Virus Vaccine 2012-05-16 00:00:00 Completed [facility] Influenza Virus Vaccine Quad IM 3+ YRS 2012-05-16 00:00:00 Completed [facility] Influenza Virus Vaccine (3+ yrs) 2012-05-16 00:00:00 Completed [facility] Influenza Virus Vaccine 2012-05-16 00:00:00 Completed [facility] Influenza Virus Vaccine Quad IM 3+ YRS 2012-05-16 00:00:00 Completed [facility] Influenza Virus Vaccine (3+ yrs) 2012-05-16 00:00:00 Completed [facility] Influenza Virus Vaccine 2012-05-16 00:00:00 Completed [facility] Influenza Virus Vaccine Quad IM 3+ YRS 2012-05-16 00:00:00 Completed [facility] Influenza Virus Vaccine (3+ yrs) 2012-05-16 00:00:00 Completed [facility] Influenza Virus Vaccine 2012-05-16 00:00:00 Completed [facility] Influenza Virus Vaccine Quad IM 3+ YRS 2012-05-16 00:00:00 Completed [facility] Influenza Virus Vaccine (3+ yrs) 2012-05-16 00:00:00 Completed [facility] Influenza Virus Vaccine 2012-05-16 00:00:00 Completed [facility] Influenza Virus Vaccine Quad IM 3+ YRS 2012-05-16 00:00:00 Completed [facility] Influenza Virus Vaccine (3+ yrs) 2012-05-16 00:00:00 Completed [facility] Influenza Virus Vaccine 2012-05-16 00:00:00 Completed [facility] Influenza Virus Vaccine Quad IM 3+ YRS 2012-05-16 00:00:00 Completed [facility] Influenza Virus Vaccine (3+ yrs) 2012-05-16 00:00:00 Completed [facility] Influenza Virus Vaccine 2012-05-16 00:00:00 Completed [facility] Influenza Virus Vaccine Quad IM 3+ YRS 2012-05-16 00:00:00 Completed [facility] Influenza Virus Vaccine (3+ yrs) 2012-05-16 00:00:00 Completed [facility] Influenza Virus Vaccine 2012-05-16 00:00:00 Completed [facility] Influenza Virus Vaccine Quad IM 3+ YRS 2012-05-16 00:00:00 Completed [facility] Influenza Virus Vaccine (3+ yrs) 2012-05-16 00:00:00 Completed [facility] Influenza Virus Vaccine 2012-05-16 00:00:00 Completed [facility] Influenza Virus Vaccine Quad IM 3+ YRS 2012-05-16 00:00:00 Completed [facility] Influenza Virus Vaccine (3+ yrs) 2012-05-16 00:00:00 Completed [facility] Influenza Virus Vaccine 2012-05-16 00:00:00 Completed [facility] Influenza Virus Vaccine Quad IM 3+ YRS 2012-05-16 00:00:00 Completed [facility] Influenza Virus Vaccine (3+ yrs) 2012-05-16 00:00:00 Completed [facility] Influenza Virus Vaccine 2012-05-16 00:00:00 Completed Influenza Virus Vaccine Quad IM 3+ YRS 2012-05-16 00:00:00 Completed Influenza, split virus, trivalent, preservative (3+ Yrs) (Afluria) 2012-05-16 00:00:00 Completed Influenza, split virus, trivalent, PF (AFLURIA/FLUARIX/FL ULAVAL/FLUZONE) 2012-05-16 00:00:00 Completed Influenza Virus Vaccine 2011-05-23 00:00:00 Completed [facility] Influenza Virus Vaccine Nasal 2011-05-23 00:00:00 Completed [facility] Influenza Virus Vaccine 2011-05-23 00:00:00 Completed [facility] Influenza Virus Vaccine Nasal 2011-05-23 00:00:00 Completed [facility] Influenza Virus Vaccine 2011-05-23 00:00:00 Completed [facility] Influenza Virus Vaccine Nasal 2011-05-23 00:00:00 Completed [facility] Influenza Virus Vaccine 2011-05-23 00:00:00 Completed [facility] Influenza Virus Vaccine Nasal 2011-05-23 00:00:00 Completed [facility] Influenza Virus Vaccine 2011-05-23 00:00:00 Completed [facility] Influenza Virus Vaccine Nasal 2011-05-23 00:00:00 Completed [facility] Influenza Virus Vaccine 2011-05-23 00:00:00 Completed [facility] Influenza Virus Vaccine Nasal 2011-05-23 00:00:00 Completed [facility] Influenza Virus Vaccine 2011-05-23 00:00:00 Completed [facility] Influenza Virus Vaccine Nasal 2011-05-23 00:00:00 Completed [facility] Influenza Virus Vaccine 2011-05-23 00:00:00 Completed [facility] Influenza Virus Vaccine Nasal 2011-05-23 00:00:00 Completed [facility] Influenza Virus Vaccine 2011-05-23 00:00:00 Completed [facility] Influenza Virus Vaccine Nasal 2011-05-23 00:00:00 Completed [facility] Influenza Virus Vaccine 2011-05-23 00:00:00 Completed [facility] Influenza Virus Vaccine Nasal 2011-05-23 00:00:00 Completed [facility] Influenza Virus Vaccine 2011-05-23 00:00:00 Completed [facility] Influenza Virus Vaccine Nasal 2011-05-23 00:00:00 Completed [facility] Influenza Virus Vaccine 2011-05-23 00:00:00 Completed Influenza, Live, Trivalent, Intranasal (FLUMIST) 2011-05-23 00:00:00 Completed Influenza Virus Vaccine 2010-07-04 00:00:00 Completed [facility] Influenza Virus Vaccine Nasal 2010-07-04 00:00:00 Completed [facility] Influenza Virus Vaccine 2010-07-04 00:00:00 Completed [facility] Influenza Virus Vaccine Nasal 2010-07-04 00:00:00 Completed [facility] Influenza Virus Vaccine 2010-07-04 00:00:00 Completed [facility] Influenza Virus Vaccine Nasal 2010-07-04 00:00:00 Completed [facility] Influenza Virus Vaccine 2010-07-04 00:00:00 Completed [facility] Influenza Virus Vaccine Nasal 2010-07-04 00:00:00 Completed [facility] Influenza Virus Vaccine 2010-07-04 00:00:00 Completed [facility] Influenza Virus Vaccine Nasal 2010-07-04 00:00:00 Completed [facility] Influenza Virus Vaccine 2010-07-04 00:00:00 Completed [facility] Influenza Virus Vaccine Nasal 2010-07-04 00:00:00 Completed [facility] Influenza Virus Vaccine 2010-07-04 00:00:00 Completed [facility] Influenza Virus Vaccine Nasal 2010-07-04 00:00:00 Completed [facility] Influenza Virus Vaccine 2010-07-04 00:00:00 Completed [facility] Influenza Virus Vaccine Nasal 2010-07-04 00:00:00 Completed [facility] Influenza Virus Vaccine 2010-07-04 00:00:00 Completed [facility] Influenza Virus Vaccine Nasal 2010-07-04 00:00:00 Completed [facility] Influenza Virus Vaccine 2010-07-04 00:00:00 Completed [facility] Influenza Virus Vaccine Nasal 2010-07-04 00:00:00 Completed [facility] Influenza Virus Vaccine 2010-07-04 00:00:00 Completed [facility] Influenza Virus Vaccine Nasal 2010-07-04 00:00:00 Completed [facility] Influenza Virus Vaccine 2010-07-04 00:00:00 Completed Influenza, Live, Trivalent, Intranasal (FLUMIST) 2010-07-04 00:00:00 Completed HPV 2007-05-30 00:00:00 Completed [facility] HPV 2007-05-30 00:00:00 Completed [facility] HPV 2007-05-30 00:00:00 Completed [facility] HPV 2007-05-30 00:00:00 Completed [facility] HPV 2007-05-30 00:00:00 Completed [facility] HPV 2007-05-30 00:00:00 Completed [facility] HPV 2007-05-30 00:00:00 Completed [facility] HPV 2007-05-30 00:00:00 Completed [facility] HPV 2007-05-30 00:00:00 Completed [facility] HPV 2007-05-30 00:00:00 Completed [facility] HPV 2007-05-30 00:00:00 Completed [facility] HPV 2007-05-30 00:00:00 Completed [facility] HPV Unknown Completed [facility] Influenza Virus Vaccine Unknown Completed [facility] Influenza Virus Vaccine Nasal Unknown Completed [facility] Influenza Virus Vaccine Quad IM 3+ YRS Unknown Completed [facility] Influenza Virus Vaccine (3+ yrs) Unknown Completed [facility] Influenza Virus Vaccine Quad Nasal (Flumist) Unknown Completed [facility] SARS-COV-2 COVID-19 PFIZER VACCINE Unknown Completed [facility] Influenza Virus Vaccine Quad IM, Preserv and ABX Free 6 MO-64 YRS (FLUCELVAX) Unknown Completed [facility] HPV Unknown Completed [facility] Influenza Virus Vaccine Unknown Completed [facility] Influenza Virus Vaccine Nasal Unknown Completed [facility] Influenza Virus Vaccine Quad IM 3+ YRS Unknown Completed [facility] Influenza Virus Vaccine (3+ yrs) Unknown Completed [facility] Influenza Virus Vaccine Quad Nasal (Flumist) Unknown Completed [facility] SARS-COV-2 COVID-19 PFIZER VACCINE Unknown Completed [facility] Influenza Virus Vaccine Quad IM, Preserv and ABX Free 6 MO-64 YRS (FLUCELVAX) Unknown Completed [facility] HPV Unknown Completed [facility] Influenza Virus Vaccine Unknown Completed [facility] Influenza Virus Vaccine Nasal Unknown Completed [facility] Influenza Virus Vaccine Quad IM 3+ YRS Unknown Completed [facility] Influenza Virus Vaccine (3+ yrs) Unknown Completed [facility] Influenza Virus Vaccine Quad Nasal (Flumist) Unknown Completed [facility] Influenza Virus Vaccine Quad IM, Preserv and ABX Free 6 MO-64 YRS (FLUCELVAX) Unknown Completed [facility] HPV Unknown Completed [facility] Influenza Virus Vaccine Unknown Completed [facility] Influenza Virus Vaccine Nasal Unknown Completed [facility] Influenza Virus Vaccine Quad IM 3+ YRS Unknown Completed [facility] Influenza Virus Vaccine (3+ yrs) Unknown Completed [facility] Influenza Virus Vaccine Quad Nasal (Flumist) Unknown Completed [facility] SARS-COV-2 COVID-19 PFIZER VACCINE Unknown Completed [facility] HPV Unknown Completed [facility] Influenza Virus Vaccine Unknown Completed [facility] Influenza Virus Vaccine Nasal Unknown Completed [facility] Influenza Virus Vaccine Quad IM 3+ YRS Unknown Completed [facility] Influenza Virus Vaccine (3+ yrs) Unknown Completed [facility] Influenza Virus Vaccine Quad Nasal (Flumist) Unknown Completed [facility] SARS-COV-2 COVID-19 PFIZER VACCINE Unknown Completed [facility] Influenza Virus Vaccine Quad IM, Preserv and ABX Free 6 MO-64 YRS (FLUCELVAX) Unknown Completed [facility] HPV Unknown Completed [facility] Influenza Virus Vaccine Unknown Completed [facility] Influenza Virus Vaccine Nasal Unknown Completed [facility] Influenza Virus Vaccine Quad IM 3+ YRS Unknown Completed [facility] Influenza Virus Vaccine (3+ yrs) Unknown Completed [facility] Influenza Virus Vaccine Quad Nasal (Flumist) Unknown Completed [facility] SARS-COV-2 COVID-19 PFIZER VACCINE Unknown Completed [facility] Influenza Virus Vaccine Quad IM, Preserv and ABX Free 6 MO-64 YRS (FLUCELVAX) Unknown Completed [facility] HPV Unknown Completed [facility] Influenza Virus Vaccine Unknown Completed [facility] Influenza Virus Vaccine Nasal Unknown Completed [facility] Influenza Virus Vaccine Quad IM 3+ YRS Unknown Completed [facility] Influenza Virus Vaccine (3+ yrs) Unknown Completed [facility] Influenza Virus Vaccine Quad Nasal (Flumist) Unknown Completed [facility] SARS-COV-2 COVID-19 PFIZER VACCINE Unknown Completed [facility] Influenza Virus Vaccine Quad IM, Preserv and ABX Free 6 MO-64 YRS (FLUCELVAX) Unknown Completed [facility] Influenza Virus Vaccine Quad IM, Preserv and ABX Free 6 MO-64 YRS (FLUCELVAX) Unknown Completed [facility] HPV Unknown Completed [facility] Influenza Virus Vaccine Unknown Completed [facility] Influenza Virus Vaccine Nasal Unknown Completed [facility] Influenza Virus Vaccine Quad IM 3+ YRS Unknown Completed [facility] Influenza Virus Vaccine (3+ yrs) Unknown Completed [facility] Influenza Virus Vaccine Quad Nasal (Flumist) Unknown Completed [facility] SARS-COV-2 COVID-19 PFIZER VACCINE Unknown Completed [facility] HPV Unknown Completed [facility] Influenza Virus Vaccine Unknown Completed [facility] Influenza Virus Vaccine Nasal Unknown Completed [facility] Influenza Virus Vaccine Quad IM 3+ YRS Unknown Completed [facility] Influenza Virus Vaccine (3+ yrs) Unknown Completed [facility] Influenza Virus Vaccine Quad Nasal (Flumist) Unknown Completed [facility] SARS-COV-2 COVID-19 PFIZER VACCINE Unknown Completed [facility] Influenza Virus Vaccine Quad IM, Preserv and ABX Free 6 MO-64 YRS (FLUCELVAX) Unknown Completed [facility] HPV Unknown Completed [facility] Influenza Virus Vaccine Unknown Completed [facility] Influenza Virus Vaccine Nasal Unknown Completed [facility] Influenza Virus Vaccine Quad IM 3+ YRS Unknown Completed [facility] Influenza Virus Vaccine (3+ yrs) Unknown Completed [facility] Influenza Virus Vaccine Quad Nasal (Flumist) Unknown Completed [facility] SARS-COV-2 COVID-19 PFIZER VACCINE Unknown Completed [facility] Influenza Virus Vaccine Quad IM, Preserv and ABX Free 6 MO-64 YRS (FLUCELVAX) Unknown Completed [facility] Influenza Virus Vaccine Quad IM, Preserv and ABX Free 6 MO-64 YRS (FLUCELVAX) Unknown Completed [facility] HPV Unknown Completed [facility] Influenza Virus Vaccine Unknown Completed [facility] Influenza Virus Vaccine Nasal Unknown Completed [facility] Influenza Virus Vaccine Quad IM 3+ YRS Unknown Completed [facility] Influenza Virus Vaccine (3+ yrs) Unknown Completed [facility] Influenza Virus Vaccine Quad Nasal (Flumist) Unknown Completed [facility] SARS-COV-2 COVID-19 PFIZER VACCINE Unknown Completed [facility] HPV Unknown Completed [facility] Influenza Virus Vaccine Unknown Completed [facility] Influenza Virus Vaccine Nasal Unknown Completed [facility] Influenza Virus Vaccine Quad IM 3+ YRS Unknown Completed [facility] Influenza Virus Vaccine (3+ yrs) Unknown Completed [facility] Influenza Virus Vaccine Quad Nasal (Flumist) Unknown Completed [facility] SARS-COV-2 COVID-19 PFIZER VACCINE Unknown Completed [facility] Influenza Virus Vaccine Quad IM, Preserv and ABX Free 6 MO-64 YRS (FLUCELVAX) Unknown Completed [facility] HPV Unknown Completed [facility] Influenza Virus Vaccine Unknown Completed [facility] Influenza Virus Vaccine Nasal Unknown Completed [facility] Influenza Virus Vaccine Quad IM 3+ YRS Unknown Completed [facility] Influenza Virus Vaccine (3+ yrs) Unknown Completed [facility] Influenza Virus Vaccine Quad Nasal (Flumist) Unknown Completed [facility] SARS-COV-2 COVID-19 PFIZER VACCINE Unknown Completed [facility] Influenza Virus Vaccine Quad IM, Preserv and ABX Free 6 MO-64 YRS (FLUCELVAX) Unknown Completed [facility] HPV Unknown Completed [facility] Influenza Virus Vaccine Unknown Completed [facility] Influenza Virus Vaccine Nasal Unknown Completed [facility] Influenza Virus Vaccine Quad IM 3+ YRS Unknown Completed [facility] Influenza Virus Vaccine (3+ yrs) Unknown Completed [facility] Influenza Virus Vaccine Quad Nasal (Flumist) Unknown Completed [facility] SARS-COV-2 COVID-19 PFIZER VACCINE Unknown Completed [facility] Influenza Virus Vaccine Quad IM, Preserv and ABX Free 6 MO-64 YRS (FLUCELVAX) Unknown Completed [facility] HPV Unknown Completed [facility] Influenza Virus Vaccine Unknown Completed [facility] Influenza Virus Vaccine Nasal Unknown Completed [facility] Influenza Virus Vaccine Quad IM 3+ YRS Unknown Completed [facility] Influenza Virus Vaccine (3+ yrs) Unknown Completed [facility] Influenza Virus Vaccine Quad Nasal (Flumist) Unknown Completed [facility] SARS-COV-2 COVID-19 PFIZER VACCINE Unknown Completed [facility] Influenza Virus Vaccine Quad IM, Preserv and ABX Free 6 MO-64 YRS (FLUCELVAX) Unknown Completed [facility] HPV Unknown Completed [facility] Influenza Virus Vaccine Unknown Completed [facility] Influenza Virus Vaccine Nasal Unknown Completed [facility] Influenza Virus Vaccine Quad IM 3+ YRS Unknown Completed [facility] Influenza Virus Vaccine (3+ yrs) Unknown Completed [facility] Influenza Virus Vaccine Quad Nasal (Flumist) Unknown Completed [facility] SARS-COV-2 COVID-19 PFIZER VACCINE Unknown Completed [facility] Influenza Virus Vaccine Quad IM, Preserv and ABX Free 6 MO-64 YRS (FLUCELVAX) Unknown Completed [facility] HPV Unknown Completed [facility] Influenza Virus Vaccine Unknown Completed [facility] Influenza Virus Vaccine Nasal Unknown Completed [facility] Influenza Virus Vaccine Quad IM 3+ YRS Unknown Completed [facility] Influenza Virus Vaccine (3+ yrs) Unknown Completed [facility] Influenza Virus Vaccine Quad Nasal (Flumist) Unknown Completed [facility] SARS-COV-2 COVID-19 PFIZER VACCINE Unknown Completed [facility] Influenza Virus Vaccine Quad IM, Preserv and ABX Free 6 MO-64 YRS (FLUCELVAX) Unknown Completed [facility] HPV Unknown Completed [facility] Influenza Virus Vaccine Unknown Completed [facility] Influenza Virus Vaccine Nasal Unknown Completed [facility] Influenza Virus Vaccine Quad IM 3+ YRS Unknown Completed [facility] Influenza Virus Vaccine (3+ yrs) Unknown Completed [facility] Influenza Virus Vaccine Quad Nasal (Flumist) Unknown Completed [facility] SARS-COV-2 COVID-19 PFIZER VACCINE Unknown Completed [facility] Influenza Virus Vaccine Quad IM, Preserv and ABX Free 6 MO-64 YRS (FLUCELVAX) Unknown Completed [facility] HPV Unknown Completed [facility] Influenza Virus Vaccine Unknown Completed [facility] Influenza Virus Vaccine Nasal Unknown Completed [facility] Influenza Virus Vaccine Quad IM 3+ YRS Unknown Completed [facility] Influenza Virus Vaccine (3+ yrs) Unknown Completed [facility] Influenza Virus Vaccine Quad Nasal (Flumist) Unknown Completed [facility] SARS-COV-2 COVID-19 PFIZER VACCINE Unknown Completed [facility] Influenza Virus Vaccine Quad IM, Preserv and ABX Free 6 MO-64 YRS (FLUCELVAX) Unknown Completed [facility] HPV Unknown Completed [facility] Influenza Virus Vaccine Unknown Completed [facility] Influenza Virus Vaccine Nasal Unknown Completed [facility] Influenza Virus Vaccine Quad IM 3+ YRS Unknown Completed [facility] Influenza Virus Vaccine (3+ yrs) Unknown Completed [facility] Influenza Virus Vaccine Quad Nasal (Flumist) Unknown Completed [facility] SARS-COV-2 COVID-19 PFIZER VACCINE Unknown Completed [facility] Influenza Virus Vaccine Quad IM, Preserv and ABX Free 6 MO-64 YRS (FLUCELVAX) Unknown Completed [facility] HPV Unknown Completed [facility] Influenza Virus Vaccine Unknown Completed [facility] Influenza Virus Vaccine Nasal Unknown Completed [facility] Influenza Virus Vaccine Quad IM 3+ YRS Unknown Completed [facility] Influenza Virus Vaccine (3+ yrs) Unknown Completed [facility] Influenza Virus Vaccine Quad Nasal (Flumist) Unknown Completed [facility] SARS-COV-2 COVID-19 PFIZER VACCINE Unknown Completed [facility] Influenza Virus Vaccine Quad IM, Preserv and ABX Free 6 MO-64 YRS (FLUCELVAX) Unknown Completed [facility] HPV Unknown Completed [facility] Influenza Virus Vaccine Unknown Completed [facility] Influenza Virus Vaccine Nasal Unknown Completed [facility] Influenza Virus Vaccine Quad IM 3+ YRS Unknown Completed [facility] Influenza Virus Vaccine (3+ yrs) Unknown Completed [facility] Influenza Virus Vaccine Quad Nasal (Flumist) Unknown Completed [facility] SARS-COV-2 COVID-19 PFIZER VACCINE Unknown Completed [facility] Influenza Virus Vaccine Quad IM, Preserv and ABX Free 6 MO-64 YRS (FLUCELVAX) Unknown Completed [facility] Influenza Virus Vaccine Quad IM, Preserv and ABX Free 6 MO-64 YRS (FLUCELVAX) Unknown Completed [facility] HPV Unknown Completed [facility] Influenza Virus Vaccine Unknown Completed [facility] Influenza Virus Vaccine Nasal Unknown Completed [facility] Influenza Virus Vaccine Quad IM 3+ YRS Unknown Completed [facility] Influenza Virus Vaccine (3+ yrs) Unknown Completed [facility] Influenza Virus Vaccine Quad Nasal (Flumist) Unknown Completed [facility] SARS-COV-2 COVID-19 PFIZER VACCINE Unknown Completed [facility] HPV Unknown Completed [facility] Influenza Virus Vaccine Unknown Completed [facility] Influenza Virus Vaccine Nasal Unknown Completed [facility] Influenza Virus Vaccine Quad IM 3+ YRS Unknown Completed [facility] Influenza Virus Vaccine (3+ yrs) Unknown Completed [facility] Influenza Virus Vaccine Quad Nasal (Flumist) Unknown Completed [facility] SARS-COV-2 COVID-19 PFIZER VACCINE Unknown Completed [facility] Influenza Virus Vaccine Quad IM, Preserv and ABX Free 6 MO-64 YRS (FLUCELVAX) Unknown Completed [facility] HPV Unknown Completed [facility] Influenza Virus Vaccine Unknown Completed [facility] Influenza Virus Vaccine Nasal Unknown Completed [facility] Influenza Virus Vaccine Quad IM 3+ YRS Unknown Completed [facility] Influenza Virus Vaccine (3+ yrs) Unknown Completed [facility] Influenza Virus Vaccine Quad Nasal (Flumist) Unknown Completed [facility] SARS-COV-2 COVID-19 PFIZER VACCINE Unknown Completed [facility] Influenza Virus Vaccine Quad IM, Preserv and ABX Free 6 MO-64 YRS (FLUCELVAX) Unknown Completed [facility] HPV Unknown Completed [facility] Influenza Virus Vaccine Unknown Completed [facility] Influenza Virus Vaccine Nasal Unknown Completed [facility] Influenza Virus Vaccine Quad IM 3+ YRS Unknown Completed [facility] Influenza Virus Vaccine (3+ yrs) Unknown Completed [facility] Influenza Virus Vaccine Quad Nasal (Flumist) Unknown Completed [facility] SARS-COV-2 COVID-19 PFIZER VACCINE Unknown Completed [facility] Influenza Virus Vaccine Quad IM, Preserv and ABX Free 6 MO-64 YRS (FLUCELVAX) Unknown Completed [facility] HPV Unknown Completed [facility] Influenza Virus Vaccine Unknown Completed [facility] Influenza Virus Vaccine Nasal Unknown Completed [facility] Influenza Virus Vaccine Quad IM 3+ YRS Unknown Completed [facility] Influenza Virus Vaccine (3+ yrs) Unknown Completed [facility] Influenza Virus Vaccine Quad Nasal (Flumist) Unknown Completed [facility] SARS-COV-2 COVID-19 PFIZER VACCINE Unknown Completed [facility] Influenza Virus Vaccine Quad IM, Preserv and ABX Free 6 MO-64 YRS (FLUCELVAX) Unknown Completed [facility] HPV Unknown Completed [facility] Influenza Virus Vaccine Unknown Completed [facility] Influenza Virus Vaccine Nasal Unknown Completed [facility] Influenza Virus Vaccine Quad IM 3+ YRS Unknown Completed [facility] Influenza Virus Vaccine (3+ yrs) Unknown Completed [facility] Influenza Virus Vaccine Quad Nasal (Flumist) Unknown Completed [facility] SARS-COV-2 COVID-19 PFIZER VACCINE Unknown Completed [facility] Influenza Virus Vaccine Quad IM, Preserv and ABX Free 6 MO-64 YRS (FLUCELVAX) Unknown Completed [facility] HPV Unknown Completed [facility] Influenza Virus Vaccine Unknown Completed [facility] Influenza Virus Vaccine Nasal Unknown Completed [facility] Influenza Virus Vaccine Quad IM 3+ YRS Unknown Completed [facility] Influenza Virus Vaccine (3+ yrs) Unknown Completed [facility] Influenza Virus Vaccine Quad Nasal (Flumist) Unknown Completed [facility] SARS-COV-2 COVID-19 PFIZER VACCINE Unknown Completed [facility] Influenza Virus Vaccine Quad IM, Preserv and ABX Free 6 MO-64 YRS (FLUCELVAX) Unknown Completed [facility] Influenza Virus Vaccine Quad IM, Preserv and ABX Free 6 MO-64 YRS (FLUCELVAX) Unknown Completed [facility] HPV Unknown Completed [facility] Influenza Virus Vaccine Unknown Completed [facility] Influenza Virus Vaccine Nasal Unknown Completed [facility] Influenza Virus Vaccine Quad IM 3+ YRS Unknown Completed [facility] Influenza Virus Vaccine (3+ yrs) Unknown Completed [facility] Influenza Virus Vaccine Quad Nasal (Flumist) Unknown Completed [facility] SARS-COV-2 COVID-19 PFIZER VACCINE Unknown Completed [facility] Influenza Virus Vaccine Quad IM, Preserv and ABX Free 6 MO-64 YRS (FLUCELVAX) Unknown Completed [facility] HPV Unknown Completed [facility] Influenza Virus Vaccine Unknown Completed [facility] Influenza Virus Vaccine Nasal Unknown Completed [facility] Influenza Virus Vaccine Quad IM 3+ YRS Unknown Completed [facility] Influenza Virus Vaccine (3+ yrs) Unknown Completed [facility] Influenza Virus Vaccine Quad Nasal (Flumist) Unknown Completed [facility] SARS-COV-2 COVID-19 PFIZER VACCINE Unknown Completed [facility] HPV Unknown Completed [facility] Influenza Virus Vaccine Unknown Completed [facility] Influenza Virus Vaccine Nasal Unknown Completed [facility] Influenza Virus Vaccine Quad IM 3+ YRS Unknown Completed [facility] Influenza Virus Vaccine (3+ yrs) Unknown Completed [facility] Influenza Virus Vaccine Quad Nasal (Flumist) Unknown Completed [facility] SARS-COV-2 COVID-19 PFIZER VACCINE Unknown Completed [facility] Influenza Virus Vaccine Quad IM, Preserv and ABX Free 6 MO-64 YRS (FLUCELVAX) Unknown Completed [facility] HPV Unknown Completed [facility] Influenza Virus Vaccine Unknown Completed [facility] Influenza Virus Vaccine Nasal Unknown Completed [facility] Influenza Virus Vaccine Quad IM 3+ YRS Unknown Completed [facility] Influenza Virus Vaccine (3+ yrs) Unknown Completed [facility] Influenza Virus Vaccine Quad Nasal (Flumist) Unknown Completed [facility] SARS-COV-2 COVID-19 PFIZER VACCINE Unknown Completed [facility] Influenza Virus Vaccine Quad IM, Preserv and ABX Free 6 MO-64 YRS (FLUCELVAX) Unknown Completed [facility] HPV Unknown Completed [facility] Influenza Virus Vaccine Unknown Completed [facility] Influenza Virus Vaccine Nasal Unknown Completed [facility] Influenza Virus Vaccine Quad IM 3+ YRS Unknown Completed [facility] Influenza Virus Vaccine (3+ yrs) Unknown Completed [facility] Influenza Virus Vaccine Quad Nasal (Flumist) Unknown Completed [facility] SARS-COV-2 COVID-19 PFIZER VACCINE Unknown Completed [facility] Influenza Virus Vaccine Quad IM, Preserv and ABX Free 6 MO-64 YRS (FLUCELVAX) Unknown Completed [facility] HPV Unknown Completed [facility] Influenza Virus Vaccine Unknown Completed [facility] Influenza Virus Vaccine Nasal Unknown Completed [facility] Influenza Virus Vaccine Quad IM 3+ YRS Unknown Completed [facility] Influenza Virus Vaccine (3+ yrs) Unknown Completed [facility] Influenza Virus Vaccine Quad Nasal (Flumist) Unknown Completed [facility] SARS-COV-2 COVID-19 PFIZER VACCINE Unknown Completed [facility] Influenza Virus Vaccine Quad IM, Preserv and ABX Free 6 MO-64 YRS (FLUCELVAX) Unknown Completed [facility] HPV Unknown Completed [facility] Influenza Virus Vaccine Unknown Completed [facility] Influenza Virus Vaccine Nasal Unknown Completed [facility] Influenza Virus Vaccine Quad IM 3+ YRS Unknown Completed [facility] Influenza Virus Vaccine (3+ yrs) Unknown Completed [facility] Influenza Virus Vaccine Quad Nasal (Flumist) Unknown Completed [facility] SARS-COV-2 COVID-19 PFIZER VACCINE Unknown Completed [facility] Influenza Virus Vaccine Quad IM, Preserv and ABX Free 6 MO-64 YRS (FLUCELVAX) Unknown Completed [facility] HPV Unknown Completed [facility] Influenza Virus Vaccine Unknown Completed [facility] Influenza Virus Vaccine Nasal Unknown Completed [facility] Influenza Virus Vaccine Quad IM 3+ YRS Unknown Completed [facility] Influenza Virus Vaccine (3+ yrs) Unknown Completed [facility] Influenza Virus Vaccine Quad Nasal (Flumist) Unknown Completed [facility] SARS-COV-2 COVID-19 PFIZER VACCINE Unknown Completed [facility] Influenza Virus Vaccine Quad IM, Preserv and ABX Free 6 MO-64 YRS (FLUCELVAX) Unknown Completed [facility] HPV Unknown Completed [facility] Influenza Virus Vaccine Unknown Completed [facility] Influenza Virus Vaccine Nasal Unknown Completed [facility] Influenza Virus Vaccine Quad IM 3+ YRS Unknown Completed [facility] Influenza Virus Vaccine (3+ yrs) Unknown Completed [facility] Influenza Virus Vaccine Quad Nasal (Flumist) Unknown Completed [facility] SARS-COV-2 COVID-19 PFIZER VACCINE Unknown Completed [facility] Influenza Virus Vaccine Quad IM, Preserv and ABX Free 6 MO-64 YRS (FLUCELVAX) Unknown Completed [facility] HPV Unknown Completed [facility] Influenza Virus Vaccine Unknown Completed [facility] Influenza Virus Vaccine Nasal Unknown Completed [facility] Influenza Virus Vaccine Quad IM 3+ YRS Unknown Completed [facility] Influenza Virus Vaccine (3+ yrs) Unknown Completed [facility] Influenza Virus Vaccine Quad Nasal (Flumist) Unknown Completed [facility] SARS-COV-2 COVID-19 PFIZER VACCINE Unknown Completed [facility] Influenza Virus Vaccine Quad IM, Preserv and ABX Free 6 MO-64 YRS (FLUCELVAX) Unknown Completed [facility] HPV Unknown Completed [facility] Influenza Virus Vaccine Unknown Completed [facility] Influenza Virus Vaccine Nasal Unknown Completed [facility] Influenza Virus Vaccine Quad IM 3+ YRS Unknown Completed [facility] Influenza Virus Vaccine (3+ yrs) Unknown Completed [facility] Influenza Virus Vaccine Quad Nasal (Flumist) Unknown Completed [facility] SARS-COV-2 COVID-19 PFIZER VACCINE Unknown Completed [facility] Influenza Virus Vaccine Quad IM, Preserv and ABX Free 6 MO-64 YRS (FLUCELVAX) Unknown Completed [facility] HPV Unknown Completed [facility] Influenza Virus Vaccine Unknown Completed [facility] Influenza Virus Vaccine Nasal Unknown Completed [facility] Influenza Virus Vaccine Quad IM 3+ YRS Unknown Completed [facility] Influenza Virus Vaccine (3+ yrs) Unknown Completed [facility] Influenza Virus Vaccine Quad Nasal (Flumist) Unknown Completed [facility] SARS-COV-2 COVID-19 PFIZER VACCINE Unknown Completed [facility] Influenza Virus Vaccine Quad IM, Preserv and ABX Free 6 MO-64 YRS (FLUCELVAX) Unknown Completed [facility] HPV Unknown Completed [facility] Influenza Virus Vaccine Unknown Completed [facility] Influenza Virus Vaccine Nasal Unknown Completed [facility] Influenza Virus Vaccine Quad IM 3+ YRS Unknown Completed [facility] Influenza Virus Vaccine (3+ yrs) Unknown Completed [facility] Influenza Virus Vaccine Quad Nasal (Flumist) Unknown Completed [facility] SARS-COV-2 COVID-19 PFIZER VACCINE Unknown Completed [facility] Influenza Virus Vaccine Quad IM, Preserv and ABX Free 6 MO-64 YRS (FLUCELVAX) Unknown Completed [facility] Vital Signs Vital Name Observation Time Observation Value Comments S ource Systolic blood pressure 2024-06-29 22:12:00 132 mm[Hg] [facility] Diastolic blood pressure 2024-06-29 22:12:00 87 mm[Hg] [facility] Heart rate 2024-06-29 22:12:00 98 /min [facility] Body temperature 2024-06-29 22:12:00 36.83 [facility] Body height 2024-06-29 22:12:00 170.2 cm [facility] Body weight 2024-06-29 22:12:00 79.379 kg [facility] BMI 2024-06-29 22:12:00 27.41 kg/m2 [facility] Oxygen saturation in Arterial blood by Pulse oximetry 2024-06-29 22:12:00 98 /min [facility] [facility] Sy[facility] blood pressure 2023-10-25 16:52:00 133 mm[Hg] [facility] Diastolic blood pressure 2023-10-25 16:52:00 85 mm[Hg] [facility] Heart rate 2023-10-25 16:52:00 62 /min [facility] Oxygen saturation in Arterial blood by Pulse oximetry 2023-10-25 16:52:00 98 /min [facility] Body temperature 2023-10-25 16:51:00 36.56 [facility] Respiratory rate 2023-10-25 16:51:00 18 /min [facility] Body height 2023-10-25 16:51:00 167.6 cm [facility] Body weight 2023-10-25 16:51:00 82.827 kg [facility] BMI 2023-10-25 16:51:00 29.47 kg/m2 [facility] Systolic blood pressure 2023-10-25 15:11:00 123 mm[Hg] [facility] Diastolic blood pressure 2023-10-25 15:11:00 82 mm[Hg] [facility] Heart rate 2023-10-25 15:11:00 84 /min [facility] Body temperature 2023-10-25 15:11:00 36.78 [facility] Respiratory rate 2023-10-25 15:11:00 18 /min [facility] Body weight 2023-10-25 15:11:00 82.555 kg [facility] BMI 2023-10-25 15:11:00 28.51 kg/m2 [facility] Systolic blood pressure 2023-10-11 17:37:00 134 mm[Hg] [facility] Diastolic blood pressure 2023-10-11 17:37:00 81 mm[Hg] [facility] Heart rate 2023-10-11 17:37:00 69 /min [facility] Body temperature 2023-10-11 17:37:00 36.22 [facility] Respiratory rate 2023-10-11 17:37:00 18 /min [facility] Body height 2023-10-11 17:37:00 170.2 cm [facility] Body weight 2023-10-11 17:37:00 80.287 kg [facility] BMI 2023-10-11 17:37:00 27.72 kg/m2 [facility] Oxygen saturation in Arterial blood by Pulse oximetry 2023-10-11 17:37:00 98 /min [facility] Systolic blood pressure 2023-08-20 05:00:00 115 mm[Hg] [facility] Diastolic blood pressure 2023-08-20 05:00:00 91 mm[Hg] [facility] Heart rate 2023-08-20 05:00:00 82 /min [facility] Respiratory rate 2023-08-20 05:00:00 18 /min [facility] Oxygen saturation in Arterial blood by Pulse oximetry 2023-08-20 05:00:00 100 /min [facility] Body temperature 2023-08-20 02:03:00 37.22 [facility] Body height 2023-08-20 02:03:00 167.6 cm [facility] Body weight 2023-08-20 02:03:00 82.419 kg [facility] BMI 2023-08-20 02:03:00 29.33 kg/m2 [facility] Body weight 2023-07-26 17:33:00 84.823 kg [facility] BMI 2023-07-26 17:33:00 30.18 kg/m2 [facility] Systolic blood pressure 2023-07-17 17:18:00 108 mm[Hg] [facility] Diastolic blood pressure 2023-07-17 17:18:00 55 mm[Hg] [facility] Heart rate 2023-07-17 17:18:00 59 /min [facility] Respiratory rate 2023-07-17 17:18:00 18 /min [facility] Body height 2023-07-17 17:18:00 167.6 cm [facility] Body weight 2023-07-17 17:18:00 84.823 kg [facility] BMI 2023-07-17 17:18:00 30.18 kg/m2 [facility] Oxygen saturation in Arterial blood by Pulse oximetry 2023-07-17 17:18:00 97 /min [facility] Systolic blood pressure 2023-06-19 21:44:00 135 mm[Hg] [facility] Diastolic blood pressure 2023-06-19 21:44:00 82 mm[Hg] [facility] Heart rate 2023-06-19 21:44:00 81 /min [facility] Body temperature 2023-06-19 21:44:00 36.61 [facility] Body height 2023-06-19 21:44:00 167.6 cm [facility] Body weight 2023-06-19 21:44:00 79.379 kg [facility] BMI 2023-06-19 21:44:00 28.25 kg/m2 [facility] Oxygen saturation in Arterial blood by Pulse oximetry 2023-06-19 21:44:00 97 /min [facility] Systolic blood pressure 2022-02-09 16:11:00 132 mm[Hg] [facility] Diastolic blood pressure 2022-02-09 16:11:00 83 mm[Hg] [facility] Heart rate 2022-02-09 16:10:00 83 /min [facility] Body temperature 2022-02-09 16:10:00 36.78 [facility] Body height 2022-02-09 16:10:00 170.2 cm [facility] Body weight 2022-02-09 16:10:00 88.633 kg [facility] BMI 2022-02-09 16:10:00 30.60 kg/m2 [facility] Oxygen saturation in Arterial blood by Pulse oximetry 2022-02-09 16:10:00 99 /min [place] [facility] Procedures Procedure Date / Time Performed Performing Clinicia n Source TDAP VACCINE, >11 YRS, IM 2024-06-29 22:21:46 Jane Berry [facility] FLU VACC (), 6 MO-64 YRS, .5ML, IM, TIV (FLUCELVAX) 2024-06-29 22:21:46 Jane Berry [facility] DISCLOSURE AND CONSENT, MEDICAL AND SURGICAL PROCEDURES 2023-10-29 05:01:00 Doctor Unassigned, [place] [facility] URINE CULTURE 2023-10-11 18:02:00 Krystal Mace [facility] POCT URINALYSIS AUTO 2023-10-11 17:00:00 Yulisa Mace [facility] CT ABDOMEN PELVIS W CONTRAST 2023-08-20 03:54:01 Janet Nguyen [facility] POCT TEST 2023-08-20 02:57:00 Lucio Nguyen [facility] LIPASE 2023-08-20 02:55:00 [facility] COMP. METABOLIC PANEL ([id number]) 2023-08-20 02:55:00 Janet Nguyen [facility] CBC WITH DIFF 2023-08-20 02:55:00 Janet Nguyen [facility] URINALYSIS 2023-08-20 02:55:00 Janet Nguyen [facility] CONSENT/REFUSAL FOR DIAGNOSIS AND TREATMENT 2023-08-20 01:58:01 Doctor Unassigned, [place] [facility] POCT URINALYSIS AUTO 2023-08-16 18:30:00 Yulisa Mace [facility] URINE CULTURE 2023-08-16 17:52:00 Krystal Mace [facility] POCT URINALYSIS AUTO 2023-07-26 17:35:00 Yulisa Mace [facility] DISCLOSURE AND CONSENT, MEDICAL AND SURGICAL PROCEDURES 2023-07-19 06:01:00 Doctor Unassigned, [place] [facility] POCT URINALYSIS 2023-06-19 00:00:00 Emelina Arndt [facility] Encounters Start Date/Time End Date/Time Encounter Type Admission Type Attending [facility] Facility Care Department Encounter ID Source 2022-12-17 00:00:00 2024-10-03 02:41:44 Orders Only [facility] 1.2.840.114 350.1.13.10 4.2.7.2.686 [id number] [facility] 2023-01-03 00:00:00 2024-10-03 02:41:20 Orders Only Tam, Adeola Anel, [facility] 1.2.840.114 350.1.13.10 4.2.7.2.686 [id number] [id number] [facility] 2023-01-10 00:00:00 2024-10-03 02:41:11 Orders Only Tam, Adeola Anel, Ade[facility] 1.2.840.114 350.1.13.10 4.2.7.2.686 [id number] [id number] [facility] 2023-01-10 00:00:00 2024-10-03 02:41:10 Orders Only Tam, Adeola Tam, Adeola [facility] 1.2.840.114 350.1.13.10 4.2.7.2.686 [id number] [id number] [facility] 2024-08-24 00:00:00 2024-08-24 09:26:50 Refill Jane Berry [facility]?NICKI [facility] 1.2.840.114 350.1.13.10 4.2.7.2.686 [id number] [facility] 2024-08-20 00:00:00 2024-08-22 11:32:46 Refill Jane Berry [facility] 1..840.114 350.1.13.10 4.2.7.2.686 [id number] 044 [id number] [facility] 2024-07-27 00:00:00 2024-07-28 08:31:43 Refill Jane Berry [facility] 1..840.114 350.1.13.10 4.2.7.2.686 [id number] 044 [id number] [facility] 2024-06-29 16:00:00 2024-06-29 16:45:41 Outpatient R JANE BERRY [facility] [id number] [facility] 2024-06-29 16:00:00 2024-06-29 16:45:41 Office Visit [facility] 1..840.114 350.1.13.10 4.2.7.2.686 [id number] 044 [id number] [facility] 2024-06-22 00:00:00 2024-06-22 12:49:00 Telephone Jane Berry [facility] 1.2.840.114 350.1.13.10 4.2.7.2.686 [id number] 044 [id number] [facility] 2024-06-15 00:00:00 2024-06-16 08:24:29 Refill Anene, [facility]?NICKI [facility] 1.2.840.114 350.1.13.10 4.2.7.2.686 [id number] 044 [id number] [facility] 2024-06-15 00:00:00 2024-06-15 11:28:43 Refill Jane Berry [facility] 1.2.840.114 350.1.13.10 4.2.7.2.686 [id number] 044 [id number] [facility] 2024-05-22 00:00:00 2024-05-25 14:18:10 Refill Connor BerryQuorum HealthYULISA CHOUDHARY?[facility] 1.2.840.114 350.1.13.10 4.2.7.2.686 [id number] 044 [id number] [facility] 2024-04-28 00:00:00 2024-04-30 11:58:24 Refill Connor BerryQuorum HealthYULISA CHOUDHARY?[facility] 1.2.840.114 350.1.13.10 4.2.7.2.686 [id number] 044 [id number] [facility] 2024-04-03 00:00:00 2024-04-03 11:02:32 Refill Connor BerryQuorum HealthYULISA CHOUDHARY?[facility] 1.2.840.114 350.1.13.10 4.2.7.2.686 [id number] [id number] [facility] 2024-03-11 00:00:00 2024-03-11 11:24:47 Refill Connor BerryQuorum HealthYULISA CHOUDHARY?[facility] 1.2.840.114 350.1.13.10 4.2.7.2.686 [id number] 044 [id number] [facility] 2024-02-17 00:00:00 2024-02-23 11:46:24 [facility] 1.2.840.114 350.1.13.10 4.2.7.2.686 [id number] [id number] [facility] 2023-12-31 00:00:00 2024-01-21 15:55:20 [facility] 1.2.840.114 350.1.13.10 4.2.7.2.686 [id number] [id number] [facility] 2023-12-02 13:30:00 2023-12-02 13:30:00 Outpatient R JANE BERRY [facility] [id number] [facility] 2023-11-28 11:30:00 2023-11-28 11:30:00 Outpatient R JANE BERRY [facility] [id number] [facility] 2023-11-27 00:00:00 2023-11-27 00:00:00 Refill [facility] 1.2.840.114 350.1.13.10 4.2.7.2.686 [id number] [id number] [facility] 2023-11-26 00:00:00 2023-11-26 00:00:00 Telephone [facility] 1.2.840.114 350.1.13.10 4.2.7.2.686 [id number] [facility] 2023-11-21 14:00:00 2023-11-21 14:00:00 Outpatient R JANE BERRY [facility] [id number] [facility] 2023-11-12 00:00:00 2023-11-12 00:00:00 [facility]ill [facility] 1.2840.114 350.1.13.10 4.2.7.2.686 [id number] [id number] [facility] 2023-10-30 00:00:00 2023-10-30 00:00:00 Telephone [place] Jennifer A NATEGama RON VAZQUEZ 1.2840.114 350.1.13.10 4.2.7.2.686 [id number] [facility] 2023-10-29 00:00:00 2023-10-29 00:00:00 Orders Only Doctor Unassigned, [place] [facility] 1.2840.114 350.1.13.10 4.2.7.2.686 [id number] [facility] 2023-10-25 10:00:00 2023-10-25 11:59:23 Office Visit Krystal Mace [facility] 1.840.114 350.1.13.10 4.2.7.2.686 [id number] [facility] 2023-10-25 09:00:00 2023-10-25 10:11:10 Outpatient R VALERIA JONAS [facility] [id number] [facility] 2023-10-25 09:00:00 2023-10-25 09:30:00 Office Visit Valeria Jonas [facility] 1.2840.114 350.1.13.10 4.2.7.2.686 [id number] [facility] 2023-10-21 00:00:00 2023-10-21 00:00:00 [facility] 1.2840.114 350.1.13.10 4.2.7.2.686 [id number] [id number] [facility] 2023-10-18 10:00:00 2023-10-18 10:00:00 Outpatient R RODRI KRYSTALYULISA [facility] [id number] [facility] 2023-10-17 00:00:00 2023-10-17 00:00:00 Telephone Jennifer Chowdhury 1.2.840.114 350.1.13.10 4.2.7.2.686 [id number] [facility] 2023-10-16 00:00:00 2023-10-16 00:00:00 Patient Secure Msg Doctor Unassigned, [place] [facility] 1.2.840.114 350.1.13.10 4.2.7.2.686 [id number] 134 [id number] [facility] 2023-10-14 00:00:00 2023-10-14 00:00:00 Patient Secure Msg Doctor Unassigned, [place] [facility] 1.2.840.114 350.1.13.10 4.2.7.2.686 [id number] [facility] 2023-10-11 11:00:00 2023-10-11 11:30:00 Office Visit Krystal Mace [facility] 1.2.840.114 350.1.13.10 4.2.7.2.686 [id number] [facility] 2023-10-11 11:00:00 2023-10-11 11:00:00 Outpatient R RODRI KRYSTALYULISA [facility] [id number] [facility] 2023-10-02 15:00:00 2023-10-02 15:00:00 Outpatient R VALERIA JONAS [facility] [id number] [facility] 2023-10-01 16:00:00 2023-10-01 16:30:00 Nurse Visit Nurse, [facility] 1.2.840.114 350.1.13.10 4.2.7.2.686 [id number] [facility] 2023-10-01 16:00:00 2023-10-01 16:00:00 Outpatient YULISA JIANGYULISA [facility] [id number] [facility] 2023-09-20 14:00:00 2023-09-20 14:00:00 Outpatient JANE CRABTREE [facility] [id number] [facility] 2023-09-13 11:00:00 2023-09-13 11:00:00 Outpatient R YULISA MACECOY MACE [facility] [id number] [facility] 2023-09-12 00:00:00 2023-09-12 00:00:00 Patient Secure Msg Doctor Unassigned, [place] [facility] 1.2.840.114 350.1.13.10 4.2.7.2.686 [id number] [facility] 2023-09-11 00:00:00 2023-09-11 00:00:00 Patient Secure Msg Doctor Unassigned, [place] [facility] 1.2.840.114 350.1.13.10 4.2.7.2.686 [id number] [facility] [id number] [facility] 2023-09-09 13:00:00 2023-09-09 13:00:00 Outpatient R [facility] [id number] [facility] 2023-08-30 11:00:00 2023-08-30 11:00:00 Outpatient R YULISA MACEYULISA [facility] [id number] [facility] 2023-08-29 00:00:00 2023-08-29 00:00:00 [facility] 1.2.840.114 350.1.13.10 4.2.7.2.686 [id number] [facility] 2023-08-23 10:30:00 2023-08-23 10:30:00 Outpatient Regina BURROWSESTER VALERIA [facility] [id number] [facility] 2023-08-20 00:00:00 2023-08-20 00:00:00 Refill Mahesh Thomas [facility] 1.20.114 350.1.13.10 4.2.7.2.686 [id number] [id number] [facility] 2023-08-20 00:00:00 2023-08-20 00:00:00 Refill Lisa Mauricio [facility] 1.114 350.1.13.10 4.2.7.2.686 [id number] [id number] [facility] 2023-08-20 00:00:00 2023-08-20 00:00:00 Refill Krystal Mace [facility] 1..114 350.1.13.10 4.2.7.2.686 [id number] [facility] 2023-08-19 20:34:00 2023-08-19 23:36:00 Emergency X JANET NGUYEN [facility] ERT [id number] [facility] 2023-08-19 20:34:00 2023-08-19 23:36:00 Emergency Janet Nguyen [facility] 1.2.114 350.1.13.10 4.2.7.2.686 [id number] [facility] 2023-08-19 00:00:00 2023-08-19 00:00:00 Nurse Triage Bella Doran [facility] 1..114 350.1.13.10 4.2.7.2.686 [id number] [facility] 2023-08-16 11:00:00 2023-08-16 11:30:00 Office Visit Krystal Mace Rm2, Adc Surg Proc [facility] 1.2.840.114 350.1.13.10 4.2.7.2.686 [id number] [facility] 2023-08-16 11:00:00 2023-08-16 11:00:00 Outpatient R RODRI KRYSTAL MACE [facility] [id number] [facility] 2023-08-14 00:00:00 2023-08-14 00:00:00 Edie Leon [facility] FUNMI?[facility] 1.2.840.114 350.1.13.10 4.2.7.2.686 [id number] [id number] [facility] 2023-08-14 00:00:00 2023-08-14 00:00:00 [facility] 1.2.840.114 350.1.13.10 4.2.7.2.686 [id number] 044 [id number] [facility] 2023-08-14 00:00:00 2023-08-14 00:00:00 [facility] FUNMI?[facility] 1.2.840.114 350.1.13.10 4.2.7.2.686 [id number] [facility] 2023-07-26 11:00:00 2023-07-26 12:32:31 Outpatient R RODRI KRYSTAL REID [facility] [id number] [facility] 2023-07-26 11:00:00 2023-07-26 11:30:00 [facility] 1.2.840.114 350.1.13.10 4.2.7.2.686 [id number] [facility] 2023-07-19 00:00:00 2023-07-19 00:00:00 Orders Only Doctor Unassigned, [place] [facility] 1.2840.114 350.1.13.10 4.2.7.2.686 [id number] [facility] 2023-07-19 00:00:00 2023-07-19 00:00:00 Telephone Jennifer Chowdhury 1.0.114 350.1.13.10 4.2.7.2.686 [id number] [facility] 2023-07-17 11:30:00 2023-07-17 11:48:07 Outpatient R KRYSTAL MACE ELISHA [facility] [id number] [facility] 2023-07-17 11:30:00 2023-07-17 11:48:07 Office Visit Krystal Mace [facility] 1.0.114 350.1.13.10 4.2.7.2.686 [id number] [facility] 2023-06-26 00:00:00 2023-06-26 00:00:00 Telephone Jennifer Chowdhury 1.2840.114 350.1.13.10 4.2.7.2.686 [id number] [facility] 2023-06-26 00:00:00 2023-06-26 00:00:00 Telephone Emelina Arndt [facility] 1.2840.114 350.1.13.10 4.2.7.2.686 [id number] [id number] [facility] 2023-06-26 00:00:00 2023-06-26 00:00:00 Patient Secure Msg Doctor Unassigned, [place] [facility] FUNMI?NICKI [facility] 1..840.114 350.1.13.10 4.2.7.2.686 [id number] [id number] [facility] 2023-06-21 00:00:00 2023-06-21 00:00:00 Telephone Kristi Jane [facility] FUNMI?[facility] 1..840.114 350.1.13.10 4.2.7.2.686 [id number] [id number] [facility] 2023-06-19 16:30:00 2023-06-19 17:05:45 Outpatient R EMELINA ARNDT [facility] [id number] [facility] 2023-06-19 16:30:00 2023-06-19 17:05:45 Office Visit Emelina Arndt [facility] FUNMI?[facility] 1..840.114 350.1.13.10 4.2.7.2.686 [id number] [facility] 2023-06-07 08:00:00 2023-06-07 08:00:00 Outpatient R VALERIA JONAS [facility] [id number] [facility] 2023-03-22 11:00:00 2023-03-22 11:00:00 Outpatient R LISA MAURICIO [facility] [id number] [facility] 2023-03-05 15:00:00 2023-03-05 15:00:00 Outpatient R VALERIA JONAS [facility] [id number] [facility] 2023-01-23 00:00:00 2023-01-23 00:00:00 Refill Edie Hopkins [facility] FUNMI?[facility] 1..840.114 350.1.13.10 4.2.7.2.686 [id number] [facility] 2023-01-21 00:00:00 2023-01-21 00:00:00 Patient Secure Msg Doctor Unassigned, [place] [facility] N[facility]YA CHOUDHARY?[facility] 1.2.840.114 350.1.13.10 4.2.7.2.686 [id number] [facility] 2023-01-11 11:00:00 2023-01-11 11:00:00 Outpatient R LISA MAURICIO [facility] [id number] [facility] 2022-12-21 08:20:00 2022-12-21 08:20:00 Outpatient R LISA MAURICIO [facility] [id number] [facility] 2022-12-21 08:00:00 2022-12-21 08:00:00 Outpatient R JANE BERRY [facility] [id number] [facility] 2022-12-20 00:00:00 2022-12-20 00:00:00 [facility] 1.2.840.114 350.1.13.10 4.2.7.2.686 [id number] [facility] 2022-12-03 08:00:00 2022-12-03 08:00:00 Outpatient R JANE BERRY [facility] [id number] [facility] 2022-11-16 00:00:00 2022-11-16 00:00:00 [facility] 1.2.840.114 350.1.13.10 4.2.7.2.686 [id number] [facility] 2022-11-16 00:00:00 2022-11-16 00:00:00 [facility] 1.2.840.114 350.1.13.10 4.2.7.2.686 [id number] [facility] 2022-10-01 00:00:00 2022-10-01 00:00:00 [facility]phone [facility] 1.2.840.114 350.1.13.10 4.2.7.2.686 [id number] [facility] 2022-08-27 00:00:00 2022-08-27 00:00:00 [facility]ill [facility] MEDICAL OFFICE BUILDING 1.2.840.114 350.1.13.10 4.2.7.2.686 [id number] [facility] 2022-07-27 00:00:00 2022-07-27 00:00:00 Refill Connor BerryQuorum HealthYULISA CHOUDHARY?[facility] MEDICAL OFFICE BUILDING 1.2840.114 350.1.13.10 4.2.7.2.686 [id number] 044 [id number] [facility] 2022-07-23 00:00:00 2022-07-23 00:00:00 Refill Connor BerryQuorum HealthYULISA CHOUDHARY?[facility] MEDICAL OFFICE BUILDING 1.2.840.114 350.1.13.10 4.2.7.2.686 [id number] [id number] [facility] 2022-05-01 00:00:00 2022-05-01 00:00:00 Refill Connor BerryQuorum HealthYULISA CHOUDHARY?[facility] MEDICAL OFFICE BUILDING 1.2.840.114 350.1.13.10 4.2.7.2.686 [id number] 044 [id number] [facility] 2022-04-18 00:00:00 2022-04-18 00:00:00 Refill Kathy BerryCarolinas [facility]villeYULISA [facility]OUDHARY?[facility] MEDICAL OFFICE BUILDING 1.2.840.114 350.1.13.10 4.2.7.2.686 [id number] [facility] 2022-02-09 11:00:00 2022-02-09 11:34:20 [facility] [id number] [facility] 2022-02-09 11:00:00 2022-02-09 11:34:20 Office Visit Kathy BerryCarolin[facility]villeYULISA CHOUDHARY?[facility] MEDICAL OFFICE BUILDING 1.2.840.114 350.1.13.10 4.2.7.2.686 [id number] 044 [id number] [facility] 2022-02-07 00:00:00 2022-02-07 00:00:00 Refill Tomasz Rodriguez [facility] FUNMI?[facility] MEDICAL OFFICE BUILDING 1.2.840.114 350.1.13.10 4.2.7.2.686 [id number] 044 [id number] [facility] 2022-02-07 00:00:00 2022-02-07 00:00:00 Refill Tomasz Rodriguez [facility] FUNMI?[facility] MEDICAL OFFICE BUILDING 1.2.840.114 350.1.13.10 4.2.7.2.686 [id number] 044 [id number] [facility] 2022-02-06 00:00:00 2022-02-06 00:00:00 [facility] (Out[facility] MEDICAL OFFICE BUILDING 1.2.840.114 350.1.13.10 4.2.7.2.686 [id number] 044 [id number] [facility] 2022-01-22 03:54:00 2022-01-22 07:36:00 Emergency X YONY COX [facility] ERT [id number] [facility] 2022-01-22 03:54:00 2022-01-22 07:36:00 Emergency Yony Cox [facility] 1..114 350.1.13.10 4.2.7.2.686 [id number] [facility] 2022-01-22 00:00:00 2022-01-22 00:00:00 Orders Only Doctor Unassigned, [place] [facility] 1..114 350.1.13.10 4.2.7.2.686 [id number] [id number] [facility] 2021-11-07 00:00:00 2021-11-07 00:00:00 RefAmarjit Johnsonful A [facility] OFFICE BUILDING ONE 1.84.114 350.1.13.10 4.2.7.2.686 [id number] 044 [id number] [facility] 2021-10-15 00:00:00 2021-10-15 00:00:00 Refill Amarjit Rodriguezful A [facility] OFFICE BUILDING ONE ..114 350.1.13.10 4.2.7.2.686 [id number] 044 [id number] [facility] 2021-09-21 00:00:00 2021-09-21 00:00:00 Refill Gregg Rodriguezdiful A [facility] OFFICE BUILDING ONE .84.114 350.1.13.10 4.2.7.2.686 [id number] 044 [id number] [facility] 2021-09-18 15:00:00 2021-09-18 15:00:00 Outpatient R [facility] [id number] [facility] 2021-09-12 00:00:00 2021-09-12 00:00:00 Refill Amarjit Rodriguezful A [facility] PAULA NARAY[facility]N MEDICAL OFFICE BUILDING 1.2.840.114 350.1.13.10 4.2.7.2.686 [id number] 044 [id number] [facility] 2021-08-16 00:00:00 2021-08-16 00:00:00 Patient Secure Msg Doctor Unassigned, [place] [facility]ICKI [facility] MEDICAL OFFICE BUILDING 1.2.840.114 350.1.13.10 4.2.7.2.686 [id number] 044 [id number] [facility] 2021-08-08 11:00:00 2021-08-08 11:00:00 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 Visit 2, Adc Lab Tomasz Rodriguez [facility] BUILDING 1.2.840.114 350.1.13.10 4.2.7.2.686 [id number] [facility] 2021-08-08 11:00:00 2021-08-08 11:00:00 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 Visit 2, Adc Lab WardTomasz mims [facility] BUILDING 1.2.840.114 350.1.13.10 4.2.7.2.686 [id number] [facility] 2021-08-08 09:00:00 2021-08-08 10:10:34 Outpatient R VALERIA JONAS [facility] [id number] [facility] 2021-08-08 09:00:00 2021-08-08 10:10:34 Office Visit Valeria Jonas [facility] BUILDING 1.2.840.114 350.1.13.10 4.2.7.2.686 [id number] [facility] 2021-08-08 09:00:00 2021-08-08 10:10:34 Outpatient R VALERIA JONAS [facility] [id number] [facility] 2021-08-07 14:30:00 2021-08-07 15:16:36 Outpatient R TOMASZ RODRIGUEZ [facility] [id number] [facility] 2021-08-07 14:30:00 2021-08-07 15:16:36 Outpatient R TOMASZ RODRIGUEZ [facility] [id number] [facility] 2021-08-07 14:30:00 2021-08-07 15:16:36 Office Visit Tomasz Rodriguez [facility] FUNMI?[facility] MEDICAL OFFICE BUILDING 1.840.114 350.1.13.10 4.2.7.2.686 [id number] [id number] [facility] 2021-07-28 00:00:00 2021-07-28 00:00:00 Transition of Care Alisson Bhatt [facility] 1.840.114 350.1.13.10 4.2.7.2.686 [id number] [facility] 2021-07-24 11:51:00 2021-07-27 12:00:00 Inpatient X CATHRYN LINO [facility] LEA [id number] [facility] 2021-07-24 11:51:00 2021-07-27 12:00:00 Hospital Encounter Sybil Kaur, Cathryn Fleming [facility] 1.840.114 350.1.13.10 4.2.7.2.686 [id number] [facility] 2021-07-27 00:00:00 2021-07-27 00:00:00 Case Management Tomasz Rodriguez [facility] FUNMI?[facility] MEDICAL OFFICE BUILDING 1.840.114 350.1.13.10 4.2.7.2.686 [id number] 044 [id number] [facility] 2021-07-24 00:00:00 2021-07-24 00:00:00 Telephone Tomasz Rodriguez [facility] FUNMI?[facility] MEDICAL OFFICE BUILDING 1.2840.114 350.1.13.10 4.2.7.2.686 [id number] 044 [id number] [facility] 2021-07-23 02:20:00 2021-07-23 05:22:00 Emergency X YONY COX [facility] ERT [id number] [facility] 2021-07-23 02:20:00 2021-07-23 05:22:00 Emergency Yony Cox [facility] 1.840.114 350.1.13.10 4.2.7.2.686 [id number] [facility] 2021-07-21 16:16:57 2021-07-21 17:02:12 Office Visit Tomasz Rodriguez [facility] FUNMI?[facility] MEDICAL OFFICE BUILDING 1.84.114 350.1.13.10 4.2.7.2.686 [id number] [id number] [facility] 2021-07-21 16:15:00 2021-07-21 17:02:12 Outpatient R TOMASZ RODRIGUEZ [facility] [id number] [facility] 2021-07-21 00:00:00 2021-07-21 00:00:00 Orders Only Doctor Unassigned, [place] [facility] 1..114 350.1.13.10 4.2.7.2.686 [id number] [id number] [facility] 2021-06-02 00:00:00 2021-06-02 00:00:00 Refill Tomasz Rodriguez [facility] Joshua count includes the [facility] Office Building One 1..114 350.1.13.10 4.2.7.2.686 [id number] 044 [id number] [facility] 2021-03-26 00:00:00 2021-03-26 00:00:00 Orders Only Doctor Unassigned, [place] [facility] 1.2.840.114 350.1.13.10 4.2.7.2.686 [id number] [id number] [facility] 2021-01-23 00:00:00 2021-01-23 00:00:00 Telephone Charlotte Shay 1.2840.114 350.1.13.10 4.2.7.2.686 [id number] 086 [id number] [facility] 2021-01-23 00:00:00 2021-01-23 00:00:00 Pre Visit Outreach Charlotte Shay 1.2840.114 350.1.13.10 4.2.7.2.686 [id number] [facility] 2021-01-23 00:00:00 2021-01-23 00:00:00 Patient Secure Msg Doctor Unassigned, [place] DYLLAN VAZQUEZ 1.2840.114 350.1.13.10 4.2.7.2.686 [id number] [facility] 2021-01-20 00:00:00 2021-01-20 00:00:00 Telephone Tomasz Rodriguez [facility] Office Building One 1.840.114 350.1.13.10 4.2.7.2.686 [id number] 044 [id number] [facility] 2021-01-11 00:00:00 2021-01-11 00:00:00 Refill Tomasz Rodriguez [facility] Office Building One 1.840.114 350.1.13.10 4.2.7.2.686 [id number] 044 [id number] [facility] 2020-12-20 00:00:00 2020-12-20 00:00:00 Orders Only Doctor Unassigned, [place] [facility] 1.840.114 350.1.13.10 4.2.7.2.686 [id number] [id number] [facility] 2020-12-14 00:00:00 2020-12-14 00:00:00 Telephone Tomasz Rodriguez [facility] Office Building One 1.840.114 350.1.13.10 4.2.7.2.686 [id number] 044 [id number] [facility] 2020-12-12 00:00:00 2020-12-12 00:00:00 Refill Tomasz Rodriguez [facility] Office Building One 1.840.114 350.1.13.10 4.2.7.2.686 [id number] 044 [id number] [facility] 2020-12-10 00:00:00 2020-12-10 00:00:00 Refill Tomasz Rodriguez [facility] Office Building One 1.840.114 350.1.13.10 4.2.7.2.686 [id number] 044 [id number] [facility] 2020-11-21 00:00:00 2020-11-21 00:00:00 Orders Only Doctor Unassigned, [place] [facility] 1.840.114 350.1.13.10 4.2.7.2.686 [id number] [facility] 2020-11-13 00:00:00 2020-11-13 00:00:00 Telephone Tomasz Rodriguez [facility] Office Building One 1.840.114 350.1.13.10 4.2.7.2.686 [id number] [id number] [facility] 2020-11-11 11:11:14 2020-11-11 11:39:29 Office Visit Tomasz Rodriguez [facility] Office Building One 1.840.114 350.1.13.10 4.2.7.2.686 [id number] [id number] [facility] 2020-11-11 11:20:00 2020-11-11 11:20:00 Outpatient R EDILMA CANALES [facility] [id number] [facility] 2020-11-11 11:00:00 2020-11-11 11:00:00 Outpatient R JENNIFERTOMASZ MIMS [facility] [id number] [facility] 2020-10-24 11:00:00 2020-10-24 11:00:00 Outpatient R TOMASZ RODRIGUEZ [facility] [id number] [facility] 2020-10-14 00:00:00 2020-10-14 00:00:00 RefAmarjit Johnsonful A [facility] Office Building One .84.114 350.1.13.10 4.2.7.2.686 [id number] 044 [id number] [facility] 2020-10-11 00:00:00 2020-10-11 00:00:00 RefAmarjit Johnsonful A [facility] Office Building One .0.114 350.1.13.10 4.2.7.2.686 [id number] 044 [id number] [facility] 2020-09-22 00:00:00 2020-09-22 00:00:00 Refill Gregg Rodriguezdiful A [facility] Office Building One .84.114 350.1.13.10 4.2.7.2.686 [id number] 044 [id number] [facility] 2020-08-22 00:00:00 2020-08-22 00:00:00 RefAmarjit Johnsonful A [facility] Office Building One .84.114 350.1.13.10 4.2.7.2.686 [id number] 044 [id number] [facility] 2020-08-15 00:00:00 2020-08-15 00:00:00 Orders Only Doctor Unassigned, [place] [facility] 1.2.840.114 350.1.13.10 4.2.7.2.686 [id number] [facility] 2020-08-02 00:00:00 2020-08-02 00:00:00 Telephone Tomasz Rodriguez [facility] Office Building One 1.2.840.114 350.1.13.10 4.2.7.2.686 [id number] 044 [id number] [facility] 2020-07-28 00:00:00 2020-07-28 00:00:00 Case Management Tomasz Rodriguez [facility] Office Building One 1.2840.114 350.1.13.10 4.2.7.2.686 [id number] 044 [id number] [facility] 2020-07-25 12:05:08 2020-07-25 12:20:08 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 Visit 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, 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 Main Tomasz Rodriguez [facility] Building 1.2840.114 350.1.13.10 4.2.7.2.686 [id number] [facility] 2020-07-25 10:54:28 2020-07-25 11:47:59 Office Visit Tomasz Rodriguez [facility] Office Building One 1.20.114 350.1.13.10 4.2.7.2.686 [id number] 044 [id number] [facility] 2020-07-25 11:00:00 2020-07-25 11:00:00 Outpatient R GREGG RODRIGUEZVIKIKRISTINA [facility] [id number] [facility] 2020-07-25 00:00:00 2020-07-25 00:00:00 Orders Only Doctor Unassigned, [place] [facility] 1.2840.114 350.1.13.10 4.2.7.2.686 [id number] [facility] 2020-07-12 15:00:00 2020-07-12 15:00:00 Outpatient R JENNIFERGREGG MIMSVIKIKRISTINA [facility] [id number] [facility] 2020-07-12 00:00:00 2020-07-12 00:00:00 Telephone WardTomasz mims [facility] Office Building One 1.840.114 350.1.13.10 4.2.7.2.686 [id number] [facility] 2020-07-11 15:45:00 2020-07-11 15:45:00 Outpatient CORWIN NG [facility] [id number] [facility] 2020-07-08 16:30:00 2020-07-08 16:30:00 [facility] [id number] [facility] 2020-07-08 15:37:31 2020-07-08 15:52:31 Telemedici ne Visit WardTomasz mims [facility] Office Building One 1.840.114 350.1.13.10 4.2.7.2.686 [id number] [facility] 2020-07-05 11:00:00 2020-07-05 11:00:00 Outpatient CORWIN NG [facility] [id number] [facility] 2020-06-27 10:22:26 2020-06-27 11:08:16 Office Visit JenniferTomasz mims [facility] Office Building One 1.840.114 350.1.13.10 4.2.7.2.686 [id number] [facility] 2020-06-27 10:15:00 2020-06-27 10:15:00 Outpatient R TOMASZ RODRIGUEZ [facility] [id number] [facility] 2020-06-27 00:00:00 2020-06-27 00:00:00 Orders Only Doctor Unassigned, [place] [facility] 1.2.840.114 350.1.13.10 4.2.7.2.686 [id number] [facility] 2020-06-27 00:00:00 2020-06-27 00:00:00 Letter (Out) Doctor Unassigned, [place] [facility] 1.2.840.114 350.1.13.10 4.2.7.2.686 [id number] 044 [id number] [facility] 2020-06-07 00:00:00 2020-06-07 00:00:00 Transition of Care Margo Michael 1.2.840.114 350.1.13.10 4.2.7.2.686 [id number] [facility] 2020-06-03 18:27:00 2020-06-06 17:52:00 Hospital Encounter Kalen Yeager Kevin T Edionwe, [facility] 1.2.840.114 350.1.13.10 4.2.7.2.686 [id number] [facility] 2020-06-03 18:27:00 2020-06-03 18:27:00 Emergency X KALEN YEAGER [facility] ERT [id number] [facility] 2020-06-01 03:46:00 2020-06-01 06:12:00 Emergency Dorcas Man [facility] 1.2.840.114 350.1.13.10 4.2.7.2.686 [id number] [facility] 2020-06-01 03:46:00 2020-06-01 03:46:00 Emergency X DORCAS MAN [facility] ERT [id number] [facility] Results Test Description Test Time Test Comments Results Result Co mments Source [facility] Ur[facility], [id number] 17:10:00 * Test Item Value Reference Range [...] POCT U APPEAR (test code = 3267) [facility] Urinalysis, [id number] 17:10:00 * Test Item Value Reference Range [...] POCT U APPEAR (test code = 3267) [facility] [id number] 17:10:00 * Test Item Value Reference Range [...] U APPEAR (test code = 3267) cloudy [facility] ABDOMEN PELVIS W [id number] 04:26:58Ordering Physician: Janet Nguyen History: UTI, recurrent/complicated. [...] signs of hernia or lymphadenopathy.Bones: Unremarkable.Soft tissues: Normal.[facility] Metabolic [id number] 03:35:00* Test Item Value Reference Range Interpretation Comme nts NA (test code = 4710987260) 140 mmol/L 135-145 K (test code = 2460321603) 3.7 mmol/L 3.5-5.0 CL (test code = 9917905738) 105 mmol/L 98-108 CO2 TOTAL (test code = 7989938310) 25 mmol/L 23-31 AGAP (test code = 9683455370) 10 2-16 BUN (test code = 2066242878) 14 mg/dL 7-23 GLUCOSE (test code = 6476064788) 111 mg/dL 70-110 H CREATININE (test code = 7434770592) 0.68 mg/dL 0.50-1.04 TOTAL BILI (test code = 3345651342) 0.7 mg/dL 0.1-1.1 CALCIUM (test code = 6752562012) 8.9 mg/dL 8.6-10.6 T PROTEIN (test code = 1462982506) 8.4 g/dL 6.3-8.2 H ALBUMIN (test code = 3130577929) 4.7 g/dL 3.5-5.0 ALK PHOS (test code = 6964225970) 84 U/L 34-122 ALTv (test code = 1742-6) 26 U/L 5-35 AST(SGOT) (test code = 6848481192) 31 U/L 13-40 eGFR (test code = 27191-2) 117.4 mL/min/1.73m2 CKD-EPI eGFR (2020). Assuming creatinine has been stable day-to-day for at least three months, the eGFR indicates Category G1 (>= 90 mL/min/1.73 m2) Lab Interpretation (test code = 76024-2) Abnormal [facility]ale[facility], [id number] 03:34:20* Test Item Value Reference Range Interpretation Comme nts LIPASE (test code = 5738939192) 99 U/L 0-220 Lab Interpretation (test cod e = 04291-7) Normal [facility] with [id number] 03:22:37* Test Item Value Reference Range Interpretation Comme nts WBC (test code = 6690-2) 10.07 See_Comment [Automated WebKitea ge] The system which generated this result [...] 33.6 g/dL 31.6-35.1 RDW-SD (test code = 23068-6) 42.9 fL 39.0-49.9 RDW-CV (test code = 788-0) 12.2 % 12.0-15.5 PLT (test code = 777-3) 290 See_Comment [Automated messa ge] The system which generated this result transmitted reference range: 166 - 358 10*3/?L. The reference range was not used to interpret this result as normal/abnormal. MPV (test code = 61868-5) 10.3 fL 9.5-12.9 NRBC/100 WBC (test code = 0962350008) 0.0 See_Comment [Automated Archy ssage] The system which generated this result transmitted reference range: 0.0 - 10.0 /100 WBCs. The reference range was not used to interpret this result as normal/abnormal. NRBC x10^3 (test code = 3745159805) See_Comment [Automated messa ge] The system which generated this result transmitted reference range: 10*3/?L. The reference range was not used to interpret this result as normal/abnormal. GRAN MAT (NEUT) % (test code = 770-8) 75.8 % IMM GRAN % (test code = 7642894216) 0.20 % LYMPH % (test code = 736-9) 17.6 % MONO % (test code = 5905-5) 5.2 % EOS % (test code = 713-8) 0.7 % BASO % (test code = 706-2) 0.5 % GRAN MAT x10^3(ANC) (test code = 3731274583) 7.64 10*3/uL 1.88-7.09 H IMM GRAN x10^3 (test code = 7361016226) 0.00-0.06 LYMPH x10^3 (test code = 731-0) 1.77 10*3/uL 1.32-3.29 MONO x10^3 (test code = 742-7) 0.52 10*3/uL 0.33-0.92 EOS x10^3 (test code = 711-2) 0.07 10*3/uL 0.03-0.39 BASO x10^3 (test code = 704-7) 0.05 10*3/uL 0.01-0.07 Lab Interpretation (test code = 95508-3) Abnormal [facility] [id number] 02:57:00* Test Item Value Reference Range Interpretation Comme nts POCT PREG (test code = 1605) Negative On board controls acceptable with C Line (test code = 3574) Yes POCT PREG LOT # (test code = 3575) [id number] POCT PREG TEST DATE ( test code = 3576) 11/21/2024 Lab Interpretation (test cod e = 39036-4) Normal [facility] Urinalysis, [id number] 18:31:00 * Test Item Value Reference Range [...] Clear Lab Interpretation (test cod e = 64769-4) Abnormal [facility] Urinalysis, Rmnpkrmrui3557-21-35 18:31:00 * Test Item Value Reference Range [...] Clear Lab Interpretation (test cod e = 54533-5) Abnormal [facility] Urinalysis, Wjybjawvgd3703-68-85 18:31:00 * Test Item Value Reference Range [...] Clear Lab Interpretation (test cod e = 60147-0) Abnormal [facility] URINALYSIS, [id number] 17:35:00 * Test Item Value Reference Range [...] U APPEAR (test code = 3267) clear [facility] URINALYSIS, [id number] 17:35:00 * Test Item Value Reference Range [...] U APPEAR (test code = 3267) clear [facility] URINALYSIS W SPECIFIC [id number] 21:51:00* Test Item Value Reference Range Interpretation [...] 3267) Lab Interpretation (test cod e = 69838-0) Abnormal [facility] URINALYSIS W SPECIFIC [id number] 21:51:00* Test Item Value Reference Range Interpretation [...] 3267) Lab Interpretation (test cod e = 69331-9) Abnormal [facility] Notes Date/Time Note Provider Source 2024-08-20 15:52:55 Images from the original note were not included. Notes: Return in about 6 months (around 12/27/2024), or if symptoms worsen or fail to improve. After Visit Summary (Automatic SnapShot taken 06/29/2024) Last Refilled: Name from pharmacy: CLONIDINE HCL 0.3 MG TABLET Will file in chart as: CLONIDINE 0.3 mg tablet Sig: TAKE 1 TABLET BY MOUTH EVERYDAY AT BEDTIME Disp: 90 tablet Refills: 1 Start: 08/20/2024 Class: eRX For: Generalized anxiety disorder, Chronic insomnia, Benign hypertension Last ordered: 3 weeks ago (07/28/2024) by TACHO Phan Last refill: 07/28/2024 Rx #: [id number] Pharmacy comment: REQUEST FOR 90 DAYS PRESCRIPTION. DX Code Needed. Cardiovascular: General Hypertension Jlynww1808/20/2024 09:31 AM Protocol Details Valid encounter within last 12 months This request has changes from the previous prescription. To be filled at: [facility]/pharmacy #[id number] - [place], [place] - [address] Recent Visits Date Type Provider Dept 06/29/24 Office Visit Jane Berry FNP [facility] 06/19/23 Office Visit Emelina Arndt PA [facility] Showing recent visits within past 540 days with a meds authorizing provider and meeting all other requirements Future Appointments Date Type Provider Dept 12/28/24 Appointment Jane Berry FNP [facility] Showing future appointments within next 150 days with a meds authorizing provider and meeting all other requirements ITUAL ADVISOR Tiffany Washington MA [facility] [employer] 2024-07-28 08:30:57 Last Refilled: Disp Refills Start End DAPHNIE cloNIDine 0.3 mg tablet 30 tablet 0 06/29/2024 -- No Sig: Take 1 tablet by mouth at bedtime. Sent to pharmacy as: cloNIDine HCL 0.3 mg tablet (CATAPRES) Class: eRX Route: Oral Order: [id number] Date/Time Signed: 06/29/2024 16:20 E-Prescribing Status: Receipt confirmed by pharmacy (06/29/2024 4:20 PM SPIRITUAL ADVISOR) Notes: Recent Visits Date Type Provider Dept 06/29/24 Office Visit Jane Berry FNP [facility] 06/19/23 Office Visit Emelina Arndt PA [facility] [...] 08/16/2023 Yellow POCT U APPEAR 08/16/2023 Clear Juárez RN [facility] 2024-06-22 12:48:51 Will address at visit [facility] 2024-06-22 12:32:20 Please review and advise. LANDRY 06/19/23 NOV 06/29/24 [facility] 2024-06-22 12:25:25 Katherine Akbar is a 34 year old female calling to see if she can get a refill of clonidine since she scheduled appt for 06/29 ITUAL ADVISOR Thierno Quintanilla [facility] 2024-06-16 08:23:17 Images from the original note were not included. Patient needs office visit Notes: 05/26/24 Last Refilled: [facility]/pharmacy [address] [place] [address] [facility] [place] [facility] [employer] [place] Recent Visits Date Type Provider Dept 06/19/23 Office Visit Emelina Arndt PA [facility] Med Showing recent visits within past 540 [...] (06/15/2024) by TACHO Phan Cardiovascular: General Hypertension Zmsnhd8506/15/2024 05:31 PM Protocol Details Valid encounter within last 12 months To be filled at: [facility]/pharmacy #[address] [place] [address] AT [facility] Yodit Darling MA [facility] 2024-06-15 11:27:44 Images from the original note [...] (05/22/2024) by TACHO Phan Cardiovascular: General Hypertension Plzhmr7306/15/2024 11:14 AM Protocol Details Valid encounter within last 12 months To be filled at: [facility]/pharmacy #[id number] - [place], [place] - [address] Recent Visits Date [...] meeting all other requirements Tiffany Washington MA [facility] 2024-05-25 14:17:47 Patient does not have set up, unable to LVM Flaquita Bolaños [facility] 2024-05-22 13:46:11 Please facilitate office visit [facility] 2024-05-22 13:28:38 Pss please reach out to patient for follow-up appointment, must be seen for further refills. 30 days given Last Refilled: Disp Refills Start End DAPHNIE cloNIDine 0.3 mg tablet 30 tablet 0 04/28/2024 -- -- Sig: Take 1 tablet by mouth at bedtime. For anxiety/ Hypertension Sent to pharmacy as: cloNIDine HCL 0.3 mg tablet (CATAPRES) Class: eRX Route: Oral Order: [id number] Date/Time Signed: 04/28/2024 13:16 E-Prescribing Status: Receipt confirmed by pharmacy (04/28/2024 1:16 PM CDT) Notes: Recent Visits Date Type Provider Dept 06/19/23 Office Visit Hair, Emelina A, PA [facility] Showing recent [...] 08/19/2023 Yes POCT PREG LOT # 08/19/2023 [id number] POCT PREG TEST DA* 08/19/2023 11/21/2024 Office [...] Bacterial Vaginosis 06/19/2023 Negative Bindu Juárez RN [facility] 2024-05-22 11:38:00 Pt request rx refill. Please Advise. [facility]/pharmacy #[id number] - [place], [place] - [address] [facility] [address] [facility] [address] [place] [address] Radha Schaeffer [facility] 2024-04-03 11:01:50 Last Refilled: Disp Refills Start End DAPHNIE cloNIDine 0.3 mg tablet 30 tablet 0 03/11/2024 -- -- Sig: Take 1 tablet by mouth at bedtime. For anxiety/ Hypertension Sent to pharmacy as: cloNIDine HCL 0.3 mg tablet (CATAPRES) Class: eRX Route: Oral Order: [id number] Date/Time Signed: 03/11/2024 11:23 E-Prescribing Status: Receipt confirmed by pharmacy (03/11/2024 11:23 AM CDT) Recent Visits Date Type Provider Dept 06/19/23 Office Visit Emelina Arndt PA [facility] Med Showing recent visits within past 540 days with a meds authorizing provider and meeting all other requirements Future Appointments No visits were found meeting these conditions. Showing future appointments within next 150 days with a meds authorizing provider and meeting all other requirements Germaine Howell [facility] 2024-04-03 10:32:02 Patient requesting a refill of:cloNIDine Medication: cloNIDine Dose: 0.3 mg Route: refill Quantity: 30 Pharmacy: [facility]/pharmacy #[id number] - [place], [place] - [address] AT [facility] [address] [facility] [id number] Last appt.: 02/09 Next appt.: na [facility] 2024-02-17 09:31:41 Patient requesting a refill of:cloNIDine Medication: cloNIDine Dose: 0.3 mg Route: refill Quantity: 30 Pharmacy: [facility]/PHARMACY #[id number] [place], [place] - [address] AT [facility] Last appt.: 06/19/23 Next appt.: na [facility] 2023-11-28 09:35:33 Email has been sent to Clif Verdugo with CB in regards to this request. Tiffany Washington MA [facility] 2023-11-27 14:19:46 No, I have never done this on any patient. Are you sure it comes to me or should come to me? SOFTWARE TEST MANAGER-FAMILY MIDLEVEL PROVIDER [facility] 2023-11-27 10:41:22 Have you received a casebook on this patient [facility] 2023-11-26 13:46:25 Copied from [facility] #[id number]. Topic: Clinical - Medical Advice >> Nov 26, 2023 1:44 PM Patient Salesforce Consultant wrote: Pt needing case book referral to Case#[id number] Pt says she spoke with jennifer and should have already been started Thierno Quintanilla [facility] 2023-11-12 10:35:21 Images from the original note [...] TACHO Phan Last refill: 10/21/2023 Rx #: [id number] Pharmacy comment: REQUEST FOR 90 DAYS PRESCRIPTION. DX Code Needed. Cardiovascular: General Hypertension Yjrtur6911/12/2023 10:33 AM Protocol Details Valid encounter within last 12 months This request has changes from the previous prescription. To be filled at: [facility]pharmacy [facility][id number] - [place], [place] - [address] [facility] [address] Recent Visits Date [...] meeting all other requirements Beatriz Baeza LVN [facility] 2023-10-30 13:56:19 JOSE J worked 3.24 ob and urogyn file. Requesting auth for US referral and follow up appointment scheduled. Jennifer Chowdhury 10/30/2023 1:58 PM Jennifer Chowdhury [facility] 2023-10-21 13:29:37 Images from the original note [...] Mauricio MD Last refill: 09/18/2023 Rx #: [id number] Pharmacy comment: REQUEST FOR 90 DAYS PRESCRIPTION. DX Code Needed. Cardiovascular: General Hypertension Bxhizw8510/21/2023 11:49 AM Protocol Details Valid encounter within last 12 months This request has changes from the previous prescription. To be filled at: [facility]/pharmacy #[id number] - [place] - [address] AT [facility] 30 day supply sent Recent Visits Date [...] authorizing provider and meeting all other requirements ITUAL ADVISOR [facility] 2023-10-18 10:15:[address] Mace: Reschedule cystoscopy. Patient did not take medication. Spoke with patient. Patient rescheduled for cystoscpoy. Patient advised to pickle processor Fosfomycin from pharmacy for UTI treatment. Patient advised Macrobid has been sent in to take nightly for 7 days for UTI prevention. Patient verbalized understanding of all recommendations. Teddy Weiner RN 10/18/2023 10:19 AM Weiner RN [facility] 2023-10-17 08:58:26 OCA worked 2..24 ob post visit no additional orders needed at this time ITUAL ADVISOR Jennifer Chowdhury [facility] 2023-10-11 11:00:00 Addended by: XENIA BRANCH RN on: 10/11/2023 12:04 PM Modules accepted: Orders [facility] 2023-10-11 11:00:00 Addended by: KRYSTAL MACE MD on: 10/14/2023 11:44 AM Modules accepted: Orders [facility] 2023-08-29 09:32:12 Pt r/s cysto from tomorrow [...] period for the urine sample. Please advise. ITUAL ADVISOR Karolyn Loaiza [facility] 2023-08-19 23:35:58 Pt discharged with diagnosis of UTI with hematuria and lower abdominal pain. Printed and verbal instructions reviewed with and given to pt. Prescriptions given x 1. Pt verbalized understanding of teaching, medication, and recommended follow-up. Denies questions or concerns at this time. Pt ambulatory at discharge. Appears in no apparent distress. No ataxia noted. Accompanied by fiance. Corea RN [facility] 2023-08-19 20:00:09 Patient ambulatory to ED c/o abd cramping that started on and off two weeks ago. Patient states that her cramping started really bad today. Was unable to walk earlier today. Patient has IUD that needs to be taken out. [facility] health nurse told patient to come in. ITUAL ADVISOR Davida Perez RN [facility] 2023-08-19 17:55:00 Regarding: severe cramping x right now ----- Message from Ihsan Wiggins sent at 08/19/2023 5:55 PM SPIRITUAL ADVISOR ----- Katherine Akbar is a 33 year old female Patient is stating she is overdue for IUD being removed and is now having severe cramps (almost feels like contractions) x right now. Please advise Doran RN [facility] 2023-08-19 17:55:00 Adult Triage Assessment Last Clinic [...] last time having severe pain was around 3514-4814 "it was so bad I could not stand up or walk"; low back/flank pain 7-8/10 "aching", "like I just got hit in [...] x 3 pills extra-strength = 1500mg/incorrect last 08/18/[id number] - none today Effect on ADL's: significant [...] the triager Protocols used: Abdominal Pain - Mtiyzr-IZLMH-ON, Contraception - IUD Symptoms and Ivuahjwdd-KKEKI-YM, Urinary Uukdqhjy-JPCCZ-MP Assessment and triage done, disposition to go to the ED now. Reviewed correct Tylenol dosing. Callback warnings given. Pt voiced understanding and agreement with plan of care, states she will be [facility] ED. [facility] 2023-08-16 11:00:00 Addended by: KRYSTAL MACE MD on: 08/20/2023 01:44 PM Modules accepted: Orders [facility] 2023-08-14 13:50:11 Images from the original note were not included. Requested Renewals proMETHazine 25 mg tablet Sig: Take 1 tablet by mouth every 6 (six) hours as needed for N/V unresponsive to Ondansetron. Disp: 12 tablet Refills: 0 Start: 08/14/2023 Class: eRX For: Cyclical vomiting syndrome not associated with migraine Last ordered: 8 months ago (11/19/2022) by TACHO Phan Anti-nausea (Other) Skqyet5608/14/2023 04:57 AM Protocol Details This refill cannot be delegated Manual Review: Women's Health only allowed to refill requests Valid encounter within last 12 months To be filled at: [facility]/pharmacy #[id number] [place], [place] - [address] AT [facility] [address] [place] Recent Visits Date Type Provider Dept 06/19/23 [...] authorizing provider and meeting all other requirements ITUAL ADVISOR Beatriz Baeza LVN [facility] 2023-08-14 11:33:40 From: Katherine [place] To: Office of Tomasz Rodriguez MD Sent: 08/14/2023 4:57 AM SPIRITUAL ADVISOR Subject: Medication Renewal Request Refills have been requested for the following medications: ERGOCALCIFEROL, VITAMIN D2, 1,250 mcg (50,000 unit) capsule [Tomasz Rodriguez] Preferred pharmacy: [facility]/PHARMACY #[id number] [place], [place] - [address] AT [facility] [address] [place] Delivery method: Pickup Recent Visits Date Type [...] authorizing provider and meeting all other requirements [facility] 2023-08-14 08:03:54 Images from the original note were not included. .please review cloNIDine 0.3 mg tablet Sig: Take 1 tablet by mouth at bedtime. For anxiety/ Hypertension Disp: 90 tablet Refills: 1 Start: 08/14/2023 Class: eRX For: Generalized anxiety disorder, Chronic insomnia Last ordered: 6 months ago (01/23/2023) by TACHO Levin Cardiovascular: General Hypertension Ajuiae4308/14/2023 04:57 AM Protocol Details Valid encounter within last 12 months To be filled at: [facility]/pharmacy #[id number] - [place], [place] - [facility] [address] AT [facility] [address] [place] Recent Visits Date Type Provider Dept 06/19/23 [...] authorizing provider and meeting all other requirements [facility] [employer]
[2024-10-26] MEDS ORDERED: LORazepam 2 MG/ML VIAL ONE (21:54)
[2024-10-26] MEDS ORDERED: NA CHLORIDE 0.9% 1,000 ML ONE (21:55)
[2024-10-26] MEDS ORDERED: PROMETHAZINE INJ 25 MG/ML AMP ONE (21:55)
[2024-10-26 21:56] LABS: Absolute Lymphocytes (CBC) 0.6 K/uL (0.7-4.9); Absolute Monocytes 0.1 K/uL (0.1-1.3); Absolute Neutrophil 9.5 K/uL (1.8-8.0); Basophils % 0.2 % (0-1.3); Hematocrit 42.2 % (36.0-45.0); Hemoglobin 14.2 g/dL (12.0-15.0); MCH 31.8 pg (27.0-35.0); MCHC 33.7 g/dL (32.0-36.0); MCV 94.3 fL (80-100); Monocytes % 1.1 % (3.3-12.3); Neutrophils % 92.7 % (41.7-73.7); Nucleated Red Blood Cells % 0.1 % (0-0); Platelets 325 thou/uL (152-406); RBC Red Blood Cell Count 4.47 M/uL (3.86-4.86); Red Cell Distribution Width 13.3 % (12.1-15.2)
[2024-10-26 22:12] LABS: Albumin 4.1 g/dL (3.4-5.0); Albumin/Globulin Ratio 0.9 (1.1-1.8); Anion Gap 9.5 mEq/L (5.0-15.0); Bilirubin Total 0.4 mg/dL (0.2-1.0); Globulin 4.7 g/dL (2.3-3.5); Potassium 3.5 mEq/L (3.5-5.1); Protein, Total 8.8 g/dL (6.4-8.2)
[2024-10-26 23:42] LABS: Band Neutrophils 5 % (0-1); Blood Morphology Comment NOT SEEN (NOT SEEN); Differential Total Cells Count 100; Lymphocytes 6 % (15-42); Monocytes 1 % (0-10); Platelet Estimate ADEQ; Reactive Lymphocytes 1 %; Segmented Neutrophils 86 % (40-80)
[2024-10-27 00:54] LABS: Specific Gravity 1.017 (1.005-1.030); Urine Bacteria 20-50 /HPF (<20); Urine Culture Reflex Order REFLEXED; Urine Mucus 1+ /HPF (None Seen); Urine RBC None Seen /HPF (None Seen)
[2024-10-27 00:55] LABS: Specific Gravity 1.017 (1.005-1.030); Urine Bilirubin NEGATIVE (Negative); Urine Blood Negative (Negative); Urine Clarity Extremely Turbid (Clear); Urine Color Light-Orange (Yellow); Urine Glucose NEGATIVE (Negative); Urine Ketones NEGATIVE (Negative); Urine Microscopic Reflex YN NO UMIC; Urine Nitrite NEGATIVE (Negative); Urine Protein 1+ (Negative); Urine Urobilinogen Normal (Normal); Urine pH 8.5 (5.0-7.0)
--- NOTE | 2024-10-27 00:59 | ER ---
Nurse's Notes [facility] Name: Katherine Akbar Age: 34 yrs Sex: Female : 1990 Arrival Date: 10/26/2024 Time: 20:36 Bed 23 Private MD: Diagnosis: Cyclical vomiting, not intractable;UTI/ Urinary tract infection, site not specified Presentation: 10/26 21:17 Chief complaint: N/V/F x 2 days, not tolerating fluids. Actively vomiting in triage. hb Coronavirus screen: At this time, the client does not indicate any symptoms associated with coronavirus-19. Ebola Screen: No symptoms or risks identified at this time. Initial Sepsis Screen: Does the patient meet any 2 criteria? No. Patient's initial sepsis screen is negative. Does the patient have a suspected source of infection? No. Patient's initial sepsis screen is negative. Risk Assessment: Do you want to hurt yourself or someone else? Patient reports no desire to harm self or others. Onset of symptoms was October 25, 2024. 21:17 Method Of Arrival: Ambulatory hb 21:17 Acuity: BALTAZAR 3 hb Historical: - Allergies: 21:18 No Known Allergies; hb - PMHx: 21:18 Anxiety; cyclic vomiting syndrome; Hypertensive disorder; hb - Immunization history:: Adult Immunizations up to date. - Infectious Disease History:: Denies. - Social history:: Smoking status: Reported history of juuling and/or vaping. - Family history:: not pertinent. Screenin/11 00:30 [facility] ED Fall Risk Assessment (Adult) History of falling in the last 3 months, jb4 including since admission No falls in past 3 months (0 pts) Confusion or Disorientation No (0 pts) Intoxicated or Sedated No (0 pts) Impaired Gait No (0 pts) Mobility Assist Device Used No (0 pt) Altered Elimination No (0 pt) Score/Fall Risk Level 0 - 2 = Low Risk Oriented to surroundings, Maintained a safe environment. Abuse screen: Denies threats or abuse. Nutritional screening: No deficits noted. Tuberculosis screening: No symptoms or risk factors identified. Assessment: 10/26 22:00 General: Appears in no apparent distress. uncomfortable, ill, Behavior is calm, jb4 cooperative. Pain: Complains of pain in abdomen Pain does not radiate. Pain currently is 3 out of 10 on a pain scale. Neuro: Level of Consciousness is awake, alert, obeys commands, Oriented to person, place, time, situation. Cardiovascular: Skin warm and clammy. Respiratory: Airway is patent Respiratory effort is even, unlabored, Respiratory pattern is regular, symmetrical. GI: Abdomen is flat, non-distended, Reports upper abdominal pain, nausea, vomiting. Derm: Skin is intact, Skin is clammy, Skin is pale, Skin temperature is warm. Musculoskeletal: Circulation, motion, and sensation intact. Range of motion: intact in all extremities. 22:46 Reassessment: Patient appears in no apparent distress at this time. Patient and/or jb4 family updated on plan of care and expected duration. Pain level reassessed. Patient is alert, oriented x 3, equal unlabored respirations, skin warm/dry/pink. Patient states feeling better. 23:36 Reassessment: Patient appears in no apparent distress at this time. Patient and/or jb4 family updated on plan of care and expected duration. Pain level reassessed. Patient is alert, oriented x 3, equal unlabored respirations, skin warm/dry/pink. 10/27 01:00 Reassessment: Patient appears in no apparent distress at this time. Patient and/or jb4 family updated on plan of care and expected duration. Pain level reassessed. Patient is alert, oriented x 3, equal unlabored respirations, skin warm/dry/pink. 01:29 Reassessment: D/c pending further evaluation after zofran administration. jb4 01:44 Reassessment: Patient appears in no apparent distress at this time. Patient and/or jb4 family updated on plan of care and expected duration. Pain level reassessed. Patient is alert, oriented x 3, equal unlabored respirations, skin warm/dry/pink. Patient states feeling better. Patient states symptoms have improved. Vital Signs: 10/26 21:17 BP 168 / 100; Pulse 80; Resp 18; Temp 97.5(A); Pulse Ox 100% on R/A; Weight 79.38 kg; hb Height 5 ft. 7 in. ; Pain 10/26; 22:46 BP 149 / 86; Pulse 76; Resp 16; Pulse Ox 100% on R/A; jb4 23:36 BP 150 / 95; Pulse 74; Resp 16; Pulse Ox 100% on R/A; jb4 10/27 00:30 BP 133 / 88; Pulse 71; Resp 16; Pulse Ox 100% on R/A; jb4 10/26 21:17 Body Mass Index 27.41 (79.38 kg, 170.18 cm) 10/26 21:17 Pain Scale: Adult hb ED Course: 10/26 20:40 Patient arrived in ED. gm2 20:40 González Sanders MD is Attending Physician. rt 21:18 Triage completed. hb 21:19 Arm band placed on. hb 22:00 Mahesh Peter, RN is Primary Nurse. jb4 22:00 Inserted saline lock: 24 gauge in right wrist, using aseptic technique. Blood collected.jb4 22: Lipase Sent. jb4 : CBC with Diff Sent. jb4 : CMP Sent. jb4 10/27 00:30 Patient has correct armband on for positive identification. Bed in low position. Call jb4 light in reach. Side rails up X 1. Provided Education on: plan of care. 01:45 No provider procedures requiring assistance completed. IV discontinued, intact, jb4 bleeding controlled, No redness/swelling at site. Pressure dressing applied. Administered Medications: 10/26 22:01 Drug: NS 0.9% IV 1000 ml IV at 1 bolus Per protocol; to be given as a bolus over 60 jb4 minutes Route: IV; Rate: 1 bolus; Site: right wrist; 23:30 Follow up: Response: No adverse reaction; Marked relief of symptoms; IV Status: jb4 Completed infusion; IV Intake: 1000ml 22:01 Drug: Promethazine IVP 25 mg IVP once {Note: administered in IV fluids..} Route: IVP; jb4 Site: right wrist; 23:30 Follow up: Response: No adverse reaction; Marked relief of symptoms; Nausea is decreasedjb4 22:01 Drug: Ativan IVP 1 mg IVP once Route: IVP; Site: right wrist; jb4 22:30 Follow up: Response: No adverse reaction; Marked relief of symptoms; Anxiety decreased jb4 10/27 01:28 Drug: Ondansetron IVP 4 mg IVP once; over 2 minutes Route: IVP; Site: right wrist; jb4 01:46 Follow up: Response: No adverse reaction; Marked relief of symptoms; Nausea is decreasedjb4 Medication: 00:30 VIS not applicable for this client. jb4 Intake: 10/26 23:30 IV: 1000ml; Total: 1000ml. jb4 Outcome: 10/27 00:59 Discharge ordered by . rt 01:45 Discharged to home via wheelchair, with family, jb4 01:45 Condition: stable 01:45 Discharge instructions given to patient, Instructed on discharge instructions, follow up and referral plans. medication usage, Demonstrated understanding of instructions, follow-up care, medications, Prescriptions given X 2, 01:47 Patient left the ED. jb4 Signatures: Poly Luong, RN RN Mahesh Peter RN RN jb4 González Sanders MD MD rt Yesenia Solomon gm2
--- NOTE | 2024-10-27 00:59 | EDPHYS ---
Physician Documentation [facility] Name: Katherine Akbar Age: 34 yrs Sex: Female : 1990 Arrival Date: 10/26/2024 Time: 20:36 Bed 23 Private MD: ED Physician González Sanders HPI: 10/26 21:58 This 34 yrs old Female presents to ER via Ambulatory with complaints of Nausea/Vomiting.rt 21:58 Patient with history of cyclic vomiting syndrome presents to the ED with nausea, rt vomiting for the past 3 days. Patient states that she is not able to keep down her nausea medicines at home. Denies other acute complaints at this time, symptoms are moderate in severity, no other aggravating or alleviating factors.. Historical: - Allergies: 21:18 No Known Allergies; hb - PMHx: 21:18 Anxiety; cyclic vomiting syndrome; Hypertensive disorder; hb - Immunization history:: Adult Immunizations up to date. - Infectious Disease History:: Denies. - Social history:: Smoking status: Reported history of juuling and/or vaping. - Family history:: not pertinent. ROS: 21:58 Constitutional: Negative for fever, chills, and weight loss, Cardiovascular: Negative rt for chest pain, palpitations, and edema, Respiratory: Negative for shortness of breath, cough, wheezing, and pleuritic chest pain, MS/Extremity: Negative for injury and deformity, Skin: Negative for injury, rash, and discoloration, Neuro: Negative for headache, weakness, numbness, tingling, and seizure, 21:58 Abdomen/GI: Positive for nausea and vomiting, Negative for abdominal pain, Exam: 21:58 Constitutional: This is a well developed, well nourished patient who is awake, alert, rt and in no acute distress. Head/Face: Normocephalic, atraumatic. Chest/axilla: Normal chest wall appearance and motion. Nontender with no deformity. No lesions are appreciated. Cardiovascular: Regular rate and rhythm with a normal S1 and S2. No gallops, murmurs, or rubs. Normal PMI, no JVD. No pulse deficits. Respiratory: Lungs have equal breath sounds bilaterally, clear to auscultation and percussion. No rales, rhonchi or wheezes noted. No increased work of breathing, no retractions or nasal flaring. Abdomen/GI: Soft, non-tender, with normal bowel sounds. No distension or tympany. No guarding or rebound. No evidence of tenderness throughout. Skin: Warm, dry with normal turgor. Normal color with no rashes, no lesions, and no evidence of cellulitis. MS/ Extremity: Pulses equal, no cyanosis. Neurovascular intact. Full, normal range of motion. Neuro: Awake and alert, GCS 15, oriented to person, place, time, and situation. Cranial nerves II-XII grossly intact. Motor strength 5/5 in all extremities. Sensory grossly intact. Cerebellar exam normal. Normal gait. Vital Signs: 21:17 BP 168 / 100; Pulse 80; Resp 18; Temp 97.5(A); Pulse Ox 100% on R/A; Weight 79.38 kg; hb Height 5 ft. 7 in. ; Pain 3; 22:46 BP 149 / 86; Pulse 76; Resp 16; Pulse Ox 100% on R/A; jb4 23:36 BP 150 / 95; Pulse 74; Resp 16; Pulse Ox 100% on R/A; jb4 10/27 00:30 BP 133 / 88; Pulse 71; Resp 16; Pulse Ox 100% on R/A; jb4 10/26 21:17 Body Mass Index 27.41 (79.38 kg, 170.18 cm) hb 10/26 21:17 Pain Scale: Adult hb MDM: 10/26 21:23 Medical Screening Exam initiated rt 10/27 02:02 Differential diagnosis: Cyclic vomiting syndrome, UTI. Data reviewed: vital signs, rt nurses notes, lab test result(s). I considered the following discharge prescriptions or medication management in the emergency department Medications were administered in the Emergency Department. See MAR. Test considered but Not performed: CT: Benign abdominal examination, low suspicion for appendicitis, cholecystitis clinically, low suspicion for ureteral stone, CT scan is not indicated. Care significantly affected by the following chronic conditions: Cyclic vomiting syndrome. Counseling: I had a detailed discussion with the patient and/or guardian regarding the historical points, exam findings, and any diagnostic results supporting the discharge/admit diagnosis, lab results, the need for outpatient follow up. Response to treatment: the patient's symptoms have markedly improved after treatment. 10/26 21:24 Order name: CBC with Diff; Complete Time: 00:15 rt 03/10 21:24 Order name: CMP; Complete Time: 22:37 rt 10/26 21:24 Order name: Lipase; Complete Time: 22:37 rt 10/26 21:24 Order name: Test, Urine; Complete Time: 00:55 rt 10/26 21:24 Order name: Urinalysis w/ reflexes; Complete Time: 00:56 rt 10/26 22:31 Order name: Manual Differential; Complete Time: 00:15 EDMS 10/27 00:59 Order name: Urine Culture EDMS 10/26 21:24 Order name: IV Saline Lock; Complete Time: 22:01 rt 10/26 21:24 Order name: Labs collected and sent; Complete Time: 22:01 rt 10/26 21:24 Order name: PO challenge; Complete Time: 01:28 rt Administered Medications: 10/26 22:01 Drug: NS 0.9% IV 1000 ml IV at 1 bolus Per protocol; to be given as a bolus over 60 jb4 minutes Route: IV; Rate: 1 bolus; Site: right wrist; 23:30 Follow up: Response: No adverse reaction; Marked relief of symptoms; IV Status: jb4 Completed infusion; IV Intake: 1000ml 22:01 Drug: Promethazine IVP 25 mg IVP once {Note: administered in IV fluids..} Route: IVP; jb4 Site: right wrist; 23:30 Follow up: Response: No adverse reaction; Marked relief of symptoms; Nausea is decreasedjb4 22:01 Drug: Ativan IVP 1 mg IVP once Route: IVP; Site: right wrist; jb4 22:30 Follow up: Response: No adverse reaction; Marked relief of symptoms; Anxiety decreased 4 10/27 01:28 Drug: Ondansetron IVP 4 mg IVP once; over 2 minutes Route: IVP; Site: right wrist; jb4 01:46 Follow up: Response: No adverse reaction; Marked relief of symptoms; Nausea is decreasedjb4 Disposition Summary: 10/27/24 00:59 Discharge Ordered Notes: Location: Home rt Problem: an acute exacerbation rt Symptoms: have improved rt Condition: Stable rt Diagnosis - Cyclical vomiting, not intractable rt - UTI/ Urinary tract infection, site not specified rt Followup: rt - With: Private Physician - When: 2 - 3 days - Reason: Discharge Instructions: - Discharge Summary Sheet rt - Urinary Tract Infection, Adult rt - Cyclic Vomiting Syndrome, Adult rt Forms: - Medication Reconciliation Form rt - Antibiotic Education rt - Prescription Opioid Use rt - Patient Portal Instructions rt - Leadership Thank You Letter rt Prescriptions: - promethazine 25 mg Rectal suppository - insert 1 suppository RECTAL route every 4 to 6 hours as needed for nausea; 15 rt suppository; Refills: 0, Product Selection Permitted - cefpodoxime 200 mg Oral tablet - take 1 tablet ORAL route every 12 hours with food; 14 tablet; Refills: 0, rt Product Selection Permitted Signatures: Dispatcher [employer] EDMS Poly Luong, RN RN hb Mahesh Peter RN RN jb4 González Sanders MD MD rt Corrections: (The following items were deleted from the chart) 10/26 21:25 21:25 CBC+H.LAB.BRZ ordered. EDMS EDMS 21:25 21:25 COMPREHENSIVE METABOLIC PANEL+C.LAB.BRZ ordered. EDMS EDMS 21:25 21:25 LIPASE+C.LAB.BRZ ordered. EDMS EDMS 21:25 21:25 Test, Urine+UC.LAB.BRZ ordered. EDMS EDMS 21:25 21:25 Urinalysis+U.LAB.BRZ ordered. EDMS EDMS
[2024-10-27] MEDS ORDERED: ONDANSETRON 4 MG/2 ML VIAL ONE (01:26)
[2024-10-27 02:08] VITALS: TEMP 97.5; O2SAT 100
[2024-10-27 02:12] VITALS: BP 133/88
== END 2024-10-27 01:47 | disposition home or self-care (01) ==
LOC: ER 20:36
DX: R11.15 Cyclical vomiting syndrome unrelated to migraine (principal)
CPT/HCPCS: 36415; 80053; 81003; 81025; 83690; 85025; 87077; 87086; 87088; 87186; 96361; 96374; 96375; 99284; J2405; J2550; J7030

== ENCOUNTER 2025-01-02 11:02 | Emergency (ER) | payer SELFPAY ==
--- OUTSIDE RECORDS SUMMARY | 2025-01-02 11:11 | XMS REPORT | Continuity of Care Document ---
Author Name Unknown Address [address] [place] [address] [facility] Address [address] [place] [address] Care Team Providers Care Cosmetics Presser Name Role Phone JANE BERRY Primary Care Physician Unavailab JANE Sanchez Attending Clinician Unavailable Lisa Mauricio MD Attending Clinician EMELINA ARNDT Attending Clinician Unavailable Adeola Tam LVN Attending Clinician UnavailJane Sheriff Attending Clinician [phone] Jane Osorio Attending Clinician [phone] KRYSTAL MACE Attending Clinician Unavailable KRYSTAL MACE Attending Clinician Unavailable VALERIA JONAS Attending Clinician Unavailable Jennifer Chowdhury Attending Clinician Unavailsintia ble Doctor Unassigned, [place] Attending Clinician U Valeria Madrid MD Attending Clinician [phone] Lisa Mauricio MD Attending Clinician Nurse, [facility] Attending Clinician Edwin Thomas MD, Mahesh Ang Attending Clinician [phone] JANET NGUYEN Attending Clinician Unavailable Patrick TITUS, Janet Attending Clinician [phone] Bella Doran RN Attending Clinician Unavailable [facility], [facility] Attending Clinician Unavailab papito TITUS, Edie Attending Clinician [phone] VERONICA LOONEY Attending Clinician Unavailable Emelina Philip Attending Clinician [phone] LISA MAURICIO Attending Clinician Alexa gina Rodriguez MD, Tomasz Patricio Attending Clinician + [phone] YONY COX Attending Clinician Unavailable Yony Cox MD Attending Clinician [phone] , [facility] Attending Clinician Unavailable TOMASZ RODRIGUEZ Attending Clinician Unavailsintia Bhatt LVN, Alisson Attending Clinician [phone] CATHRYN LINO Attending Clinician Unavailable Sybil Victor Attending Clinician [phone] Bartolo Cervantes MD Attending Clinician [phone] Cathryn Lino DO Attending Clinician [phone] Charlotte Shay RN Attending Clinician Unav ailable EDILMA CANALES Attending Clinician Unavailable [facility] Main Attending Clinician UnavailCORWIN Zhao Attending Clinician Unavailable Margo Michael RN Attending Clinician Unavailable Kalen Chase Attending Clinician [phone] Sonia Oseguera MD Attending Clinician [phone] KALEN YEAGER Attending Clinician Unavailable Dorcas Man DO Attending Clinician [phone] DORCAS MAN Attending Clinician Unavailab JANET Hernández Admitting Clinician Unavailable CATHRYN LINO Admitting Clinician Unavailable Cathryn Lino DO Admitting Clinician [phone] Sonia Oseguera MD Admitting Clinician [phone] Payers Payer Name Policy Type Policy Number Effective Date Expirati on Date Source [employer] [id number] 1 00:00:00 [facility] [id number] 2019 00:00:00 Problems Condition Name Condition Details Condition Category Status Onset Date Resolution Date Last Treatment Date Treating Clinician Comments Source Acute UTI Acute UTI Disease Active 2022-08 00:00: 00 [facility] Vomiting Vomiting Disease Active 2020-08 00:00: 00 [facility] Obesity (BMI 30-39.9) Obesity (BMI 30-39.9) Disease Active 2020-08 00:00: 00 [facility] Anxiety Anxiety Disease Active 01-20 00:00: 00 [facility] PID (pelvic inflammato ry disease) PID (pelvic inflammato ry disease) Disease Active 6 00:00: 00 [facility] Acquired hypothyroi dism Acquired hypothyroi dism Disease Active 2019-08 2- 00:00: 00 [facility] Mild anemia Mild anemia Disease Active 2019-08 2- 00:00: 00 [facility] Vitamin D deficiency Vitamin D deficiency Disease Active 2019-08 2- 00:00: 00 [facility] B12 deficiency B12 deficiency Disease Active 2019-08 2- 00:00: 00 [facility] Mixed hyperlipid emia Mixed hyperlipid emia Disease Active 2019-08 2- 00:00: 00 [facility] Intractabl e nausea and vomiting Intractabl e nausea and vomiting Disease Active 2019-08 0-16 00:00: 00 [facility] Opioid dependence , uncomplica mary Opioid dependence , uncomplica mary Disease Active 7-21 00:00: 00 [facility] Presence of intrauteri ne contracept carolyn device Presence of intrauteri ne contracept carolyn device Disease Active 2018-08 0-23 00:00: 00 Overview: Formattin g of this note might be different from the original. Mirena IUD placed September 2014 at [facility]. Due for removal/r einsertio n September 2019.Beckie [facility] Due for removal/r einsertio n September 2019. [facility] Controlled substance agreement signed Controlled substance agreement signed Disease Active 11-28 00:00: 00 Overview: Formattin g of this note might be different from the original. Formattin g of this note might be different from the original. Signed 11-27-18 - Alprazola m 1mg Tab, 1-2T daily PRN, #45/28-30 DS 019 ALPRAZOLA M 1 MG TABLET #40 27 [id number] LETICIA LEO MD [facility]2018 SUBOXONE 8 MG- 2 MG SL FILM [id number] 03 #28 GAEL DEMPSEY [facility]2018 SUBOXONE 8 MG- 2 MG SL FILM [id number] 03 #28 [facility]EL [facility]2018 ALPRAZOLA M 1 MG TABLET # 40 NATALIE Gomez [facility]2018 SUBOXONE 8 MG- 2 MG SL FILM #28 [facility]EL [facility]2018 ALPRAZOLA M 1 MG TABLET # 45 NATALIE Gomez [facility]2018 [place] 8- 2 MG SL # 2804/06/20 019 ALPRAZOLA M 1 MG TABLET # 45 NATALIE Gomez [facility]2018 ALPRAZOLA M 1 MG TABLET #15 NATALIE Gomez [facility]2018 [place] H[place]- [place] 8- 2 MG SL # 30 GAEL DEMPSEY [employer].10/06 ALPRAZOLA M 1 MG TABLET # 45 LETICIA LEO MD [facility]2018 ALPRAZOLA M 1 MG TABLET # 45 VIVIANA Patricio MD [facility]2017 [place] 8- 2 MG [id number] [facility]2017 ALPRAZOLA M 1 MG [id number] LETICIA LEO MD [facility]2017 [place] 8- 2 MG [id number] GAEL SOLISNASIR Jon RO[facility]N [facility]2017 [place] [facility] 8- 2 MG [id number] GAEL VÁSQUEZ Danay [facility]2017 ALPRAZOLA M 1 MG [id number] [facility]2017 [place] 8- 2 MG SL #4228 [id number] [facility]2017 ALPRAZOLA M 1 MG [id number] [facility] 018 [place] [facility] 8- 2 MG [id number] [facility]2017 [place] 8- 2 MG [id number] [id number] [facility]2017 [place] [facility] [place] 8- 2 MG [id number] [facility]2017 ALPRAZOLA M 1 MG [id number] [facility]2017 [place] [facility] [place] 8- 2 MG [id number] [facility]2017 ALPRAZOLA M 1 MG [id number] [facility] Iron deficiency anemia secondary to inadequate dietary iron intake Iron deficiency anemia secondary to inadequate dietary iron intake Disease Active 2019-0 11-27 00:00: 00 Overview: Formattin g of this note might be different from the original. Formattin g of this note might be different from the original. Pain clinic PA found iron borderlin e low recommend ed OTC iron with vitamin C Pt has been taking since october. [facility] Insomnia Insomnia Disease Active 09-22 00:00: [...] effects of medicatio ns. Recheck in 3m [facility] Seasonal allergies Seasonal allergies Disease Active 09-22 00:00: 00 [facility] Cyclical vomiting with nausea Cyclical vomiting [...] linzess, stool softeners . Recheck as needed [facility] Gallstones Gallstones Disease Active 08 00:00: 00 [facility] Gastropare sis Gastropare sis Disease Active 09-13 00:00: 00 [facility] Prolonged Q-T interval on ECG Prolonged Q-T interval on ECG Disease Active 09-13 00:00: 00 [facility] History of heroin abuse History of heroin abuse Disease Active 3-19 00:00: 00 Overview: Formattin g of this note might be different from the original. Methadone 48mg dailyMeth adone 48mg daily [facility] Generalize d anxiety disorder Generalize d [...] contractC ontract xanax signed 11/27/2018 #45/28-[address] [facility] Constipati on Constipati on Disease Active 02-21 00:00: 00 Overview: Formattin g of this note might be different from the original. Instructe d to monitor closely as close correlati on with N/V gastropar esis triggers Ok to increase stool softeners am and pm and cont linzess Daily stool is great though softer would be better,. [facility] Opioid dependence Opioid dependence Disease Active 02-18 00:00: 00 Overview: Formattin g of this note might be different from the original. Followed [facility] pain clinic suboxone tx Every 1 m 11/04/2018 . See note of 12/18/18: getting methadone in addition to suboxone [facility] SINTIA II (cervical intraepith elial neoplasia II) SINTIA II (cervical intraepith elial neoplasia II) Disease Active 09-09 00:00: 00 Overview: Formattin g of this note might be different from the original. Formattin g of this note might be different from the original. SINTIA II 2014 on leep with negative margins. Repeat pap 2016 negative. Formattin g of this note might be different from the original. Overview: SINTIA II 2014 on leep with negative margins. Repeat pap [address] [facility] History of abnormal cervical Papanicola ou smear History of abnormal cervical Papanicola ou smear Disease Active 08-27 00:00: 00 Overview: Formattin g of this note might be different from the original. PAP UTD per the pt's report (11/2015), was normal. requested the pt have records sent over from gynecolog ist.Forma tting of this note might be different from the original. PAP UTD per the pt's report (11/2015), was normal. requested the pt have records sent over from gynecolog ist. [facility] Recurrent UTI Recurrent UTI Disease Active [facility] Allergies, Adverse Reactions, Alerts Allergy Name Allergy Type Status Severity Reaction(s) Onset Date Inactive Date Treating Clinician Comments Source Prochlor perazine Propensi ty to adverse reaction s Active Other - See comments 04-23 00:00: 00 Per patient was in coma, could hear everythin g but could not make eye contact or communica te verbally/ physicall y. Patient started "twitchin g". [facility] PROCHLOR PERAZINE DRUG INGREDI Active Other-Cmnt 04-23 00:00: 00 [facility] PROCHLOR PERAZINE DRUG INGREDI Active Low Other-Cmnt 02-20 00:00: 00 [facility] Prochlor perazine Propensi ty to adverse [...] ine.Dysto harshal reactionH as tolerated promethaz ine [facility] Social History Social Habit Start Date Stop Date Quantity Comments Source [facility] of tobacco use Smokes tobacco daily [facility] ASSERTION Not [facility] Alcohol intake 2023-11-14 00:00:00 2023-11-14 00:00:00 Current drinker of alcohol (finding) [facility] Alcoholic beverage intake 2023-07-17 00:00:00 2023-07-17 00:00:00 Current drinker of alcohol (finding) [facility] History of Social function 2023-06-19 00:00:00 2023-06-19 00:00:00 [facility] Tobacco use and exposure 2023-06-19 00:00:00 2023-06-19 00:00:00 Smokeless tobacco non-user [facility] Exposure to SARS-CoV-2 (event) 2022-01-30 00:00:00 2022-02-09 10:56:00 Not sure [facility] Tobacco Comment 2020-06-27 00:00:00 2020-06-27 00:00:00 vapes [facility] Sex assigned at 1990 00:00:00 1990 00:00:00 [facility] Smoking Status Start Date Stop Date Source Never smoked tobacco [facility] Smokes tobacco daily 2020-06-27 00:00:00 [facility] Medications Ordered Medication Name Filled Medication Name Start Date Stop Date Current Medication? Ordering Clinician Indication Dosage Frequency Signature (SIG) Comments Components Source CLONIDINE 0.3 mg tablet 08-22 00:00: 00 Yes [id number] .3mg TAKE 1 TABLET BY MOUTH EVERYDAY AT BEDTIME [facility] cloNIDine 0.3 mg tablet 2023-08 00:00: 00 08-22 00:00 :00 No [id number] .[id number] Take 1 tablet by mouth at bedtime. [facility] cloNIDine 0.3 mg tablet 2023-08 00:00: 00 07-27 00:00 :00 No [id number] .3mg Take 1 tablet by mouth at bedtime. [facility] cloNIDine 0.3 mg tablet 2023-08 00:00: 00 06-29 00:00 :00 No [id number] .3mg Take 1 tablet by mouth at bedtime. For anxiety/ Hypertensi on. MUST BE SEEN FOR FURTHER REFILLS [facility] cloNIDine 0.3 mg tablet 2023-08- 00:00: 00 06-15 00:00 :00 No [id number] .3mg Take 1 tablet by mouth at bedtime. For anxiety/ Hypertensi on. MUST BE SEEN FOR FURTHER REFILLS [facility] cloNIDine 0.3 mg tablet 9- 00:00: 00 05-22 00:00 :00 No [id number] .3mg Take 1 tablet by mouth at bedtime. For anxiety/ Hypertensi on [facility] cloNIDine 0.3 mg tablet 16 00:00: 00 04-28 00:00 :00 No [id number] .3mg Take 1 tablet by mouth at bedtime. For anxiety/ Hypertensi on [facility] cloNIDine 0.3 mg tablet 24 00:00: 00 04-03 00:00 :00 No [id number] .3mg Take 1 tablet by mouth at bedtime. For anxiety/ Hypertensi on [facility] cloNIDine 0.3 mg tablet 02-16 00:00: 00 03-11 00:00 :00 No [id number] .3mg Take 1 tablet by mouth at bedtime. For anxiety/ Hypertensi on [facility] cloNIDine 0.3 mg tablet 14 00:00: 00 02-16 00:00 :00 No [id number] .3mg Take 1 tablet by mouth at bedtime. For anxiety/ Hypertensi on [facility] cloNIDine 0.3 mg tablet 4-11 00:00: 00 12-30 00:00 :00 No [id number] .3mg Take 1 tablet by mouth at bedtime. For anxiety/ Hypertensi on [facility] d-mannose 500 mg Cap 10-24 10:48: 01 Yes 1{tbl} Take 1 tablet by mouth in the morning and 1 tablet in the evening. [facility] metoclopram thao HCl 10 mg tablet 10-24 10:47: 26 Yes 10mg Take 1 tablet by mouth in the morning and 1 tablet at noon and 1 tablet in the evening. [facility] ALPRAZolam 1 mg tablet 10-24 10:45: 40 10-24 00:00 :00 No 1mg Take 1 tablet by mouth at bedtime as needed. [facility] Lactobacill us acidophilus (PROBIOTIC ACIDOPHILUS ORAL) 10-24 09:24: 45 Yes 1{tbl} Take 1 tablet by mouth in the morning. [facility] sucralfate 100 mg/mL suspension 10-24 09:12: 10-24 00:00 :00 No 1000mg Take 10 mL by mouth 4 (four) times daily. [facility] naloxegoL 25 mg Tab 10-24 09:12: 20 10-24 00:00 :00 No 25mg Take 25 mg by mouth in the morning. [facility] FLUoxetine 20 mg capsule 10-24 09:12: 10-24 00:00 :00 No 20mg Take 1 capsule by mouth in the morning. [facility] dronabinoL 2.5 mg capsule 10-24:: 10-24 00:00 :00 No 2.5mg Take 1 capsule by mouth in the morning and 1 capsule in the evening. [facility] Nitrofurant oin&Nit. Macrocryst (MACROBID) 100 mg capsule 10-24 00:00: 00 06-29 00:00 :00 No [id number] 100mg Take 1 capsule by mouth as needed for Other (after intercours e to prevent utis). [facility] cloNIDine 0.3 mg tablet 10-20 00:00: 00 11-26 00:00 :00 No [id number] .3mg TAKE 1 TABLET BY MOUTH AT BEDTIME. FOR ANXIETY/ HYPERTENSI ON [facility] Nitrofurant oin&Nit. Macrocryst (MACROBID) 100 mg capsule 10-17 00:00: 00 10-24 00:00 :00 No Take one capsule by mouth at night for [address] UTI prevention [facility] fosfomycin 3 gram packet 10-14 00:00: 00 Yes TAKE 3 G BY MOUTH ONCE NOW FOR [address] [facility] cefTRIAXone (ROCEPHIN) injection 1,000 mg 10-11 18:45: 00 10-11 17:50 :00 No [id number] 1000mg [facility] Lactobacill us acidophilus (PROBIOTIC ACIDOPHILUS ORAL) 10-11 11:39: 07 Yes 1{tbl} Take 1 tablet by mouth in the morning. [facility] Nitrofurant oin&Nit. Macrocryst (MACROBID) 100 mg capsule 10-11 00:00: 00 10-17 00:00 :00 No [id number] 100mg Take 1 capsule by mouth at bedtime. For UTI prevention [facility] CLOTRIMAZOL E 3 DAY 2 % vaginal cream 09-29 00:00: 00 Yes INSERT 1 APPLICATOR INTO VAGINA AT BEDTIME FOR [address] [facility] CLONIDINE 0.3 mg tablet 09-18 00:00: 00 10-20 00:00 :00 No [id number] .3mg TAKE 1 TABLET BY MOUTH AT BEDTIME. FOR ANXIETY/ HYPERTENSI ON [facility] iopamidol (ISOVUE 370-500 mL) injection 100 mL 08-20 04:45: 00 08-20 04:45 :00 No [id number] 100mL 100 mL, Intravenou s, ONCE, 1 dose, On Sat08/19/23 at 2245, Routine [facility] NaCl 0.9% (NS) IV infusion 1,000 mL 08-20 04:15: 00 08-20 05:35 :00 No 1000mL at 999 mL/hr, Intravenou s, ONCE, 1 dose, On Sat08/19/23 at 2215, Routine [facility] piperacilli n-tazobacta m (ZOSYN) 3.375 g in NaCl 0.9% (NS) 100 mL MINI-BAG 08-20 04:00: 00 08-20 05:06 :00 No 3.375g 3.375 g, IV Piggyback, ONCE, 1 dose, On Sat08/19/23 at 2200, Administer over 30 Minutes, 100 mL
Reas on for Anti-Infec tive: Documented Infection< br>Documen mary Infection Site: Urine
D uration of Therapy: Other (see Comments) [facility] ketorolac (TORADOL) injection 30 mg 08-20 04:00: 00 08-20 03:19 :00 No 30mg 30 mg, Slow IV Push, ONCE, 1 dose, On Sat08/19/23 at 2200, [facility] LORazepam (ATIVAN) tablet 0.5 mg 08-20 03:09: 00 08-20 03:19 :00 No .5mg 0.5 mg, Oral, ONCE, 1 dose, On Sat08/19/23 at 2115, [facility] sodium chloride (NS) injection 5 mL 08-20 02:12: 33 Yes 5mL 5 mL, Intravenou s, PRN, Starting on Sat08/19/23 at 2012, Until Discontinu ed, Routine, IV line flushing [facility] Nitrofurant oin&Nit. Macrocryst (MACROBID) 100 mg capsule 08-20 00:00: 00 08-28 05:59 :00 No [id number] 100mg Take 1 capsule by mouth at bedtime for [address] [facility] fosfomycin 3 gram packet 08-20 00:00: 00 08-21 05:59 :00 No [id number] 3g Take 3 g by mouth once now for [address] [facility] amoxicillin -clavulanat e 875-125 mg per tablet 08-19 00:00: 00 08-30 05:59 :00 No [id number] 1{tbl} Take 1 tablet by mouth in the morning and 1 tablet in the evening. Do all this for [address] [facility] proMETHazin e 25 mg tablet 2022-08 00:00: 00 Yes [id number] 25mg Take 1 tablet by mouth every 6 (six) hours as needed for N/V unresponsi ve to Ondansetro n. [facility] cloNIDine 0.3 mg tablet 2022-08 00:00: 00 09-18 00:00 :00 No [id number] .3mg Take 1 tablet by mouth at bedtime. For anxiety/ Hypertensi on [facility] amoxicillin -pot clavulanate 500 mg 500-125 mg tablet 2022-08 00:00: 00 07-04 05:59 :00 No [id number] 500mg Take 1 tablet by mouth in the morning and 1 tablet in the evening. Do all this for 7 days. Take daily probiotic. Take with food. [facility] clotrimazol e 2 % vaginal cream 2022-08 00:00: 00 06-30 05:59 :00 No [id number] 1{appli cator} Insert 1 Applicator into vagina at bedtime for [address] [facility] sucralfate 100 mg/mL suspension 2022-08 16:43: 48 Yes 1000mg Take 10 mL by mouth 4 (four) times daily. [facility] naloxegoL 25 mg Tab 2022-08 16:43: 48 Yes 25mg Take 25 mg by mouth in the morning. [facility] metoclopram thao HCl 10 mg tablet 2022-08 16:43: 48 Yes 10mg Take 1 tablet by mouth in the morning and 1 tablet at noon and 1 tablet in the evening. [facility] linaCLOtide 72 mcg Cap 2022-08 16:43: 48 Yes 72ug Take 1 capsule by mouth in the morning. [facility] FLUoxetine 20 mg capsule 2022-08 16:43: 48 Yes 20mg Take 1 capsule by mouth in the morning. [facility] dronabinoL 2.5 mg capsule 2022-08 16:43: 48 Yes 2.5mg Take 1 capsule by mouth in the morning and 1 capsule in the evening. [facility] ALPRAZolam 1 mg tablet 2022-08 16:43: 48 Yes 1mg Take 1 tablet by mouth at bedtime as needed. [facility] methadone HCl (METHADONE ORAL) 2022-08 16:43: 48 Yes 80mg Take 80 mg by mouth daily. [facility] cefUROXime 250 mg tablet 2022-08 00:00: 00 06-27 05:59 :00 No [id number] 250mg Take 1 tablet by mouth in the morning and 1 tablet in the evening. Do all this for [address] [facility] CLONIDINE 0.3 mg tablet 01-23 00:00: 00 08-14 00:00 :00 No [id number] .3mg TAKE 1 TABLET BY MOUTH AT BEDTIME. FOR ANXIETY/ HYPERTENSI ON [facility] cloNIDine 0.3 mg tablet 12-21 00:00: 00 01-23 00:00 :00 No [id number] .3mg Take 1 tablet by mouth at bedtime. For anxiety/ Hypertensi on [facility] sucralfate 100 mg/mL suspension 12-17 17:05: 35 Yes 1000mg Take 10 mL by mouth 4 (four) times daily. [facility] naloxegoL 25 mg Tab 12-17 17:05: 35 Yes 25mg Take 25 mg by mouth in the morning. [facility] metoclopram thao HCl 10 mg tablet 12-17 17:05: 35 Yes 10mg Take 1 tablet by mouth in the morning and 1 tablet at noon and 1 tablet in the evening. [facility] linaCLOtide 72 mcg Cap 12-17 17:05: 35 Yes 72ug Take 1 capsule by mouth in the morning. [facility] FLUoxetine 20 mg capsule 12-17 17:05: 35 Yes 20mg Take 1 capsule by mouth in the morning. [facility] dronabinoL 2.5 mg capsule 12-17 17:05: 35 Yes 2.5mg Take 1 capsule by mouth in the morning and 1 capsule in the evening. [facility] ALPRAZolam 1 mg tablet 12-17 17:05: 35 Yes 1mg Take 1 tablet by mouth at bedtime as needed. [facility] proMETHazin e 25 mg tablet 2023-0 4-03 00:00: 00 08-14 00:00 :00 No [id number] 25mg Take 1 tablet by mouth every 6 (six) hours as needed for N/V unresponsi ve to Ondansetro n. [facility] cloNIDine 0.3 mg tablet 4-03 00:00: 00 12-21 00:00 :00 No [id number] .3mg Take 1 tablet by mouth at bedtime. For anxiety/ Hypertensi on [facility] chlorhexidi ne 0.12 % mouthwash 3-06 00:00: 00 10-24 00:00 :00 No RINSE MOUTH WITH 15ML (1 CAPFUL) FOR 30 SECONDS IN MORNING AND EVENING AFTER BRUSHING, THEN SPIT [facility] cloNIDine 0.3 mg tablet 1- 00:00: 00 11-16 00:00 :00 No [id number] .3mg Take 1 tablet by mouth at bedtime. For anxiety/ Hypertensi on [facility] proMETHazin e 25 mg tablet 2021-08 2-09 00:00: 00 11-16 00:00 :00 No [id number] 25mg Take 1 tablet by mouth every 6 (six) hours as needed for N/V unresponsi ve to Ondansetro n. [facility] cloNIDine 0.3 mg tablet 2021-08 2-08 00:00: 00 08-29 00:00 :00 No [id number] .3mg Take 1 tablet by mouth at bedtime. For anxiety/ Hypertensi on [facility] cloNIDine 0.3 mg tablet 9-14 00:00: 00 Yes [id number] .3mg Take 1 tablet by mouth at bedtime. For anxiety/ Hypertensi on [facility] proMETHazin e 25 mg suppository 9-04 00:00: 00 12-17 00:00 :00 No [id number] 25mg Insert 1 Suppositor y into rectum every 4 (four) hours as needed for Nausea and Vomiting (N/V). [facility] proMETHazin e 25 mg tablet -04 00:00: 00 07-27 00:00 :00 No [id number] 25mg Take 1 tablet by mouth every 6 (six) hours as needed for N/V unresponsi ve to Ondansetro n. [facility] cloNIDine 0.3 mg tablet 02-09 00:00: 00 05-02 00:00 :00 No [id number] .3mg Take 1 tablet by mouth at bedtime. For anxiety/ Hypertensi on [facility] proMETHazin e 25 mg suppository 02-09 00:00: 00 04-22 00:00 :00 No [id number] 25mg Insert 1 Suppositor y into rectum every 4 (four) hours as needed for Nausea and Vomiting (N/V). [facility] proMETHazin e 25 mg tablet 02-09 00:00: 00 04-22 00:00 :00 No [id number] 25mg Take 1 tablet by mouth every 6 (six) hours as needed for N/V unresponsi ve to Ondansetro n. [facility] methadone HCl (METHADONE ORAL) 01-22 03:52: 52 Yes 80mg Take 80 mg by mouth daily. [facility] cefdinir 300 mg capsule 01-22 00:00: 00 12-17 00:00 :00 No [id number] 300mg Take 1 capsule by mouth 2 (two) times daily. [facility] proMETHazin e 25 mg tablet 01-22 00:00: 00 02-09 00:00 :00 No [id number] 25mg Take 1 tablet by mouth every 6 (six) hours as needed for N/V unresponsi ve to Ondansetro n. [facility] ondansetron (ZOFRAN) 8 mg tablet 01-22 00:00: 00 02-09 00:00 :00 No [id number] 8mg Take 1 tablet by mouth every 8 (eight) hours as needed for Nausea and Vomiting (N/V) or N/V unresponsi ve to Promethazi ne. [facility] proMETHazin e 25 mg suppository 01-22 00:00: 00 02-09 00:00 :00 No [id number] 25mg Insert 1 Suppositor y into rectum every 4 (four) hours as needed for Nausea and Vomiting (N/V). [facility] CLONIDINE 0.3 mg tablet 11-07 00:00: 00 02-09 00:00 :00 No [id number] .3mg TAKE 1 TABLET BY MOUTH AT BEDTIME. FOR ANXIETY/ HYPERTENSI ON [facility] LEVOTHYROXI NE 25 mcg tablet 10-16 00:00: 00 10-24 00:00 :00 No [id number] TAKE 1 TABLET BY MOUTH EVERY DAY IN THE MORNING [facility] ondansetron (ZOFRAN ODT) 8 mg disintegrat ing tablet 2020-08 00:00: 00 02-09 00:00 :00 No [id number] 8mg Take 1 tablet by mouth every 8 (eight) hours as needed for Nausea and Vomiting (N/V). [facility] ERGOCALCIFE ROL, VITAMIN D2, 1,250 mcg (50,000 unit) capsule 01-11 00:00: 00 Yes [id number] TAKE 1 CAPSULE BY MOUTH WEEKLY. TAKE WITH FOOD. [facility] levonorgest reL (LILETTA) 20.4 mcg/24 hrs (8 yrs) 52 mg IUD 03-01 00:00: 00 10-24 00:00 :00 No by Intrauteri ne route. Lot # [id number] EXP: 03/2023 Date to be replaced 03/01/2026 [facility] Immunizations Ordered Immunization Name Filled Immunization Name Date Status Comments Source Flu Injectable MDCK Pres-Free (FLUCELVAX) 2024-06-29 00:00:00 Completed TDAP 2024-06-29 00:00:00 Completed Influenza Virus Vaccine Quad IM, Preserv and ABX Free 6 MO-64 YRS 2021-07-27 00:00:00 Completed [facility] Influenza Virus Vaccine Quad IM, Preserv and ABX Free 6 MO-64 YRS 2021-07-27 00:00:00 Completed [facility] Influenza Virus Vaccine Quad IM, Preserv and ABX Free 6 MO-64 YRS 2021-07-27 00:00:00 Completed [facility] Influenza Virus Vaccine Quad IM, Preserv and ABX Free 6 MO-64 YRS 2021-07-27 00:00:00 Completed [facility] Influenza Virus Vaccine Quad IM, Preserv and ABX Free 6 MO-64 YRS 2021-07-27 00:00:00 Completed [facility] Influenza Virus Vaccine Quad IM, Preserv and ABX Free 6 MO-64 YRS 2021-07-27 00:00:00 Completed [facility] Influenza Virus Vaccine Quad IM, Preserv and ABX Free 6 MO-64 YRS 2021-07-27 00:00:00 Completed [facility] Influenza Virus Vaccine Quad IM, Preserv and ABX Free 6 MO-64 YRS 2021-07-27 00:00:00 Completed [facility] Influenza Virus Vaccine Quad IM, Preserv and ABX Free 6 MO-64 YRS 2021-07-27 00:00:00 Completed [facility] Influenza Virus Vaccine Quad IM, Preserv and ABX Free 6 MO-64 YRS 2021-07-27 00:00:00 Completed [facility] Influenza Virus Vaccine Quad IM, Preserv and ABX Free 6 MO-64 YRS 2021-07-27 00:00:00 Completed [facility] Influenza Virus Vaccine Quad IM, Preserv and ABX Free 6 MO-64 YRS (FLUCELVAX) 2021-07-27 00:00:00 Completed [facility] SARS-COV-2 COVID-19 PFIZER VACCINE 2021-04-16 00:00:00 Completed [facility] SARS-COV-2 COVID-19 PFIZER VACCINE 2021-04-16 00:00:00 Completed [facility] SARS-COV-2 COVID-19 PFIZER VACCINE 2021-04-16 00:00:00 Completed [facility] SARS-COV-2 COVID-19 PFIZER VACCINE 2021-04-16 00:00:00 Completed [facility] SARS-COV-2 COVID-19 PFIZER VACCINE 2021-04-16 00:00:00 Completed [facility] SARS-COV-2 COVID-19 PFIZER VACCINE 2021-04-16 00:00:00 Completed [facility] SARS-COV-2 COVID-19 PFIZER VACCINE 2021-04-16 00:00:00 Completed [facility] SARS-COV-2 COVID-19 PFIZER VACCINE 2021-04-16 00:00:00 Completed [facility] SARS-COV-2 COVID-19 PFIZER VACCINE 2021-04-16 00:00:00 Completed [facility] SARS-COV-2 COVID-19 PFIZER VACCINE 2021-04-16 00:00:00 Completed [facility] SARS-COV-2 COVID-19 PFIZER VACCINE 2021-04-16 00:00:00 Completed [facility] SARS-COV-2 COVID-19 PFIZER VACCINE 2021-04-16 00:00:00 Completed SARS-COV-2 COVID-19 PFIZER VACCINE 2021-03-26 00:00:00 Completed [facility] SARS-COV-2 COVID-19 PFIZER VACCINE 2021-03-26 00:00:00 Completed [facility] SARS-COV-2 COVID-19 PFIZER VACCINE 2021-03-26 00:00:00 Completed [facility] SARS-COV-2 COVID-19 PFIZER VACCINE 2021-03-26 00:00:00 Completed [facility] SARS-COV-2 COVID-19 PFIZER VACCINE 2021-03-26 00:00:00 Completed [facility] SARS-COV-2 COVID-19 PFIZER VACCINE 2021-03-26 00:00:00 Completed [facility] SARS-COV-2 COVID-19 PFIZER VACCINE 2021-03-26 00:00:00 Completed [facility] SARS-COV-2 COVID-19 PFIZER VACCINE 2021-03-26 00:00:00 Completed [facility] SARS-COV-2 COVID-19 PFIZER VACCINE 2021-03-26 00:00:00 Completed [facility] SARS-COV-2 COVID-19 PFIZER VACCINE 2021-03-26 00:00:00 Completed [facility] SARS-COV-2 COVID-19 PFIZER VACCINE 2021-03-26 00:00:00 Completed [facility] SARS-COV-2 COVID-19 PFIZER VACCINE 2021-03-26 00:00:00 Completed Influenza Virus Vaccine Quad .5 mL IM 6+ MO 2020-06-27 00:00:00 Completed [facility] Influenza Virus Vaccine Quad .5 mL IM 6+ MO 2020-06-27 00:00:00 Completed [facility] Influenza Virus Vaccine Quad .5 mL IM 6+ MO 2020-06-27 00:00:00 Completed [facility] Influenza Virus Vaccine Quad .5 mL IM 6+ MO 2020-06-27 00:00:00 Completed [facility] Influenza Virus Vaccine Quad .5 mL IM 6+ MO 2020-06-27 00:00:00 Completed [facility] Influenza Virus Vaccine Quad .5 mL IM 6+ MO 2020-06-27 00:00:00 Completed [facility] Influenza Virus Vaccine Quad .5 mL IM 6+ MO 2020-06-27 00:00:00 Completed [facility] Influenza Virus Vaccine Quad .5 mL IM 6+ MO 2020-06-27 00:00:00 Completed [facility] Influenza Virus Vaccine Quad .5 mL IM 6+ MO 2020-06-27 00:00:00 Completed [facility] Influenza Virus Vaccine Quad .5 mL IM 6+ MO 2020-06-27 00:00:00 Completed [facility] Influenza Virus Vaccine Quad .5 mL IM 6+ MO 2020-06-27 00:00:00 Completed [facility] Influenza Virus Vaccine Quad .5 mL IM 6+ MO (FLUZONE/FLULAVAL/F LUARIX) 2020-06-27 00:00:00 Completed [facility] Influenza Virus Vaccine 2019-07-09 00:00:00 Completed [facility] Influenza Virus Vaccine 2019-07-09 00:00:00 Completed [facility] Influenza Virus Vaccine 2019-07-09 00:00:00 Completed [facility] Influenza Virus Vaccine 2019-07-09 00:00:00 Completed [facility] Influenza Virus Vaccine 2019-07-09 00:00:00 Completed [facility] Influenza Virus Vaccine 2019-07-09 00:00:00 Completed [facility] Influenza Virus Vaccine 2019-07-09 00:00:00 Completed [facility] Influenza Virus Vaccine 2019-07-09 00:00:00 Completed [facility] Influenza Virus Vaccine 2019-07-09 00:00:00 Completed [facility] Influenza Virus Vaccine 2019-07-09 00:00:00 Completed [facility] Influenza Virus Vaccine 2019-07-09 00:00:00 Completed [facility] Influenza Virus Vaccine 2019-07-09 00:00:00 Completed Influenza Virus Vaccine 2018-07-01 00:00:00 Completed [facility] Influenza Virus Vaccine Quad IM 3+ YRS 2018-07-01 00:00:00 Completed [facility] Influenza Virus Vaccine 2018-07-01 00:00:00 Completed [facility] Influenza Virus Vaccine Quad IM 3+ YRS 2018-07-01 00:00:00 Completed [facility] Influenza Virus Vaccine 2018-07-01 00:00:00 Completed [facility] Influenza Virus Vaccine Quad IM 3+ YRS 2018-07-01 00:00:00 Completed [facility] Influenza Virus Vaccine 2018-07-01 00:00:00 Completed [facility] Influenza Virus Vaccine Quad IM 3+ YRS 2018-07-01 00:00:00 Completed [facility] Influenza Virus Vaccine 2018-07-01 00:00:00 Completed [facility] Influenza Virus Vaccine Quad IM 3+ YRS 2018-07-01 00:00:00 Completed [facility] Influenza Virus Vaccine 2018-07-01 00:00:00 Completed [facility] Influenza Virus Vaccine Quad IM 3+ YRS 2018-07-01 00:00:00 Completed [facility] Influenza Virus Vaccine 2018-07-01 00:00:00 Completed [facility] Influenza Virus Vaccine Quad IM 3+ YRS 2018-07-01 00:00:00 Completed [facility] Influenza Virus Vaccine 2018-07-01 00:00:00 Completed [facility] Influenza Virus Vaccine Quad IM 3+ YRS 2018-07-01 00:00:00 Completed [facility] Influenza Virus Vaccine 2018-07-01 00:00:00 Completed [facility] Influenza Virus Vaccine Quad IM 3+ YRS 2018-07-01 00:00:00 Completed [facility] Influenza Virus Vaccine 2018-07-01 00:00:00 Completed [facility] Influenza Virus Vaccine Quad IM 3+ YRS 2018-07-01 00:00:00 Completed [facility] Influenza Virus Vaccine 2018-07-01 00:00:00 Completed [facility] Influenza Virus Vaccine Quad IM 3+ YRS 2018-07-01 00:00:00 Completed [facility] Influenza Virus Vaccine 2018-07-01 00:00:00 Completed Influenza Virus Vaccine Quad IM 3+ YRS 2018-07-01 00:00:00 Completed Influenza Virus Vaccine 2017-05-20 00:00:00 Completed [facility] Influenza Virus Vaccine Quad IM 3+ YRS 2017-05-20 00:00:00 Completed [facility] Influenza Virus Vaccine 2017-05-20 00:00:00 Completed [facility] Influenza Virus Vaccine Quad IM 3+ YRS 2017-05-20 00:00:00 Completed [facility] Influenza Virus Vaccine 2017-05-20 00:00:00 Completed [facility] Influenza Virus Vaccine Quad IM 3+ YRS 2017-05-20 00:00:00 Completed [facility] Influenza Virus Vaccine 2017-05-20 00:00:00 Completed [facility] Influenza Virus Vaccine Quad IM 3+ YRS 2017-05-20 00:00:00 Completed [facility] Influenza Virus Vaccine 2017-05-20 00:00:00 Completed [facility] Influenza Virus Vaccine Quad IM 3+ YRS 2017-05-20 00:00:00 Completed [facility] Influenza Virus Vaccine 2017-05-20 00:00:00 Completed [facility] Influenza Virus Vaccine Quad IM 3+ YRS 2017-05-20 00:00:00 Completed [facility] Influenza Virus Vaccine 2017-05-20 00:00:00 Completed [facility] Influenza Virus Vaccine Quad IM 3+ YRS 2017-05-20 00:00:00 Completed [facility] Influenza Virus Vaccine 2017-05-20 00:00:00 Completed [facility] Influenza Virus Vaccine Quad IM 3+ YRS 2017-05-20 00:00:00 Completed [facility] Influenza Virus Vaccine 2017-05-20 00:00:00 Completed [facility] Influenza Virus Vaccine Quad IM 3+ YRS 2017-05-20 00:00:00 Completed [facility] Influenza Virus Vaccine 2017-05-20 00:00:00 Completed [facility] Influenza Virus Vaccine Quad IM 3+ YRS 2017-05-20 00:00:00 Completed [facility] Influenza Virus Vaccine 2017-05-20 00:00:00 Completed [facility] Influenza Virus Vaccine Quad IM 3+ YRS 2017-05-20 00:00:00 Completed [facility] Influenza Virus Vaccine 2017-05-20 00:00:00 Completed Influenza Virus Vaccine Quad IM 3+ YRS 2017-05-20 00:00:00 Completed Influenza Virus Vaccine 2016-05-16 00:00:00 Completed [facility] Influenza Virus Vaccine Quad IM 3+ YRS 2016-05-16 00:00:00 Completed [facility] Influenza Virus Vaccine 2016-05-16 00:00:00 Completed [facility] Influenza Virus Vaccine Quad IM 3+ YRS 2016-05-16 00:00:00 Completed [facility] Influenza Virus Vaccine 2016-05-16 00:00:00 Completed [facility] Influenza Virus Vaccine Quad IM 3+ YRS 2016-05-16 00:00:00 Completed [facility] Influenza Virus Vaccine 2016-05-16 00:00:00 Completed [facility] Influenza Virus Vaccine Quad IM 3+ YRS 2016-05-16 00:00:00 Completed [facility] Influenza Virus Vaccine 2016-05-16 00:00:00 Completed [facility] Influenza Virus Vaccine Quad IM 3+ YRS 2016-05-16 00:00:00 Completed [facility] Influenza Virus Vaccine 2016-05-16 00:00:00 Completed [facility] Influenza Virus Vaccine Quad IM 3+ YRS 2016-05-16 00:00:00 Completed [facility] Influenza Virus Vaccine 2016-05-16 00:00:00 Completed [facility] Influenza Virus Vaccine Quad IM 3+ YRS 2016-05-16 00:00:00 Completed [facility] Influenza Virus Vaccine 2016-05-16 00:00:00 Completed [facility] Influenza Virus Vaccine Quad IM 3+ YRS 2016-05-16 00:00:00 Completed [facility] Influenza Virus Vaccine 2016-05-16 00:00:00 Completed [facility] Influenza Virus Vaccine Quad IM 3+ YRS 2016-05-16 00:00:00 Completed [facility] Influenza Virus Vaccine 2016-05-16 00:00:00 Completed [facility] Influenza Virus Vaccine Quad IM 3+ YRS 2016-05-16 00:00:00 Completed [facility] Influenza Virus Vaccine 2016-05-16 00:00:00 Completed [facility] Influenza Virus Vaccine Quad IM 3+ YRS 2016-05-16 00:00:00 Completed [facility] Influenza Virus Vaccine 2016-05-16 00:00:00 Completed Influenza Virus Vaccine Quad IM 3+ YRS 2016-05-16 00:00:00 Completed Influenza Virus Vaccine 2015-07-13 00:00:00 Completed [facility] Influenza Virus Vaccine Quad IM 3+ YRS 2015-07-13 00:00:00 Completed [facility] Influenza Virus Vaccine 2015-07-13 00:00:00 Completed [facility] Influenza Virus Vaccine Quad IM 3+ YRS 2015-07-13 00:00:00 Completed [facility] Influenza Virus Vaccine 2015-07-13 00:00:00 Completed [facility] Influenza Virus Vaccine Quad IM 3+ YRS 2015-07-13 00:00:00 Completed [facility] Influenza Virus Vaccine 2015-07-13 00:00:00 Completed [facility] Influenza Virus Vaccine Quad IM 3+ YRS 2015-07-13 00:00:00 Completed [facility] Influenza Virus Vaccine 2015-07-13 00:00:00 Completed [facility] Influenza Virus Vaccine Quad IM 3+ YRS 2015-07-13 00:00:00 Completed [facility] Influenza Virus Vaccine 2015-07-13 00:00:00 Completed [facility] Influenza Virus Vaccine Quad IM 3+ YRS 2015-07-13 00:00:00 Completed [facility] Influenza Virus Vaccine 2015-07-13 00:00:00 Completed [facility] Influenza Virus Vaccine Quad IM 3+ YRS 2015-07-13 00:00:00 Completed [facility] Influenza Virus Vaccine 2015-07-13 00:00:00 Completed [facility] Influenza Virus Vaccine Quad IM 3+ YRS 2015-07-13 00:00:00 Completed [facility] Influenza Virus Vaccine 2015-07-13 00:00:00 Completed [facility] Influenza Virus Vaccine Quad IM 3+ YRS 2015-07-13 00:00:00 Completed [facility] Influenza Virus Vaccine 2015-07-13 00:00:00 Completed [facility] Influenza Virus Vaccine Quad IM 3+ YRS 2015-07-13 00:00:00 Completed [facility] Influenza Virus Vaccine 2015-07-13 00:00:00 Completed [facility] Influenza Virus Vaccine Quad IM 3+ YRS 2015-07-13 00:00:00 Completed [facility] Influenza Virus Vaccine 2015-07-13 00:00:00 Completed Influenza Virus Vaccine Quad IM 3+ YRS 2015-07-13 00:00:00 Completed Influenza Virus Vaccine 2015-04-19 00:00:00 Completed [facility] Influenza Virus Vaccine Quad IM 3+ YRS 2015-04-19 00:00:00 Completed [facility] Influenza Virus Vaccine (3+ yrs) 2015-04-19 00:00:00 Completed [facility] Influenza Virus Vaccine 2015-04-19 00:00:00 Completed [facility] Influenza Virus Vaccine Quad IM 3+ YRS 2015-04-19 00:00:00 Completed [facility] Influenza Virus Vaccine (3+ yrs) 2015-04-19 00:00:00 Completed [facility] Influenza Virus Vaccine 2015-04-19 00:00:00 Completed [facility] Influenza Virus Vaccine Quad IM 3+ YRS 2015-04-19 00:00:00 Completed [facility] Influenza Virus Vaccine (3+ yrs) 2015-04-19 00:00:00 Completed [facility] Influenza Virus Vaccine 2015-04-19 00:00:00 Completed [facility] Influenza Virus Vaccine Quad IM 3+ YRS 2015-04-19 00:00:00 Completed [facility] Influenza Virus Vaccine (3+ yrs) 2015-04-19 00:00:00 Completed [facility] Influenza Virus Vaccine 2015-04-19 00:00:00 Completed [facility] Influenza Virus Vaccine Quad IM 3+ YRS 2015-04-19 00:00:00 Completed [facility] Influenza Virus Vaccine (3+ yrs) 2015-04-19 00:00:00 Completed [facility] Influenza Virus Vaccine 2015-04-19 00:00:00 Completed [facility] Influenza Virus Vaccine Quad IM 3+ YRS 2015-04-19 00:00:00 Completed [facility] Influenza Virus Vaccine (3+ yrs) 2015-04-19 00:00:00 Completed [facility] Influenza Virus Vaccine 2015-04-19 00:00:00 Completed [facility] Influenza Virus Vaccine Quad IM 3+ YRS 2015-04-19 00:00:00 Completed [facility] Influenza Virus Vaccine (3+ yrs) 2015-04-19 00:00:00 Completed [facility] Influenza Virus Vaccine 2015-04-19 00:00:00 Completed [facility] Influenza Virus Vaccine Quad IM 3+ YRS 2015-04-19 00:00:00 Completed [facility] Influenza Virus Vaccine (3+ yrs) 2015-04-19 00:00:00 Completed [facility] Influenza Virus Vaccine 2015-04-19 00:00:00 Completed [facility] Influenza Virus Vaccine Quad IM 3+ YRS 2015-04-19 00:00:00 Completed [facility] Influenza Virus Vaccine (3+ yrs) 2015-04-19 00:00:00 Completed [facility] Influenza Virus Vaccine 2015-04-19 00:00:00 Completed [facility] Influenza Virus Vaccine Quad IM 3+ YRS 2015-04-19 00:00:00 Completed [facility] Influenza Virus Vaccine (3+ yrs) 2015-04-19 00:00:00 Completed [facility] Influenza Virus Vaccine 2015-04-19 00:00:00 Completed [facility] Influenza Virus Vaccine Quad IM 3+ YRS 2015-04-19 00:00:00 Completed [facility] Influenza Virus Vaccine (3+ yrs) 2015-04-19 00:00:00 Completed [facility] Influenza Virus Vaccine 2015-04-19 00:00:00 Completed Influenza Virus Vaccine Quad IM 3+ YRS 2015-04-19 00:00:00 Completed Influenza, split virus, trivalent, preservative (3+ Yrs) (Afluria) 2015-04-19 00:00:00 Completed Influenza, split virus, trivalent, PF (AFLURIA/FLUARIX/FL ULAVAL/FLUZONE) 2015-04-19 00:00:00 Completed Influenza Virus Vaccine 2014-06-01 00:00:00 Completed [facility] Influenza Virus Vaccine Quad Nasal 2014-06-01 00:00:00 Completed [facility] Influenza Virus Vaccine 2014-06-01 00:00:00 Completed [facility] Influenza Virus Vaccine Quad Nasal 2014-06-01 00:00:00 Completed [facility] Influenza Virus Vaccine 2014-06-01 00:00:00 Completed [facility] Influenza Virus Vaccine Quad Nasal 2014-06-01 00:00:00 Completed [facility] Influenza Virus Vaccine 2014-06-01 00:00:00 Completed [facility] Influenza Virus Vaccine Quad Nasal 2014-06-01 00:00:00 Completed [facility] Influenza Virus Vaccine 2014-06-01 00:00:00 Completed [facility] Influenza Virus Vaccine Quad Nasal 2014-06-01 00:00:00 Completed [facility] Influenza Virus Vaccine 2014-06-01 00:00:00 Completed [facility] Influenza Virus Vaccine Quad Nasal 2014-06-01 00:00:00 Completed [facility] Influenza Virus Vaccine 2014-06-01 00:00:00 Completed [facility] Influenza Virus Vaccine Quad Nasal 2014-06-01 00:00:00 Completed [facility] Influenza Virus Vaccine 2014-06-01 00:00:00 Completed [facility] Influenza Virus Vaccine Quad Nasal 2014-06-01 00:00:00 Completed [facility] Influenza Virus Vaccine 2014-06-01 00:00:00 Completed [facility] Influenza Virus Vaccine Quad Nasal 2014-06-01 00:00:00 Completed [facility] Influenza Virus Vaccine 2014-06-01 00:00:00 Completed [facility] Influenza Virus Vaccine Quad Nasal 2014-06-01 00:00:00 Completed [facility] Influenza Virus Vaccine 2014-06-01 00:00:00 Completed Influenza Virus Vaccine Quad Nasal (Flumist) 2014-06-01 00:00:00 Completed Influenza Virus Vaccine 2014-06-01 00:00:00 Completed [facility] Influenza Virus Vaccine Quad Nasal 2014-06-01 00:00:00 Completed [facility] Influenza Virus Vaccine 2013-08-14 00:00:00 Completed [facility] Influenza Virus Vaccine Quad Nasal 2013-08-14 00:00:00 Completed [facility] Influenza Virus Vaccine 2013-08-14 00:00:00 Completed [facility] Influenza Virus Vaccine Quad Nasal 2013-08-14 00:00:00 Completed [facility] Influenza Virus Vaccine 2013-08-14 00:00:00 Completed [facility] Influenza Virus Vaccine Quad Nasal 2013-08-14 00:00:00 Completed [facility] Influenza Virus Vaccine 2013-08-14 00:00:00 Completed [facility] Influenza Virus Vaccine Quad Nasal 2013-08-14 00:00:00 Completed [facility] Influenza Virus Vaccine 2013-08-14 00:00:00 Completed [facility] Influenza Virus Vaccine Quad Nasal 2013-08-14 00:00:00 Completed [facility] Influenza Virus Vaccine 2013-08-14 00:00:00 Completed [facility] Influenza Virus Vaccine Quad Nasal 2013-08-14 00:00:00 Completed [facility] Influenza Virus Vaccine 2013-08-14 00:00:00 Completed [facility] Influenza Virus Vaccine Quad Nasal 2013-08-14 00:00:00 Completed [facility] Influenza Virus Vaccine 2013-08-14 00:00:00 Completed [facility] Influenza Virus Vaccine Quad Nasal 2013-08-14 00:00:00 Completed [facility] Influenza Virus Vaccine 2013-08-14 00:00:00 Completed [facility] Influenza Virus Vaccine Quad Nasal 2013-08-14 00:00:00 Completed [facility] Influenza Virus Vaccine 2013-08-14 00:00:00 Completed [facility] Influenza Virus Vaccine Quad Nasal 2013-08-14 00:00:00 Completed [facility] Influenza Virus Vaccine 2013-08-14 00:00:00 Completed [facility] Influenza Virus Vaccine Quad Nasal 2013-08-14 00:00:00 Completed [facility] Influenza Virus Vaccine 2013-08-14 00:00:00 Completed Influenza Virus Vaccine Quad Nasal (Flumist) 2013-08-14 00:00:00 Completed Influenza Virus Vaccine 2012-05-16 00:00:00 Completed [facility] Influenza Virus Vaccine Quad IM 3+ YRS 2012-05-16 00:00:00 Completed [facility] Influenza Virus Vaccine (3+ yrs) 2012-05-16 00:00:00 Completed [facility] Influenza Virus Vaccine 2012-05-16 00:00:00 Completed [facility] Influenza Virus Vaccine Quad IM 3+ YRS 2012-05-16 00:00:00 Completed [facility] Influenza Virus Vaccine (3+ yrs) 2012-05-16 00:00:00 Completed [facility] Influenza Virus Vaccine 2012-05-16 00:00:00 Completed [facility] Influenza Virus Vaccine Quad IM 3+ YRS 2012-05-16 00:00:00 Completed [facility] Influenza Virus Vaccine (3+ yrs) 2012-05-16 00:00:00 Completed [facility] Influenza Virus Vaccine 2012-05-16 00:00:00 Completed [facility] Influenza Virus Vaccine Quad IM 3+ YRS 2012-05-16 00:00:00 Completed [facility] Influenza Virus Vaccine (3+ yrs) 2012-05-16 00:00:00 Completed [facility] Influenza Virus Vaccine 2012-05-16 00:00:00 Completed [facility] Influenza Virus Vaccine Quad IM 3+ YRS 2012-05-16 00:00:00 Completed [facility] Influenza Virus Vaccine (3+ yrs) 2012-05-16 00:00:00 Completed [facility] Influenza Virus Vaccine 2012-05-16 00:00:00 Completed [facility] Influenza Virus Vaccine Quad IM 3+ YRS 2012-05-16 00:00:00 Completed [facility] Influenza Virus Vaccine (3+ yrs) 2012-05-16 00:00:00 Completed [facility] Influenza Virus Vaccine 2012-05-16 00:00:00 Completed [facility] Influenza Virus Vaccine Quad IM 3+ YRS 2012-05-16 00:00:00 Completed [facility] Influenza Virus Vaccine (3+ yrs) 2012-05-16 00:00:00 Completed [facility] Influenza Virus Vaccine 2012-05-16 00:00:00 Completed [facility] Influenza Virus Vaccine Quad IM 3+ YRS 2012-05-16 00:00:00 Completed [facility] Influenza Virus Vaccine (3+ yrs) 2012-05-16 00:00:00 Completed [facility] Influenza Virus Vaccine 2012-05-16 00:00:00 Completed [facility] Influenza Virus Vaccine Quad IM 3+ YRS 2012-05-16 00:00:00 Completed [facility] Influenza Virus Vaccine (3+ yrs) 2012-05-16 00:00:00 Completed [facility] Influenza Virus Vaccine 2012-05-16 00:00:00 Completed [facility] Influenza Virus Vaccine Quad IM 3+ YRS 2012-05-16 00:00:00 Completed [facility] Influenza Virus Vaccine (3+ yrs) 2012-05-16 00:00:00 Completed [facility] Influenza Virus Vaccine 2012-05-16 00:00:00 Completed [facility] Influenza Virus Vaccine Quad IM 3+ YRS 2012-05-16 00:00:00 Completed [facility] Influenza Virus Vaccine (3+ yrs) 2012-05-16 00:00:00 Completed [facility] Influenza Virus Vaccine 2012-05-16 00:00:00 Completed Influenza Virus Vaccine Quad IM 3+ YRS 2012-05-16 00:00:00 Completed Influenza, split virus, trivalent, preservative (3+ Yrs) (Afluria) 2012-05-16 00:00:00 Completed Influenza, split virus, trivalent, PF (AFLURIA/FLUARIX/FL ULAVAL/FLUZONE) 2012-05-16 00:00:00 Completed Influenza Virus Vaccine 2011-05-23 00:00:00 Completed [facility] Influenza Virus Vaccine Nasal 2011-05-23 00:00:00 Completed [facility] Influenza Virus Vaccine 2011-05-23 00:00:00 Completed [facility] Influenza Virus Vaccine Nasal 2011-05-23 00:00:00 Completed [facility] Influenza Virus Vaccine 2011-05-23 00:00:00 Completed [facility] Influenza Virus Vaccine Nasal 2011-05-23 00:00:00 Completed [facility] Influenza Virus Vaccine 2011-05-23 00:00:00 Completed [facility] Influenza Virus Vaccine Nasal 2011-05-23 00:00:00 Completed [facility] Influenza Virus Vaccine 2011-05-23 00:00:00 Completed [facility] Influenza Virus Vaccine Nasal 2011-05-23 00:00:00 Completed [facility] Influenza Virus Vaccine 2011-05-23 00:00:00 Completed [facility] Influenza Virus Vaccine Nasal 2011-05-23 00:00:00 Completed [facility] Influenza Virus Vaccine 2011-05-23 00:00:00 Completed [facility] Influenza Virus Vaccine Nasal 2011-05-23 00:00:00 Completed [facility] Influenza Virus Vaccine 2011-05-23 00:00:00 Completed [facility] Influenza Virus Vaccine Nasal 2011-05-23 00:00:00 Completed [facility] Influenza Virus Vaccine 2011-05-23 00:00:00 Completed [facility] Influenza Virus Vaccine Nasal 2011-05-23 00:00:00 Completed [facility] Influenza Virus Vaccine 2011-05-23 00:00:00 Completed [facility] Influenza Virus Vaccine Nasal 2011-05-23 00:00:00 Completed [facility] Influenza Virus Vaccine 2011-05-23 00:00:00 Completed [facility] Influenza Virus Vaccine Nasal 2011-05-23 00:00:00 Completed [facility] Influenza Virus Vaccine 2011-05-23 00:00:00 Completed Influenza, Live, Trivalent, Intranasal (FLUMIST) 2011-05-23 00:00:00 Completed Influenza Virus Vaccine 2010-07-04 00:00:00 Completed [facility] Influenza Virus Vaccine Nasal 2010-07-04 00:00:00 Completed [facility] Influenza Virus Vaccine 2010-07-04 00:00:00 Completed [facility] Influenza Virus Vaccine Nasal 2010-07-04 00:00:00 Completed [facility] Influenza Virus Vaccine 2010-07-04 00:00:00 Completed [facility] Influenza Virus Vaccine Nasal 2010-07-04 00:00:00 Completed [facility] Influenza Virus Vaccine 2010-07-04 00:00:00 Completed [facility] Influenza Virus Vaccine Nasal 2010-07-04 00:00:00 Completed [facility] Influenza Virus Vaccine 2010-07-04 00:00:00 Completed [facility] Influenza Virus Vaccine Nasal 2010-07-04 00:00:00 Completed [facility] Influenza Virus Vaccine 2010-07-04 00:00:00 Completed [facility] Influenza Virus Vaccine Nasal 2010-07-04 00:00:00 Completed [facility] Influenza Virus Vaccine 2010-07-04 00:00:00 Completed [facility] Influenza Virus Vaccine Nasal 2010-07-04 00:00:00 Completed [facility] Influenza Virus Vaccine 2010-07-04 00:00:00 Completed [facility] Influenza Virus Vaccine Nasal 2010-07-04 00:00:00 Completed [facility] Influenza Virus Vaccine 2010-07-04 00:00:00 Completed [facility] Influenza Virus Vaccine Nasal 2010-07-04 00:00:00 Completed [facility] Influenza Virus Vaccine 2010-07-04 00:00:00 Completed [facility] Influenza Virus Vaccine Nasal 2010-07-04 00:00:00 Completed [facility] Influenza Virus Vaccine 2010-07-04 00:00:00 Completed [facility] Influenza Virus Vaccine Nasal 2010-07-04 00:00:00 Completed [facility] Influenza Virus Vaccine 2010-07-04 00:00:00 Completed Influenza, Live, Trivalent, Intranasal (FLUMIST) 2010-07-04 00:00:00 Completed HPV 2007-05-30 00:00:00 Completed [facility] HPV 2007-05-30 00:00:00 Completed [facility] HPV 2007-05-30 00:00:00 Completed [facility] HPV 2007-05-30 00:00:00 Completed [facility] HPV 2007-05-30 00:00:00 Completed [facility] HPV 2007-05-30 00:00:00 Completed [facility] HPV 2007-05-30 00:00:00 Completed [facility] HPV 2007-05-30 00:00:00 Completed [facility] HPV 2007-05-30 00:00:00 Completed [facility] HPV 2007-05-30 00:00:00 Completed [facility] HPV 2007-05-30 00:00:00 Completed [facility] HPV 2007-05-30 00:00:00 Completed [facility] HPV Unknown Completed [facility] Influenza Virus Vaccine Unknown Completed [facility] Influenza Virus Vaccine Nasal Unknown Completed [facility] Influenza Virus Vaccine Quad IM 3+ YRS Unknown Completed [facility] Influenza Virus Vaccine (3+ yrs) Unknown Completed [facility] Influenza Virus Vaccine Quad Nasal (Flumist) Unknown Completed [facility] SARS-COV-2 COVID-19 PFIZER VACCINE Unknown Completed [facility] Influenza Virus Vaccine Quad IM, Preserv and ABX Free 6 MO-64 YRS (FLUCELVAX) Unknown Completed [facility] HPV Unknown Completed [facility] Influenza Virus Vaccine Unknown Completed [facility] Influenza Virus Vaccine Nasal Unknown Completed [facility] Influenza Virus Vaccine Quad IM 3+ YRS Unknown Completed [facility] Influenza Virus Vaccine (3+ yrs) Unknown Completed [facility] Influenza Virus Vaccine Quad Nasal (Flumist) Unknown Completed [facility] SARS-COV-2 COVID-19 PFIZER VACCINE Unknown Completed [facility] Influenza Virus Vaccine Quad IM, Preserv and ABX Free 6 MO-64 YRS (FLUCELVAX) Unknown Completed [facility] HPV Unknown Completed [facility] Influenza Virus Vaccine Unknown Completed [facility] Influenza Virus Vaccine Nasal Unknown Completed [facility] Influenza Virus Vaccine Quad IM 3+ YRS Unknown Completed [facility] Influenza Virus Vaccine (3+ yrs) Unknown Completed [facility] Influenza Virus Vaccine Quad Nasal (Flumist) Unknown Completed [facility] Influenza Virus Vaccine Quad IM, Preserv and ABX Free 6 MO-64 YRS (FLUCELVAX) Unknown Completed [facility] HPV Unknown Completed [facility] Influenza Virus Vaccine Unknown Completed [facility] Influenza Virus Vaccine Nasal Unknown Completed [facility] Influenza Virus Vaccine Quad IM 3+ YRS Unknown Completed [facility] Influenza Virus Vaccine (3+ yrs) Unknown Completed [facility] Influenza Virus Vaccine Quad Nasal (Flumist) Unknown Completed [facility] SARS-COV-2 COVID-19 PFIZER VACCINE Unknown Completed [facility] HPV Unknown Completed [facility] Influenza Virus Vaccine Unknown Completed [facility] Influenza Virus Vaccine Nasal Unknown Completed [facility] Influenza Virus Vaccine Quad IM 3+ YRS Unknown Completed [facility] Influenza Virus Vaccine (3+ yrs) Unknown Completed [facility] Influenza Virus Vaccine Quad Nasal (Flumist) Unknown Completed [facility] SARS-COV-2 COVID-19 PFIZER VACCINE Unknown Completed [facility] Influenza Virus Vaccine Quad IM, Preserv and ABX Free 6 MO-64 YRS (FLUCELVAX) Unknown Completed [facility] HPV Unknown Completed [facility] Influenza Virus Vaccine Unknown Completed [facility] Influenza Virus Vaccine Nasal Unknown Completed [facility] Influenza Virus Vaccine Quad IM 3+ YRS Unknown Completed [facility] Influenza Virus Vaccine (3+ yrs) Unknown Completed [facility] Influenza Virus Vaccine Quad Nasal (Flumist) Unknown Completed [facility] SARS-COV-2 COVID-19 PFIZER VACCINE Unknown Completed [facility] Influenza Virus Vaccine Quad IM, Preserv and ABX Free 6 MO-64 YRS (FLUCELVAX) Unknown Completed [facility] HPV Unknown Completed [facility] Influenza Virus Vaccine Unknown Completed [facility] Influenza Virus Vaccine Nasal Unknown Completed [facility] Influenza Virus Vaccine Quad IM 3+ YRS Unknown Completed [facility] Influenza Virus Vaccine (3+ yrs) Unknown Completed [facility] Influenza Virus Vaccine Quad Nasal (Flumist) Unknown Completed [facility] SARS-COV-2 COVID-19 PFIZER VACCINE Unknown Completed [facility] Influenza Virus Vaccine Quad IM, Preserv and ABX Free 6 MO-64 YRS (FLUCELVAX) Unknown Completed [facility] Influenza Virus Vaccine Quad IM, Preserv and ABX Free 6 MO-64 YRS (FLUCELVAX) Unknown Completed [facility] HPV Unknown Completed [facility] Influenza Virus Vaccine Unknown Completed [facility] Influenza Virus Vaccine Nasal Unknown Completed [facility] Influenza Virus Vaccine Quad IM 3+ YRS Unknown Completed [facility] Influenza Virus Vaccine (3+ yrs) Unknown Completed [facility] Influenza Virus Vaccine Quad Nasal (Flumist) Unknown Completed [facility] SARS-COV-2 COVID-19 PFIZER VACCINE Unknown Completed [facility] HPV Unknown Completed [facility] Influenza Virus Vaccine Unknown Completed [facility] Influenza Virus Vaccine Nasal Unknown Completed [facility] Influenza Virus Vaccine Quad IM 3+ YRS Unknown Completed [facility] Influenza Virus Vaccine (3+ yrs) Unknown Completed [facility] Influenza Virus Vaccine Quad Nasal (Flumist) Unknown Completed [facility] SARS-COV-2 COVID-19 PFIZER VACCINE Unknown Completed [facility] Influenza Virus Vaccine Quad IM, Preserv and ABX Free 6 MO-64 YRS (FLUCELVAX) Unknown Completed [facility] HPV Unknown Completed [facility] Influenza Virus Vaccine Unknown Completed [facility] Influenza Virus Vaccine Nasal Unknown Completed [facility] Influenza Virus Vaccine Quad IM 3+ YRS Unknown Completed [facility] Influenza Virus Vaccine (3+ yrs) Unknown Completed [facility] Influenza Virus Vaccine Quad Nasal (Flumist) Unknown Completed [facility] SARS-COV-2 COVID-19 PFIZER VACCINE Unknown Completed [facility] Influenza Virus Vaccine Quad IM, Preserv and ABX Free 6 MO-64 YRS (FLUCELVAX) Unknown Completed [facility] Influenza Virus Vaccine Quad IM, Preserv and ABX Free 6 MO-64 YRS (FLUCELVAX) Unknown Completed [facility] HPV Unknown Completed [facility] Influenza Virus Vaccine Unknown Completed [facility] Influenza Virus Vaccine Nasal Unknown Completed [facility] Influenza Virus Vaccine Quad IM 3+ YRS Unknown Completed [facility] Influenza Virus Vaccine (3+ yrs) Unknown Completed [facility] Influenza Virus Vaccine Quad Nasal (Flumist) Unknown Completed [facility] SARS-COV-2 COVID-19 PFIZER VACCINE Unknown Completed [facility] HPV Unknown Completed [facility] Influenza Virus Vaccine Unknown Completed [facility] Influenza Virus Vaccine Nasal Unknown Completed [facility] Influenza Virus Vaccine Quad IM 3+ YRS Unknown Completed [facility] Influenza Virus Vaccine (3+ yrs) Unknown Completed [facility] Influenza Virus Vaccine Quad Nasal (Flumist) Unknown Completed [facility] SARS-COV-2 COVID-19 PFIZER VACCINE Unknown Completed [facility] Influenza Virus Vaccine Quad IM, Preserv and ABX Free 6 MO-64 YRS (FLUCELVAX) Unknown Completed [facility] HPV Unknown Completed [facility] Influenza Virus Vaccine Unknown Completed [facility] Influenza Virus Vaccine Nasal Unknown Completed [facility] Influenza Virus Vaccine Quad IM 3+ YRS Unknown Completed [facility] Influenza Virus Vaccine (3+ yrs) Unknown Completed [facility] Influenza Virus Vaccine Quad Nasal (Flumist) Unknown Completed [facility] SARS-COV-2 COVID-19 PFIZER VACCINE Unknown Completed [facility] Influenza Virus Vaccine Quad IM, Preserv and ABX Free 6 MO-64 YRS (FLUCELVAX) Unknown Completed [facility] HPV Unknown Completed [facility] Influenza Virus Vaccine Unknown Completed [facility] Influenza Virus Vaccine Nasal Unknown Completed [facility] Influenza Virus Vaccine Quad IM 3+ YRS Unknown Completed [facility] Influenza Virus Vaccine (3+ yrs) Unknown Completed [facility] Influenza Virus Vaccine Quad Nasal (Flumist) Unknown Completed [facility] SARS-COV-2 COVID-19 PFIZER VACCINE Unknown Completed [facility] Influenza Virus Vaccine Quad IM, Preserv and ABX Free 6 MO-64 YRS (FLUCELVAX) Unknown Completed [facility] HPV Unknown Completed [facility] Influenza Virus Vaccine Unknown Completed [facility] Influenza Virus Vaccine Nasal Unknown Completed [facility] Influenza Virus Vaccine Quad IM 3+ YRS Unknown Completed [facility] Influenza Virus Vaccine (3+ yrs) Unknown Completed [facility] Influenza Virus Vaccine Quad Nasal (Flumist) Unknown Completed [facility] SARS-COV-2 COVID-19 PFIZER VACCINE Unknown Completed [facility] Influenza Virus Vaccine Quad IM, Preserv and ABX Free 6 MO-64 YRS (FLUCELVAX) Unknown Completed [facility] HPV Unknown Completed [facility] Influenza Virus Vaccine Unknown Completed [facility] Influenza Virus Vaccine Nasal Unknown Completed [facility] Influenza Virus Vaccine Quad IM 3+ YRS Unknown Completed [facility] Influenza Virus Vaccine (3+ yrs) Unknown Completed [facility] Influenza Virus Vaccine Quad Nasal (Flumist) Unknown Completed [facility] SARS-COV-2 COVID-19 PFIZER VACCINE Unknown Completed [facility] Influenza Virus Vaccine Quad IM, Preserv and ABX Free 6 MO-64 YRS (FLUCELVAX) Unknown Completed [facility] HPV Unknown Completed [facility] Influenza Virus Vaccine Unknown Completed [facility] Influenza Virus Vaccine Nasal Unknown Completed [facility] Influenza Virus Vaccine Quad IM 3+ YRS Unknown Completed [facility] Influenza Virus Vaccine (3+ yrs) Unknown Completed [facility] Influenza Virus Vaccine Quad Nasal (Flumist) Unknown Completed [facility] SARS-COV-2 COVID-19 PFIZER VACCINE Unknown Completed [facility] Influenza Virus Vaccine Quad IM, Preserv and ABX Free 6 MO-64 YRS (FLUCELVAX) Unknown Completed [facility] HPV Unknown Completed [facility] Influenza Virus Vaccine Unknown Completed [facility] Influenza Virus Vaccine Nasal Unknown Completed [facility] Influenza Virus Vaccine Quad IM 3+ YRS Unknown Completed [facility] Influenza Virus Vaccine (3+ yrs) Unknown Completed [facility] Influenza Virus Vaccine Quad Nasal (Flumist) Unknown Completed [facility] SARS-COV-2 COVID-19 PFIZER VACCINE Unknown Completed [facility] Influenza Virus Vaccine Quad IM, Preserv and ABX Free 6 MO-64 YRS (FLUCELVAX) Unknown Completed [facility] HPV Unknown Completed [facility] Influenza Virus Vaccine Unknown Completed [facility] Influenza Virus Vaccine Nasal Unknown Completed [facility] Influenza Virus Vaccine Quad IM 3+ YRS Unknown Completed [facility] Influenza Virus Vaccine (3+ yrs) Unknown Completed [facility] Influenza Virus Vaccine Quad Nasal (Flumist) Unknown Completed [facility] SARS-COV-2 COVID-19 PFIZER VACCINE Unknown Completed [facility] Influenza Virus Vaccine Quad IM, Preserv and ABX Free 6 MO-64 YRS (FLUCELVAX) Unknown Completed [facility] HPV Unknown Completed [facility] Influenza Virus Vaccine Unknown Completed [facility] Influenza Virus Vaccine Nasal Unknown Completed [facility] Influenza Virus Vaccine Quad IM 3+ YRS Unknown Completed [facility] Influenza Virus Vaccine (3+ yrs) Unknown Completed [facility] Influenza Virus Vaccine Quad Nasal (Flumist) Unknown Completed [facility] SARS-COV-2 COVID-19 PFIZER VACCINE Unknown Completed [facility] Influenza Virus Vaccine Quad IM, Preserv and ABX Free 6 MO-64 YRS (FLUCELVAX) Unknown Completed [facility] HPV Unknown Completed [facility] Influenza Virus Vaccine Unknown Completed [facility] Influenza Virus Vaccine Nasal Unknown Completed [facility] Influenza Virus Vaccine Quad IM 3+ YRS Unknown Completed [facility] Influenza Virus Vaccine (3+ yrs) Unknown Completed [facility] Influenza Virus Vaccine Quad Nasal (Flumist) Unknown Completed [facility] SARS-COV-2 COVID-19 PFIZER VACCINE Unknown Completed [facility] Influenza Virus Vaccine Quad IM, Preserv and ABX Free 6 MO-64 YRS (FLUCELVAX) Unknown Completed [facility] HPV Unknown Completed [facility] Influenza Virus Vaccine Unknown Completed [facility] Influenza Virus Vaccine Nasal Unknown Completed [facility] Influenza Virus Vaccine Quad IM 3+ YRS Unknown Completed [facility] Influenza Virus Vaccine (3+ yrs) Unknown Completed [facility] Influenza Virus Vaccine Quad Nasal (Flumist) Unknown Completed [facility] SARS-COV-2 COVID-19 PFIZER VACCINE Unknown Completed [facility] Influenza Virus Vaccine Quad IM, Preserv and ABX Free 6 MO-64 YRS (FLUCELVAX) Unknown Completed [facility] Influenza Virus Vaccine Quad IM, Preserv and ABX Free 6 MO-64 YRS (FLUCELVAX) Unknown Completed [facility] HPV Unknown Completed [facility] Influenza Virus Vaccine Unknown Completed [facility] Influenza Virus Vaccine Nasal Unknown Completed [facility] Influenza Virus Vaccine Quad IM 3+ YRS Unknown Completed [facility] Influenza Virus Vaccine (3+ yrs) Unknown Completed [facility] Influenza Virus Vaccine Quad Nasal (Flumist) Unknown Completed [facility] SARS-COV-2 COVID-19 PFIZER VACCINE Unknown Completed [facility] HPV Unknown Completed [facility] Influenza Virus Vaccine Unknown Completed [facility] Influenza Virus Vaccine Nasal Unknown Completed [facility] Influenza Virus Vaccine Quad IM 3+ YRS Unknown Completed [facility] Influenza Virus Vaccine (3+ yrs) Unknown Completed [facility] Influenza Virus Vaccine Quad Nasal (Flumist) Unknown Completed [facility] SARS-COV-2 COVID-19 PFIZER VACCINE Unknown Completed [facility] Influenza Virus Vaccine Quad IM, Preserv and ABX Free 6 MO-64 YRS (FLUCELVAX) Unknown Completed [facility] HPV Unknown Completed [facility] Influenza Virus Vaccine Unknown Completed [facility] Influenza Virus Vaccine Nasal Unknown Completed [facility] Influenza Virus Vaccine Quad IM 3+ YRS Unknown Completed [facility] Influenza Virus Vaccine (3+ yrs) Unknown Completed [facility] Influenza Virus Vaccine Quad Nasal (Flumist) Unknown Completed [facility] SARS-COV-2 COVID-19 PFIZER VACCINE Unknown Completed [facility] Influenza Virus Vaccine Quad IM, Preserv and ABX Free 6 MO-64 YRS (FLUCELVAX) Unknown Completed [facility] HPV Unknown Completed [facility] Influenza Virus Vaccine Unknown Completed [facility] Influenza Virus Vaccine Nasal Unknown Completed [facility] Influenza Virus Vaccine Quad IM 3+ YRS Unknown Completed [facility] Influenza Virus Vaccine (3+ yrs) Unknown Completed [facility] Influenza Virus Vaccine Quad Nasal (Flumist) Unknown Completed [facility] SARS-COV-2 COVID-19 PFIZER VACCINE Unknown Completed [facility] Influenza Virus Vaccine Quad IM, Preserv and ABX Free 6 MO-64 YRS (FLUCELVAX) Unknown Completed [facility] HPV Unknown Completed [facility] Influenza Virus Vaccine Unknown Completed [facility] Influenza Virus Vaccine Nasal Unknown Completed [facility] Influenza Virus Vaccine Quad IM 3+ YRS Unknown Completed [facility] Influenza Virus Vaccine (3+ yrs) Unknown Completed [facility] Influenza Virus Vaccine Quad Nasal (Flumist) Unknown Completed [facility] SARS-COV-2 COVID-19 PFIZER VACCINE Unknown Completed [facility] Influenza Virus Vaccine Quad IM, Preserv and ABX Free 6 MO-64 YRS (FLUCELVAX) Unknown Completed [facility] HPV Unknown Completed [facility] Influenza Virus Vaccine Unknown Completed [facility] Influenza Virus Vaccine Nasal Unknown Completed [facility] Influenza Virus Vaccine Quad IM 3+ YRS Unknown Completed [facility] Influenza Virus Vaccine (3+ yrs) Unknown Completed [facility] Influenza Virus Vaccine Quad Nasal (Flumist) Unknown Completed [facility] SARS-COV-2 COVID-19 PFIZER VACCINE Unknown Completed [facility] Influenza Virus Vaccine Quad IM, Preserv and ABX Free 6 MO-64 YRS (FLUCELVAX) Unknown Completed [facility] HPV Unknown Completed [facility] Influenza Virus Vaccine Unknown Completed [facility] Influenza Virus Vaccine Nasal Unknown Completed [facility] Influenza Virus Vaccine Quad IM 3+ YRS Unknown Completed [facility] Influenza Virus Vaccine (3+ yrs) Unknown Completed [facility] Influenza Virus Vaccine Quad Nasal (Flumist) Unknown Completed [facility] SARS-COV-2 COVID-19 PFIZER VACCINE Unknown Completed [facility] Influenza Virus Vaccine Quad IM, Preserv and ABX Free 6 MO-64 YRS (FLUCELVAX) Unknown Completed [facility] Influenza Virus Vaccine Quad IM, Preserv and ABX Free 6 MO-64 YRS (FLUCELVAX) Unknown Completed [facility] HPV Unknown Completed [facility] Influenza Virus Vaccine Unknown Completed [facility] Influenza Virus Vaccine Nasal Unknown Completed [facility] Influenza Virus Vaccine Quad IM 3+ YRS Unknown Completed [facility] Influenza Virus Vaccine (3+ yrs) Unknown Completed [facility] Influenza Virus Vaccine Quad Nasal (Flumist) Unknown Completed [facility] SARS-COV-2 COVID-19 PFIZER VACCINE Unknown Completed [facility] Influenza Virus Vaccine Quad IM, Preserv and ABX Free 6 MO-64 YRS (FLUCELVAX) Unknown Completed [facility] HPV Unknown Completed [facility] Influenza Virus Vaccine Unknown Completed [facility] Influenza Virus Vaccine Nasal Unknown Completed [facility] Influenza Virus Vaccine Quad IM 3+ YRS Unknown Completed [facility] Influenza Virus Vaccine (3+ yrs) Unknown Completed [facility] Influenza Virus Vaccine Quad Nasal (Flumist) Unknown Completed [facility] SARS-COV-2 COVID-19 PFIZER VACCINE Unknown Completed [facility] HPV Unknown Completed [facility] Influenza Virus Vaccine Unknown Completed [facility] Influenza Virus Vaccine Nasal Unknown Completed [facility] Influenza Virus Vaccine Quad IM 3+ YRS Unknown Completed [facility] Influenza Virus Vaccine (3+ yrs) Unknown Completed [facility] Influenza Virus Vaccine Quad Nasal (Flumist) Unknown Completed [facility] SARS-COV-2 COVID-19 PFIZER VACCINE Unknown Completed [facility] Influenza Virus Vaccine Quad IM, Preserv and ABX Free 6 MO-64 YRS (FLUCELVAX) Unknown Completed [facility] HPV Unknown Completed [facility] Influenza Virus Vaccine Unknown Completed [facility] Influenza Virus Vaccine Nasal Unknown Completed [facility] Influenza Virus Vaccine Quad IM 3+ YRS Unknown Completed [facility] Influenza Virus Vaccine (3+ yrs) Unknown Completed [facility] Influenza Virus Vaccine Quad Nasal (Flumist) Unknown Completed [facility] SARS-COV-2 COVID-19 PFIZER VACCINE Unknown Completed [facility] Influenza Virus Vaccine Quad IM, Preserv and ABX Free 6 MO-64 YRS (FLUCELVAX) Unknown Completed [facility] HPV Unknown Completed [facility] Influenza Virus Vaccine Unknown Completed [facility] Influenza Virus Vaccine Nasal Unknown Completed [facility] Influenza Virus Vaccine Quad IM 3+ YRS Unknown Completed [facility] Influenza Virus Vaccine (3+ yrs) Unknown Completed [facility] Influenza Virus Vaccine Quad Nasal (Flumist) Unknown Completed [facility] SARS-COV-2 COVID-19 PFIZER VACCINE Unknown Completed [facility] Influenza Virus Vaccine Quad IM, Preserv and ABX Free 6 MO-64 YRS (FLUCELVAX) Unknown Completed [facility] HPV Unknown Completed [facility] Influenza Virus Vaccine Unknown Completed [facility] Influenza Virus Vaccine Nasal Unknown Completed [facility] Influenza Virus Vaccine Quad IM 3+ YRS Unknown Completed [facility] Influenza Virus Vaccine (3+ yrs) Unknown Completed [facility] Influenza Virus Vaccine Quad Nasal (Flumist) Unknown Completed [facility] SARS-COV-2 COVID-19 PFIZER VACCINE Unknown Completed [facility] Influenza Virus Vaccine Quad IM, Preserv and ABX Free 6 MO-64 YRS (FLUCELVAX) Unknown Completed [facility] HPV Unknown Completed [facility] Influenza Virus Vaccine Unknown Completed [facility] Influenza Virus Vaccine Nasal Unknown Completed [facility] Influenza Virus Vaccine Quad IM 3+ YRS Unknown Completed [facility] Influenza Virus Vaccine (3+ yrs) Unknown Completed [facility] Influenza Virus Vaccine Quad Nasal (Flumist) Unknown Completed [facility] SARS-COV-2 COVID-19 PFIZER VACCINE Unknown Completed [facility] Influenza Virus Vaccine Quad IM, Preserv and ABX Free 6 MO-64 YRS (FLUCELVAX) Unknown Completed [facility] HPV Unknown Completed [facility] Influenza Virus Vaccine Unknown Completed [facility] Influenza Virus Vaccine Nasal Unknown Completed [facility] Influenza Virus Vaccine Quad IM 3+ YRS Unknown Completed [facility] Influenza Virus Vaccine (3+ yrs) Unknown Completed [facility] Influenza Virus Vaccine Quad Nasal (Flumist) Unknown Completed [facility] SARS-COV-2 COVID-19 PFIZER VACCINE Unknown Completed [facility] Influenza Virus Vaccine Quad IM, Preserv and ABX Free 6 MO-64 YRS (FLUCELVAX) Unknown Completed [facility] HPV Unknown Completed [facility] Influenza Virus Vaccine Unknown Completed [facility] Influenza Virus Vaccine Nasal Unknown Completed [facility] Influenza Virus Vaccine Quad IM 3+ YRS Unknown Completed [facility] Influenza Virus Vaccine (3+ yrs) Unknown Completed [facility] Influenza Virus Vaccine Quad Nasal (Flumist) Unknown Completed [facility] SARS-COV-2 COVID-19 PFIZER VACCINE Unknown Completed [facility] Influenza Virus Vaccine Quad IM, Preserv and ABX Free 6 MO-64 YRS (FLUCELVAX) Unknown Completed [facility] HPV Unknown Completed [facility] Influenza Virus Vaccine Unknown Completed [facility] Influenza Virus Vaccine Nasal Unknown Completed [facility] Influenza Virus Vaccine Quad IM 3+ YRS Unknown Completed [facility] Influenza Virus Vaccine (3+ yrs) Unknown Completed [facility] Influenza Virus Vaccine Quad Nasal (Flumist) Unknown Completed [facility] SARS-COV-2 COVID-19 PFIZER VACCINE Unknown Completed [facility] Influenza Virus Vaccine Quad IM, Preserv and ABX Free 6 MO-64 YRS (FLUCELVAX) Unknown Completed [facility] HPV Unknown Completed [facility] Influenza Virus Vaccine Unknown Completed [facility] Influenza Virus Vaccine Nasal Unknown Completed [facility] Influenza Virus Vaccine Quad IM 3+ YRS Unknown Completed [facility] Influenza Virus Vaccine (3+ yrs) Unknown Completed [facility] Influenza Virus Vaccine Quad Nasal (Flumist) Unknown Completed [facility] SARS-COV-2 COVID-19 PFIZER VACCINE Unknown Completed [facility] Influenza Virus Vaccine Quad IM, Preserv and ABX Free 6 MO-64 YRS (FLUCELVAX) Unknown Completed [facility] HPV Unknown Completed [facility] Influenza Virus Vaccine Unknown Completed [facility] Influenza Virus Vaccine Nasal Unknown Completed [facility] Influenza Virus Vaccine Quad IM 3+ YRS Unknown Completed [facility] Influenza Virus Vaccine (3+ yrs) Unknown Completed [facility] Influenza Virus Vaccine Quad Nasal (Flumist) Unknown Completed [facility] SARS-COV-2 COVID-19 PFIZER VACCINE Unknown Completed [facility] Influenza Virus Vaccine Quad IM, Preserv and ABX Free 6 MO-64 YRS (FLUCELVAX) Unknown Completed [facility] HPV Unknown Completed [facility] Influenza Virus Vaccine Unknown Completed [facility] Influenza Virus Vaccine Nasal Unknown Completed [facility] Influenza Virus Vaccine Quad IM 3+ YRS Unknown Completed [facility] Influenza Virus Vaccine (3+ yrs) Unknown Completed [facility] Influenza Virus Vaccine Quad Nasal (Flumist) Unknown Completed [facility] SARS-COV-2 COVID-19 PFIZER VACCINE Unknown Completed [facility] Influenza Virus Vaccine Quad IM, Preserv and ABX Free 6 MO-64 YRS (FLUCELVAX) Unknown Completed [facility] Vital Signs Vital Name Observation Time Observation Value Comments S nancyce Systolic blood pressure 2024-06-29 22:12:00 132 mm[Hg] [facility] Diastolic blood pressure 2024-06-29 22:12:00 87 mm[Hg] [facility] Heart rate 2024-06-29 22:12:00 98 /min [facility] Body temperature 2024-06-29 22:12:00 36.83 [facility] Body height 2024-06-29 22:12:00 170.2 cm [facility] Body weight 2024-06-29 22:12:00 79.379 kg [facility] BMI 2024-06-29 22:12:00 27.41 kg/m2 [facility] Oxygen saturation in Arterial blood by Pulse oximetry 2024-06-29 22:12:00 98 /min [facility] Systolic blood pressure 2023-10-25 16:52:00 133 mm[Hg] [facility] Diastolic blood pressure 2023-10-25 16:52:00 85 mm[Hg] [facility] Heart rate 2023-10-25 16:52:00 62 /[facility]xygen saturation in Arterial blood by Pulse oximetry 2023-10-25 16:52:00 98 /min [facility] Body temperature 2023-10-25 16:51:00 36.56 [facility] Respiratory rate 2023-10-25 16:51:00 18 /min [facility] Body height 2023-10-25 16:51:00 167.6 cm [facility] Body weight 2023-10-25 16:51:00 82.827 kg [facility] BMI 2023-10-25 16:51:00 29.47 kg/m2 [facility] Systolic blood pressure 2023-10-25 15:11:00 123 mm[Hg] [facility] Diastolic blood pressure 2023-10-25 15:11:00 82 mm[Hg] [facility] Heart rate 2023-10-25 15:11:00 84 /min [facility] Body temperature 2023-10-25 15:11:00 36.78 [facility] Respiratory rate 2023-10-25 15:11:00 18 /min [facility] Body weight 2023-10-25 15:11:00 82.555 kg [facility] BMI 2023-10-25 15:11:00 28.51 kg/m2 [facility] Systolic blood pressure 2023-10-11 17:37:00 134 mm[Hg] [facility] Diastolic blood pressure 2023-10-11 17:37:00 81 mm[Hg] [facility] Heart rate 2023-10-11 17:37:00 69 /min [facility] Body temperature 2023-10-11 17:37:00 36.22 [facility] Respiratory rate 2023-10-11 17:37:00 18 /min [facility] Body height 2023-10-11 17:37:00 170.2 cm [facility] Body weight 2023-10-11 17:37:00 80.287 kg [facility] BMI 2023-10-11 17:37:00 27.72 kg/m2 [facility] Oxygen saturation in Arterial blood by Pulse oximetry 2023-10-11 17:37:00 98 /min [facility] Systolic blood pressure 2023-08-20 05:00:00 115 mm[Hg] [facility] Diastolic blood pressure 2023-08-20 05:00:00 91 mm[Hg] [facility] Heart rate 2023-08-20 05:00:00 82 /min [facility] Respiratory rate 2023-08-20 05:00:00 18 /min [facility] Oxygen saturation in Arterial blood by Pulse oximetry 2023-08-20 05:00:00 100 /min [facility] Body temperature 2023-08-20 02:03:00 37.22 [facility] Body height 2023-08-20 02:03:00 167.6 cm [facility] Body weight 2023-08-20 02:03:00 82.419 kg [facility] BMI 2023-08-20 02:03:00 29.33 kg/m2 [facility] Body weight 2023-07-26 17:33:00 84.823 kg [facility] BMI 2023-07-26 17:33:00 30.18 kg/m2 [facility] Systolic blood pressure 2023-07-17 17:18:00 108 mm[Hg] [facility] Diastolic blood pressure 2023-07-17 17:18:00 55 mm[Hg] [facility] Heart rate 2023-07-17 17:18:00 59 /min [facility] Respiratory rate 2023-07-17 17:18:00 18 /min [facility] Body height 2023-07-17 17:18:00 167.6 cm [facility] Body weight 2023-07-17 17:18:00 84.823 kg [facility] BMI 2023-07-17 17:18:00 30.18 kg/m2 [facility] Oxygen saturation in Arterial blood by Pulse oximetry 2023-07-17 17:18:00 97 /min [facility] Systolic blood pressure 2023-06-19 21:44:00 135 mm[Hg] [facility] Diastolic blood pressure 2023-06-19 21:44:00 82 mm[Hg] [facility] Heart rate 2023-06-19 21:44:00 81 /min [facility] Body temperature 2023-06-19 21:44:00 36.61 [facility] Body height 2023-06-19 21:44:00 167.6 cm [facility] Body weight 2023-06-19 21:44:00 79.379 kg [facility] BMI 2023-06-19 21:44:00 28.25 kg/m2 [facility] Oxygen saturation in Arterial blood by Pulse oximetry 2023-06-19 21:44:00 97 /min [facility] Systolic blood pressure 2022-02-09 16:11:00 132 mm[Hg] [facility] Diastolic blood pressure 2022-02-09 16:11:00 83 mm[Hg] [facility] Heart rate 2022-02-09 16:10:00 83 /min [facility] Body temperature 2022-02-09 16:10:00 36.78 [facility] Body height 2022-02-09 16:10:00 170.2 cm [facility] Body weight 2022-02-09 16:10:00 88.633 kg [facility] BMI 2022-02-09 16:10:00 30.60 kg/m2 [facility] Oxygen saturation in Arterial blood by Pulse oximetry 2022-02-09 16:10:00 99 /min [facility] Procedures Procedure Date / Time Performed Performing Clinicia n Source TDAP VACCINE, >11 YRS, IM 2024-06-29 22:21:46 Jane Berry [facility] FLU VACC (), 6 MO-64 YRS, .5ML, IM, TIV (FLUCELVAX) 2024-06-29 22:21:46 Kathy Berrythia [facility] DISCLOSURE AND CONSENT, MEDICAL AND SURGICAL PROCEDURES 2023-10-29 05:01:00 Doctor Unassigned, Literberry [facility] URINE CULTURE 2023-10-11 18:02:00 Krystal Mace [facility] POCT URINALYSIS AUTO 2023-10-11 17:00:00 Yulisa Mace [facility] CT ABDOMEN PELVIS W CONTRAST 2023-08-20 03:54:01 Janet Nguyen [facility] POCT TEST 2023-08-20 02:57:00 Lucio Nguyen [facility] LIPASE 2023-08-20 02:55:00 Janet Nguyen [facility] COMP. METABOLIC PANEL ([id number]) 2023-08-20 02:55:00 Janet Nguyen [facility] CBC WITH DIFF 2023-08-20 02:55:00 Janet Nguyen [facility] URINALYSIS 2023-08-20 02:55:00 Janet Nguyen [facility] CONSENT/REFUSAL FOR DIAGNOSIS AND TREATMENT 2023-08-20 01:58:01 Doctor Unassigned, Literberry [facility] POCT URINALYSIS AUTO 2023-08-16 18:30:00 Yulisa Mace [facility] URINE CULTURE 2023-08-16 17:52:00 Krystal Mace [facility] POCT URINALYSIS AUTO 2023-07-26 17:35:00 Yulisa Mace [facility] DISCLOSURE AND CONSENT, MEDICAL AND SURGICAL PROCEDURES 2023-07-19 06:01:00 Doctor Unassigned, [place] [facility] POCT URINALYSIS 2023-06-19 00:00:00 Emelina Arndt [facility] Encounters Start Date/Time End Date/Time Encounter Type Admission Type Attending [facility] Facility Care Department Encounter ID Source 2024-12-28 15:30:00 2024-12-28 15:30:00 Outpatient JANE CRABTREE [facility] [id number] [facility] 2023-09-18 00:00:00 2024-12-10 21:11:19 Lisa Guillory [facility] 1.2.840.114 350.1.13.10 4.2.7.2.[id number] [facility] 2024-12-02 15:00:00 2024-12-02 15:00:00 Outpatient EMELINA BAI [facility] [id number] [facility] 2024-11-26 15:00:00 2024-11-26 15:00:00 Outpatient EMELINA BAI [facility] [id number] [facility] 2024-11-19 15:00:00 2024-11-19 15:00:00 Outpatient R EMELINA ARNDT [facility] [id number] [facility] 2022-12-17 00:00:00 2024-10-03 02:41:44 Orders Only Tam, Adeola Tam, Adeola [facility] 1.2.840.114 350.1.13.10 4.2.7.2.[id number] [facility] 2023-01-03 00:00:00 2024-10-03 02:41:20 Orders Only Tam, Adeola Tam, Adeola [facility] 1.2.840.114 350.1.13.10 4.2.7.2.[id number] [facility] 2023-01-10 00:00:00 2024-10-03 02:41:11 Orders Only Tam, Adeola Anel, Adeola [facility] 1.2.840.114 350.1.13.10 4.2.7.2.[id number] [facility] 2023-01-10 00:00:00 2024-10-03 02:41:10 Orders Only Tam, Adeola Anel, Adeola [facility] FUNMI?[facility] 1.2.840.114 350.1.13.10 4.2.7.2.[id number] [facility] 2024-08-24 00:00:00 2024-08-24 09:26:50 Refill Kristi Jane [facility] FUNMI?[facility] 1.2.840.114 350.1.13.10 4.2.7.2.[id number] [facility] 2024-08-20 00:00:00 2024-08-22 11:32:46 Refill Jane Berry [facility] NITHYA CHOUDHARY?[facility]ARAY[facility] 1.84.114 350.1.13.10 4.2.7.2.[id number] [facility] 2024-07-27 00:00:00 2024-07-28 08:31:43 Refill Jane Berry [facility] NITHYA CHOUDHARY?[facility] RAMIREZ [facility] 1.2840.114 350.1.13.10 4.2.7.2.[id number] [facility] 2024-06-29 16:00:00 2024-06-29 16:45:41 Outpatient R JANE BERRY [facility] [id number] [facility] 2024-06-29 16:00:00 2024-06-29 16:45:41 [facility] 1.114 350.1.13.10 4.2.7.2.[id number] [facility] 2024-06-22 00:00:00 2024-06-22 12:49:00 [address] Berry [facility] 1..114 350.1.13.10 4.2.7.2.[id number] [facility] 2024-06-15 00:00:00 2024-06-16 08:24:29 [facility] 1.84.114 350.1.13.10 4.2.7.2.[id number] [facility] 2024-06-15 00:00:00 2024-06-15 11:28:43 [facility] 1.2.114 350.1.13.10 4.2.7.2.[id number] [facility] 2024-05-22 00:00:00 2024-05-25 14:18:10 Refill Jane Berry [facility] NITHYA PRITCHETTE?[facility] 1.2.840.114 350.1.13.10 4.2.7.2.[id number] [facility] 2024-04-28 00:00:00 2024-04-30 11:58:24 Refill Anenegra, [facility] Hospital[facility] PRITCHETTE?[facility] 1.2.840.114 350.1.13.10 4.2.7.2.[id number] [facility] 2024-04-03 00:00:00 2024-04-03 11:02:32 Refill AneConnor [facility]merEC[facility] HospitalYULISA CHOUDHARY?[facility] 1.2.840.114 350.1.13.10 4.2.7.2.[id number] [facility] 2024-03-11 00:00:00 2024-03-11 11:24:47 Refill AneConnor [facility]EC[facility] HospitalYULISA CHOUDHARY?[facility] 1.2.840.114 350.1.13.10 4.2.7.2.[id number] [facility] 2024-02-17 00:00:00 2024-02-23 11:46:24 Refill AneConnor [facility]EC[facility] HospitalYULISA PRITCHETTE?[facility] 1.2.840.114 350.1.13.10 4.2.7.2.[id number] [facility] 2023-12-31 00:00:00 2024-01-21 15:55:20 Refill Anenegra, [facility]EC[facility] HospitalYULISA PRITCHETTE?[facility] 1.840.114 350.1.13.10 4.2.7.2.[id number] [facility] 2023-12-02 13:30:00 2023-12-02 13:30:00 Outpatient JANE CRABTREE [facility] [id number] [facility] 2023-11-28 11:30:00 2023-11-28 11:30:00 Outpatient JANE CRABTREE [facility] [id number] [facility] 2023-11-27 00:00:00 2023-11-27 00:00:00 Refnichole Berry [facility] 1.0.114 350.1.13.10 4.2.7.2.[id number] [facility] 2023-11-26 00:00:00 2023-11-26 00:00:00 Telephone Jane Berry [facility] 1.0.114 350.1.13.10 4.2.7.2.[id number] [facility] 2023-11-21 14:00:00 2023-11-21 14:00:00 Outpatient JANE CRABTREE [facility] [id number] [facility] 2023-11-12 00:00:00 2023-11-12 00:00:00 Silverio Berry [facility] 1.840.114 350.1.13.10 4.2.7.2.[id number] [facility] 2023-10-30 00:00:00 2023-10-30 00:00:00 Telephone Jennifer Chowdhury [facility] 1.840.114 350.1.13.10 4.2.7.2.[id number] [facility] 2023-10-29 00:00:00 2023-10-29 00:00:00 Orders Only Doctor Unassigned, Literberry [facility] 1.2840.114 350.1.13.10 4.2.7.2.[id number] [facility] 2023-10-25 10:00:00 2023-10-25 11:59:23 Office Visit Krystal Mace [facility] 1..114 350.1.13.10 4.2.7.2.[id number] [facility] 2023-10-25 09:00:00 2023-10-25 10:11:10 Outpatient R VALERIA JONAS [facility] [id number] [facility] 2023-10-25 09:00:00 2023-10-25 09:30:00 Office Visit Valeria Jonas [facility] 1.2.114 350.1.13.10 4.2.7.2.[id number] [facility] 2023-10-21 00:00:00 2023-10-21 00:00:00 Lisa Guillory [facility] [id number] 350.1.13.10 4.2.7.2.[id number] [facility] 2023-10-18 10:00:00 2023-10-18 10:00:00 Outpatient R [facility]STAL [facility]ACE [facility] [id number] [facility] 2023-10-17 00:00:00 2023-10-17 00:00:00 Telephone Jennifer Chowdhury 1.20.114 350.1.13.10 4.2.7.2.[id number] [facility] 2023-10-16 00:00:00 2023-10-16 00:00:00 Patient Secure Msg Doctor Unassigned, Literberry [facility] 1.2.840.114 350.1.13.10 4.2.7.2.[id number] [facility] 2023-10-14 00:00:00 2023-10-14 00:00:00 Patient Secure Msg Doctor Unassigned, Literberry [facility] 1.2.840.114 350.1.13.10 4.2.7.2.[id number] [facility] 2023-10-11 11:00:00 2023-10-11 11:30:00 [facility] 1..840.114 350.1.13.10 4.2.7.2.[id number] [facility] [facility] 2023-10-11 11:00:00 2023-10-11 11:00:00 Outpatient KRYSTAL JIANG [facility] [id number] [facility] 2023-10-02 15:00:00 2023-10-02 15:00:00 Outpatient VALERIA JACOBS [facility] [id number] [facility] 2023-10-01 16:00:00 2023-10-01 16:30:00 Nurse Visit Nurse, [facility] 1..840.114 350.1.13.10 4.2.7.2.[id number] [facility] 2023-10-01 16:00:00 2023-10-01 16:00:00 Outpatient KRYSTAL JIANG [facility] [id number] [facility] 2023-09-20 14:00:00 2023-09-20 14:00:00 Outpatient R JANE BERRY [facility] [id number] [facility] 2023-09-13 11:00:00 2023-09-13 11:00:00 Outpatient KRYSTAL JIANG ELISHA [facility] [id number] [facility] 2023-09-12 00:00:00 2023-09-12 00:00:00 Patient Secure Msg Doctor Unassigned, Literberry [facility] 1.2.840.114 350.1.13.10 4.2.7.2.[id number] [facility] 2023-09-11 00:00:00 2023-09-11 00:00:00 Patient Secure Msg Doctor Unassigned, Literberry [facility] 1.2.840.114 350.1.13.10 4.2.7.2.[id number] [facility] 2023-09-09 13:00:00 2023-09-09 13:00:00 Outpatient R [facility] [id number] [facility] 2023-08-30 11:00:00 2023-08-30 11:00:00 Outpatient KRYSTAL JIANG KRYSTAL [facility] [id number] [facility] 2023-08-29 00:00:00 2023-08-29 00:00:00 Telephone Krystal Mace [facility] 1.2.840.114 350.1.13.10 4.2.7.2.[id number] [facility] 2023-08-23 10:30:00 2023-08-23 10:30:00 Outpatient R VALERIA JONAS [facility] [id number] [facility] 2023-08-20 00:00:00 2023-08-20 00:00:00 Mahesh Little [facility] 1.2840.114 350.1.13.10 4.2.7.2.[id number] [facility] 2023-08-20 00:00:00 2023-08-20 00:00:00 Refill Lisa Mauricio [facility] 1.2840.114 350.1.13.10 4.2.7.2.[id number] [facility] 2023-08-20 00:00:00 2023-08-20 00:00:00 Refill Krystal Mace [facility] 1.2840.114 350.1.13.10 4.2.7.2.[id number] [facility] 2023-08-19 20:34:00 2023-08-19 23:36:00 Emergency X [facility] E[facility] [id number] [facility] 2023-08-19 20:34:00 2023-08-19 23:36:00 [facility] 1.2840.114 350.1.13.10 4.2.7.2.[id number] [facility] 2023-08-19 00:00:00 2023-08-19 00:00:00 Nurse Triage Bella Doran [facility] 1.2840.114 350.1.13.10 4.2.7.2.[id number] [facility] 2023-08-16 11:00:00 2023-08-16 11:30:00 Office Visit Krystal Mace Rm2, Adc Surg Proc [facility] 1.2840.114 350.1.13.10 4.2.7.2.[id number] [facility] 2023-08-16 11:00:00 2023-08-16 11:00:00 Outpatient R RODRIKRYSTAL KRYSTAL MACE [facility] [id number] [facility] 2023-08-14 00:00:00 2023-08-14 00:00:00 Refill Sandeep Edie [facility] MED[facility] OFFICE BUILDING 1.840.114 350.1.13.10 4.2.7.2.[id number] [facility] 2023-08-14 00:00:00 2023-08-14 00:00:00 [facility]ill [facility] 1..114 350.1.13.10 4.2.7.2.[id number] [facility] 2023-08-14 00:00:00 2023-08-14 00:00:00 [facility] 1.114 350.1.13.10 4.2.7.2.[id number] [facility] 2023-07-26 11:00:00 2023-07-26 12:32:31 Outpatient R KRYSTAL MACE KRYSTAL MACE [facility] [id number] [facility] 2023-07-26 11:00:00 2023-07-26 11:30:00 Office Visit Rodri Krystal [facility] 1.114 350.1.13.10 4.2.7.2.[id number] [facility] 2023-07-19 00:00:00 2023-07-19 00:00:00 Orders Only Doctor Unassigned, Literberry [facility] 1.114 350.1.13.10 4.2.7.2.[id number] [facility] 2023-07-19 00:00:00 2023-07-19 00:00:00 Telephone ChowdhuryJennifer westbrookGama [facility] PL[facility] 1.2840.114 350.1.13.10 4.2.7.2.[id number] [facility] 2023-07-17 11:30:00 2023-07-17 11:48:07 Outpatient R [facility]STAL [facility] [id number] [facility] 2023-07-17 11:30:00 2023-07-17 11:48:07 Office Visit Krystal Mace [facility] 1.84.114 350.1.13.10 4.2.7.2.[id number] [facility] 2023-06-26 00:00:00 2023-06-26 00:00:00 Telephone Jennifer Chowdhury 1.840.114 350.1.13.10 4.2.7.2.[id number] [facility] 2023-06-26 00:00:00 2023-06-26 00:00:00 Telephone Emelina Arntd [facility] FUNMI?[facility] 1.84.114 350.1.13.10 4.2.7.2.[id number] [facility] 2023-06-26 00:00:00 2023-06-26 00:00:00 Patient Secure Msg Doctor Unassigned, Literberry [facility] FUNMI?[facility] 1.284.114 350.1.13.10 4.2.7.2.[id number] [facility] 2023-06-21 00:00:00 2023-06-21 00:00:00 Telephone Jane Berry [facility] FUNMI?[facility]I RAM[facility] OFF[facility]ILD[facility] 1.840.114 350.1.13.10 4.2.7.2.[id number] [facility] 2023-06-19 16:30:00 2023-06-19 17:05:45 Outpatient R ORION ARNDTLIE [facility] [id number] [facility] 2023-06-19 16:30:00 2023-06-19 17:05:45 Office Visit Emelina Arndt Sintia [facility] 1.840.114 350.1.13.10 4.2.7.2.[id number] [facility] 2023-06-07 08:00:00 2023-06-07 08:00:00 Outpatient R JAY VALERIA [facility] [id number] [facility] 2023-03-22 11:00:00 2023-03-22 11:00:00 Outpatient R LISA MAURICIO [facility] [id number] [facility] 2023-03-05 15:00:00 2023-03-05 15:00:00 Outpatient R MAYLIN JONASIAN [facility] [id number] [facility] 2023-01-23 00:00:00 2023-01-23 00:00:00 Refill Edie Hopkins [facility] 1.840.114 350.1.13.10 4.2.7.2.[id number] [facility] 2023-01-21 00:00:00 2023-01-21 00:00:00 Patient Secure Msg Doctor Unassigned, Literberry [facility] 1.840.114 350.1.13.10 4.2.7.2.[id number] [facility] 2023-01-11 11:00:00 2023-01-11 11:00:00 Outpatient R LISA MAURICIO [facility] [id number] [facility] 2022-12-21 08:20:00 2022-12-21 08:20:00 Outpatient R LISA MAURICIO [facility] [id number] [facility] 2022-12-21 08:00:00 2022-12-21 08:00:00 Outpatient R JANE BERRY [facility] [id number] [facility] 2022-12-20 00:00:00 2022-12-20 00:00:00 RefConnor [facility]anECU [facility] HospitalYULISA CHOUDHARY?[facility] 1..840.114 350.1.13.10 4.2.7.2.[id number] [facility] 2022-12-03 08:00:00 2022-12-03 08:00:00 Outpatient R JANE BERRY [facility] [id number] [facility] 2022-11-16 00:00:00 2022-11-16 00:00:00 Refill Kathy BerrySent[facility] CenterYUL[facility] CHOUDHARY?[facility] 1.840.114 350.1.13.10 4.2.7.2.[id number] [facility] 2022-11-16 00:00:00 2022-11-16 00:00:00 Refill Connor BerryEC[facility]ie HospitalYULISA CHOUDHARY?[facility] 1..840.114 350.1.13.10 4.2.7.2.[id number] [facility] 2022-10-01 00:00:00 2022-10-01 00:00:00 Uriel AlmonteConnor omerECU Health Bertie HospitalYULISA CHOUDHARY?[facility] 1.84.114 350.1.13.10 4.2.7.2.[id number] [facility] 2022-08-27 00:00:00 2022-08-27 00:00:00 Refill Connor BerryEC[facility]ie HospitalYULISA CHOUDHARY?[facility] MED[facility] OFFICE BUILDING 1.2.840.114 350.1.13.10 4.2.7.2.[id number] [facility] 2022-07-27 00:00:00 2022-07-27 00:00:00 Refill Kathy BerrySentara Albemarle Medical CenterYULISA CHOUDHARY?[facility] 1.2.840.114 350.1.13.10 4.2.7.2.[id number] [facility] 2022-07-23 00:00:00 2022-07-23 00:00:00 Refill Connor BerryEC[facility]ie HospitalYULISA CHOUDHARY?[facility] 1.2.840.114 350.1.13.10 4.2.7.2.[id number] [facility] 2022-05-01 00:00:00 2022-05-01 00:00:00 RefConnor AdanECU Health Bertie HospitalYULISA CHOUDHARY?[facility] 1.2.840.114 350.1.13.10 4.2.7.2.[id number] [facility] 2022-04-18 00:00:00 2022-04-18 00:00:00 [facility] FUN[facility] 1.2.840.114 350.1.13.10 4.2.7.2.[id number] [facility] 2022-02-09 11:00:00 2022-02-09 11:34:20 Outpatient R YANNICKJANE OMER [facility] [id number] [facility] 2022-02-09 11:00:00 2022-02-09 11:34:20 Office Visit Jane Berry [facility] FUNMI?[facility] 1.2.840.114 350.1.13.10 4.2.7.2.[id number] [facility] 2022-02-07 00:00:00 2022-02-07 00:00:00 Refill Tomasz Rodriguez [facility] FUNMI?[facility] 1.2.840.114 350.1.13.10 4.2.7.2.[id number] [facility] 2022-02-07 00:00:00 2022-02-07 00:00:00 Refill Tomasz Rodriguez [facility] FUNMI?[facility] 1.2.840.114 350.1.13.10 4.2.7.2.[id number] [facility] 2022-02-06 00:00:00 2022-02-06 00:00:00 Letter (Out) Jane Berry [facility] CHOUDHARY?[facility] 1.2.840.114 350.1.13.10 4.2.7.2.[id number] [facility] 2022-01-22 03:54:00 2022-01-22 07:36:00 Emergency X YONY [facility] ERT [id number] [facility] 2022-01-22 03:54:00 2022-01-22 07:36:00 Emergency ChloeYony couch [facility] 1.2.840.114 350.1.13.10 4.2.7.2.[id number] [facility] 2022-01-22 00:00:00 2022-01-22 00:00:00 Orders Only Doctor Unassigned, Literberry [facility] 1.0.114 350.1.13.10 4.2.7.2.[id number] [facility] 2021-11-07 00:00:00 2021-11-07 00:00:00 Refill Weston, Greggdiful A [facility] ONE 1..114 350.1.13.10 4.2.7.2.[id number] [facility] 2021-10-15 00:00:00 2021-10-15 00:00:00 Refill Weston, Wondiful A [facility] ONE 1.114 350.1.13.10 4.2.7.2.[id number] [facility] 2021-09-21 00:00:00 2021-09-21 00:00:00 Refill Jennifer, Wondiful A [facility] ONE .114 350.1.13.10 4.2.7.2.[id number] [facility] 2021-09-18 15:00:00 2021-09-18 15:00:00 Outpatient R [facility] [id number] [facility] 2021-09-12 00:00:00 2021-09-12 00:00:00 Refill Weston, Wondiful A [facility] FUNMI?[facility] MEDICAL OFFICE BUILDING .114 350.1.13.10 4.2.7.2.[id number] [facility] 2021-08-16 00:00:00 2021-08-16 00:00:00 Patient Secure Msg Doctor Unassigned, Literberry [facility] 1..114 350.1.13.10 4.2.7.2.[id number] [facility] 2021-08-08 11:00:00 2021-08-08 11:00:00 Assistant Hall Director Visit 2, Adc Lab Tomasz Rodriguez [facility] 1.2.840.114 350.1.13.10 4.2.7.2.[id number] [facility] 2021-08-08 11:00:00 2021-08-08 11:00:00 Assistant Hall Director Visit 2, [facility] Tomasz Rodriguez [facility] 1.2.840.114 350.1.13.10 4.2.7.2.[id number] [facility] 2021-08-08 09:00:00 2021-08-08 10:10:34 Outpatient R VALERIA JONAS [facility] [id number] [facility] 2021-08-08 09:00:00 2021-08-08 10:10:34 Office Visit Valeria Jonas [facility] 1.2.840.114 350.1.13.10 4.2.7.2.[id number] [facility] 2021-08-08 09:00:00 2021-08-08 10:10:34 Outpatient R VALERIA JONAS [facility] [id number] [facility] 2021-08-07 14:30:00 2021-08-07 15:16:36 Outpatient R TOMASZ RODRIGUEZ [facility] [id number] [facility] 2021-08-07 14:30:00 2021-08-07 15:16:36 Outpatient R TOMASZ RODRIGUEZ [facility] [id number] [facility] 2021-08-07 14:30:00 2021-08-07 15:16:36 Office Visit Tomasz Rodriguez [facility] 1.2.840.114 350.1.13.10 4.2.7.2.[id number] [facility] 2021-07-28 00:00:00 2021-07-28 00:00:00 Transition of Care Alisson Bhatt 1.2840.114 350.1.13.10 4.2.7.2.[id number] [facility] 2021-07-24 11:51:00 2021-07-27 12:00:00 Inpatient X CATHRYN LINO [facility] LEA [id number] [facility] 2021-07-24 11:51:00 2021-07-27 12:00:00 Hospital Encounter Sybil Kaur, Cathryn Fleming [facility] 1..840.114 350.1.13.10 4.2.7.2.[id number] [facility] 2021-07-27 00:00:00 2021-07-27 00:00:00 Case Management Tomasz Rodriguez [facility] BUILD[facility] 1.2.840.114 350.1.13.10 4.2.7.2.[id number] [facility] 2021-07-24 00:00:00 2021-07-24 00:00:00 Telephone [facility] 1.2840.114 350.1.13.10 4.2.7.2.[id number] [facility] 2021-07-23 02:20:00 2021-07-23 05:22:00 Emergency X YONY [facility] ERT [id number] [facility] 2021-07-23 02:20:00 2021-07-23 05:22:00 Emergency Yakhoa Wakili S [facility] 1.2840.114 350.1.13.10 4.2.7.2.[id number] [facility] 2021-07-21 16:16:57 2021-07-21 17:02:12 Office Visit Tomasz Rodriguez [facility] FUNMI?[facility] 1.2840.114 350.1.13.10 4.2.7.2.[id number] [facility] 2021-07-21 16:15:00 2021-07-21 17:02:12 Outpatient R GREGG RODRIGUEZKRISTINA [facility] [id number] [facility] 2021-07-21 00:00:00 2021-07-21 00:00:00 Orders Only Doctor Unassigned, Literberry [facility] 1.0.114 350.1.13.10 4.2.7.2.[id number] [facility] 2021-06-02 00:00:00 2021-06-02 00:00:00 Refill Tomasz Rodriguez [facility] Office Building One 1.840.114 350.1.13.10 4.2.7.2.[id number] [facility] 2021-03-26 00:00:00 2021-03-26 00:00:00 Orders Only Doctor Unassigned, Literberry [facility] 1.2840.114 350.1.13.10 4.2.7.2.[id number] [facility] 2021-01-23 00:00:00 2021-01-23 00:00:00 Telephone Charlotte Shay 1.2840.114 350.1.13.10 4.2.7.2.[id number] [facility] 2021-01-23 00:00:00 2021-01-23 00:00:00 Pre Visit Outreach Laurita Charlotte L Dulce Alexis 1.840.114 350.1.13.10 4.2.7.2.[id number] [facility] 2021-01-23 00:00:00 2021-01-23 00:00:00 Patient Secure Msg Doctor Unassigned, Literberry DULCE ALEXIS 1.840.114 350.1.13.10 4.2.7.2.[id number] [facility] 2021-01-20 00:00:00 2021-01-20 00:00:00 Telephone Tomasz Rodriguez A [facility] Office Building One 1.840.114 350.1.13.10 4.2.7.2.[id number] [facility] 2021-01-11 00:00:00 2021-01-11 00:00:00 Refill Tomasz Rodriguez [facility] Office Building One 1.840.114 350.1.13.10 4.2.7.2.[id number] [facility] 2020-12-20 00:00:00 2020-12-20 00:00:00 Orders Only Doctor Unassigned, Literberry [facility] 1.840.114 350.1.13.10 4.2.7.2.[id number] [facility] 2020-12-14 00:00:00 2020-12-14 00:00:00 Telephone Tomasz Rodriguez [employer] [facility] Office Building One 1.840.114 350.1.13.10 4.2.7.2.[id number] [facility] 2020-12-12 00:00:00 2020-12-12 00:00:00 Refill Tomasz Rodriguez [facility] Office Building One 1..840.114 350.1.13.10 4.2.7.2.[id number] [facility] 2020-12-10 00:00:00 2020-12-10 00:00:00 Refill Tomasz Rodriguez [facility] Office Building One 1.840.114 350.1.13.10 4.2.7.2.[id number] [facility] 2020-11-21 00:00:00 2020-11-21 00:00:00 Orders Only Doctor Unassigned, Literberry [facility] 1.2.840.114 350.1.13.10 4.2.7.2.[id number] [facility] 2020-11-13 00:00:00 2020-11-13 00:00:00 Telephone Tomasz Rodriguez [facility] Office Building One 1.840.114 350.1.13.10 4.2.7.2.[id number] [facility] 2020-11-11 11:11:14 2020-11-11 11:39:29 Office Visit Tomasz Rodriguez [facility] Office Building One 1.0.114 350.1.13.10 4.2.7.2.[id number] [facility] 2020-11-11 11:20:00 2020-11-11 11:20:00 Outpatient EDILMA ANNA [facility] [id number] [facility] 2020-11-11 11:00:00 2020-11-11 11:00:00 Outpatient TOMASZ JOYCE [facility] [id number] [facility] 2020-10-24 11:00:00 2020-10-24 11:00:00 Outpatient R JENNIFERGREGGRASHEED [facility] [id number] [facility] 2020-10-14 00:00:00 2020-10-14 00:00:00 Refill WestonAmarjit mimsful A [facility] Office Building One 1.0.114 350.1.13.10 4.2.7.2.[id number] [facility] 2020-10-11 00:00:00 2020-10-11 00:00:00 Refill JenniferGreggvikiful [facility] Office Building One 1.0.114 350.1.13.10 4.2.7.2.[id number] [facility] 2020-09-22 00:00:00 2020-09-22 00:00:00 Refill JenniferAmarjitful Sintia [facility] Office Building One 1..114 350.1.13.10 4.2.7.2.[id number] [facility] 2020-08-22 00:00:00 2020-08-22 00:00:00 Refill JenniferTomasz [facility] Office Building One ..114 350.1.13.10 4.2.7.2.[id number] [facility] 2020-08-15 00:00:00 2020-08-15 00:00:00 Orders Only Doctor Unassigned, Literberry [facility] 1.0.114 350.1.13.10 4.2.7.2.[id number] [facility] 2020-08-02 00:00:00 2020-08-02 00:00:00 Telephone JenniferGreggvikiful [facility] Office Building One 1.0.114 350.1.13.10 4.2.7.2.[id number] [facility] 2020-07-28 00:00:00 2020-07-28 00:00:00 Case Management Tomasz Rodriguez [facility] Office Building One 1.840.114 350.1.13.10 4.2.7.2.[id number] [facility] 2020-07-25 12:05:08 2020-07-25 12:20:08 Assistant Hall Director Visit Pob, Ad[facility] Lab Main Tomasz Rodriguez [facility] Building 1.0.114 350.1.13.10 4.2.7.2.[id number] [facility] 2020-07-25 10:54:28 2020-07-25 11:47:59 Office Visit Tomasz Rodriguez [facility] Office Building One 1.0.114 350.1.13.10 4.2.7.2.[id number] [facility] 2020-07-25 11:00:00 2020-07-25 11:00:00 Outpatient R JENNIFERGREGG MIMSRASHEED [facility] [id number] [facility] 2020-07-25 00:00:00 2020-07-25 00:00:00 Orders Only Doctor Unassigned, [place] [facility] 1.20.114 350.1.13.10 4.2.7.2.[id number] [facility] 2020-07-12 15:00:00 2020-07-12 15:00:00 Outpatient R JENNIFERGREGG MIMSVIKIKRISTINA [facility] [id number] [facility] 2020-07-12 00:00:00 2020-07-12 00:00:00 Telephone Tomasz Rodriguez [facility] Office Building One .84.114 350.1.13.10 4.2.7.2.[id number] [facility] 2020-07-11 15:45:00 2020-07-11 15:45:00 Outpatient R CAROLYNROCÍOCORWIN [facility] [id number] [facility] 2020-07-08 16:30:00 2020-07-08 16:30:00 Outpatient R JENNIFERTOMASZ MIMS [facility] [id number] [facility] 2020-07-08 15:37:31 2020-07-08 15:52:31 Telemedici ne Visit JenniferTomasz mims [facility] Office Building One 1.840.114 350.1.13.10 4.2.7.2.[id number] [facility] 2020-07-05 11:00:00 2020-07-05 11:00:00 Outpatient R CAROLYNROCÍOCORWIN [facility] [id number] [facility] 2020-06-27 10:22:26 2020-06-27 11:08:16 Office Visit WestonTomasz mims [facility] Office Building One .840.114 350.1.13.10 4.2.7.2.[id number] [facility] 2020-06-27 10:15:00 2020-06-27 10:15:00 Outpatient R GREGG RODRIGUEZVIKIKRISTINA [facility] [id number] [facility] 2020-06-27 00:00:00 2020-06-27 00:00:00 Orders Only Doctor Unassigned, [place] [facility] 1.84.114 350.1.13.10 4.2.7.2.[id number] [facility] 2020-06-27 00:00:00 2020-06-27 00:00:00 Letter (Out) Doctor Unassigned, [place] [facility] 1.2.840.114 350.1.13.10 4.2.7.2.[id number] [facility] 2020-06-07 00:00:00 2020-06-07 00:00:00 Transition of Margo Dumont 1.2.840.114 350.1.13.10 4.2.7.2.[id number] [facility] 2020-06-03 18:27:00 2020-06-06 17:52:00 [facility] En[facility] 1.2.840.114 350.1.13.10 4.2.7.2.[id number] [facility] 2020-06-03 18:27:00 2020-06-03 18:27:00 Emergency X KALEN YEAGER [facility] [id number] [facility] 2020-06-01 03:46:00 2020-06-01 06:12:00 Emergency Dorcas Man [facility] 1.2.840.114 350.1.13.10 4.2.7.2.[id number] [facility] 2020-06-01 03:46:00 2020-06-01 03:46:00 Emergency X DORCAS MAN [facility] E[facility] [id number] [facility] Results Test Description Test Time Test Comments Results Result [facility], [id number] 17:10:00 * Test Item Value Reference Range [...] U APPEAR (test code = 3267) [facility] [id number] 17:10:00 * Test Item Value Reference Range [...] U APPEAR (test code = 3267) [facility], [id number] 17:10:00 * Test Item Value Reference Range [...] U APPEAR (test code = 3267) [facility] P[facility] W [id number] 04:26:58Ordering Physician: Janet Nguyen History: UTI, recurrent/complicated. [...] signs of hernia or lymphadenopathy.Bones: Unremarkable.Soft tissues: Normal.[facility] Metabolic Vvkux0332-86-17 03:35:00* Test Item Value Reference Range Interpretation Comme nts NA (test code = 8711411916) 140 mmol/L 135-145 K (test code = 1957333366) 3.7 mmol/L 3.5-5.0 CL (test code = 3584409872) 105 mmol/L 98-108 CO2 TOTAL (test code = 4037703726) 25 mmol/L 23-31 AGAP (test code = 9696498759) 10 2-16 BUN (test code = 6301252321) 14 mg/dL 7-23 GLUCOSE (test code = 9892355956) 111 mg/dL 70-110 H CREATININE (test code = 2681419800) 0.68 mg/dL 0.50-1.04 TOTAL BILI (test code = 7204484388) 0.7 mg/dL 0.1-1.1 CALCIUM (test code = 3054738128) 8.9 mg/dL 8.6-10.6 T PROTEIN (test code = 2450314795) 8.4 g/dL 6.3-8.2 H ALBUMIN (test code = 4129140649) 4.7 g/dL 3.5-5.0 ALK PHOS (test code = 8468444122) 84 U/L 34-122 ALTv (test code = 1742-6) 26 U/L 5-35 AST(SGOT) (test code = 7296264098) 31 U/L 13-40 eGFR (test code = 81261-3) 117.4 mL/min/1.73m2 CKD-EPI eGFR (2020). Assuming creatinine has been stable day-to-day for at least three months, the eGFR indicates Category G1 (>= 90 mL/min/1.73 m2) Lab Interpretation (test code = 13890-4) Abnormal [facility], Mwkss6290-99-21 03:34:20* Test Item Value Reference Range Interpretation Comme nts LIPASE (test code = 3558126639) 99 U/L 0-220 Lab Interpretation (test cod e = 42654-2) Normal [facility] CenterCB with Nirfvnsskunt0977-19-38 03:22:37* Test Item Value Reference Range Interpretation Comme nts WBC (test code = 6690-2) 10.07 See_Comment [Automated [employer] ge] The system which generated this result [...] 33.6 g/dL 31.6-35.1 RDW-SD (test code = 58595-9) 42.9 fL 39.0-49.9 RDW-CV (test code = 788-0) 12.2 % 12.0-15.5 PLT (test code = 777-3) 290 See_Comment [Automated messa ge] The system which generated this result transmitted reference range: 166 - 358 10*3/?L. The reference range was not used to interpret this result as normal/abnormal. MPV (test code = 37925-2) 10.3 fL 9.5-12.9 NRBC/100 WBC (test code = 3518474216) 0.0 See_Comment [Automated [employer] ssage] The system which generated this result transmitted reference range: 0.0 - 10.0 /100 WBCs. The reference range was not used to interpret this result as normal/abnormal. NRBC x10^3 (test code = 1718396355) See_Comment [Automated [employer] ge] The system which generated this result transmitted reference range: 10*3/?L. The reference range was not used to interpret this result as normal/abnormal. GRAN MAT (NEUT) % (test code = 770-8) 75.8 % IMM GRAN % (test code = 8575138795) 0.20 % LYMPH % (test code = 736-9) 17.6 % MONO % (test code = 5905-5) 5.2 % EOS % (test code = 713-8) 0.7 % BASO % (test code = 706-2) 0.5 % GRAN MAT x10^3(ANC) (test code = 2141681277) 7.64 10*3/uL 1.88-7.09 H IMM GRAN x10^3 (test code = 9491725311) 0.00-0.06 LYMPH x10^3 (test code = 731-0) 1.77 10*3/uL 1.32-3.29 MONO x10^3 (test code = 742-7) 0.52 10*3/uL 0.33-0.92 EOS x10^3 (test code = 711-2) 0.07 10*3/uL 0.03-0.39 BASO x10^3 (test code = 704-7) 0.05 10*3/uL 0.01-0.07 Lab Interpretation (test code = 88439-9) Abnormal [facility] Lzov1182-29-93 02:57:00* Test Item Value Reference Range Interpretation Comme nts POCT PREG (test code = 1605) Negative On board controls acceptable with C Line (test code = 3574) Yes POCT PREG LOT # (test code = 3575) [id number] POCT PREG TEST DATE ( test code = 3576) 11/21/2024 Lab Interpretation (test cod e = 97059-2) Normal [facility] Urinalysis, Rdldmniozp8637-82-53 18:31:00 * Test Item Value Reference Range [...] Clear Lab Interpretation (test cod e = 50052-9) Abnormal [facility] Urinalysis, Ngkjxdqfii2983-24-27 18:31:00 * Test Item Value Reference Range [...] Clear Lab Interpretation (test cod e = 10648-7) Abnormal [facility] Urinalysis, Fqzkptmisj3466-70-10 18:31:00 * Test Item Value Reference Range [...] Clear Lab Interpretation (test cod e = 40519-0) Abnormal [facility] URINALYSIS, [id number] 17:35:00 * Test Item Value Reference Range [...] U APPEAR (test code = 3267) clear [facility] URINALYSIS, [id number] 17:35:00 * Test Item Value Reference Range [...] U APPEAR (test code = 3267) clear [facility] URINALYSIS W SPECIFIC [id number] 21:51:00* Test Item Value Reference Range Interpretation [...] 3267) Lab Interpretation (test cod e = 80940-1) [facility]normal [facility] SPECIFIC [id number] 21:51:00* Test Item Value Reference Range Interpretation [...] 3267) Lab Interpretation (test cod e = 32596-5) Abnormal [facility] Notes Date/Time Note Provider Source 2024-08-20 15:52:55 [...] TACHO Phan Last refill: 07/28/2024 Rx #: [id number] Pharmacy comment: REQUEST FOR 90 DAYS PRESCRIPTION. DX Code Needed. Cardiovascular: General Hypertension Dherij7308/20/2024 09:31 AM Protocol Details Valid encounter within last 12 months This request has changes from the previous prescription. To be filled at: [facility]/pharmacy #[id number] - [place], [place] - [address] AT [facility] [address] [place] Recent Visits Date Type Provider Dept 06/29/24 [...] authorizing provider and meeting all other requirements R SHERIFF Tiffany Washington MA [facility] 2024-07-28 08:30:57 Last Refilled: Disp Refills Start End DAPHNIE cloNIDine 0.3 mg tablet 30 tablet 0 06/29/2024 -- No Sig: Take 1 tablet by mouth at bedtime. Sent to pharmacy as: cloNIDine HCL 0.3 mg tablet (CATAPRES) Class: eRX Route: Oral Order: [id number] Date/Time Signed: 06/29/2024 16:20 E-Prescribing Status: Receipt confirmed by pharmacy (06/29/2024 4:20 PM UNDER SHERIFF) Notes: Recent Visits Date Type Provider Dept [...] 08/19/2023 Yes POCT PREG LOT # 08/19/2023 [id number] POCT PREG TEST DA* 08/19/2023 11/21/2024 Office [...] 08/16/2023 Yellow POCT U APPEAR 08/16/2023 Clear R SHERIFF Bindu Juárez RN [facility] 2024-06-22 12:48:51 Will address at visit [facility] 2024-06-22 12:32:20 Please review and advise. LANDRY 06/19/23 NOV 06/29/24 [facility] 2024-06-22 12:25:25 Katherine Akbar is a 34 year old female calling to see if she can get a refill of clonidine since she scheduled appt for 06/29 R SHERIFF Thierno Quintanilla [facility] 2024-06-16 08:23:17 Images from the original note were not included. Patient needs office visit Notes: 05/26/24 Last [facility]: [facility] [place] [address] AT [facility] Maintenance Assistant [address] [place] Recent Visits Date Type Provider Dept 06/19/23 [...] (06/15/2024) by TACHO Phan Cardiovascular: General Hypertension Ipmjfj3206/15/2024 05:31 PM Protocol Details Valid encounter within last 12 months [facility] be [facility] at: [facility] [place] [address] AT [facility] [place] Yodit Darling MA [facility] 2024-06-15 11:27:44 Images from the original note [...] (05/22/2024) by TACHO Phan Cardiovascular: General Hypertension Marwdk1706/15/2024 11:14 AM Protocol Details Valid encounter within last 12 months To be filled at: [facility]pharmacy #[address] [place] [address] - [address] AT [facility] Maintenance Assistant [address] [place] Recent Visits Date Type Provider Dept 06/19/23 Office Visit Emelina Arndt PA [facility] Showing recent visits within past 540 days with a meds authorizing provider and meeting all other requirements Future Appointments No visits were found meeting these conditions. Showing future appointments within next 150 days with a meds authorizing provider and meeting all other requirements Tiffany Washington MA [facility] 2024-05-25 14:17:47 Patient does not have VM set up, unable to LVM Flaquita Bolaños [facility] 2024-05-22 13:46:11 Please facilitate office visit [facility] 2024-05-22 13:28:38 Pss please reach [...] tablet (CATAPRES) Class: eRX Route: Oral Order: [id number] Date/Time Signed: 04/28/2024 13:16 E-Prescribing Status: Receipt [...] 08/19/2023 Yes POCT PREG LOT # 08/19/2023 [id number] POCT PREG TEST DA* 08/19/2023 11/21/2024 Office [...] Bacterial Vaginosis 06/19/2023 Negative Bindu Juárez RN [facility] 2024-05-22 11:38:00 Pt request rx refill. Please Advise. [facility]/pharmacy #[id number] - [place], [place] - [address] AT [facility] [place] [address] Radha Schaeffer [facility] 2024-04-03 11:01:50 Last Refilled: Disp Refills Start End DAPHNIE cloNIDine 0.3 mg tablet 30 tablet 0 03/11/2024 -- -- Sig: Take 1 tablet by mouth at bedtime. For anxiety/ Hypertension Sent to pharmacy as: cloNIDine HCL 0.3 mg tablet (CATAPRES) Class: eRX Route: Oral Order: [id number] Date/Time Signed: 03/11/2024 11:23 E-Prescribing Status: Receipt confirmed by pharmacy (03/11/2024 11:23 AM CDT) Recent Visits Date Type Provider Dept 06/19/23 Office Visit Emelina Arndt PA [facility] Med Showing recent visits within past 540 days with a meds authorizing provider and meeting all other requirements Future Appointments No visits were found meeting these conditions. Showing future appointments within next 150 days with a meds authorizing provider and meeting all other requirements Germaine Howell [facility] 2024-04-03 10:32:02 Patient requesting a refill of:cloNIDine Medication: cloNIDine Dose: 0.3 mg Route: refill Quantity: 30 Pharmacy: [facility]/pharmacy #[id number] - [place], [place] - [address] [place] [address] Last appt.: 02/09 Next appt.: na [facility] 2024-02-17 09:31:41 Patient requesting a refill of:cloNIDine Medication: cloNIDine Dose: 0.3 mg Route: refill Quantity: 30 Pharmacy: [facility]/PHARMACY #[id number] - [place], [place] - [address] AT [facility] Last appt.: 06/19/23 Next appt.: na [facility] 2023-11-28 09:35:33 Email has been sent to Clif Verdugo with CB in regards to this request. Tiffany Washington MA [facility] 2023-11-27 14:19:46 No, I have never done this on any patient. Are you sure it comes to me or should come to me? ORDER ENTRY REPRESENTATIVE-FAMILY MIDLEVEL PROVIDER [facility] 2023-11-27 10:41:22 Have you received a casebook on this patient [facility] 2023-11-26 13:46:25 Copied from [facility] #[id number]. Topic: Clinical - Medical Advice >> Nov 26, 2023 1:44 PM Patient School Bus Technician wrote: Pt needing case book referral to Case#[id number] Pt says she spoke with jennifer and should have already been started Thierno Quintanilla [facility] 2023-11-12 10:35:21 Images from the original note [...] TACHO Phan Last refill: 10/21/2023 Rx #: [id number] Pharmacy comment: REQUEST FOR 90 DAYS PRESCRIPTION. DX Code Needed. Cardiovascular: General Hypertension Scnwuz1711/12/2023 10:33 AM Protocol Details Valid encounter within last 12 months This request has changes from the previous prescription. To be filled at: [facility]/pharmacy #[id number] - [place], [place] - [address] [facility] [address] [place] Recent Visits Date Type Provider Dept 06/19/23 [...] meeting all other requirements Beatriz Baeza LVN [facility] 2023-10-30 13:56:19 OCA worked 3.8.24 ob and urogyn file. Requesting auth for US referral and follow up appointment scheduled. Jennifer Chowdhury 10/30/2023 1:58 PM Jennifer Chowdhury [facility] 2023-10-21 13:29:37 Images from the original note [...] Mauricio MD Last refill: 09/18/2023 Rx #: [id number] Pharmacy comment: REQUEST FOR 90 DAYS PRESCRIPTION. DX Code Needed. Cardiovascular: General Hypertension Eybqsh7810/21/2023 11:49 AM Protocol Details Valid encounter within last 12 months This request has changes from the previous prescription. To be filled at: [facility]/pharmacy #[id number] - [place], [place] - [address] AT [facility] 30 day supply sent Recent [...] authorizing provider and meeting all other requirements [facility] 2023-10-18 10:15:[address] Mace: Reschedule cystoscopy. Patient did not take medication. Spoke with patient. Patient rescheduled for cystoscpoy. Patient advised to pick up worker Fosfomycin from pharmacy for UTI treatment. Patient advised Macrobid has been sent in to take nightly for 7 days for UTI prevention. Patient verbalized understanding of all recommendations. Teddy Weiner RN 10/18/2023 10:19 AM Weiner RN [facility] 2023-10-17 08:58:26 OCA worked 2. ob post visit no additional orders needed at this time Chowdhury [facility] 2023-10-11 11:00:00 Addended by: JOSE CARLOS BUCIO, XENIA Patricio on: 10/11/2023 12:04 PM Modules accepted: Orders [facility] 2023-10-11 11:00:00 Addended by: KRYSTAL MACE MD on: 10/14/2023 11:44 AM Modules accepted: Orders [facility] 2023-09-18 08:33:52 Received refill request for: Clonidine 0.3 mg. 90 days and 0 refills. Make an appointment for additional refills Medication: Requested Prescriptions Pending Prescriptions Disp Refills CLONIDINE 0.3 mg tablet [Pharmacy Med Name: CLONIDINE HCL 0.3 MG TABLET] 30 tablet 0 Sig: TAKE 1 TABLET BY MOUTH AT BEDTIME. FOR ANXIETY/ HYPERTENSION Requested Prescriptions Pending Prescriptions Disp Refills CLONIDINE 0.3 mg tablet [Pharmacy Med Name: CLONIDINE HCL 0.3 MG TABLET] 30 tablet 0 Sig: TAKE 1 TABLET BY MOUTH AT BEDTIME. FOR ANXIETY/ HYPERTENSION Cardiovascular: General Hypertension Passed - 09/18/2023 2:21 AM Passed - Valid encounter within last 12 months Recent Visits Date Type Provider Dept 06/19/23 Office Visit Emelina Arndt PA [facility] Showing recent visits within past 365 days and meeting all other requirements Future Appointments Date Type Provider Dept 09/20/23 Appointment Jane Berry FNP [facility] Showing future appointments within next 365 days and meeting all other requirements Medication Last filled: 08/14/2023 Provider Note: Recent Visits Date Type Provider Dept 06/19/23 Office Visit Emelina Arndt PA [facility] Showing recent visits within past 365 days and meeting all other requirements Future Appointments Date Type Provider Dept 09/20/23 Appointment Jane Berry FNP [facility] Showing future appointments within next 365 days and meeting all other requirements Refilled approval sent to: Pharmacy: [id number] [place], [place] - [address] AT [address] [place] [address] [place] [address] [facility] - [address] [facility] [place], [place] [address] [facility] [place] [address] Refilled based on current protocol and last office visit note. Jolie Randle MA 09/18/2023 8:33 AM Admission on 08/19/2023, Discharged on 08/19/2023 Component [...] 06/19/2023 Positive (A) Bacterial Vaginosis 06/19/2023 Negative R SHERIFF Jolie Randle MA [facility] 2023-08-29 09:32:12 Pt r/s cysto [...] for the urine sample. Please advise. Loaiza [facility] 2023-08-19 23:35:58 Pt discharged with diagnosis of UTI with hematuria and lower abdominal pain. Printed and verbal instructions reviewed with and given to pt. Prescriptions given x 1. Pt verbalized understanding of teaching, medication, and recommended follow-up. Denies questions or concerns at this time. Pt ambulatory at discharge. Appears in no apparent distress. No ataxia noted. Accompanied by fiance. Corea RN [facility] 2023-08-19 20:00:09 Patient ambulatory to ED c/o abd cramping that started on and off two weeks ago. Patient states that her cramping started really bad today. Was unable to walk earlier today. Patient has IUD that needs to be taken out. [facility] nurse told patient to come in. Perez RN [facility] 2023-08-19 17:55:00 Regarding: severe cramping x right now ----- Message from Ihsan Wiggins sent at 08/19/2023 5:55 PM UNDER SHERIFF ----- Katherine Akbar is a 33 year old female Patient is stating she is overdue for IUD being removed and is now having severe cramps (almost feels like contractions) x right now. Please advise Doran RN [facility] 2023-08-19 17:55:00 Adult Triage Assessment Last Clinic [...] last time having severe pain was around [id number] "it was so bad I could not stand up or walk"; low back/flank pain -03/28 "aching", "like I just got hit in [...] x 3 pills extra-strength = 1500mg/incorrect last 08/18/2319991636-2687 - none today Effect on ADL's: significant [...] the triager Protocols used: Abdominal Pain - Ylrwnq-GXIFZ-HU, Contraception - IUD Symptoms and Vsyncjskd-WIXHA-BH, Urinary Xsnvqflw-SPHNH-AL Assessment and triage done, disposition to go to the ED now. Reviewed correct Tylenol dosing. Callback warnings given. Pt voiced understanding and agreement with plan of care, states she will be taken to [facility] ED. [facility] 2023-08-16 11:00:00 Addended by: KRYSTAL MACE MD on: 08/20/2023 01:44 PM Modules accepted: Orders [facility] 2023-08-14 13:50:11 Images from the original note were not included. Requested Renewals proMETHazine 25 mg tablet Sig: Take 1 tablet by mouth every 6 (six) hours as needed for N/V unresponsive to Ondansetron. Disp: 12 tablet Refills: 0 Start: 08/14/2023 Class: eRX For: Cyclical vomiting syndrome not associated with migraine Last ordered: 8 months ago (11/19/2022) by TACHO Phan Anti-nausea (Other) Mxatgo4808/14/2023 04:57 AM Protocol Details This refill cannot be delegated Manual Review: Women[facility] only allowed to refill requests Valid encounter within last 12 months To be filled at: [facility]/pharmacy #[id number] - [place], [place] - [address] [facility] [address] [place] Recent Visits Date Type Provider Dept 06/19/23 [...] authorizing provider and meeting all other requirements [facility] Beatriz Baeza LVN [facility] 2023-08-14 11:33:40 From: [facility] To: Office of Tomasz Rodriguez MD Sent: 08/14/2023 4:57 AM [facility] Subject: Medication Renewal Request Refills have been requested for the following medications: ERGOCALCIFEROL, VITAMIN D2, 1,250 mcg (50,000 unit) capsule [Tomasz Rodriguez] [id number] [place] [address] AT [facility] [place] Delivery method: Pickup Recent Visits Date Type [...] authorizing provider and meeting all other requirements R SHERIFF [facility] 2023-08-14 08:03:54 Images from the original note were not included. .please review cloNIDine 0.3 mg tablet Sig: Take 1 tablet by mouth at bedtime. For anxiety/ Hypertension Disp: 90 tablet Refills: 1 Start: 08/14/2023 Class: eRX For: Generalized anxiety disorder, Chronic insomnia Last ordered: 6 months ago (01/23/2023) by TACHO Levin Cardiovascular: General Hypertension Xgwxug8308/14/2023 04:57 AM Protocol Details Valid encounter within last 12 months To be filled at: [facility]/pharmacy #1974 [place], [place] - [address] AT [facility] Maintenance Assistant [address] [place] Recent Visits Date Type Provider Dept 06/19/23 [...] authorizing provider and meeting all other requirements [facility]
[2025-01-02] MEDS ORDERED: LORazepam 2 MG/ML VIAL ONE (11:46)
[2025-01-02] MEDS ORDERED: PROMETHAZINE INJ 25 MG/ML AMP IM ONE (11:46)
[2025-01-02] MEDS ORDERED: NA CHLORIDE 0.9% 1,000 ML ONE (11:47)
--- NOTE | 2025-01-02 15:28 | ER ---
Nurse's Notes [facility] Name: Katherine Akbar Age: 34 yrs Sex: Female : 1990 Arrival Date: 01/02/2025 Time: 11:02 Bed 26 Private MD: Diagnosis: Gastroparesis;Cyclical vomiting Presentation: 01/02 11:10 Chief complaint: Patient states: N/V for 3 days. No fever. Coronavirus screen: Client ll1 denies travel out of the [place] in the last 14 days. At this time, the client does not indicate any symptoms associated with coronavirus-19. Ebola Screen: Patient denies travel to an Ebola-affected area in the 21 days before illness onset. Initial Sepsis Screen: Does the patient meet any 2 criteria? No. Patient's initial sepsis screen is negative. Does the patient have a suspected source of infection? No. Patient's initial sepsis screen is negative. Risk Assessment: Do you want to hurt yourself or someone else? Patient reports no desire to harm self or others. Onset of symptoms was December 31, 2024. 11:10 Method Of Arrival: Wheelchair ll1 11:10 Acuity: BALTAZAR 3 ll1 Triage Assessment: 11:12 General: Appears distressed, uncomfortable, ill, Behavior is calm, cooperative, ll1 appropriate for age. Pain: Complains of pain in abdomen Quality of pain is described as aching, crampy. Neuro: Reports weakness. GI: Reports lower abdominal pain, upper abdominal pain, cramping, nausea, vomiting. 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 - Infectious Disease History:: Denies. - Social history:: Smoking status: Reported history of juuling and/or vaping. - Family history:: not pertinent. - Hospitalizations: : No recent hospitalization is reported. Screenin:54 [facility] ED Fall Risk Assessment (Adult) History of falling in the last 3 months, hb including since admission No falls in past 3 months (0 pts) Confusion or Disorientation No (0 pts) Intoxicated or Sedated No (0 pts) Impaired Gait No (0 pts) Mobility Assist Device Used No (0 pt) Altered Elimination No (0 pt) Score/Fall Risk Level 0 - 2 = Low Risk Oriented to surroundings, Maintained a safe environment, Educated pt \T\ family on fall prevention, incl call for assistance when getting out of bed. Abuse screen: Denies threats or abuse. Denies injuries from another. Nutritional screening: No deficits noted. Tuberculosis screening: No symptoms or risk factors identified. Assessment: 11:53 General: Appears in no apparent distress. Behavior is calm, cooperative. Neuro: GCS 15. hb Cardiovascular: Patient's skin is warm and dry. Respiratory: Respiratory effort is even, unlabored, Respiratory pattern is regular, symmetrical. GI: Reports nausea, vomiting. 12:15 General: Appears in no apparent distress. Behavior is calm, cooperative, drowsy. kj2 13:11 Reassessment: Patient appears in no apparent distress at this time. Patient and/or kj2 family updated on plan of care and expected duration. Pain level reassessed. Patient is alert, oriented x 3, equal unlabored respirations, skin warm/dry/pink. 14:15 Reassessment: Patient appears in no apparent distress at this time. Patient and/or kj2 family updated on plan of care and expected duration. Pain level reassessed. Patient is alert, oriented x 3, equal unlabored respirations, skin warm/dry/pink. 15:32 Reassessment: Patient appears in no apparent distress at this time. Patient and/or kj2 family updated on plan of care and expected duration. Pain level reassessed. Patient is alert, oriented x 3, equal unlabored respirations, skin warm/dry/pink. 15:45 Reassessment: pt reports nausea. kj2 16:05 Reassessment: Patient appears in no apparent distress at this time. patient requqst to kj2 speak with MD prior to leaving. 16:33 Reassessment: Patient appears in no apparent distress at this time. Patient and/or kj2 family updated on plan of care and expected duration. Pain level reassessed. Patient is alert, oriented x 3, equal unlabored respirations, skin warm/dry/pink. Vital Signs: 11:10 BP 135 / 91; Pulse 88; Resp 17; Temp 97.2; Pulse Ox 100% ; Weight 79.38 kg; Height 5 ll1 ft. 7 in. ; Pain 8/10; 13:11 BP 113 / 71; Pulse 80; Resp 16; Pulse Ox 100% ; kj2 14:15 BP 116 / 82; Pulse 76; Resp 18; Pulse Ox 98% on R/A; kj2 15:33 BP 104 / 69; Pulse 70; Resp 18; Temp 98; Pulse Ox 100% on R/A; kj2 16:34 BP 110 / 72; Pulse 74; Resp 20; Temp 98; Pulse Ox 100% on R/A; kj2 11:10 Body Mass Index 27.41 (79.38 kg, 170.18 cm) ll1 11:10 Pain Scale: Adult ll1 ED Course: 11:05 Patient arrived in ED. al6 11:05 Karl Murphy MD is Attending Physician. rn 11:11 Triage completed. ll1 11:12 Arm band placed on Patient placed in an exam room, on a stretcher. ll1 11:44 Accessed peripheral vein via ultrasound, utilizing dynamic ultrasound technique using hb per hospital protocol. Clean \T\ dry. Dressing intact. Good blood return. Flushes easily. 20G RFA. 11:54 Patient has correct armband on for positive identification. Provided Education on: call hb light use. 13:11 Maribel Barerra, RN is Primary Nurse. kj2 15:30 No provider procedures requiring assistance completed. IV discontinued, intact, kj2 bleeding controlled, No redness/swelling at site. Pressure dressing applied. Administered Medications: 11:52 Drug: NS 0.9% IV 1000 ml IV at 1000 ml once; to be given as a bolus over 60 minutes hb Route: IV; Rate: 1000 ml; Site: right forearm; 15:31 Follow up: IV Status: Completed infusion; IV Intake: 1000ml kj2 11:52 Drug: Ativan IVP 1 mg IVP once Route: IVP; Site: right antecubital; hb 15:31 Follow up: Response: No adverse reaction kj2 11:53 Drug: Promethazine IM 12.5 mg IM once Route: IM; Site: Other; hb 15:31 Follow up: Response: No adverse reaction kj2 16:05 Drug: Ondansetron IVP 4 mg IVP once; over 2 minutes Route: IVP; Site: right forearm; kj2 16:33 Follow up: Response: No adverse reaction kj2 Medication: 15:30 VIS not applicable for this client. kj2 Intake: 15:31 IV: 1000ml; Total: 1000ml. kj2 Outcome: 15:28 Discharge ordered by . rn 15:32 Discharged to home ambulatory, kj2 15:32 Condition: stable 15:32 Discharge instructions given to patient, Instructed on discharge instructions, follow up and referral plans. Demonstrated understanding of instructions, follow-up care, 16:57 Patient left the ED. kj2 Signatures: Karl Murphy MD MD rn Baxter, Heather RN RN Liane Pearson RN RN ll1 Maribel Barrera RN RN kj2 Angelina Hernandez6
--- NOTE | 2025-01-02 15:29 | EDPHYS ---
Physician Documentation [facility] Name: Katherine Akbar Age: 34 yrs Sex: Female : 1990 Arrival Date: 01/02/2025 Time: 11:02 Bed 26 Private MD: ED Physician Karl Murphy HPI: 01/02 11:18 This 34 yrs old Female presents to ER via Wheelchair with complaints of Vomiting. rn 11:18 The patient presents to the emergency department with nausea, vomiting. rn 11:18 Onset: The symptoms/episode began/occurred 3 day(s) ago. Patient reports nausea and rn vomiting for 3 days. Has cyclical vomiting syndrome and gastroparesis. States this feels identical to previous episodes of cyclical vomiting and gastroparesis. States under a lot of stress lately. States when she starts throwing up cannot stop. Ran out of her Zofran and Phenergan suppositories. Denies any new symptoms. No fever or chills. Does not feel sick. Feels dehydrated. Also reports her anxiety is up. No focal abdominal pain. No blood in stool or emesis.. 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 - Infectious Disease History:: Denies. - Social history:: Smoking status: Reported history of juuling and/or vaping. - Family history:: not pertinent. - Hospitalizations: : No recent hospitalization is reported. ROS: 11:18 Constitutional: Negative for fever, chills, and weight loss, Cardiovascular: Negative rn for chest pain, palpitations, and edema, Respiratory: Negative for shortness of breath, cough, wheezing, and pleuritic chest pain, Abdomen/GI: Positive for nausea and vomiting, negative for abdominal pain or blood in stool or emesis MS/Extremity: Negative for injury and deformity, Neuro: Positive for generalized weakness and malaise Exam: 11:18 Constitutional: This is a well developed, well nourished patient who is awake, alert, rn holding emesis bag Cardiovascular: Regular rate and rhythm. No pulse deficits. Respiratory: No increased work of breathing, no retractions or nasal flaring. Abdomen/GI: Soft, non-tender Vital Signs: 11:10 BP 135 / 91; Pulse 88; Resp 17; Temp 97.2; Pulse Ox 100% ; Weight 79.38 kg; Height 5 ll1 ft. 7 in. ; Pain 8/10; 13:11 BP 113 / 71; Pulse 80; Resp 16; Pulse Ox 100% ; kj2 14:15 BP 116 / 82; Pulse 76; Resp 18; Pulse Ox 98% on R/A; kj2 15:33 BP 104 / 69; Pulse 70; Resp 18; Temp 98; Pulse Ox 100% on R/A; kj2 16:34 BP 110 / 72; Pulse 74; Resp 20; Temp 98; Pulse Ox 100% on R/A; kj2 11:10 Body Mass Index 27.41 (79.38 kg, 170.18 cm) ll1 11:10 Pain Scale: Adult ll1 MDM: 11:05 Medical Screening Exam initiated rn 15:27 Differential diagnosis: gastritis, Gastroparesis, cyclical vomiting. Data reviewed: rn vital signs, nurses notes, and as a result, I will discharge patient. Counseling: I had a detailed discussion with the patient and/or guardian regarding the historical points, exam findings, and any diagnostic results supporting the discharge/admit diagnosis, the need for outpatient follow up, to return to the emergency department if symptoms worsen or persist or if there are any questions or concerns that arise at home. Response to treatment: the patient's symptoms have markedly improved after treatment, the patient's symptoms have resolved after treatment, the patient's condition has returned to base line, the patient is now symptom free, and as a result, I will discharge patient. Special discussion: I discussed with the patient/guardian in detail that at this point there is no indication for admission to the hospital. It is understood, however, that if the symptoms persist or worsen the patient needs to return immediately for re-evaluation. Based on the history and exam findings, there is no indication for further emergent testing or inpatient evaluation. I discussed with the patient/guardian the need to see the biomedical engineering technician for further evaluation of the symptoms. I discussed with the patient/guardian the need to see the primary care provider for further evaluation of the symptoms. 16:20 ED course: Patient eating and drinking, tolerating p.o., has not had a single episode rn of emesis since arrival here.. 01/02 11:15 Order name: IV Start; Complete Time: 11:53 ll1 Administered Medications: 11:52 Drug: NS 0.9% IV 1000 ml IV at 1000 ml once; to be given as a bolus over 60 minutes hb Route: IV; Rate: 1000 ml; Site: right forearm; 15:31 Follow up: IV Status: Completed infusion; IV Intake: 1000ml kj2 11:52 Drug: Ativan IVP 1 mg IVP once Route: IVP; Site: right antecubital; hb 15:31 Follow up: Response: No adverse reaction kj2 11:53 Drug: Promethazine IM 12.5 mg IM once Route: IM; Site: Other; hb 15:31 Follow up: Response: No adverse reaction kj2 16:05 Drug: Ondansetron IVP 4 mg IVP once; over 2 minutes Route: IVP; Site: right forearm; kj2 16:33 Follow up: Response: No adverse reaction kj2 Disposition Summary: 01/02/25 15:28 Discharge Ordered Notes: Location: Home rn Problem: an acute exacerbation rn Symptoms: have improved rn Condition: Stable rn Diagnosis - Gastroparesis rn - Cyclical vomiting rn Followup: rn - With: Private Physician - When: As needed - Reason: Recheck today's complaints, Re-evaluation by your physician Discharge Instructions: - Discharge Summary Sheet rn - Nausea and Vomiting, Adult rn - Gastroparesis rn - Cyclic Vomiting Syndrome, Adult rn Forms: - Medication Reconciliation Form rn - 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
[2025-01-02] MEDS ORDERED: ONDANSETRON 4 MG/2 ML VIAL ONE (15:52)
[2025-01-02 17:24] VITALS: TEMP 98; O2SAT 100
[2025-01-02 17:26] VITALS: BP 110/72
== END 2025-01-02 16:57 | disposition home or self-care (01) ==
LOC: ER 11:02
DX: K31.84 Gastroparesis (principal)
CPT/HCPCS: 96372; 99284; J2405; J2550; J7030